=== PATIENT | female | born 1940 | race Caucasian/White ===

== ENCOUNTER → 2016-12-03 | Outpatient (CLI) | payer MEDICARE, OTHER ==
[~2016-12-03] MED LIST: ACET325T11 PO; ACET325T11 PR; BETH25TA3 PO; BISA10R; CEPH500 PO; CLON-352 PO; DILA2TAB4 PO; GABA100C4 PO; GLUC1KIT IM; GLUCTAB PO; LACTTAB7 PO; LISI-360 PO; MILKSUS5 PO; MIRA33502 PO; NADO20TA PO; NEXI40CA PO; NOVORP2; PERC5TAB12 PO; PRAV40TA2 PO; RANI150 PO; RIVA10 PO; ROBIDMS PO; SORB70SO36 PO; SYNT88TA PO; VYTO10TA32 PO; ZOLP10TA3 PO; [UNRECOGNIZED DRUG - CODE] PO
[2016-12-03 15:07] LABS: HEMATOCRIT 37.3 % (35.0-46.0); MEAN CELL VOLUME 78.3 FL (80.0-100.0); MEAN CORPUSCULAR HEMOGLOBIN 24.2 PG (27.0-34.0); PLATELET COUNT 218 TH/MM3 (150-450); RED BLOOD COUNT 4.76 MIL/MM3 (4.00-5.30); RED CELL DISTRIBUTION WIDTH 17.8 % (11.6-17.2); WHITE BLOOD COUNT 6.2 TH/MM3 (4.0-11.0)
[2016-12-03 15:08] LABS: REVIEW FLAG FINAL
[2016-12-03 15:13] LABS: ANION GAP 8 MEQ/L (5-15); AST (GOT) 30 U/L (15-37); BLOOD UREA NITROGEN 18 MG/DL (7-18); CHLORIDE 105 MEQ/L (98-107); GLOMERULAR FILTRATION RATE 60 ML/MIN (>89); GLUCOSE,FASTING 116 MG/DL (74-99); POTASSIUM 4.1 MEQ/L (3.5-5.1); SODIUM (NA) 139 MEQ/L (136-145)
[2016-12-03 15:25] LABS: ALKALINE PHOSPHATASE 79 U/L (45-117); ALT (GPT) 27 U/L (10-53); HDL CHOLESTEROL 37.4 MG/DL (40.0-60.0); LDL CHOLESTEROL 36 MG/DL (0-99); TOTAL BILIRUBIN ADULT 0.5 MG/DL (0.2-1.0)
[2016-12-03 22:15] LABS: HEMOGLOBIN A1a 1.4 %; HEMOGLOBIN A1b 2.3 %; HEMOGLOBIN Ao 82.9 %; HEMOGLOBIN LA1C 2.1 %; HEMOGLOBIN P3 4.2 %
== END ==
LOC: ELAB 12:21
PROVIDERS: ATTEND Family Medicine
DX: E78.4 Other hyperlipidemia (principal); E11.9 Type 2 diabetes mellitus without complications; K31.84 Gastroparesis; I10 Essential (primary) hypertension; E03.9 Hypothyroidism, unspecified
CPT/HCPCS: 36415; 80053; 80061; 83036; 84443; 85027

== ENCOUNTER 2017-02-17 12:37 | Inpatient (IN) | payer MEDICARE, OTHER ==
[2017-02-17] VITALS (7 sets, daily range): BP systolic 164–190; BP diastolic 74–84; PULSE 65–81; RESP 14–24; TEMP 97–98.3; O2SAT 94–99
[~2017-02-17] VITALS: Ht 170.2 cm; Wt 100.8 kg
[2017-02-17] MEDS ORDERED: SODIUM CHLORIDE 0.9% FLUSH 10 ML FLUSH IV FLUSH PRN (13:15)
[2017-02-17] MEDS ORDERED: SODIUM CHLORID 0.9% 500 ML INJ 500 ML IV ONE (13:15)
[2017-02-17] MEDS ORDERED: METOCLOPRAMIDE HCL 10 MG/2 ML VIAL IV PUSH ONE (13:15)
--- NOTE | 2017-02-17 13:20 | PD ---
HPI Chief Complaint: Abdominal Pain Time Seen by Provider: 13:14 Travel History International Travel<30 days: No Contact w/Intl Traveler<30days: No Traveled to known affect area: No History of Present Illness HPI 76-year-old female with history of hypertension, gastroparesis, presents to the ER today because of upper abdominal pains with nausea and vomiting, states she has had a few days history of diarrhea as well. She denies any fevers, sick contacts, denies any other symptoms. She currently rates her abdominal pain at a 7 out of 10. Modifying Factors: None Associated Signs & Symptoms: Nausea, vomiting, upper abdominal pains and diarrhea Risk Factors: History gastroparesis PFSH Past Medical History Arthritis: Yes Autoimmune Disease: No Blood Disorders: No Anxiety: No Depression: No Heart Rhythm Problems: No Cancer: No Cardiovascular Problems: No High Cholesterol: Yes Chest Pain: No Congestive Heart Failure: No Cerebrovascular Accident: No Diabetes: Yes (TYPE II) Diminished Hearing: No Endocrine: Yes Gastrointestinal Disorders: Yes (HX OF GERD) GERD: Yes Genitourinary: Yes (HX OF KIDNEY STONES, INCONTINENCE) Headaches: No Hepatitis: No Hiatal Hernia: No Hypertension: Yes Immune Disorder: No Implanted Vascular Access Dvce: Yes Kidney Stones: Yes (STENT PLACEMENT AUG 24 2011) Musculoskeletal: Yes (OSTEOARTHRITIS, NECK PROBLEMS) Neurologic: Yes (R HAND NUMBNESS AND TINGLING, NEUROPATHY IN FEET) Reproductive: No Respiratory: Yes (RIGHT UPPER LOBE REMOVED, BENIGN MASS) Immunizations Current: No Migraines: Yes Renal Failure: No Seizures: No Thyroid Disease: Yes (HYPO) Ulcer: No PNEUMOCCOCAL Vaccine (Year): 1 Menopausal: Yes : 2 Para: 0 : 2 Past Surgical History Abdominal Surgery: Yes (LAP CHOLECYSTECTOMY, APPENDECTION) AICD: No Appendectomy: Yes Arteriovenous Shunt: No Body Medical Devices: NECK AND LOWER BACK Cardiac Surgery: No Cholecystectomy: Yes Ear Surgery: No Endocrine Surgery: Yes (THYROIDECTOMY R SIDE) Eye Surgery: Yes Genitourinary Surgery: Yes (RIGHT CYSTO, URETERAL STENT, ABDOMINAL URETEROTOMY 1963) Gynecologic Surgery: Yes (HYSTERECTOMY, R OVARIAN SURGERY) Hysterectomy: Yes Insulin Pump: No Joint Replacement: Yes (R TOTAL KNEE, TOTAL R HIP) Neurologic Surgery: Yes (ANTERIOR CERVICAL FUSION ' AND 2007 LUMBAR FUSION, 2008 CERVICAL FUSION) Oral Surgery: No Pacemaker: No Thoracic Surgery: Yes (RIGHT UPPER LOBECTOMY-LUNG) Tonsillectomy: Yes Other Surgery: Yes (RIGHT UPPER LOBE LUNG SUREGRY) Social History Alcohol Use: No Tobacco Use: No Substance Use: No Allergies-Medications (Allergen,Severity, Reaction): Coded Allergies: Codeine (Verified Allergy, Severe, 02/17/17) NAUSEA Penicillin (Verified Allergy, Severe, Rash, 02/17/17) Sulfa (Verified Allergy, Severe, Hives, 02/17/17) Tetracycline (Verified Allergy, Severe, RASH, 02/17/17) Reported Meds & Prescriptions Reported Meds & Active Scripts Active Reported Tramadol Hydrochloride (Tramadol HCl) 50 Mg Tab 100 Mg PO Q6HR PRN Synthroid (Levothyroxine Sodium) 88 Mcg Tab 88 Mcg PO DAILY Miralax (Polyethylene Glycol 3350) 17 Gm Powd.pack 17 Gm PO DAILY Percocet (Oxycodone-Acetaminophen) 5-325 mg Tab 1-2 Tab PO Q4H PRN Nadolol 20 Mg Tab 20 Mg PO BID Metformin ER (Metformin HCl) 500 Mg Naty 500 Mg PO BID With evening meal Lantus Inj (Insulin Glargine) 1,000 Unit/10 Ml Vial 25 Units SQ HS Lisinopril 10 Mg Tab 10 Mg PO BID Symax Duotab (Hyoscyamine Sulfate) 0.375 Mg Tab 0.375 Mg PO Q12HR PRN Gabapentin 300 Mg Cap 300 Mg PO TID Vytorin (Ezetimibe-Simvastatin) 10-20 Mg Tab 1 Tab PO HS Omeprazole 20 Mg Tab 20 Mg PO DAILY Clonidine (Clonidine HCl) 0.1 Mg Tab 0.1 Mg PO BID Bethanechol 25 Mg Tab 25 Mg PO QID Review of Systems Except as stated in HPI: all other systems reviewed are Neg Physical Exam Narrative GENERAL: Well-developed elderly white female patient currently in moderate distress. Holding a bag of greenish vomitus with her. Awake and oriented 3. SKIN: Focused skin assessment warm/dry. HEAD: Atraumatic. Normocephalic. EYES: Pupils equal and round. No scleral icterus. No injection or drainage. ENT: No nasal bleeding or discharge. Mucous membranes pink and moist. NECK: Trachea midline. No JVD. CARDIOVASCULAR: Regular rate and rhythm. No murmur appreciated. RESPIRATORY: No accessory muscle use. Clear to auscultation. Breath sounds equal bilaterally. GASTROINTESTINAL: Abdomen soft, mild epigastric tenderness without guarding or rebound, nondistended. Hepatic and splenic margins not palpable. MUSCULOSKELETAL: No obvious deformities. No clubbing. No cyanosis. No edema. NEUROLOGICAL: Awake and alert. No obvious cranial nerve deficits. Motor grossly within normal limits. Normal speech. PSYCHIATRIC: Appropriate mood and affect; insight and judgment normal. Data Data Last Documented VS Vital Signs Date Time Temp Pulse Resp B/P Pulse Ox O2 Delivery O2 Flow Rate FiO2 02/17/17 15:00 74 14 183/79 94 Room Air 02/17/17 13:34 98.3 Orders Complete Blood Count With Diff (02/17/17 13:14) Comprehensive Metabolic Panel (02/17/17 13:14) Lipase (02/17/17 13:14) Urinalysis - C+S If Indicated (02/17/17 13:14) Abdomen, Flat & Upright (02/17/17 ) Iv Access Insert/Monitor (02/17/17 13:14) Ecg Monitoring (02/17/17 13:14) Oximetry (02/17/17 13:14) Sodium Chloride 0.9% Flush (Ns Flush) (02/17/17 13:15) Electrocardiogram (02/17/17 13:14) Metoclopramide Inj (Reglan Inj) (02/17/17 13:15) Sodium Chlorid 0.9% 500 Ml Inj (Ns 500 M (02/17/17 13:15) Urine Culture (02/17/17 13:40) Cefepime Inj (Maxipime Inj) (02/17/17 15:56) Blood Culture (02/17/17 15:56) Lactic Acid Sepsis Protocol (02/17/17 15:56) Labs Laboratory Tests Test 02/17/17 02/17/17 13:30 13:40 White Blood Count 13.0 TH/MM3 Red Blood Count 5.32 MIL/MM3 Hemoglobin 13.2 GM/DL Hematocrit 42.0 % Mean Corpuscular Volume 79.1 FL Mean Corpuscular Hemoglobin 24.8 PG Mean Corpuscular Hemoglobin 31.4 % Concent Red Cell Distribution Width 16.0 % Platelet Count 277 TH/MM3 Mean Platelet Volume 10.7 FL Neutrophils (%) (Auto) 83.6 % Lymphocytes (%) (Auto) 10.0 % Monocytes (%) (Auto) 4.8 % Eosinophils (%) (Auto) 0.9 % Basophils (%) (Auto) 0.7 % Neutrophils # (Auto) 10.9 TH/MM3 Lymphocytes # (Auto) 1.3 TH/MM3 Monocytes # (Auto) 0.6 TH/MM3 Eosinophils # (Auto) 0.1 TH/MM3 Basophils # (Auto) 0.1 TH/MM3 CBC Comment DIFF FINAL Differential Comment Sodium Level 138 MEQ/L Potassium Level 4.1 MEQ/L Chloride Level 103 MEQ/L Carbon Dioxide Level 24.0 MEQ/L Anion Gap 11 MEQ/L Blood Urea Nitrogen 17 MG/DL Creatinine 0.81 MG/DL Estimat Glomerular Filtration 69 ML/MIN Rate Random Glucose 138 MG/DL Calcium Level 8.9 MG/DL Total Bilirubin 0.4 MG/DL Aspartate Amino Transf 31 U/L (AST/SGOT) Alanine Aminotransferase 23 U/L (ALT/SGPT) Alkaline Phosphatase 80 U/L Total Protein 8.1 GM/DL Albumin 3.7 GM/DL Lipase 144 U/L Urine Color YELLOW Urine Turbidity HAZY Urine pH 5.5 Urine Specific [place] 1.023 Urine Protein 30 mg/dL Urine Glucose (UA) NEG mg/dL Urine Ketones TRACE mg/dL Urine Occult Blood SMALL Urine Nitrite POS Urine Bilirubin NEG Urine Urobilinogen LESS THAN 2.0 MG/DL Urine Leukocyte Esterase MOD Urine RBC 5 /hpf Urine WBC 11 /hpf Urine Squamous Epithelial 1 /hpf Cells Urine Bacteria MANY /hpf Urine Hyaline Casts 5 /lpf Urine Mucus FEW /lpf Microscopic Urinalysis Comment CULTURE INDICATED MDM Medical Decision Making Medical Screen Exam Complete: Yes Emergency Medical Condition: Yes Medical Record Reviewed: Yes Interpretation(s) Laboratory Tests Test 02/17/17 02/17/17 13:30 13:40 White Blood Count 13.0 TH/MM3 (4.0-11.0) Red Blood Count 5.32 MIL/MM3 (4.00-5.30) Mean Corpuscular Volume 79.1 FL (80.0-100.0) Mean Corpuscular Hemoglobin 24.8 PG (27.0-34.0) Mean Corpuscular Hemoglobin 31.4 % Concent (32.0-36.0) Neutrophils (%) (Auto) 83.6 % (16.0-70.0) Neutrophils # (Auto) 10.9 TH/MM3 (1.8-7.7) Estimat Glomerular Filtration 69 ML/MIN (>89) Rate Random Glucose 138 MG/DL (74-106) Urine Turbidity HAZY (CLEAR) Urine Protein 30 mg/dL (NEG-TRACE) Urine Ketones TRACE mg/dL (NEG) Urine Occult Blood SMALL (NEG) Urine Nitrite POS (NEG) Urine Leukocyte Esterase MOD (NEG) Urine RBC 5 /hpf (0-3) Urine WBC 11 /hpf (0-5) Urine Bacteria MANY /hpf (NONE) Urine Mucus FEW /lpf (OCC) Differential Diagnosis Nausea, vomiting, diarrheagastroenteritis versus gastroparesis versus obstruction versus dehydration versus metabolic issues Narrative Course Lab work significant for leukocytosis and UTI. IV antibiotics started after cultures are done. Patient's x-ray did not show obvious signs of acute obstruction. Her abdomen is fairly benign. She had improvement in nausea and vomiting after given IV fluids and nausea medication. At this point, patient states that she had tried to take her own antinausea medication from the last time she had this episode and it did not improve her symptoms: Body. My plan would be to admit her as an observation for further treatment. Case was discussed with Dr. Cox for admission. Diagnosis Primary Impression: Gastroparesis Additional Impression: UTI (urinary tract infection) Admitting Information Admitting Physician Requests: Admit Gene Weaver MD Feb 17, 2017 13:20
[2017-02-17 13:59] LABS: AUTOMATED NEUTROPHIL # 10.9 TH/MM3 (1.8-7.7); BASOPHIL # 0.1 TH/MM3 (0-0.2); BASOPHIL % 0.7 % (0.0-2.0); EOSINOPHIL # 0.1 TH/MM3 (0-0.4); EOSINOPHIL % 0.9 % (0.0-4.0); HEMO FLAGS DIFF FINAL; LYMPHOCYTE # 1.3 TH/MM3 (1.0-4.8); MEAN CELL VOLUME 79.1 FL (80.0-100.0); MEAN CORPUSCULAR HEMOGLOBIN 24.8 PG (27.0-34.0); MEAN CORPUSCULAR HGB CONC 31.4 % (32.0-36.0); MONO % 4.8 % (0.0-8.0); NEUT % 83.6 % (16.0-70.0); PLATELET COUNT 277 TH/MM3 (150-450); RED BLOOD COUNT 5.32 MIL/MM3 (4.00-5.30)
[2017-02-17 14:06] LABS: BACTERIA, URINE MANY /hpf; BLOOD, URINE SMALL (NEG); COMMENT (UR) CULTURE INDICATED; CULTURE IF INDICATED CULTURE INDICATED; GLUCOSE,URINE NEG (NEG); HYALINE CAST, URINE 5 /lpf (RARE); KETONE, URINE TRACE mg/dL (NEG); MUCUS URINE FEW /lpf (OCC); PH, URINE 5.5 (5.0-8.5); SQUAMOUS EPITHELIAL CELL URINE 1 /hpf (0-5); URINE COLOR YELLOW (YELLW/STRAW)
[2017-02-17 14:07] LABS: NITRITE,URINE POS (NEG)
[2017-02-17 14:21] LABS: ALT (GPT) 23 U/L (10-53)
[2017-02-17 14:22] LABS: ANION GAP 11 MEQ/L (5-15); AST (GOT) 31 U/L (15-37); BLOOD UREA NITROGEN 17 MG/DL (7-18); CHLORIDE 103 MEQ/L (98-107); GLOMERULAR FILTRATION RATE 69 ML/MIN (>89); POTASSIUM 4.1 MEQ/L (3.5-5.1); SODIUM (NA) 138 MEQ/L (136-145)
[2017-02-17 14:24] LABS: ALKALINE PHOSPHATASE 80 U/L (45-117); TOTAL BILIRUBIN ADULT 0.4 MG/DL (0.2-1.0)
[2017-02-17] MEDS ORDERED: SYMATAB PO (14:36)
[2017-02-17] MEDS ORDERED: CLON0.1T PO (14:36)
[2017-02-17] MEDS ORDERED: VYTO10TA8 PO (14:36)
[2017-02-17] MEDS ORDERED: OMEP20TA PO (14:36)
[2017-02-17] MEDS ORDERED: GABA300C5 PO (14:36)
[2017-02-17] MEDS ORDERED: BETH25TA2 PO (14:36)
[2017-02-17] MEDS ORDERED: LISI10TA3 PO (14:36)
[2017-02-17] MEDS ORDERED: METF500T4 PO (14:55)
[2017-02-17] MEDS ORDERED: LANTUS2P SQ (14:55)
[2017-02-17] MEDS ORDERED: TRAM-492 PO (14:55)
[2017-02-17] MEDS ORDERED: POLY17PO3 PO (14:55)
[2017-02-17] MEDS ORDERED: SYNT88TA PO (14:55)
[2017-02-17] MEDS ORDERED: PERC5TAB12 PO (14:55)
[2017-02-17] MEDS ORDERED: NADO20TA PO (14:55)
[2017-02-17] MEDS ORDERED: CEFEPIME INJ 2,000 MG in SODIUM CHLORIDE 0.9% INJ 100 ML IV STA (15:56)
--- NOTE | 2017-02-17 16:26 | HHI.HP ---
HPI Service [facility] Primary Care Physician Non-Staff Admission Diagnosis UTI/sepsis/gastroparesis Diagnoses: Travel History International Travel<30 Days: No Contact w/Intl Traveler <30 Da: No Traveled to Known Affected Are: No Sepsis Criteria SIRS Criteria (2 or more): Heart rate over 90, WBC > 12853, < 4000 or > 10% bands Sepsis Criteria (SIRS+source): Infect source susp/known Criteria Outcome: Meets sepsis criteria History of Present Illness 76-year-old female with a history of diabetes type 2 hypertension, presented to the ED for evaluation of 1 day history of nausea along with 2 episode of emesis prior to arrival in the ED. Patient reports 4 day history of diarrhea which resolved before the onset of nausea yesterday. This follows was follow by epigastric abdominal pain then nausea all night long not relief initially with Percocet however relief with tramadol as well as anti-emetic. Patient also reported abdominal pain rated 7/10 in intensity described as sharp and mostly located to the mid epigastric region. She denies any sick contact. Abnormal labs include WBC 13 and UA positive for nitrate. Although patient has a history of incontinence, she denies any dysuria all urinary frequency. She is also afebrile Patient denies any GI bleed and reports a known history of gastroparesis Review of Systems Except as stated in HPI: all other systems reviewed are Neg Past Family Social History Past Medical History Arthritis: Yes High Cholesterol: Yes Diabetes: Yes (TYPE II) Gastrointestinal Disorders: Yes (HX OF GERD) GERD: Yes Genitourinary: Yes (HX OF KIDNEY STONES, INCONTINENCE) Hypertension: Yes Implanted Vascular Access Dvce: Yes Kidney Stones: Yes (STENT PLACEMENT AUG 24 2011) Musculoskeletal: Yes (OSTEOARTHRITIS, NECK PROBLEMS) Neurologic: Yes (R HAND NUMBNESS AND TINGLING, NEUROPATHY IN FEET) Respiratory: Yes (RIGHT UPPER LOBE REMOVED, BENIGN MASS) Thyroid Disease: Yes (HYPO) Past Surgical History Abdominal Surgery: Yes (LAP CHOLECYSTECTOMY, APPENDECTION) Appendectomy: Yes Body Medical Devices: NECK AND LOWER BACK Cholecystectomy: Yes Endocrine Surgery: Yes (THYROIDECTOMY R SIDE) Eye Surgery: Yes Genitourinary Surgery: Yes (RIGHT CYSTO, URETERAL STENT, ABDOMINAL URETEROTOMY 1963) Gynecologic Surgery: Yes (HYSTERECTOMY, R OVARIAN SURGERY) Hysterectomy: Yes Joint Replacement: Yes (R TOTAL KNEE, TOTAL R HIP) Neurologic Surgery: Yes (ANTERIOR CERVICAL FUSION 96' AND 2007 LUMBAR FUSION, 2008 CERVICAL FUSION) Thoracic Surgery: Yes (RIGHT UPPER LOBECTOMY-LUNG) Tonsillectomy: Yes Other Surgery: Yes (RIGHT UPPER LOBE LUNG SUREGRY) Reported Medications Tramadol Hydrochloride (Tramadol HCl) 50 Mg Tab 100 Mg PO Q6HR PRN Synthroid (Levothyroxine Sodium) 88 Mcg Tab 88 Mcg PO DAILY Miralax (Polyethylene Glycol 3350) 17 Gm Powd.pack 17 Gm PO DAILY Percocet (Oxycodone-Acetaminophen) 5-325 mg Tab 1-2 Tab PO Q4H PRN Nadolol 20 Mg Tab 20 Mg PO BID Metformin ER (Metformin HCl) 500 Mg Naty 500 Mg PO BID With evening meal Lantus Inj (Insulin Glargine) 1,000 Unit/10 Ml Vial 25 Units SQ HS Lisinopril 10 Mg Tab 10 Mg PO BID Symax Duotab (Hyoscyamine Sulfate) 0.375 Mg Tab 0.375 Mg PO Q12HR PRN Gabapentin 300 Mg Cap 300 Mg PO TID Vytorin (Ezetimibe-Simvastatin) 10-20 Mg Tab 1 Tab PO HS Omeprazole 20 Mg Tab 20 Mg PO DAILY Clonidine (Clonidine HCl) 0.1 Mg Tab 0.1 Mg PO BID Bethanechol 25 Mg Tab 25 Mg PO QID Allergies: Coded Allergies: Codeine (Verified Allergy, Severe, 02/17/17) NAUSEA Penicillin (Verified Allergy, Severe, Rash, 02/17/17) Sulfa (Verified Allergy, Severe, Hives, 02/17/17) Tetracycline (Verified Allergy, Severe, RASH, 02/17/17) Family History Family history positive for hypertension and congestive heart failure. Social History Alcohol Use: No Tobacco Use: No Substance Use: No Physical Exam Vital Signs Vital Signs Date Time Temp Pulse Resp B/P Pulse Ox O2 Delivery O2 Flow Rate FiO2 02/17/17 15:00 74 14 183/79 94 Room Air 02/17/17 14:30 72 14 164/76 94 Room Air 02/17/17 14:00 70 14 172/74 94 Room Air 02/17/17 13:34 98.3 96 Room Air 02/17/17 13:22 65 24 190/82 98 Room Air Physical Exam GENERAL: This is a well-nourished, well-developed patient, in no apparent distress. SKIN: No rashes, ecchymoses or lesions. Cool and dry. HEAD: Atraumatic. Normocephalic. No temporal or scalp tenderness. EYES: Pupils equal round and reactive. Extraocular motions intact. No scleral icterus. No injection or drainage. ENT: Nose without bleeding, purulent drainage or septal hematoma. Throat without erythema, tonsillar hypertrophy or exudate. Uvula midline. Airway patent. NECK: Trachea midline. No JVD or lymphadenopathy. Supple, nontender, no meningeal signs. CARDIOVASCULAR: Regular rate and rhythm without murmurs, gallops, or rubs. RESPIRATORY: Clear to auscultation. Breath sounds equal bilaterally. No wheezes , rales, or rhonchi. GASTROINTESTINAL: Abdomen soft, non-tender, nondistended. No hepato-splenomegaly , or palpable masses. No guarding. MUSCULOSKELETAL: Extremities without clubbing, cyanosis, or edema. No joint tenderness, effusion, or edema noted. No calf tenderness. Negative Homans sign bilaterally. NEUROLOGICAL: Awake and alert. Cranial nerves II through XII intact. Motor and sensory grossly within normal limits. Five out of 5 muscle strength in all muscle groups. Normal speech. Laboratory Laboratory Tests Test 02/17/17 02/17/17 13:30 13:40 White Blood Count 13.0 Red Blood Count 5.32 Hemoglobin 13.2 Hematocrit 42.0 Mean Corpuscular Volume 79.1 Mean Corpuscular Hemoglobin 24.8 Mean Corpuscular Hemoglobin 31.4 Concent Red Cell Distribution Width 16.0 Platelet Count 277 Mean Platelet Volume 10.7 Neutrophils (%) (Auto) 83.6 Lymphocytes (%) (Auto) 10.0 Monocytes (%) (Auto) 4.8 Eosinophils (%) (Auto) 0.9 Basophils (%) (Auto) 0.7 Neutrophils # (Auto) 10.9 Lymphocytes # (Auto) 1.3 Monocytes # (Auto) 0.6 Eosinophils # (Auto) 0.1 Basophils # (Auto) 0.1 CBC Comment DIFF FINAL Differential Comment Sodium Level 138 Potassium Level 4.1 Chloride Level 103 Carbon Dioxide Level 24.0 Anion Gap 11 Blood Urea Nitrogen 17 Creatinine 0.81 Estimat Glomerular Filtration 69 Rate Random Glucose 138 Calcium Level 8.9 Total Bilirubin 0.4 Aspartate Amino Transf 31 (AST/SGOT) Alanine Aminotransferase 23 (ALT/SGPT) Alkaline Phosphatase 80 Total Protein 8.1 Albumin 3.7 Lipase 144 Urine Color YELLOW Urine Turbidity HAZY Urine pH 5.5 Urine Specific [place] 1.023 Urine Protein 30 Urine Glucose (UA) NEG Urine Ketones TRACE Urine Occult Blood SMALL Urine Nitrite POS Urine Bilirubin NEG Urine Urobilinogen LESS THAN 2.0 Urine Leukocyte Esterase MOD Urine RBC 5 Urine WBC 11 Urine Squamous Epithelial 1 Cells Urine Bacteria MANY Urine Hyaline Casts 5 Urine Mucus FEW Microscopic Urinalysis Comment CULTURE INDICATED Date/Time Procedure Status Source Growth 02/17/17 13:40 Urine Culture Received Urine Random Urine Pending Result Diagram: 02/17/17 1330 02/17/170 Assessment and Plan Problem List: (1) Gastroparesis ICD Code: K31.84 Status: Acute (2) UTI (urinary tract infection) ICD Code: N39.0 Status: Acute (3) Sepsis ICD Code: A41.9 Status: Acute Assessment and Plan 76-year-old female with Sepsis:Heart rate over 90, WBC > 41904, < 4000 or > 10% bands; Infect source susp/known(UTI) Status post cefepime IV 1, start Cipro 400 mg IV every 12 hours and check lactic acid Intractable nausea and vomiting Gastroparesis Lipase 144 Antiemetic, Reglan, IV fluid hydration Urinary tract infection Status post cefepime IV 1 in ED Start Cipro 400 mg IV every 12 hour pending urine culture Leukocytosis Likely secondary to above infectious process, monitor CBC Benign labile hypertension Resume outpatient medications Vasotec when necessary Diabetes type 2 Hold all oral hypoglycemic as well as basilar insulins Start medium sliding scale with fingerstick blood glucose Hyperlipidemia Resume statin Hypothyroidism Resume Synthroid DVT prophylaxis Bilateral SCDs Code Status Full code Discussed Condition With Patient, ED physician Physician Certification 2 Midnight Certification Type: Admission for Inpatient Services Order for Inpatient Services The services are ordered in accordance with Medicare regulations or non- Medicare payer requirements, as applicable. In the case of services not specified as inpatient-only, they are appropriately provided as inpatient services in accordance with the 2-midnight benchmark. Estimated LOS (days): 2 days is the estimated time the patient will need to remain in the hospital, assuming treatment plan goals are met and no additional complications. Post-Hospital Plan: Not yet determined Darron Singer MD Feb 17, 2017 16:26
[2017-02-17] MEDS ORDERED: ACETAMINOPHEN 325 MG TAB PO PRN (16:30)
[2017-02-17] MEDS ORDERED: NALOXONE HCL 0.4 MG/ML AMP IV PRN (16:30)
[2017-02-17] MEDS ORDERED: GLUCAGON 1 MG/ML VIAL OTHER PRN (16:30)
[2017-02-17] MEDS ORDERED: DEXTROSE 50% IN WATER 50 ML VIAL(D50) IV PRN (16:30)
--- NOTE | 2017-02-17 17:05 | RADRPT ---
EXAM DATE/TIME: 02/17/2017 14:38 [facility] COMPARISON: No previous studies available for comparison. INDICATIONS : Vomiting, diarrhea. MEDICAL HISTORY : gastroparesis x 6 years. SURGICAL HISTORY : None. ENCOUNTER: Initial ACUITY: 1 day PAIN SCORE: 6/10 LOCATION: Bilateral abdomen FINDINGS: There are prominent loops of small bowel in the midportion of the abdomen slightly organized with max imum diameter of 3.6 cm. There is evidence for prior cholecystectomy. mixed interstitial and alveolar process CONCLUSION: Possible ileus, however early partial obstruction is not excluded and follow up is suggested. Herbert Ireland MD on February 17, 2017 at 16:59 Board Certified Radiologist. This report was verified electronically.
[2017-02-17] MEDS: SODIUM CHLOR 0.9% 1000 ML INJ 1,000 ML IV SCH (17:56)
[2017-02-17] MEDS: BETHANECHOL CHL 25 MG TAB PO SCH ×2 (18:00→20:00)
[2017-02-17] MEDS: GABAPENTIN 300 MG CAP PO SCH (18:00)
[2017-02-17] MEDS: ONDANSETRON HCL 4 MG/2 ML VIAL IVP PRN (18:01)
[2017-02-17] MEDS: PRAVASTATIN SOD 40 MG TAB PO SCH (20:00)
[2017-02-17] MEDS: LACTOBACILLUS ACIDOPHILUS TAB PO SCH (20:00)
[2017-02-17] MEDS: LISINOPRIL 10 MG TAB PO SCH (20:00)
[2017-02-17] MEDS: METOCLOPRAMIDE HCL 10 MG TAB PO SCH (20:00)
[2017-02-17] MEDS: EZETIMIBE 10 MG TAB PO SCH (20:00)
[2017-02-17] MEDS: cloNIDine HCL 0.1 MG TAB PO SCH (20:01)
[2017-02-17] MEDS: SODIUM CHLORIDE 0.9% FLUSH 10 ML FLUSH IV FLUSH SCH (20:01)
[2017-02-17] MEDS: CIPROFLOXACIN 400 MG PREMIX 200 ML IV SCH (20:02)
[2017-02-17] MEDS: INSULIN ASPART SUPPLEMENTAL SCALE SQ SCH (20:25)
[2017-02-17] MEDS: NADOLOL 20 MG TAB PO SCH (22:42)
[2017-02-17] MEDS ORDERED: traMADol HCL 50 MG TAB PO ONE (23:00)
[2017-02-18] VITALS (12 sets, daily range): BP systolic 105–193; BP diastolic 55–122; PULSE 67–88; RESP 14–22; TEMP 96–99.8; O2SAT 93–98
[2017-02-18] MEDS: ONDANSETRON HCL 4 MG/2 ML VIAL IVP PRN ×4 (00:36→18:47)
[2017-02-18] MEDS: ENALAPRILAT 2.5 MG/2 ML VIAL IV PUSH PRN ×2 (00:44→06:43)
[2017-02-18] MEDS: METOCLOPRAMIDE HCL 10 MG TAB PO SCH ×4 (05:52→19:53)
[2017-02-18] MEDS: LEVOTHYROXINE SODIUM 88 MCG TAB PO SCH (05:52)
[2017-02-18] MEDS: SODIUM CHLOR 0.9% 1000 ML INJ 1,000 ML IV SCH (05:58)
[2017-02-18] MEDS: INSULIN ASPART SUPPLEMENTAL SCALE SQ SCH ×4 (06:13→20:01)
[2017-02-18] MEDS: CIPROFLOXACIN 400 MG PREMIX 200 ML IV SCH ×2 (09:05→19:53)
[2017-02-18] MEDS: PANTOPRAZOLE SOD 20 MG DELAYED RELEASE TAB PO SCH (09:07)
[2017-02-18] MEDS: LACTOBACILLUS ACIDOPHILUS TAB PO SCH ×2 (09:07→19:53)
[2017-02-18] MEDS: cloNIDine HCL 0.1 MG TAB PO SCH ×2 (09:08→19:54)
[2017-02-18] MEDS: LISINOPRIL 10 MG TAB PO SCH ×2 (09:08→19:54)
[2017-02-18] MEDS: GABAPENTIN 300 MG CAP PO SCH ×3 (09:08→18:00)
[2017-02-18] MEDS: NADOLOL 20 MG TAB PO SCH ×2 (09:08→19:54)
[2017-02-18] MEDS: BETHANECHOL CHL 25 MG TAB PO SCH ×4 (09:08→19:54)
[2017-02-18] MEDS: SODIUM CHLORIDE 0.9% FLUSH 10 ML FLUSH IV FLUSH SCH ×2 (09:12→19:54)
--- NOTE | 2017-02-18 09:49 | HHI.PR ---
Subjective Remarks Follow-up sepsis/UTI/gastroparesis 02/18/17-patient seen and examined, although she reported improvement of nausea and vomiting this a.m. however states she had symptoms until 3 AM. He also complained of back pain. BP slightly up. Patient would like to be placed on a clear liquid diet Objective Vitals Vital Signs Date Time Temp Pulse Resp B/P Pulse Ox O2 Delivery O2 Flow Rate FiO2 02/18/17 09:20 78 02/18/17 08:00 98.3 88 22 168/92 95 02/18/17 06:38 193/86 02/18/17 04:00 99.1 82 18 191/91 94 02/18/17 01:15 99.3 80 16 143/76 94 02/18/17 00:46 99.2 77 18 192/122 94 02/18/17 00:00 98.2 81 16 170/75 93 02/17/17 20:00 98.2 79 16 178/78 98 02/17/17 18:56 97.0 81 20 176/84 99 02/17/17 15:00 74 14 183/79 94 Room Air 02/17/17 14:30 72 14 164/76 94 Room Air 02/17/17 14:00 70 14 172/74 94 Room Air 02/17/17 13:34 98.3 96 Room Air 02/17/17 13:22 65 24 190/82 98 Room Air I/O 02/17/17 02/17/17 02/17/17 02/18/17 02/18/17 02/18/17 07:00 15:00 23:00 07:00 15:00 23:00 Intake Total 500 ml 710 ml 560 ml Output Total 200 ml Balance 300 ml 710 ml 560 ml Intake Oral 150 ml 0 ml IV Total 500 ml 560 ml 560 ml Output Emesis 200 ml # Voids 1 0 2 # Bowel Movements 0 0 Result Diagram: 02/17/17 1330 02/17/17 1330 Imaging Last Impressions Abdomen X-Ray 02/17/17 0000 Signed Impressions: Service Date/Time: Friday, February 17, 2017 14:38 - CONCLUSION: Possible ileus , however early partial obstruction is not excluded and follow up is suggested. Herbert Ireladn MD Objective Remarks GENERAL: NAD SKIN: Warm and dry. HEAD: Normocephalic. EYES: No scleral icterus. No injection or drainage. NECK: Supple, trachea midline. No JVD or lymphadenopathy. CARDIOVASCULAR: Regular rate and rhythm without murmurs, gallops, or rubs. RESPIRATORY: Breath sounds equal bilaterally. No accessory muscle use. GASTROINTESTINAL: Abdomen soft, mildly tender, nondistended. MUSCULOSKELETAL: No cyanosis, or edema. BACK: Nontender without obvious deformity. No CVA tenderness. A/P Problem List: (1) Gastroparesis ICD Code: K31.84 Status: Acute (2) UTI (urinary tract infection) ICD Code: N39.0 Status: Acute (3) Sepsis ICD Code: A41.9 Status: Acute Assessment and Plan 76-year-old female with Sepsis:Heart rate over 90, WBC > 25606, < 4000 or > 10% bands; Infect source susp/known(UTI) Status post cefepime IV 1, continue Cipro 400 mg IV every 12 hours and check lactic acid Intractable nausea and vomiting-improving Gastroparesis Lipase 144 Continue Antiemetic, Reglan, IV fluid hydration Questionable Ileus Check flat and upright this a.m. Consider NG tube if emesis Urinary tract infection Status post cefepime IV 1 in ED Continue Cipro 400 mg IV every 12 hour pending urine culture Leukocytosis Likely secondary to above infectious process, monitor CBC Benign labile hypertension Continue outpatient medications Vasotec when necessary Diabetes type 2 Hold all oral hypoglycemic as well as basal insulins medium sliding scale with fingerstick blood glucose Hyperlipidemia statin Hypothyroidism Continue Synthroid DVT prophylaxis Bilateral SCDs Darron Singer MD Feb 18, 2017 09:49
--- NOTE | 2017-02-18 11:26 | RADRPT ---
EXAM DATE/TIME: 02/18/2017 10:32 [facility] COMPARISON: ABDOMEN FLAT & UPRIGHT, February 17, 2017, 14:38. INDICATIONS : Ileus. MEDICAL HISTORY : gastroparesis x 6 years. SURGICAL HISTORY : ENCOUNTER: Subsequent ACUITY: 2 days PAIN SCORE: 3/10 LOCATION: Bilateral Abdomen. FINDINGS: There is persistent distended loops of small bowel in the midportion of the abdomen which are now org anized with maximum diameter of 3.5 cm. Gas and stool is present throughout the colon. There is evide nce for prior cholecystectomy. No definite free air is identified for technique. CONCLUSION: The size of the dilated small bowel has not changed, however they are more organized and partial smal l bowel obstruction may be present. Herbert Ireland MD on February 18, 2017 at 11:24 Board Certified Radiologist. This report was verified electronically.
[2017-02-18] MEDS: oxyCODONE/ACETAMINOPHEN 5 MG/325 MG TAB PO PRN ×2 (12:25→18:46)
--- NOTE | 2017-02-18 17:01 | EKG ---
Date Performed: 02/17/2017 Time Performed: 13:35:54 PTAGE: 76 years EKG: Sinus rhythm MARKED LEFT AXIS DEVIATION MODERATE VOLTAGE CRITERIA FOR LVH, CONSIDER NORMAL VARIANT ABNORMAL ECG PREVIOUS TRACING : 12/02/2012 02.49 Compared to prior tracing no significant change DOCTOR: Fantasma Quinteros Interpretating Date/Time 02/18/2017 17:00:40
[2017-02-18 17:10] LABS: AUTOMATED NEUTROPHIL # 8.5 TH/MM3 (1.8-7.7); BASOPHIL # 0.1 TH/MM3 (0-0.2); BASOPHIL % 0.7 % (0.0-2.0); EOSINOPHIL # 0.1 TH/MM3 (0-0.4); EOSINOPHIL % 0.6 % (0.0-4.0); HEMATOCRIT 38.4 % (35.0-46.0); HEMO FLAGS DIFF FINAL; LYMPH % 16.4 % (9.0-44.0); LYMPHOCYTE # 1.9 TH/MM3 (1.0-4.8); MEAN CELL VOLUME 77.7 FL (80.0-100.0); MEAN CORPUSCULAR HEMOGLOBIN 24.8 PG (27.0-34.0); MEAN CORPUSCULAR HGB CONC 31.9 % (32.0-36.0); MONO % 9.6 % (0.0-8.0); NEUT % 72.7 % (16.0-70.0); PLATELET COUNT 267 TH/MM3 (150-450); RED BLOOD COUNT 4.94 MIL/MM3 (4.00-5.30); RED CELL DISTRIBUTION WIDTH 15.8 % (11.6-17.2); WHITE BLOOD COUNT 11.7 TH/MM3 (4.0-11.0)
[2017-02-18 17:54] LABS: ALKALINE PHOSPHATASE 73 U/L (45-117); ALT (GPT) 22 U/L (10-53); ANION GAP 11 MEQ/L (5-15); AST (GOT) 27 U/L (15-37); BICARBONATE 27.1 MEQ/L (21.0-32.0); BLOOD UREA NITROGEN 11 MG/DL (7-18); CHLORIDE 100 MEQ/L (98-107); GLOMERULAR FILTRATION RATE 63 ML/MIN (>89); POTASSIUM 3.2 MEQ/L (3.5-5.1); SODIUM (NA) 138 MEQ/L (136-145); TOTAL BILIRUBIN ADULT 0.4 MG/DL (0.2-1.0)
[2017-02-18] MEDS: EZETIMIBE 10 MG TAB PO SCH (19:53)
[2017-02-18] MEDS: PRAVASTATIN SOD 40 MG TAB PO SCH (19:53)
[2017-02-19] VITALS (9 sets, daily range): BP systolic 110–165; BP diastolic 51–71; PULSE 60–88; RESP 16–18; TEMP 96.8–98.6; O2SAT 93–98
[2017-02-19] MEDS: ONDANSETRON HCL 4 MG/2 ML VIAL IVP PRN ×4 (02:27→22:11)
[2017-02-19] MEDS: oxyCODONE/ACETAMINOPHEN 5 MG/325 MG TAB PO PRN ×4 (02:28→22:12)
[2017-02-19] MEDS: METOCLOPRAMIDE HCL 10 MG TAB PO SCH ×4 (05:38→20:29)
[2017-02-19] MEDS: LEVOTHYROXINE SODIUM 88 MCG TAB PO SCH (05:38)
[2017-02-19] MEDS: SODIUM CHLOR 0.9% 1000 ML INJ 1,000 ML IV SCH ×2 (05:38→16:09)
[2017-02-19] MEDS: INSULIN ASPART SUPPLEMENTAL SCALE SQ SCH ×4 (05:46→20:40)
[2017-02-19] MEDS: cloNIDine HCL 0.1 MG TAB PO SCH ×2 (08:59→20:28)
[2017-02-19] MEDS: GABAPENTIN 300 MG CAP PO SCH ×3 (08:59→18:00)
[2017-02-19] MEDS: LISINOPRIL 10 MG TAB PO SCH ×2 (08:59→20:28)
[2017-02-19] MEDS: LACTOBACILLUS ACIDOPHILUS TAB PO SCH ×2 (08:59→20:27)
[2017-02-19] MEDS: BETHANECHOL CHL 25 MG TAB PO SCH ×4 (08:59→20:26)
[2017-02-19] MEDS: PANTOPRAZOLE SOD 20 MG DELAYED RELEASE TAB PO SCH (08:59)
[2017-02-19] MEDS: NADOLOL 20 MG TAB PO SCH ×2 (08:59→20:27)
[2017-02-19] MEDS: CIPROFLOXACIN 400 MG PREMIX 200 ML IV SCH (09:04)
[2017-02-19] MEDS: SODIUM CHLORIDE 0.9% FLUSH 10 ML FLUSH IV FLUSH SCH ×2 (09:04→20:30)
[2017-02-19] MEDS ORDERED: POTASSIUM CHLORIDE 25 MEQ EFFERVESCENT TAB PO ONE (12:15)
[2017-02-19] MEDS ORDERED: BISACODYL 10 MG SUPP RECTAL PRN (12:15)
--- NOTE | 2017-02-19 12:23 | HHI.PR ---
Subjective Remarks Follow-up sepsis/UTI/gastroparesis/partial small bowel obstruction 02/18/17-patient seen and examined, although she reported improvement of nausea and vomiting this a.m. however states she had symptoms until 3 AM. He also complained of back pain. BP slightly up. Patient would like to be placed on a clear liquid diet 02/19/17-patient seen and examined, reports improvement of nausea without any emesis. Passing Flatus but no BM yet and denies any abdominal pain. Tolerating clears Objective Vitals Vital Signs Date Time Temp Pulse Resp B/P Pulse Ox O2 Delivery O2 Flow Rate FiO2 02/19/17 12:00 97.0 88 18 110/51 95 02/19/17 08:54 96.8 69 16 165/70 97 02/19/17 08:00 97.3 66 18 120/57 94 02/19/17 04:00 98.5 87 16 126/63 94 02/19/17 04:00 60 02/19/17 00:00 98.6 72 16 110/55 93 02/19/17 00:00 66 02/18/17 20:00 99.8 73 16 132/68 94 02/18/17 20:00 69 02/18/17 16:22 67 02/18/17 16:00 98.5 68 18 148/63 96 02/18/17 13:48 16 02/18/17 13:23 67 I/O 02/18/17 02/18/17 02/18/17 02/19/17 02/19/17 02/19/17 07:00 15:00 23:00 07:00 15:00 23:00 Intake Total 560 ml 240 ml 1986 ml 520 ml 240 ml Balance 560 ml 240 ml 1986 ml 520 ml 240 ml Intake Oral 0 ml 240 ml 100 ml 200 ml 240 ml IV Total 560 ml 1886 ml 320 ml # Voids 2 4 1 2 2 # Bowel Movements 0 0 0 0 2 Result Diagram: 02/18/17 1630 02/18/17 1630 Imaging Last Impressions Abdomen X-Ray 02/18/17 0000 Signed Impressions: Service Date/Time: Saturday, February 18, 2017 10:32 - CONCLUSION: The size of the dilated small bowel has not changed, however they are more organized and partial small bowel obstruction may be present. Herbert Ireland MD Objective Remarks GENERAL: NAD SKIN: Warm and dry. HEAD: Normocephalic. EYES: No scleral icterus. No injection or drainage. NECK: Supple, trachea midline. No JVD or lymphadenopathy. CARDIOVASCULAR: Regular rate and rhythm without murmurs, gallops, or rubs. RESPIRATORY: Breath sounds equal bilaterally. No accessory muscle use. GASTROINTESTINAL: Abdomen soft, non tender, nondistended. MUSCULOSKELETAL: No cyanosis, or edema. BACK: Nontender without obvious deformity. No CVA tenderness. A/P Problem List: (1) Sepsis ICD Code: A41.9 Status: Resolved (2) Gastroparesis ICD Code: K31.84 Status: Acute (3) UTI (urinary tract infection) ICD Code: N39.0 Status: Acute (4) Small bowel obstruction, partial ICD Code: K56.69 Status: Acute (5) Hypokalemia ICD Code: E87.6 Status: Acute Assessment and Plan 76-year-old female with Sepsis: Resolved Intractable nausea and vomiting-improving Gastroparesis Lipase 144 Continue Antiemetic, Reglan, IV fluid hydration Partial small bowel obstruction Continue current conservative management, clear liquid . If no improvement consider NG tube placement and consultation to general surgery Repeat flat and upright today 02/19/17 Urinary tract infection-Escherichia coli Status post cefepime IV 1 in ED Switch Cipro from IV to by mouth 500 mg every 12 hours Leukocytosis Likely secondary to above infectious process, monitor CBC Benign hypertension Continue outpatient medications Vasotec when necessary Diabetes type 2 Continue to Hold all oral hypoglycemic as well as basal insulins medium sliding scale with fingerstick blood glucose Hyperlipidemia On statin Hypokalemia Give potassium 75 mEq 1 now and recheck BMP in a.m. Hypothyroidism Continue Synthroid DVT prophylaxis Bilateral SCDs Discharge Planning Discharge home when medically clear as patient with partial small bowel obstruction requiring current management Darron Singer MD Feb 19, 2017 12:23
--- NOTE | 2017-02-19 14:23 | RADRPT ---
EXAM DATE/TIME: 02/19/2017 13:58 [facility] COMPARISON: ABDOMEN FLAT & UPRIGHT, February 18, 2017, 10:32. INDICATIONS : Abdominal distention, gastric paresis, evaluate bowel obstruction MEDICAL HISTORY : gastric paresis x 6 years, UTI SURGICAL HISTORY : Hysterectomy. Appendectomy. right kidney and ureter surgical repair , hip replaced, lumbar fusion ENCOUNTER: Subsequent ACUITY: 3 days PAIN SCORE: 5/10 LOCATION: Bilateral abdomen FINDINGS: There no significant change in distended loops of small bowel in the midportion of the abdomen with m aximum diameter of 3.5 cm. No definite free air is identified for technique. CONCLUSION: Stable distended loops of small bowel organized in midportion of the abdomen not monk ged since one day ago. Herbert Ireland MD on February 19, 2017 at 14:18 Board Certified Radiologist. This report was verified electronically.
[2017-02-19] MEDS: CIPROFLOXACIN 500 MG TAB PO SCH (20:26)
[2017-02-19] MEDS: PRAVASTATIN SOD 40 MG TAB PO SCH (20:27)
[2017-02-19] MEDS: EZETIMIBE 10 MG TAB PO SCH (20:27)
[2017-02-20] VITALS: BP 126/61; PULSE 67; RESP 16; TEMP 98.1; O2SAT 96
[2017-02-20 04:00] VITALS: BP 149/67; PULSE 66; RESP 16; TEMP 97.5; O2SAT 94
[2017-02-20] MEDS: ONDANSETRON HCL 4 MG/2 ML VIAL IVP PRN ×3 (04:23→18:04)
[2017-02-20] MEDS: oxyCODONE/ACETAMINOPHEN 5 MG/325 MG TAB PO PRN ×3 (04:29→18:05)
[2017-02-20] MEDS: METOCLOPRAMIDE HCL 10 MG TAB PO SCH ×4 (06:07→20:26)
[2017-02-20] MEDS: LEVOTHYROXINE SODIUM 88 MCG TAB PO SCH (06:08)
[2017-02-20] MEDS: INSULIN ASPART SUPPLEMENTAL SCALE SQ SCH ×4 (06:15→20:35)
[2017-02-20 08:55] VITALS: BP 167/81; PULSE 71; RESP 20; TEMP 96.4; O2SAT 95
[2017-02-20] MEDS: SODIUM CHLORIDE 0.9% FLUSH 10 ML FLUSH IV FLUSH SCH ×2 (09:00→20:31)
[2017-02-20] MEDS: PANTOPRAZOLE SOD 20 MG DELAYED RELEASE TAB PO SCH (09:21)
[2017-02-20] MEDS: BETHANECHOL CHL 25 MG TAB PO SCH ×4 (09:21→20:26)
[2017-02-20] MEDS: LACTOBACILLUS ACIDOPHILUS TAB PO SCH ×2 (09:21→20:24)
[2017-02-20] MEDS: NADOLOL 20 MG TAB PO SCH ×2 (09:21→20:26)
[2017-02-20] MEDS: LISINOPRIL 10 MG TAB PO SCH ×2 (09:21→20:26)
[2017-02-20] MEDS: CIPROFLOXACIN 500 MG TAB PO SCH (09:21)
[2017-02-20] MEDS: cloNIDine HCL 0.1 MG TAB PO SCH ×2 (09:21→20:26)
[2017-02-20] MEDS: GABAPENTIN 300 MG CAP PO SCH ×3 (09:21→18:04)
--- NOTE | 2017-02-20 09:40 | HHI.PR ---
Subjective Remarks Follow-up sepsis/UTI/gastroparesis/partial small bowel obstruction. Patient still with slight nausea and abdominal pain though better than yesterday. Had bowel movement today. Discussed with RN Objective Vitals Vital Signs Date Time Temp Pulse Resp B/P Pulse Ox O2 Delivery O2 Flow Rate FiO2 02/20/17 08:55 96.4 71 20 167/81 95 02/20/17 05:35 20 02/20/17 04:00 97.5 66 16 149/67 94 02/20/17 00:00 98.1 67 16 126/61 96 02/19/17 20:00 98.3 69 16 140/71 94 02/19/17 16:46 97.2 63 18 143/67 98 02/19/17 12:04 66 02/19/17 12:00 97.0 88 18 110/51 95 I/O 02/19/17 02/19/17 02/19/17 02/20/17 02/20/17 02/20/17 07:00 15:00 23:00 07:00 15:00 23:00 Intake Total 520 ml 240 ml 1080 ml 606 ml Balance 520 ml 240 ml 1080 ml 606 ml Intake Oral 200 ml 240 ml 250 ml 360 ml IV Total 320 ml 830 ml 246 ml # Voids 2 2 1 2 # Bowel Movements 0 2 0 0 Result Diagram: 02/18/17 1630 02/18/17 1630 Imaging Last Impressions Abdomen X-Ray 02/19/17 0000 Signed Impressions: Service Date/Time: February 13:58 - CONCLUSION: Stable distended loops of small bowel organized in midportion of the abdomen not changed since one day ago. Herbert Ireland MD Objective Remarks GENERAL: NAD SKIN: Warm and dry. HEAD: Normocephalic. EYES: No scleral icterus. No injection or drainage. NECK: Supple, trachea midline. No JVD or lymphadenopathy. CARDIOVASCULAR: Regular rate and rhythm without murmurs, gallops, or rubs. RESPIRATORY: Breath sounds equal bilaterally. No accessory muscle use. GASTROINTESTINAL: Abdomen soft, non tender, nondistended. MUSCULOSKELETAL: No cyanosis, or edema. BACK: Nontender without obvious deformity. No CVA tenderness. Procedures none A/P Problem List: (1) Sepsis ICD Code: A41.9 Status: Resolved (2) Gastroparesis ICD Code: K31.84 Status: Acute (3) UTI (urinary tract infection) ICD Code: N39.0 Status: Acute (4) Small bowel obstruction, partial ICD Code: K56.69 Status: Acute (5) Hypokalemia ICD Code: E87.6 Status: Acute Assessment and Plan 76-year-old female with Sepsis: Resolved Intractable nausea and vomiting-improving Gastroparesis Lipase 144 Continue Antiemetic, Reglan, IV fluid hydration Partial small bowel obstruction vs Ileus Improving. Continue current conservative management, clear liquid . If no improvement consider NG tube placement and consultation to general surgery Repeat flat and upright today 02/20/17 Urinary tract infection-Escherichia coli Status post cefepime IV 1 in ED Switch Cipro from IV to by mouth 500 mg every 12 hours Leukocytosis. Improving Likely secondary to above infectious process, monitor CBC Benign hypertension Continue outpatient medications Vasotec when necessary Diabetes type 2 Continue to Hold all oral hypoglycemic as well as basal insulins medium sliding scale with fingerstick blood glucose Hyperlipidemia On statin Hypokalemia Give potassium 60 mEq 1 now and recheck BMP in a.m. Hypothyroidism Continue Synthroid DVT prophylaxis Bilateral SCDs Discharge Planning Possible discharge in 1-2 days Vimal Mondragon MD Feb 20, 2017 09:40
[2017-02-20 09:58] LABS: AUTOMATED NEUTROPHIL # 4.6 TH/MM3 (1.8-7.7); BASOPHIL # 0.1 TH/MM3 (0-0.2); BASOPHIL % 1.7 % (0.0-2.0); EOSINOPHIL # 0.2 TH/MM3 (0-0.4); EOSINOPHIL % 3.2 % (0.0-4.0); HEMATOCRIT 36.8 % (35.0-46.0); HEMO FLAGS DIFF FINAL; LYMPHOCYTE # 1.8 TH/MM3 (1.0-4.8); MEAN CELL VOLUME 78.4 FL (80.0-100.0); MEAN CORPUSCULAR HGB CONC 31.9 % (32.0-36.0); MONO % 12.1 % (0.0-8.0); PLATELET COUNT 226 TH/MM3 (150-450); RED BLOOD COUNT 4.69 MIL/MM3 (4.00-5.30); RED CELL DISTRIBUTION WIDTH 15.7 % (11.6-17.2); WHITE BLOOD COUNT 7.6 TH/MM3 (4.0-11.0)
[2017-02-20 11:04] LABS: POTASSIUM 2.8 MEQ/L (3.5-5.1)
[2017-02-20 12:00] VITALS: BP 132/60; PULSE 65; RESP 20; TEMP 97.8; O2SAT 94
[2017-02-20] MEDS ORDERED: NS + KCL 20 MEQ INJ 1,000 ML IV SCH (12:00)
[2017-02-20] MEDS ORDERED: POTASSIUM CHLORIDE 10 MEQ CONTROLLED RELEASE TAB PO ONE (12:00)
--- NOTE | 2017-02-20 12:00 | RADRPT ---
EXAM DATE/TIME: 02/20/2017 10:39 [facility] COMPARISON: ABDOMEN FLAT & UPRIGHT, February 19, 2017, 13:58. INDICATIONS : Obstruction, nausea. MEDICAL HISTORY : gastroparesis x 6 years SURGICAL HISTORY : Hysterectomy. Appendectomy. right kidney and ureter surgical repair , hip replaced, lumbar fusion. ENCOUNTER: Subsequent ACUITY: 4 - 6 days PAIN SCORE: 6/10 LOCATION: Bilateral Abdomen. FINDINGS: The distended loops of small bowel possibly slightly improved maximum diameter 3.3 cm on the right si de. No definite free air is identified for technique. CONCLUSION: There is slightly less distention of loops of small bowel since the prior exam from one day ago. Herbert Ireland MD on February 20, 2017 at 11:57 Board Certified Radiologist. This report was verified electronically.
--- NOTE | 2017-02-20 15:25 | HHI.DCPOC ---
Discharge Care Plan Diagnosis: (1) Small bowel obstruction, partial Your Health Problems Are: Difficulty with ADL Exercise Tolerance Goals to Promote Your Health * To prevent worsening of your condition and complications * To maintain your health at the optimal level Directions to Meet Your Goals Take your medications as prescribed Follow your dietary instruction Follow activity as directed Keep your appointments as scheduled Take your immunizations and boosters as scheduled If your symptoms worsen call your PCP, if no PCP go to Urgent Care Center or Emergency Room Smoking is Dangerous to Your Health. Avoid second hand smoke Call the 24-hour hour crisis hotline for domestic abuse at Vimal Mondragon MD Feb 20, 2017 15:25
[2017-02-20 16:00] VITALS: BP 157/72; PULSE 64; RESP 20; TEMP 97.4; O2SAT 94
[2017-02-20 20:00] VITALS: BP 177/82; PULSE 73; RESP 18; TEMP 98.4; O2SAT 94
[2017-02-20] MEDS: PRAVASTATIN SOD 40 MG TAB PO SCH (20:24)
[2017-02-20] MEDS: EZETIMIBE 10 MG TAB PO SCH (20:24)
[2017-02-20] MEDS: MAGNESIUM OXIDE 400 MG TAB PO SCH (20:25)
[2017-02-21] VITALS (8 sets, daily range): BP systolic 133–213; BP diastolic 63–92; PULSE 64–74; RESP 18; TEMP 97.5–98.1; O2SAT 95–97
[2017-02-21] MEDS: oxyCODONE/ACETAMINOPHEN 5 MG/325 MG TAB PO PRN ×4 (00:10→18:47)
[2017-02-21] MEDS: ONDANSETRON HCL 4 MG/2 ML VIAL IVP PRN ×4 (00:10→18:47)
[2017-02-21] MEDS: ZOLPIDEM TARTRATE 5 MG TAB PO PRN (00:25)
[2017-02-21] MEDS: LEVOTHYROXINE SODIUM 88 MCG TAB PO SCH (06:17)
[2017-02-21] MEDS: METOCLOPRAMIDE HCL 10 MG TAB PO SCH ×4 (06:17→20:24)
[2017-02-21] MEDS: INSULIN ASPART SUPPLEMENTAL SCALE SQ SCH ×4 (06:20→20:34)
[2017-02-21] MEDS: ENALAPRILAT 2.5 MG/2 ML VIAL IV PUSH PRN ×3 (06:34→22:56)
[2017-02-21 07:59] LABS: BICARBONATE 26.1 MEQ/L (21.0-32.0); MAGNESIUM 1.3 MG/DL (1.5-2.5); POTASSIUM 3.4 MEQ/L (3.5-5.1)
--- NOTE | 2017-02-21 08:37 | HHI.PR ---
Subjective Remarks Follow-up abdominal pain. Complaining of upper epigastric discomfort and nausea today. Also no BM and flatus today. Discussed with RN Objective Vitals Vital Signs Date Time Temp Pulse Resp B/P Pulse Ox O2 Delivery O2 Flow Rate FiO2 02/21/17 07:30 20 02/21/17 06:26 177/81 02/21/17 04:00 98.0 64 18 181/82 97 02/21/17 00:00 97.6 65 18 133/63 95 02/20/17 20:00 98.4 73 18 177/82 94 02/20/17 16:00 97.4 64 20 157/72 94 02/20/17 12:00 97.8 65 20 132/60 94 02/20/17 08:55 96.4 71 20 167/81 95 I/O 02/20/17 02/20/17 02/20/17 02/21/17 02/21/17 02/21/17 07:00 15:00 23:00 07:00 15:00 23:00 Intake Total 606 ml 180 ml 831 ml 469 ml Balance 606 ml 180 ml 831 ml 469 ml Intake Oral 360 ml 480 ml 240 ml IV Total 246 ml 180 ml 351 ml 229 ml # Voids 2 2 3 # Bowel Movements 0 Result Diagram: 02/20/17 0730 02/21/17 0620 Imaging Last Impressions Abdomen X-Ray 02/20/17 0000 Signed Impressions: Service Date/Time: Monday, February 20, 2017 10:39 - CONCLUSION: There is slightly less distention of loops of small bowel since the prior exam from one day ago. Herbert Ireland MD Objective Remarks GENERAL: NAD SKIN: Warm and dry. HEAD: Normocephalic. EYES: No scleral icterus. No injection or drainage. NECK: Supple, trachea midline. No JVD or lymphadenopathy. CARDIOVASCULAR: Regular rate and rhythm without murmurs, gallops, or rubs. RESPIRATORY: Breath sounds equal bilaterally. No accessory muscle use. GASTROINTESTINAL: Abdomen soft, slightly tender upper abdominal, nondistended. MUSCULOSKELETAL: No cyanosis, or edema. BACK: Nontender without obvious deformity. No CVA tenderness. Procedures none A/P Problem List: (1) Sepsis ICD Code: A41.9 Status: Resolved (2) Gastroparesis ICD Code: K31.84 Status: Acute (3) UTI (urinary tract infection) ICD Code: N39.0 Status: Acute (4) Small bowel obstruction, partial ICD Code: K56.69 Status: Acute (5) Hypokalemia ICD Code: E87.6 Status: Acute Assessment and Plan 76-year-old female with Sepsis: Resolved Intractable nausea and vomiting Gastroparesis Lipase 144 Complaining of nausea and upper abdominal pain and tenderness could be another exacerbation of gastroparesis. Continue Antiemetic, Reglan, IV fluid hydration. We will monitor Partial small bowel obstruction vs Ileus This is resolving I believe. Continue current conservative management and advance diet as tolerated. If no improvement consider NG tube placement and consultation to general surgery Repeat flat and upright shows less distention. Patient had a bowel movement yesterday Urinary tract infection-Escherichia coli Status post cefepime IV 1 in ED and Cipro Leukocytosis. Improving Likely secondary to above infectious process, monitor CBC Benign hypertension Uncontrolled increase lisinopril. Continue outpatient medications Vasotec when necessary Diabetes type 2 Continue to Hold all oral hypoglycemic as well as basal insulins medium sliding scale with fingerstick blood glucose Hyperlipidemia On statin Hypokalemia. Improving Give potassium 40 mEq 1 now and follow-up BMP Hypomagnesemia. 2 g IV magnesium sulfate and continue magnesium oxide Hypothyroidism Continue Synthroid DVT prophylaxis Bilateral SCDs Discharge Planning Possible discharge in 1-2 days Vimal Mondragon MD Feb 21, 2017 08:36
[2017-02-21] MEDS ORDERED: LISI-515 PO (08:38)
[2017-02-21] MEDS ORDERED: MAGN400T3 PO (08:38)
[2017-02-21] MEDS ORDERED: POTASSIUM CHLORIDE 20 MEQ CONTROLLED RELEASE TAB PO ONE (08:45)
[2017-02-21] MEDS: MAGNESIUM OXIDE 400 MG TAB PO SCH ×2 (09:33→20:24)
[2017-02-21] MEDS: GABAPENTIN 300 MG CAP PO SCH ×3 (09:34→18:47)
[2017-02-21] MEDS: PANTOPRAZOLE SOD 20 MG DELAYED RELEASE TAB PO SCH (09:34)
[2017-02-21] MEDS: cloNIDine HCL 0.1 MG TAB PO SCH ×2 (09:34→20:24)
[2017-02-21] MEDS: LISINOPRIL 20 MG TAB PO SCH ×2 (09:34→20:23)
[2017-02-21] MEDS: BETHANECHOL CHL 25 MG TAB PO SCH ×4 (09:34→20:24)
[2017-02-21] MEDS: LACTOBACILLUS ACIDOPHILUS TAB PO SCH ×2 (09:35→20:23)
[2017-02-21] MEDS: SODIUM CHLORIDE 0.9% FLUSH 10 ML FLUSH IV FLUSH SCH ×2 (09:35→20:35)
[2017-02-21] MEDS: NADOLOL 20 MG TAB PO SCH ×2 (09:35→20:24)
[2017-02-21] MEDS: POLYETHYLENE GLYCOL 17 GM PKG PO SCH (09:39)
[2017-02-21] MEDS ORDERED: METO10TA PO (09:49)
[2017-02-21] MEDS ORDERED: POTASSIUM CHLORIDE 10 MEQ CONTROLLED RELEASE TAB PO ONE (10:00)
[2017-02-21] MEDS: MAGNESIUM SULFATE 1 GM PREMIX 100 ML IV SCH ×2 (10:51→12:41)
[2017-02-21] MEDS: DOCUSATE SODIUM 50 MG/SENNA 8.6 MG TAB PO SCH ×2 (10:56→20:23)
[2017-02-21] MEDS: PRAVASTATIN SOD 40 MG TAB PO SCH (20:23)
[2017-02-21] MEDS: EZETIMIBE 10 MG TAB PO SCH (20:23)
[2017-02-22] VITALS: BP 136/63; PULSE 75; RESP 19; TEMP 97.7; O2SAT 96
[2017-02-22] MEDS: oxyCODONE/ACETAMINOPHEN 5 MG/325 MG TAB PO PRN ×4 (01:02→20:05)
[2017-02-22] MEDS: ONDANSETRON HCL 4 MG/2 ML VIAL IVP PRN ×4 (01:05→20:06)
[2017-02-22 04:00] VITALS: BP 163/73; PULSE 69; RESP 18; TEMP 98.7; O2SAT 97
[2017-02-22] MEDS: METOCLOPRAMIDE HCL 10 MG TAB PO SCH ×4 (05:53→20:06)
[2017-02-22] MEDS: LEVOTHYROXINE SODIUM 88 MCG TAB PO SCH (05:53)
[2017-02-22] MEDS: INSULIN ASPART SUPPLEMENTAL SCALE SQ SCH ×4 (06:09→20:07)
[2017-02-22 08:00] VITALS: BP 172/78; PULSE 76; RESP 18; TEMP 98.7; O2SAT 96
[2017-02-22 08:41] LABS: BICARBONATE 27.4 MEQ/L (21.0-32.0); MAGNESIUM 1.6 MG/DL (1.5-2.5); POTASSIUM 3.4 MEQ/L (3.5-5.1)
[2017-02-22] MEDS: POLYETHYLENE GLYCOL 17 GM PKG PO SCH (09:00)
--- NOTE | 2017-02-22 09:18 | HHI.PR ---
Subjective Remarks Follow-up SBO and gastroparesis. Patient reports while she was trying to have a bowel movement developed increasing lower abdominal pain and vomited 1. Finally she had a large bowel movement. Today she feels better still with slight nausea and mild right upper and hypogastric pain. She has been ambulating. She has been advised to discontinue MiraLAX which is her home medications since she'll be on Kamini-Colace. She does not want to leave today states she'll be more comfortable going home tomorrow. Objective Vitals Vital Signs Date Time Temp Pulse Resp B/P Pulse Ox O2 Delivery O2 Flow Rate FiO2 02/22/17 04:00 98.7 69 18 163/73 97 02/22/17 00:00 97.7 75 19 136/63 96 02/21/17 23:00 213/92 203/92 02/21/17 20:00 98.0 70 18 188/83 97 02/21/17 16:00 97.5 65 18 156/70 96 02/21/17 12:23 98.1 74 18 173/79 97 I/O 02/21/17 02/21/17 02/21/17 02/22/17 02/22/17 02/22/17 06:59 14:59 22:59 06:59 14:59 22:59 Intake Total 469 ml 1316 ml 480 ml 240 ml Balance 469 ml 1316 ml 480 ml 240 ml Intake Oral 240 ml 960 ml 480 ml 240 ml IV Total 229 ml 356 ml # Voids 3 2 3 4 # Bowel Movements 1 Result Diagram: 02/20/17 0730 02/22/17 0652 Objective Remarks Well-developed, well-nourished in no distress Regular rate and rhythm no murmur Lungs are clear no wheezes Abdomen soft normal active bowel sounds with slight epigastric tenderness Procedures none A/P Problem List: (1) Sepsis ICD Code: A41.9 Status: Resolved (2) Gastroparesis ICD Code: K31.84 Status: Acute (3) UTI (urinary tract infection) ICD Code: N39.0 Status: Acute (4) Small bowel obstruction, partial ICD Code: K56.69 Status: Acute (5) Hypokalemia ICD Code: E87.6 Status: Acute Assessment and Plan 76-year-old female with Sepsis: Resolved Intractable nausea and vomiting Gastroparesis Lipase 144 Complaining of nausea and upper abdominal pain and tenderness could be another exacerbation of gastroparesis. Continue Antiemetic, Reglan, IV fluid hydration. We will monitor 02/22. She is feeling better complaining of slight nausea and right upper quadrant pain. Tolerating diet. Continue current management Partial small bowel obstruction vs Ileus This is resolving I believe. Continue current conservative management and advance diet as tolerated. If no improvement consider NG tube placement and consultation to general surgery Repeat flat and upright shows less distention. Patient had a bowel movement yesterday 02/22 patient had a large bowel movement yesterday. Complains of slight hypogastric discomfort but no tenderness Urinary tract infection-Escherichia coli Status post cefepime IV 1 in ED and Cipro Leukocytosis. Improving Likely secondary to above infectious process, monitor CBC Benign hypertension Uncontrolled increase lisinopril. Continue outpatient medications Vasotec when necessary 02/22 improving but still uncontrolled with lisinopril dose increased to 20 mg twice a day. We'll continue to monitor. Consider adding hydralazine unable to increase clonidine and Corgard secondary to bradycardia Diabetes type 2 Continue to Hold all oral hypoglycemic as well as basal insulins medium sliding scale with fingerstick blood glucose 02/22 stable fingersticks Hyperlipidemia On statin Hypokalemia. Improving Give potassium 40 mEq 1 now and follow-up [facility] 02/22 K 3.4 we'll give another 40 mg potassium by mouth 1 Hypomagnesemia. Status post 2 g IV magnesium sulfate and continue magnesium oxide Hypothyroidism Continue Synthroid DVT prophylaxis Bilateral SCDs Discharge Planning Possible discharge later today or in the morning and patient prefers to be discharged in the morning Vimal Mondragon MD Feb 22, 2017 09:18
[2017-02-22] MEDS ORDERED: POTASSIUM CHLORIDE 20 MEQ CONTROLLED RELEASE TAB PO ONE (09:30)
[2017-02-22] MEDS: LISINOPRIL 20 MG TAB PO SCH ×2 (10:11→20:06)
[2017-02-22] MEDS: GABAPENTIN 300 MG CAP PO SCH ×3 (10:11→18:28)
[2017-02-22] MEDS: cloNIDine HCL 0.1 MG TAB PO SCH ×2 (10:11→20:06)
[2017-02-22] MEDS: NADOLOL 20 MG TAB PO SCH ×2 (10:11→20:06)
[2017-02-22] MEDS: LACTOBACILLUS ACIDOPHILUS TAB PO SCH ×2 (10:11→20:06)
[2017-02-22] MEDS: BETHANECHOL CHL 25 MG TAB PO SCH ×4 (10:11→20:06)
[2017-02-22] MEDS: MAGNESIUM OXIDE 400 MG TAB PO SCH ×2 (10:12→20:06)
[2017-02-22] MEDS: DOCUSATE SODIUM 50 MG/SENNA 8.6 MG TAB PO SCH ×2 (10:12→20:06)
[2017-02-22] MEDS: PANTOPRAZOLE SOD 20 MG DELAYED RELEASE TAB PO SCH (10:17)
[2017-02-22] MEDS: SODIUM CHLORIDE 0.9% FLUSH 10 ML FLUSH IV FLUSH SCH ×2 (10:19→20:07)
[2017-02-22 12:23] VITALS: BP 157/78; PULSE 73; RESP 18; TEMP 98.9; O2SAT 95
[2017-02-22] MEDS ORDERED: POTASSIUM CHLORIDE 10 MEQ CONTROLLED RELEASE TAB PO ONE (15:15)
[2017-02-22 18:00] VITALS: BP 184/93; PULSE 68; RESP 18; TEMP 98.8; O2SAT 95
[2017-02-22 20:00] VITALS: BP 178/79; PULSE 80; RESP 18; TEMP 98.1; O2SAT 95
[2017-02-22] MEDS: EZETIMIBE 10 MG TAB PO SCH (20:06)
[2017-02-22] MEDS: PRAVASTATIN SOD 40 MG TAB PO SCH (20:06)
[2017-02-23] VITALS (8 sets, daily range): BP systolic 120–193; BP diastolic 60–90; PULSE 62–82; RESP 16–18; TEMP 97.6–102.5; O2SAT 93–97
[2017-02-23] MEDS: ENALAPRILAT 2.5 MG/2 ML VIAL IV PUSH PRN (00:21)
[2017-02-23] MEDS: ONDANSETRON HCL 4 MG/2 ML VIAL IVP PRN ×4 (01:56→21:13)
[2017-02-23] MEDS: oxyCODONE/ACETAMINOPHEN 5 MG/325 MG TAB PO PRN ×2 (01:56→07:28)
[2017-02-23] MEDS ORDERED: cloNIDine HCL 0.1 MG TAB PO ONE (02:30)
[2017-02-23] MEDS: METOCLOPRAMIDE HCL 10 MG TAB PO SCH ×4 (05:29→21:01)
[2017-02-23] MEDS: LEVOTHYROXINE SODIUM 88 MCG TAB PO SCH (05:29)
[2017-02-23] MEDS: INSULIN ASPART SUPPLEMENTAL SCALE SQ SCH ×4 (06:04→21:00)
[2017-02-23] MEDS: POLYETHYLENE GLYCOL 17 GM PKG PO SCH (09:00)
[2017-02-23] MEDS: SODIUM CHLORIDE 0.9% FLUSH 10 ML FLUSH IV FLUSH SCH ×2 (09:00→21:03)
[2017-02-23] MEDS ORDERED: BISACODYL 10 MG SUPP RECTAL ONE (09:15)
[2017-02-23] MEDS ORDERED: LACTULOSE SYRUP 20 GM/30 ML CUP PO PRN (09:15)
[2017-02-23] MEDS ORDERED: SENNOSIDES 8.6 MG TAB PO PRN (09:15)
[2017-02-23] MEDS ORDERED: MAGNESIUM HYDROXIDE SUSP 30 ML CUP PO PRN (09:15)
--- NOTE | 2017-02-23 09:19 | HHI.PR ---
Subjective Remarks Follow-up gastroparesis, bowel obstruction and hypertension. Improving but still with nausea, right upper quadrant and hypogastric pain. Tolerating by mouth. No BM and flatus since Thursday. No increased abdominal distention. BP improved after clonidine 1. Objective Vitals Vital Signs Date Time Temp Pulse Resp B/P Pulse Ox O2 Delivery O2 Flow Rate FiO2 02/23/17 08:32 97.6 68 16 165/90 96 02/23/17 04:00 97.7 62 18 120/60 96 02/23/17 02:09 171/81 02/23/17 00:00 98.0 65 17 162/73 96 02/22/17 20:00 98.1 80 18 178/79 95 02/22/17 18:00 98.8 68 18 184/93 95 02/22/17 12:23 98.9 73 18 157/78 95 I/O 02/22/17 02/22/17 02/22/17 02/23/17 02/23/17 02/23/17 07:00 15:00 23:00 07:00 15:00 23:00 Intake Total 240 ml 1560 ml 240 ml Balance 240 ml 1560 ml 240 ml Intake Oral 240 ml 1560 ml 240 ml # Voids 4 3 2 Result Diagram: 02/20/17 0730 02/22/17 0652 Imaging Last Impressions Abdomen X-Ray 02/20/17 0000 Signed Impressions: Service Date/Time: Monday, February 20, 2017 10:39 - CONCLUSION: There is slightly less distention of loops of small bowel since the prior exam from one day ago. Herbert Ireland MD Objective Remarks Well-developed, well-nourished in no distress Regular rate and rhythm no murmur Lungs are clear no wheezes Abdomen soft normal active bowel sounds with slight epigastric tenderness Alert and oriented and nonfocal No change in PE from previous Procedures none A/P Problem List: (1) Sepsis ICD Code: A41.9 Status: Resolved (2) Gastroparesis ICD Code: K31.84 Status: Acute (3) UTI (urinary tract infection) ICD Code: N39.0 Status: Resolved (4) Small bowel obstruction, partial ICD Code: K56.69 Status: Acute (5) Hypokalemia ICD Code: E87.6 Status: Acute Assessment and Plan 76-year-old female with Sepsis: Resolved Intractable nausea and vomiting Gastroparesis Lipase 144. Liver function tests within normal limits status post cholecystectomy Improving but still complaining of nausea and upper abdominal pain and tenderness could be another exacerbation of gastroparesis. Tolerating meals. Continue Antiemetic, Reglan, prn IV fluid hydration. Add EES. We will monitor. Consider CT Partial small bowel obstruction vs Ileus This is resolving I believe but no BM and flatus for over a day. Repeat KUB today. Continue current conservative management and advance diet as tolerated. If no improvement consider NG tube placement and consultation to general surgery Dulcolax suppository 1. Continue Kamini-Colace, MiraLAX and as needed medications Urinary tract infection-Escherichia coli Status post cefepime IV 1 in ED and Cipro Leukocytosis. Improving Likely secondary to above infectious process, monitor CBC Benign hypertension Improving on increased lisinopril dose to 20 mg twice a day. Increase clonidine to 0.2 mg twice a day. Vasotec when necessary Diabetes type 2. Stable Continue to Hold all oral hypoglycemic as well as basal insulins medium sliding scale with fingerstick blood glucose Hyperlipidemia On statin Hypokalemia. Improving status post replacement Hypomagnesemia. Status post 2 g IV magnesium sulfate and continue magnesium oxide Hypothyroidism Continue Synthroid DVT prophylaxis Bilateral SCDs Discharge Planning Possible discharge later today or in the morning pending repeat KUB Vimal Mondragon MD Feb 23, 2017 09:19
[2017-02-23] MEDS ORDERED: CLON.1 PO (09:21)
[2017-02-23] MEDS ORDERED: PERI8.6T PO (09:21)
--- NOTE | 2017-02-23 09:40 | RADRPT ---
EXAM DATE/TIME: 02/23/2017 09:08 [facility] COMPARISON: ABDOMEN KUB ONLY, February 20, 2017, 10:39. INDICATIONS : Distention. MEDICAL HISTORY : gastroparesis x 6 years SURGICAL HISTORY : Hysterectomy. Appendectomy. right kidney and ureter surgical repair , hip ENCOUNTER: Subsequent ACUITY: 1 week PAIN SCORE: 6/10 LOCATION: Bilateral abdomen. FINDINGS: Two portable and single right decubitus view of the abdomen demonstrate slight interval progression o f diffuse mild gaseous distention of small bowel without significant pneumatosis or free air. Air is seen in the colon and rectum. Remainder of the exam is unchanged. CONCLUSION: 1. Slight interval progression of diffuse mild small bowel distention without evidence for significan t perforation at this time. Findings are compatible with adynamic ileus versus partial small bowel ob struction. Jorge Flores MD on February 23, 2017 at 9:35 Board Certified Radiologist. This report was verified electronically.
[2017-02-23] MEDS: PANTOPRAZOLE SOD 20 MG DELAYED RELEASE TAB PO SCH (09:44)
[2017-02-23] MEDS: LACTOBACILLUS ACIDOPHILUS TAB PO SCH ×2 (09:44→21:01)
[2017-02-23] MEDS: NADOLOL 20 MG TAB PO SCH ×2 (09:44→21:01)
[2017-02-23] MEDS: GABAPENTIN 300 MG CAP PO SCH ×3 (09:44→18:24)
[2017-02-23] MEDS: BETHANECHOL CHL 25 MG TAB PO SCH ×4 (09:44→21:02)
[2017-02-23] MEDS: LISINOPRIL 20 MG TAB PO SCH ×2 (09:44→21:01)
[2017-02-23] MEDS: DOCUSATE SODIUM 50 MG/SENNA 8.6 MG TAB PO SCH ×2 (09:44→21:02)
[2017-02-23] MEDS: MAGNESIUM OXIDE 400 MG TAB PO SCH ×2 (09:44→21:01)
[2017-02-23] MEDS ORDERED: ERYTHROMYCIN ETHYLSUCCINATE 400 MG TAB PO SCH (09:45)
[2017-02-23] MEDS: ERYTHROMYCIN EC 250 MG TABEC PO SCH ×3 (11:18→21:02)
[2017-02-23] MEDS ORDERED: ERYT250 PO (11:31)
[2017-02-23] MEDS ORDERED: KETOROLAC TROMETHAMINE 30 MG/ML (IVP) VIAL IV PUSH PRN (11:45)
[2017-02-23] MEDS: SODIUM CHLORIDE 0.9% FLUSH 10 ML FLUSH IV FLUSH PRN (14:01)
[2017-02-23] MEDS: KETOROLAC TROMETHAMINE 30 MG/ML (IVP) VIAL IV PUSH PRN ×2 (14:18→21:13)
[2017-02-23] MEDS ORDERED: DIATRIZOATE MEGLUM/DIATRIZOATE SOD 9 ML CUP PO ONE (16:00)
[2017-02-23] MEDS: EZETIMIBE 10 MG TAB PO SCH (21:01)
[2017-02-23] MEDS: cloNIDine HCL 0.2 MG TAB PO SCH (21:01)
[2017-02-23] MEDS: PRAVASTATIN SOD 40 MG TAB PO SCH (21:02)
[2017-02-24] VITALS (8 sets, daily range): BP systolic 130–191; BP diastolic 61–91; PULSE 58–68; RESP 16–20; TEMP 96.7–98.4; O2SAT 93–96
--- NOTE | 2017-02-24 00:15 | RADRPT ---
EXAM DATE/TIME: 02/23/2017 23:49 [facility] COMPARISON: CT ABDOMEN & PELVIS W/O CONTRAST, September 04, 2011, 14:58. INDICATIONS : Possible obstruction. ORAL CONTRAST: Prescribed oral contrast ingested. RADIATION DOSE: 17.2 CTDIvol (mGy) MEDICAL HISTORY : Gastroesophageal reflux disease. Renal calculi. Diabetes mellitus type 2.Hypertension. SURGICAL HISTORY : Lobectomy. Appendectomy.Hysterectomy.Cholecystectomy. Cervical fusion. ENCOUNTER: Initial ACUITY: 1 day PAIN SCALE: 3/10 LOCATION: Bilateral abdomen TECHNIQUE: Volumetric scanning of the abdomen and pelvis was performed. Using automated exposure control and ad justment of the mA and/or kV according to patient size, radiation dose was kept as low as reasonably achievable to obtain optimal diagnostic quality images. DICOM format image data is available electro nically for review and comparison. The lack of IV contrast limits the diagnosis for certain organ pa thology. FINDINGS: LOWER LUNGS: The visualized lower lungs are clear. LIVER: Homogeneous density without lesion. There is no dilation of the biliary tree. No gallbladder, surgi elizabeth removed. SPLEEN: Normal size without lesion. PANCREAS: Within normal limits. KIDNEYS: Normal in size and shape. There is no mass, stone, or hydronephrosis. ADRENAL GLANDS: Within normal limits. VASCULAR: There is no aortic aneurysm. Atherosclerotic changes BOWEL/MESENTERY: There are mildly to moderately dilated loops of small bowel throughout the abdomen. There appears to be a transition zone in the distal small bowel at the level of the terminal ileum. The distal termina l ileum is normal in diameter. There is contrast seen in the small bowel as well as the colon. There is stool in the colon. No inflammatory changes are seen. No free air or free fluid is demonstrated. ABDOMINAL WALL: Within normal limits. RETROPERITONEUM: There is no lymphadenopathy. BLADDER: No wall thickening or mass. REPRODUCTIVE: Within normal limits. INGUINAL: There is no lymphadenopathy or hernia. MUSCULOSKELETAL: Within normal limits for patient age. Evidence of previous lumbar spinal surgery. Bony degenerative c hanges. Right hip prosthesis. CONCLUSION: 1. There are mildly to moderately dilated loops of small bowel with a transition zone in the distal s mall bowel. There is contrast in the small bowel and colon. These findings would suggest a partial sm all bowel obstruction. 2. No evidence of calcified renal stones or hydronephrosis.. 3. The rest of exam is unremarkable compared to the prior study. Wilmar Castellano MD on February 24, 2017 at 0:08 Board Certified Radiologist. This report was verified electronically.
[2017-02-24] MEDS ORDERED: ONDANSETRON ODT 4 MG TAB PO ONE (02:45)
[2017-02-24] MEDS ORDERED: KETOROLAC TROMETHAMINE 10 MG TAB PO ONE (02:45)
[2017-02-24] MEDS: LEVOTHYROXINE SODIUM 88 MCG TAB PO SCH (06:12)
[2017-02-24] MEDS: METOCLOPRAMIDE HCL 10 MG TAB PO SCH ×4 (06:12→20:06)
[2017-02-24] MEDS: ERYTHROMYCIN EC 250 MG TABEC PO SCH ×3 (06:12→20:19)
[2017-02-24] MEDS: INSULIN ASPART SUPPLEMENTAL SCALE SQ SCH ×4 (06:24→20:05)
[2017-02-24 06:31] LABS: AUTOMATED NEUTROPHIL # 5.2 TH/MM3 (1.8-7.7); BASOPHIL # 0.1 TH/MM3 (0-0.2); BASOPHIL % 1.2 % (0.0-2.0); EOSINOPHIL # 0.2 TH/MM3 (0-0.4); EOSINOPHIL % 2.5 % (0.0-4.0); HEMO FLAGS DIFF FINAL; LYMPH % 23.2 % (9.0-44.0); LYMPHOCYTE # 1.9 TH/MM3 (1.0-4.8); MEAN CELL VOLUME 79.7 FL (80.0-100.0); MEAN CORPUSCULAR HEMOGLOBIN 25.3 PG (27.0-34.0); MEAN CORPUSCULAR HGB CONC 31.8 % (32.0-36.0); MONO % 11.2 % (0.0-8.0); NEUT % 61.9 % (16.0-70.0); PLATELET COUNT 238 TH/MM3 (150-450); RED BLOOD COUNT 4.64 MIL/MM3 (4.00-5.30); RED CELL DISTRIBUTION WIDTH 15.8 % (11.6-17.2); WHITE BLOOD COUNT 8.4 TH/MM3 (4.0-11.0)
[2017-02-24 07:01] LABS: MAGNESIUM 1.6 MG/DL (1.5-2.5); POTASSIUM 3.4 MEQ/L (3.5-5.1)
[2017-02-24] MEDS: PANTOPRAZOLE SOD 20 MG DELAYED RELEASE TAB PO SCH (08:16)
[2017-02-24] MEDS: LACTOBACILLUS ACIDOPHILUS TAB PO SCH ×2 (08:16→20:07)
[2017-02-24] MEDS: NADOLOL 20 MG TAB PO SCH ×2 (08:16→20:09)
[2017-02-24] MEDS: BETHANECHOL CHL 25 MG TAB PO SCH ×4 (08:16→20:07)
[2017-02-24] MEDS: MAGNESIUM OXIDE 400 MG TAB PO SCH ×2 (08:17→20:08)
[2017-02-24] MEDS: GABAPENTIN 300 MG CAP PO SCH ×3 (08:17→18:07)
[2017-02-24] MEDS: cloNIDine HCL 0.2 MG TAB PO SCH ×2 (08:17→20:07)
[2017-02-24] MEDS: LISINOPRIL 20 MG TAB PO SCH ×2 (08:17→20:08)
[2017-02-24] MEDS: DOCUSATE SODIUM 50 MG/SENNA 8.6 MG TAB PO SCH ×2 (08:17→20:08)
[2017-02-24] MEDS: SODIUM CHLORIDE 0.9% FLUSH 10 ML FLUSH IV FLUSH SCH ×2 (08:25→20:10)
[2017-02-24] MEDS ORDERED: BISACODYL 10 MG SUPP RECTAL PRN (09:00)
[2017-02-24] MEDS: POLYETHYLENE GLYCOL 17 GM PKG PO SCH (09:00)
--- NOTE | 2017-02-24 09:36 | RADRPT ---
EXAM DATE/TIME: 02/24/2017 09:19 [facility] COMPARISON: CT ABDOMEN & PELVIS W/O CONTRAST, February 23, 2017, 23:49. INDICATIONS : Abdominal pain and distension. MEDICAL HISTORY : Gastroparesis SURGICAL HISTORY : Hysterectomy. Appendectomy. Ureterectomy ENCOUNTER: Subsequent ACUITY: 1 week PAIN SCORE: 8/10 LOCATION: Abdomen FINDINGS: Supine and upright views of the abdomen were performed. There are some distended loops of small bowel throughout the mid abdomen. There is contrast throughout the colon. Small bowel distention similar t o 02/19/17 No air fluid levels are seen. No abnormal masses, calcifications, or organomegaly is seen. The visualized lower lungs are clear. No evidence of free intraperitoneal gas. The osseous struct ures are unremarkable. Cholecystectomy clips. Previous lumbar spine fixation CONCLUSION: Stable bowel gas pattern with some distended loops of small bowel. Contrast within the colon. Mynor Johnson MD on February 24, 2017 at 9:33 Board Certified Radiologist. This report was verified electronically.
[2017-02-24] MEDS: KETOROLAC TROMETHAMINE 30 MG/ML (IVP) VIAL IV PUSH PRN ×3 (10:39→21:30)
[2017-02-24] MEDS: SODIUM CHLORIDE 0.9% FLUSH 10 ML FLUSH IV FLUSH PRN (10:39)
--- NOTE | 2017-02-24 11:27 | HHI.PR ---
Subjective Remarks Follow-up partial small bowel obstruction 02/24/17-patient seen and examined, continue to complaint of abdominal pain, nausea without any emesis. Reported a small BM over 12 hours ago however no flatus or BM since then . BP up Objective Vitals Vital Signs Date Time Temp Pulse Resp B/P Pulse Ox O2 Delivery O2 Flow Rate FiO2 02/24/17 08:52 98.0 68 20 189/88 94 02/24/17 08:45 178/83 02/24/17 05:31 98.4 58 20 191/86 96 02/24/17 00:31 98.2 68 20 130/61 94 02/23/17 22:13 16 02/23/17 21:02 98.3 71 18 193/84 94 02/23/17 16:45 98.5 66 16 122/68 97 02/23/17 12:50 97.9 68 16 147/77 96 I/O 02/23/17 02/23/17 02/23/17 02/24/17 02/24/17 02/24/17 06:59 14:59 22:59 06:59 14:59 22:59 Intake Total 240 ml 720 ml Balance 240 ml 720 ml Intake Oral 240 ml 720 ml # Voids 2 2 Result Diagram: 02/24/17 0620 02/24/17 0620 Imaging Last Impressions Abdomen X-Ray 02/24/17 0000 Signed Impressions: Service Date/Time: Friday, February 24, 2017 09:19 - CONCLUSION: Stable bowel gas pattern with some distended loops of small bowel. Contrast within the colon. Mynor Johnson MD Abdomen/Pelvis CT 02/23/17 0000 Signed Impressions: Service Date/Time: Thursday, February 23, 2017 23:49 - CONCLUSION: 1. There are mildly to moderately dilated loops of small bowel with a transition zone in the distal small bowel. There is contrast in the small bowel and colon. These findings would suggest a partial small bowel obstruction. 2. No evidence of calcified renal stones or hydronephrosis.. 3. The rest of exam is unremarkable compared to the prior study. Wilmar Castellano MD Objective Remarks GENERAL: NAD SKIN: Warm and dry. HEAD: Normocephalic. EYES: No scleral icterus. No injection or drainage. NECK: Supple, trachea midline. No JVD or lymphadenopathy. CARDIOVASCULAR: Regular rate and rhythm without murmurs, gallops, or rubs. RESPIRATORY: Breath sounds equal bilaterally. No accessory muscle use. GASTROINTESTINAL: Abdomen soft, non tender, nondistended. MUSCULOSKELETAL: No cyanosis, or edema. BACK: Nontender without obvious deformity. No CVA tenderness. Procedures none A/P Problem List: (1) Sepsis ICD Code: A41.9 Status: Resolved (2) Gastroparesis ICD Code: K31.84 Status: Acute (3) UTI (urinary tract infection) ICD Code: N39.0 Status: Resolved (4) Small bowel obstruction, partial ICD Code: K56.69 Status: Acute (5) Hypokalemia ICD Code: E87.6 Status: Acute Assessment and Plan 76-year-old female with Partial small bowel obstruction Despite medical management patient with evidence of obstruction, for which I will consult general surgery. Keep nothing by mouth start IV fluid hydration Currently on Erythromycin every 8 hours Repeat flat and upright today 02/24/17 Gastroparesis Lipase 144 Continue Antiemetic, Reglan Sepsis: Resolved Urinary tract infection-Escherichia coli Completed treatment with by mouth antibiotics Benign hypertension Continue Prinivil 20 mg twice a day, nadolol 20 mg twice a day, Catapres 0.2 mg twice a day Vasotec when necessary Diabetes type 2 Continue to Hold all oral hypoglycemic as well as basal insulins medium sliding scale with fingerstick blood glucose Hyperlipidemia On statin Hypothyroidism Continue Synthroid DVT prophylaxis Bilateral SCDs Discharge Planning Discharge home when medically clear as patient with partial small bowel obstruction requiring current management Darron Singer MD Feb 24, 2017 11:27
[2017-02-24] MEDS ORDERED: SODIUM CHLOR 0.9% 1000 ML INJ 1,000 ML IV SCH (11:30)
--- NOTE | 2017-02-24 13:37 | PD.CONS ---
cc: Marbin Cullen MD HPI Service General Surgery Consult Requested By Dr. Garcia Reason for Consult Gastroparesis; evaluate SBO Primary Care Physician Non-Staff History of Present Illness This is a 76-year-old female with a past medical history gastroparesis, hypertension, diabetes mellitus type 2. She presented to the emergency department approximately 7 days with abdominal pain with nausea and vomiting. She reports no diarrhea. A series of abdominal x-rays have been obtained which shows a dilated small bowel but no definitive obstruction seen. A CT abdomen and pelvis was also obtained which showed again mildly dilated loops of small bowel with a transition zone in the distal small bowel. There is contrast visualized in the small bowel colon on the scan. The patient was managed medically but has not yet improved. A General Surgery consultation requested for evaluation of a partial small bowel obstruction. Review of Systems Constitutional: COMPLAINS OF: Fatigue, Change in appetite, DENIES: Chills Endocrine: DENIES: Polydipsia, Polyuria, Polyphagia Eyes: DENIES: Eye inflammation Ears, nose, mouth, throat: DENIES: Hearing loss Respiratory: DENIES: Cough, Snoring Cardiovascular: DENIES: Chest pain, Palpitations Gastrointestinal: COMPLAINS OF: Abdominal pain, Nausea, Vomiting, DENIES: Diarrhea Genitourinary: DENIES: Urinary frequency Musculoskeletal: DENIES: Muscle aches Integumentary: DENIES: Abnormal pigmentation Hematologic/lymphatic: DENIES: Bruising Immunologic/allergic: DENIES: Eczema Neurologic: DENIES: Abnormal gait, Headache Psychiatric: DENIES: Confusion, Mood changes, Depression Past Family Social History Past Medical History Gastroparesis Hypertension Diabetes mellitus type 2 Past Surgical History Appendectomy Cholecystectomy Thyroidectomy Abdominal ureterectomy Total abdominal hysterectomy Right ovarian surgery Right knee replacement ACDF Reported Medications Lisinopril Gabapentin Symax Diotab Nadolol Metformin MiraLAX Clonidine Vytorin Lantus Percocet Tramadol Bethanechol Omeprazole Levothyroxine Allergies: Coded Allergies: Codeine (Verified Allergy, Severe, 02/17/17) NAUSEA Penicillin (Verified Allergy, Severe, Rash, 02/17/17) Sulfa (Verified Allergy, Severe, Hives, 02/17/17) Tetracycline (Verified Allergy, Severe, RASH, 02/17/17) Active Ordered Medications Current Medications Medications (Trade) Dose Ordered Sig/Cristine Route Start Time Stop Time Status Last Admin (NS Flush) 2 ml UNSCH PRN IV FLUSH 02/17/17 16:30 02/24/17 10:39 (NS Flush) 2 ml BID IV FLUSH 02/17/17 21:00 02/23/17 21:03 (Tylenol) 650 mg Q4H PRN PO 02/17/17 16:30 (Zofran Inj) 4 mg Q6H PRN IVP 02/17/17 16:30 02/23/17 21:13 (Tylenol) 650 mg Q6H PRN PO 02/17/17 16:30 (Narcan Inj) 0.4 mg UNSCH PRN IV 02/17/17 16:30 (Lactinex) 1 tab Q12HR PO 02/17/17 21:00 02/24/17 08:16 (D50w (Vial) Inj) 50 ml UNSCH PRN IV 02/17/17 16:30 (Glucagon Inj) 1 mg UNSCH PRN OTHER 02/17/17 16:30 (Vasotec Inj) 2.5 mg Q6H PRN IV PUSH 02/17/17 16:30 02/23/17 00:21 (Urecholine) 25 mg QID PO 02/17/17 18:00 02/24/17 08:16 (Neurontin) 300 mg TID PO 02/17/17 18:00 02/24/17 08:17 (Synthroid) 88 mcg DAILY@0600 PO 02/18/17 06:00 02/24/17 06:12 (Corgard) 20 mg BID PO 02/17/17 21:00 02/24/17 08:16 (Pravachol) 40 mg HS PO 02/17/17 21:00 02/23/17 21:02 (Protonix) 20 mg DAILY PO 02/18/17 09:00 02/24/17 08:16 (Reglan) 10 mg ACHS PO 02/17/17 21:00 02/24/17 10:38 (Zetia) 10 mg HS PO 02/17/17 21:00 02/23/17 21:01 (Miralax) 17 gm DAILY PO 02/21/17 09:00 02/21/17 09:39 (Ambien) 5 mg HS PRN PO 02/20/17 11:30 02/21/17 00:25 (Mag-Ox) 400 mg Q12HR PO 02/20/17 21:00 02/24/17 08:17 (Prinivil) 20 mg BID PO 02/21/17 09:00 02/24/17 08:17 (Kamini-Colace) 2 tab BID PO 02/21/17 10:00 02/24/17 08:17 (Catapres) 0.2 mg BID PO 02/23/17 21:00 02/24/17 08:17 (Milk Of Magnesia Liq) 30 ml Q12H PRN PO 02/23/17 09:15 (Senokot) 17.2 mg Q12H PRN PO 02/23/17 09:15 (Dulcolax Supp) 10 mg DAILY PRN RECTAL 02/24/17 09:00 (Lactulose Liq) 30 ml DAILY PRN PO 02/23/17 09:15 (Erythromycin Ec) 250 mg Q8HR PO 02/23/17 09:45 02/24/17 06:12 Ketorolac Tromethamine 15 mg 15 mg Q6H PRN IV PUSH 02/23/17 12:30 02/28/17 12:29 02/24/17 10:39 (NS 1000 ml Inj) 1,000 ml @ 42 mls/hr [id number] IV 02/24/17 11:30 02/24/17 12:50 Family History Denies any family known history of esophageal, stomach were rectal cancer. Social History Denies tobacco use Denies EtOH use Denies substance abuse Physical Exam Vital Signs Vital Signs Date Time Temp Pulse Resp B/P Pulse Ox O2 Delivery O2 Flow Rate FiO2 02/24/17 11:30 97.3 61 20 133/63 93 02/24/17 08:52 98.0 68 20 189/88 94 02/24/17 08:45 178/83 02/24/17 05:31 98.4 58 20 191/86 96 02/24/17 00:31 98.2 68 20 130/61 94 02/23/17 22:13 16 02/23/17 21:02 98.3 71 18 193/84 94 02/23/17 16:45 98.5 66 16 122/68 97 Physical Exam GENERAL: 76 year old female resting in bed in no acute distress. SKIN: Warm and dry. HEAD: Atraumatic. Normocephalic. EYES: Pupils equal and round. No scleral icterus. No injection or drainage. ENT: No nasal bleeding or discharge. Mucous membranes pink and moist. NECK: Trachea midline. CARDIOVASCULAR: Regular rate and rhythm. RESPIRATORY: No accessory muscle use. Clear to auscultation. Breath sounds equal bilaterally. GASTROINTESTINAL: Abdomen obese, soft, non-tender, nondistended. Faint RLQ healed scar. MUSCULOSKELETAL: Extremities without clubbing, cyanosis, or edema. No obvious deformities. NEUROLOGICAL: Awake and alert. No obvious cranial nerve deficits. Motor grossly within normal limits. Five out of 5 muscle strength in the arms and legs. Normal speech. PSYCHIATRIC: Appropriate mood and affect; insight and judgment normal. Laboratory Laboratory Tests Test 02/24/17 06:20 White Blood Count 8.4 Red Blood Count 4.64 Hemoglobin 11.7 Hematocrit 37.0 Mean Corpuscular Volume 79.7 Mean Corpuscular Hemoglobin 25.3 Mean Corpuscular Hemoglobin 31.8 Concent Red Cell Distribution Width 15.8 Platelet Count 238 Mean Platelet Volume 9.6 Neutrophils (%) (Auto) 61.9 Lymphocytes (%) (Auto) 23.2 Monocytes (%) (Auto) 11.2 Eosinophils (%) (Auto) 2.5 Basophils (%) (Auto) 1.2 Neutrophils # (Auto) 5.2 Lymphocytes # (Auto) 1.9 Monocytes # (Auto) 0.9 Eosinophils # (Auto) 0.2 Basophils # (Auto) 0.1 CBC Comment DIFF FINAL Differential Comment Sodium Level 139 Potassium Level 3.4 Chloride Level 101 Carbon Dioxide Level 29.0 Anion Gap 9 Blood Urea Nitrogen 11 Creatinine 0.83 Estimat Glomerular Filtration 67 Rate Random Glucose 132 Calcium Level 8.5 Magnesium Level 1.6 Result Diagram: 02/24/1761902/24/17619 Imaging Last 48 hours Impressions Abdomen X-Ray 02/24/17 0000 Signed Impressions: Service Date/Time: Friday, February 24, 2017 09:19 - CONCLUSION: Stable bowel gas pattern with some distended loops of small bowel. Contrast within the colon. Mynor Johnson MD Abdomen/Pelvis CT 02/23/17 0000 Signed Impressions: Service Date/Time: Thursday, February 23, 2017 23:49 - CONCLUSION: 1. There are mildly to moderately dilated loops of small bowel with a transition zone in the distal small bowel. There is contrast in the small bowel and colon. These findings would suggest a partial small bowel obstruction. 2. No evidence of calcified renal stones or hydronephrosis.. 3. The rest of exam is unremarkable compared to the prior study. Wilmar Castellano MD Abdomen X-Ray 02/23/17 0000 Signed Impressions: Service Date/Time: Thursday, February 23, 2017 09:08 - CONCLUSION: 1. Slight interval progression of diffuse mild small bowel distention without evidence for significant perforation at this time. Findings are compatible with adynamic ileus versus partial small bowel obstruction. Jorge Flores MD Assessment and Plan Assessment and Plan 76 year old female with gastroparesis; small bowel obstruction versus ileus -Plain for Gastrografin enema this afternoon -GI consult -KUB in the morning -Nothing by mouth -PT eval and treat; patient needs to be out of bed and mobilizing -Avoid narcotic pain medication; patient is currently only on tramadol which is appropriate -Continue IVF -Will continue to follow abdominal exams -Currently no operative plans at this time -Thank you for this consult; We will continue to follow Attending Note - Dr. Cullen Pt. seen and evaluated/examined Abdomen soft, minimally tender Pfannenstiel incision, well-healed No hernias The exam, history, and the medical decision-making described in the above note were completed with the assistance of the mid-level provider. I reviewed and agree with the findings presented. I attest that I had a [id number] encounter with the patient on the same day, and personally performed and documented my assessment and findings in the medical record. Discussed Condition With Abida Martinez Ms. Feb 24, 2017 13:37 Marbin Cullen MD Feb 24, 2017 19:45
[2017-02-24] MEDS: ONDANSETRON HCL 4 MG/2 ML VIAL IVP PRN ×2 (14:36→21:29)
[2017-02-24] MEDS: ACETAMINOPHEN 325 MG TAB PO PRN (20:06)
[2017-02-24] MEDS: EZETIMIBE 10 MG TAB PO SCH (20:08)
[2017-02-24] MEDS: PRAVASTATIN SOD 40 MG TAB PO SCH (20:09)
[2017-02-24] MEDS: POTASSIUM CHLOR 20 MEQ PREMIX 100 ML IV SCH ×2 (20:19→22:56)
--- NOTE | 2017-02-24 20:53 | MB ---
cc: RAMIRO GOLDSMITH,REYNALDO HERNANDEZ,ALEXANDR GRAY DATE OF CONSULTATION 02/24/17 [address] Alexandr Hernandez HISTORY OF PRESENT ILLNESS The patient is a 76-year-old female I was asked to see for further evaluation and management of gastroparesis, nausea, vomiting and abdominal pain. She has a history of gastroparesis documented by gastric emptying study in 2009. This has been under decent control over the years. She has type 2 diabetes and hypertension. She came into the hospital about week ago today, two days after eating a meal and developing severe central abdominal pain with nausea and vomiting that lasted two days. Studies suggested a partial small bowel obstruction. She was originally on a liquid diet which was advanced to full liquid and finally to a heart healthy diet, but with the latter diet she started having more pain, nausea and vomiting. She is back on a clear liquid diet. PAST SURGICAL HISTORY 1. Appendectomy, 2. Cholecystectomy, 3. Thyroidectomy 4. Abdominal ureterectomy 5. Total abdominal hysterectomy, 6. Right ovarian surgery 7. Right knee replacement 8. ACDF MEDICATIONS On admission, 1. Lisinopril 2. Gabapentin 3. Symax 4. Nadolol 5. Metformin. 6. MiraLax. 7. Clonidine. 8. Vytorin 9. Lantus 10. Percocet. 11. Tramadol. 12. Bethanechol. 13. Omeprazole. 14. Levofloxacin for hypothyroidism. ALLERGIES CODEINE PENICILLIN SULFA TETRACYCLINE SOCIAL HISTORY Tobacco use none, alcohol use none. FAMILY HISTORY Unremarkable for gastrointestinal disorders. REVIEW OF SYSTEMS No recent headaches. She has been fatigued. She has had no chills. No history of seizures or strokes. No vision difficulties. No polydipsia. No history of pancreatic or liver disease. No respiratory symptoms. No chest pains or palpitations. No urinary symptomatology. No skeletal problems or rashes. No easy bruising. No gait difficulties and no history of depression or anxiety. PHYSICAL EXAMINATION VITAL SIGNS: Weight is 104 kg, temperature 96.7, pulse 64, blood pressure 170/78. Oxygen saturation 94% on room air. GENERAL: She is alert. She is overweight. HEENT: She is anicteric. Extraocular motions are intact. I appreciated no submandibular, cervical, supraclavicular, axillary or epitrochlear adenopathy. LUNGS: Clear to auscultation. CARDIAC: Regular rate and rhythm with a 1/6 systolic murmur. ABDOMEN: Good bowel sounds. They are slightly high pitched and tinkling, no audible bruit. Abdomen is minimally distended, soft and mildly tender diffusely with no focal findings. No hepatosplenomegaly are appreciated. EXTREMITIES: No pedal edema, Dupuytren's contractures or palmar erythema. LABORATORY FINDINGS On February 17 white count 13.0, hemoglobin 13.2, platelets 277. Today white count is 8.4, hemoglobin 11.7, platelets 238. Today sodium is 139, potassium 3.4, BUN 11, creatinine 0.83, magnesium 1.6. IMAGING STUDIES CT scan of the abdomen and pelvis was performed yesterday. I reviewed this with the radiologist. There is evidence of small bowel dilation with a transition zone in the mid ileal region with decompressed small intestine and decompressed colon. Today's x-ray of the abdomen (plain x-ray) reveals again some dilated small bowel loops. IMPRESSION Partial small bowel obstruction in this patient with a history of gastroparesis. Her current symptoms are likely related to the obstruction and not the gastroparesis. She has been tolerating clear liquids for the past day or so. Full liquids have been ordered. I suggested drinking full liquids slowly and not too much at any one time. If she can tolerate full liquids without nausea, vomiting or pain, possibly discharge her home. If not, laparoscopy with exploration and probable lysis of adhesions will be recommended. We will follow closely. MD MAO Rader/ /8:36 PM /8:44 PM
[2017-02-25] VITALS: BP 141/66; PULSE 64; RESP 16; TEMP 96; O2SAT 97
[2017-02-25 04:00] VITALS: BP 172/79; PULSE 63; RESP 16; TEMP 97.5; O2SAT 96
[2017-02-25] MEDS: KETOROLAC TROMETHAMINE 30 MG/ML (IVP) VIAL IV PUSH PRN ×4 (04:16→23:48)
[2017-02-25] MEDS: ONDANSETRON HCL 4 MG/2 ML VIAL IVP PRN ×4 (04:16→23:47)
[2017-02-25] MEDS: ERYTHROMYCIN EC 250 MG TABEC PO SCH ×3 (06:27→22:08)
[2017-02-25] MEDS: INSULIN ASPART SUPPLEMENTAL SCALE SQ SCH ×4 (06:27→19:58)
[2017-02-25] MEDS: METOCLOPRAMIDE HCL 10 MG TAB PO SCH ×4 (06:27→19:46)
[2017-02-25] MEDS: LEVOTHYROXINE SODIUM 88 MCG TAB PO SCH (06:27)
--- NOTE | 2017-02-25 07:02 | RADRPT ---
EXAM DATE/TIME: 02/25/2017 06:16 [facility] COMPARISON: ABDOMEN KUB ONLY, February 23, 2017, 9:08. INDICATIONS : Possible small bowel obstruction. Right upper quadrant and suprapubic abdominal pain. MEDICAL HISTORY : Gastroparesis. SURGICAL HISTORY : Hysterectomy. Appendectomy. Ureterctomy. ENCOUNTER: Subsequent ACUITY: 1 week PAIN SCORE: 8/10 LOCATION: abdomen FINDINGS: Supine view of the abdomen was performed. The abdominal bowel gas pattern is nonspecific with some m ildly dilated air-filled loops of small bowel in the midabdomen. The colon is nondilated and there is stool in the colon. The overall pattern appears to be mildly improved compared to the prior examinat ion. No definite free air. The bony structures are stable.. CONCLUSION: Mild improvement of the bowel gas pattern compared to the prior exam. Wilmar Castellano MD on February 25, 2017 at 6:59 Board Certified Radiologist. This report was verified electronically.
[2017-02-25 07:50] VITALS: BP 202/89; PULSE 64; RESP 20; TEMP 97.4; O2SAT 98
[2017-02-25 08:03] LABS: BICARBONATE 28.4 MEQ/L (21.0-32.0); POTASSIUM 3.5 MEQ/L (3.5-5.1)
[2017-02-25] MEDS: DOCUSATE SODIUM 50 MG/SENNA 8.6 MG TAB PO SCH ×2 (08:15→19:47)
[2017-02-25] MEDS: LACTOBACILLUS ACIDOPHILUS TAB PO SCH ×2 (08:15→19:44)
[2017-02-25] MEDS: cloNIDine HCL 0.2 MG TAB PO SCH ×2 (08:15→19:44)
[2017-02-25] MEDS: GABAPENTIN 300 MG CAP PO SCH ×3 (08:15→16:45)
[2017-02-25] MEDS: BETHANECHOL CHL 25 MG TAB PO SCH ×4 (08:15→19:46)
[2017-02-25] MEDS: MAGNESIUM OXIDE 400 MG TAB PO SCH ×2 (08:15→19:46)
[2017-02-25] MEDS: NADOLOL 20 MG TAB PO SCH ×2 (08:15→19:45)
[2017-02-25] MEDS: PANTOPRAZOLE SOD 20 MG DELAYED RELEASE TAB PO SCH (08:15)
[2017-02-25] MEDS: SODIUM CHLORIDE 0.9% FLUSH 10 ML FLUSH IV FLUSH SCH ×2 (08:16→19:50)
[2017-02-25] MEDS: POLYETHYLENE GLYCOL 17 GM PKG PO SCH (08:19)
[2017-02-25] MEDS: LISINOPRIL 20 MG TAB PO SCH ×2 (08:20→19:44)
--- NOTE | 2017-02-25 09:50 | HHI.GIFU ---
GI Follow-up Note Consult Follow-up Subjective: Patient states after she took her meds and liquids she had recurrent N/V and abd pain. no bleeding. Objective: PHYSICAL EXAMINATION: Vitals signs stable No fever CHEST: Chest is clear to auscultation and percussion. CARDIAC: Regular rate and rhythm with no murmur gallop or rubs. ABDOMEN: minimally distended, nontender; no hepatosplenomegaly; bowel sounds are present in all four quadrants. EXTREMITIES: No edema. SKIN: no jaundice. 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 Available Data (labs, X- Rays, Procedures) : ASSESSMENT/PLAN: 1. PSBO-pt continues with symptoms 2. gastroparesis PLAN: 1. I believe the N/V is due to the PSBO rather than gastroparesis. Pt understands she will prob need surgery It was a pleasure seeing Natacha Herzog. Thank you for this consult. Entered by: Tate Fisher MD Feb 25, 2017 09:50
[2017-02-25] MEDS: SODIUM CHLORIDE 0.9% FLUSH 10 ML FLUSH IV FLUSH PRN (11:14)
[2017-02-25 11:36] VITALS: BP 138/73; PULSE 56; RESP 20; TEMP 97; O2SAT 96
[2017-02-25] MEDS: ACETAMINOPHEN 325 MG TAB PO PRN (14:17)
[2017-02-25 15:30] VITALS: BP 162/72; PULSE 59; RESP 20; TEMP 97.6; O2SAT 98
--- NOTE | 2017-02-25 16:40 | HHI.PR ---
Subjective Subjective Notes Patient resting in bed Was evaluated by GI Had one BM last night Objective Vitals/I&O Vital Signs Date Time Temp Pulse Resp B/P Pulse Ox O2 Delivery O2 Flow Rate FiO2 02/25/17 11:36 97.0 56 20 138/73 96 Labs Laboratory Tests Test 02/25/17 06:27 Sodium Level 139 Potassium Level 3.5 Chloride Level 103 Carbon Dioxide Level 28.4 Anion Gap 8 Blood Urea Nitrogen 11 Creatinine 0.77 Estimat Glomerular Filtration 73 Rate Random Glucose 123 Calcium Level 8.5 Radiology Last 48 hours Impressions Abdomen X-Ray 02/24/17 0000 Signed Impressions: Service Date/Time: Friday, February 24, 2017 09:19 - CONCLUSION: Stable bowel gas pattern with some distended loops of small bowel. Contrast within the colon. Mynor Johnson MD Abdomen/Pelvis CT 02/23/17 0000 Signed Impressions: Service Date/Time: Thursday, February 23, 2017 23:49 - CONCLUSION: 1. There are mildly to moderately dilated loops of small bowel with a transition zone in the distal small bowel. There is contrast in the small bowel and colon. These findings would suggest a partial small bowel obstruction. 2. No evidence of calcified renal stones or hydronephrosis.. 3. The rest of exam is unremarkable compared to the prior study. Wilmar Castellano MD Abdomen X-Ray 02/23/17 0000 Signed Impressions: Service Date/Time: Thursday, February 23, 2017 09:08 - CONCLUSION: 1. Slight interval progression of diffuse mild small bowel distention without evidence for significant perforation at this time. Findings are compatible with adynamic ileus versus partial small bowel obstruction. Jorge Flores MD Cardiovascular: Regular Lungs: Clear Abdomen: Non-distended, Other (minimally tender to palpation ) Extremities: No edema A/P Assessment and Plan 76 year old female with gastroparesis; question of small bowel obstruction vs ileus -SBFT -Clear liquids as tolerated -OOB and mobilize -No surgical plans at this time Abida Biswas Feb 25, 2017 16:40
--- NOTE | 2017-02-25 18:28 | HHI.PR ---
Subjective Remarks BP very elevated earlier today denies cp/sob still feels nauseous had a BM yesterday statea is passing a little gas Objective Vitals Vital Signs Date Time Temp Pulse Resp B/P Pulse Ox O2 Delivery O2 Flow Rate FiO2 02/25/17 11:36 97.0 56 20 138/73 96 02/25/17 07:50 97.4 64 20 202/89 98 02/25/17 04:00 97.5 63 16 172/79 96 02/25/17 00:00 96.0 64 16 141/66 97 02/24/17 20:00 97.2 68 16 186/91 96 I/O 02/24/17 02/24/17 02/24/17 02/25/17 02/25/17 02/25/17 06:59 14:59 22:59 06:59 14:59 22:59 Intake Total 0 ml 260 ml 300 ml Balance 0 ml 260 ml 300 ml Intake Oral 0 ml 260 ml 300 ml # Voids 2 3 4 # Bowel Movements 0 0 0 Result Diagram: 02/24/17 0620 02/25/17 0627 Imaging Last Impressions Abdomen X-Ray 02/25/17 0600 Signed Impressions: Service Date/Time: Saturday, February 25, 2017 06:16 - CONCLUSION: Mild improvement of the bowel gas pattern compared to the prior exam. Wilmar Castellano MD Abdomen/Pelvis CT 02/23/17 0000 Signed Impressions: Service Date/Time: Thursday, February 23, 2017 23:49 - CONCLUSION: 1. There are mildly to moderately dilated loops of small bowel with a transition zone in the distal small bowel. There is contrast in the small bowel and colon. These findings would suggest a partial small bowel obstruction. 2. No evidence of calcified renal stones or hydronephrosis.. 3. The rest of exam is unremarkable compared to the prior study. Wilmar Castellano MD Objective Remarks AAOx3, nad moist mucus membranes abdomen is mildly tender to palpation diffusely, sluggish bowel sounds in all 4 quadrants no edema in lower extremities Procedures none Medications and IVs Current Medications Medications (Trade) Dose Ordered Sig/Cristine Route Start Time Stop Time Status Last Admin (NS Flush) 2 ml UNSCH PRN IV FLUSH 02/17/17 16:30 02/25/17 11:14 (NS Flush) 2 ml BID IV FLUSH 02/17/17 21:00 02/25/17 08:16 (Tylenol) 650 mg Q4H PRN PO 02/17/17 16:30 (Zofran Inj) 4 mg Q6H PRN IVP 02/17/17 16:30 02/25/17 17:19 (Tylenol) 650 mg Q6H PRN PO 02/17/17 16:30 02/25/17 14:17 (Narcan Inj) 0.4 mg UNSCH PRN IV 02/17/17 16:30 (Lactinex) 1 tab Q12HR PO 02/17/17 21:00 02/25/17 08:15 (D50w (Vial) Inj) 50 ml UNSCH PRN IV 02/17/17 16:30 (Glucagon Inj) 1 mg UNSCH PRN OTHER 02/17/17 16:30 (Vasotec Inj) 2.5 mg Q6H PRN IV PUSH 02/17/17 16:30 02/23/17 00:21 (Urecholine) 25 mg QID PO 02/17/17 18:00 02/25/17 16:45 (Neurontin) 300 mg TID PO 02/17/17 18:00 02/25/17 16:45 (Synthroid) 88 mcg DAILY@0600 PO 02/18/17 06:00 02/25/17 06:27 (Corgard) 20 mg BID PO 02/17/17 21:00 02/25/17 08:15 (Pravachol) 40 mg HS PO 02/17/17 21:00 02/24/17 20:09 (Protonix) 20 mg DAILY PO 02/18/17 09:00 02/25/17 08:15 (Reglan) 10 mg ACHS PO 02/17/17 21:00 02/25/17 16:45 (Zetia) 10 mg HS PO 02/17/17 21:00 02/24/17 20:08 (Miralax) 17 gm DAILY PO 02/21/17 09:00 02/21/17 09:39 (Ambien) 5 mg HS PRN PO 02/20/17 11:30 02/21/17 00:25 (Mag-Ox) 400 mg Q12HR PO 02/20/17 21:00 02/25/17 08:15 (Prinivil) 20 mg BID PO 02/21/17 09:00 02/25/17 08:20 (Kamini-Colace) 2 tab BID PO 02/21/17 10:00 02/25/17 08:15 (Catapres) 0.2 mg BID PO 02/23/17 21:00 02/25/17 08:15 (Milk Of Magnesia Liq) 30 ml Q12H PRN PO 02/23/17 09:15 (Senokot) 17.2 mg Q12H PRN PO 02/23/17 09:15 (Dulcolax Supp) 10 mg DAILY PRN RECTAL 02/24/17 09:00 (Lactulose Liq) 30 ml DAILY PRN PO 02/23/17 09:15 (Erythromycin Ec) 250 mg Q8HR PO 02/23/17 09:45 02/25/17 14:17 (Toradol Inj) 15 mg Q6H PRN IV PUSH 02/23/17 12:30 02/28/17 12:29 02/25/17 17:19 Urinary Catheter: No Vascular Central Line Catheter: No A/P Problem List: (1) Sepsis ICD Code: A41.9 Status: Resolved (2) Gastroparesis ICD Code: K31.84 Status: Acute (3) UTI (urinary tract infection) ICD Code: N39.0 Status: Resolved (4) Small bowel obstruction, partial ICD Code: K56.69 Status: Acute (5) Hypokalemia ICD Code: E87.6 Status: Acute Assessment and Plan 76-year-old female with Partial small bowel obstruction Patient was treated initially conservatively. However after medical management there was no resolution. General surgery and GI consulted and following the patient. Continue supportive therapy with IV fluids and continue to keep nothing by mouth. Currently on Erythromycin every 8 hours Repeat KUB shows mild improvement on gas pattern. Gastrografin enema order for today, however as per RN will be done tomorrow morning. Continue pain control with IV Toradol for now. Gastroparesis Lipase 144 Continue erythromycin, DC Reglan. I will place on IV Zofran for nausea. Sepsis: Resolved Urinary tract infection-Escherichia coli Completed treatment with by mouth antibiotics Benign hypertension Continue Prinivil 20 mg twice a day, nadolol 20 mg twice a day, Catapres 0.2 mg twice a day Vasotec when necessary BP very elevated earlier today on 02/25, however better now. Likely elevated secondary to pain. Diabetes type 2 Continue to Hold all oral hypoglycemic as well as basal insulins medium sliding scale with fingerstick blood glucose Hyperlipidemia On statin Hypothyroidism Continue Synthroid DVT prophylaxis Bilateral SCDs Discharge Planning Continue to monitor in the medical floor. The patient to get a Gastrografin enema in a.m. Discharge pending GI and general surgery clearance. Han Hernandez MD Feb 25, 2017 18:28
[2017-02-25] MEDS ORDERED: MORPHINE SULFATE 4 MG/ML INJ IV PUSH ONE (18:30)
[2017-02-25] MEDS ORDERED: LORazepam 2 MG/ML VIAL IV PUSH ONE (18:30)
[2017-02-25] MEDS: EZETIMIBE 10 MG TAB PO SCH (19:45)
[2017-02-25] MEDS: PRAVASTATIN SOD 40 MG TAB PO SCH (19:49)
[2017-02-25 20:00] VITALS: BP 190/90; PULSE 67; RESP 18; TEMP 96.9; O2SAT 96
[2017-02-26] VITALS: BP 138/80; PULSE 55; RESP 18; TEMP 96.3; O2SAT 98
[2017-02-26 04:00] VITALS: BP 195/95; PULSE 61; RESP 18; TEMP 96.9; O2SAT 96
[2017-02-26] MEDS: ONDANSETRON HCL 4 MG/2 ML VIAL IVP PRN ×2 (05:58→21:32)
[2017-02-26] MEDS: ERYTHROMYCIN EC 250 MG TABEC PO SCH ×3 (05:58→21:32)
[2017-02-26] MEDS: KETOROLAC TROMETHAMINE 30 MG/ML (IVP) VIAL IV PUSH PRN ×3 (05:58→21:32)
[2017-02-26] MEDS: LEVOTHYROXINE SODIUM 88 MCG TAB PO SCH (05:58)
[2017-02-26] MEDS: METOCLOPRAMIDE HCL 10 MG TAB PO SCH ×4 (05:59→21:34)
[2017-02-26] MEDS: INSULIN ASPART SUPPLEMENTAL SCALE SQ SCH ×4 (06:03→21:00)
[2017-02-26] MEDS: ENALAPRILAT 2.5 MG/2 ML VIAL IV PUSH PRN (06:11)
[2017-02-26 07:50] VITALS: BP 184/86; PULSE 57; RESP 20; TEMP 97.3; O2SAT 97
[2017-02-26] MEDS: LACTOBACILLUS ACIDOPHILUS TAB PO SCH ×2 (08:59→21:34)
[2017-02-26] MEDS: MAGNESIUM OXIDE 400 MG TAB PO SCH ×2 (08:59→21:34)
[2017-02-26] MEDS: PANTOPRAZOLE SOD 20 MG DELAYED RELEASE TAB PO SCH (09:00)
[2017-02-26] MEDS: BETHANECHOL CHL 25 MG TAB PO SCH ×4 (09:00→21:34)
[2017-02-26] MEDS: GABAPENTIN 300 MG CAP PO SCH ×3 (09:00→17:49)
[2017-02-26] MEDS: DOCUSATE SODIUM 50 MG/SENNA 8.6 MG TAB PO SCH ×2 (09:00→21:00)
[2017-02-26] MEDS: SODIUM CHLORIDE 0.9% FLUSH 10 ML FLUSH IV FLUSH SCH ×2 (09:00→21:50)
[2017-02-26] MEDS: POLYETHYLENE GLYCOL 17 GM PKG PO SCH (09:00)
[2017-02-26] MEDS: NADOLOL 20 MG TAB PO SCH ×2 (09:00→21:34)
[2017-02-26] MEDS: LISINOPRIL 20 MG TAB PO SCH ×2 (09:00→21:34)
[2017-02-26] MEDS: cloNIDine HCL 0.2 MG TAB PO SCH ×3 (09:00→21:32)
--- NOTE | 2017-02-26 09:05 | HHI.GIFU ---
GI Follow-up Note Consult Follow-up Subjective: Patient laying in bed--had a "bad night". Pt c/o abd pain, N/V with liquids and pills. small BM noted. Pt did not do SBFT Objective: PHYSICAL EXAMINATION: Vitals signs stable No fever CHEST: Chest is clear to auscultation and percussion. CARDIAC: Regular rate and rhythm with no murmur gallop or rubs. ABDOMEN: Soft, nondistended, minimal tender; no hepatosplenomegaly; bowel sounds are present in all four quadrants. EXTREMITIES: No clubbing, cyanosis, or edema. SKIN: no jaundice. FINAL INSPECTOR BALANCE WHEEL: alert and oriented times three. Available Data (labs, X- Rays, Procedues) : AXR reviewed-better ASSESSMENT/PLAN: 1. PSBO-pt continues with symptoms 2. gastroparesis PLAN: 1. Encouraged pt to do SBFT It was a pleasure seeing Natacha Herzog. Thank you for this consult. Entered by: Tate Fisher MD Feb 26, 2017 09:05
[2017-02-26 11:30] VITALS: BP 140/62; PULSE 57; RESP 20; TEMP 97.7; O2SAT 95
--- NOTE | 2017-02-26 12:21 | HHI.PR ---
Subjective Remarks Patient states that up at night with a sudden onset abdominal pain, nausea and vomiting States has had diarrhea Complains of intermittent epigastric, right lower quadrant abdominal pain Denies fevers or chills Blood pressure elevated Objective Vitals Vital Signs Date Time Temp Pulse Resp B/P Pulse Ox O2 Delivery O2 Flow Rate FiO2 02/26/17 07:50 97.3 57 20 184/86 97 02/26/17 04:00 96.9 61 18 195/95 96 02/26/17 00:00 96.3 55 18 138/80 98 02/25/17 20:00 96.9 67 18 190/90 96 02/25/17 15:30 97.6 59 20 162/72 98 I/O 02/25/17 02/25/17 02/25/17 02/26/17 02/26/17 02/26/17 07:00 15:00 23:00 07:00 15:00 23:00 Intake Total 300 ml 660 ml Balance 300 ml 660 ml Intake Oral 300 ml 660 ml # Voids 4 5 1 2 # Bowel Movements 0 0 1 1 Result Diagram: 02/24/17 0620 02/25/17 0627 Imaging Last Impressions Abdomen X-Ray 02/25/17 0600 Signed Impressions: Service Date/Time: Saturday, February 25, 2017 06:16 - CONCLUSION: Mild improvement of the bowel gas pattern compared to the prior exam. Wilmar Castellano MD Abdomen/Pelvis CT 02/23/17 0000 Signed Impressions: Service Date/Time: Thursday, February 23, 2017 23:49 - CONCLUSION: 1. There are mildly to moderately dilated loops of small bowel with a transition zone in the distal small bowel. There is contrast in the small bowel and colon. These findings would suggest a partial small bowel obstruction. 2. No evidence of calcified renal stones or hydronephrosis.. 3. The rest of exam is unremarkable compared to the prior study. Wilmar Castellano MD Objective Remarks AAOx3, nad moist mucus membranes Abdomen is soft, there is mild tenderness to palpation of right upper quadrant and mesogastric region. There is no rebound tenderness. Bowel sounds are present. no edema in lower extremities Procedures none Medications and IVs Current Medications Medications (Trade) Dose Ordered Sig/Cristine Route Start Time Stop Time Status Last Admin (NS Flush) 2 ml UNSCH PRN IV FLUSH 02/17/17 16:30 02/25/17 11:14 (NS Flush) 2 ml BID IV FLUSH 02/17/17 21:00 02/26/17 09:00 (Tylenol) 650 mg Q4H PRN PO 02/17/17 16:30 (Zofran Inj) 4 mg Q6H PRN IVP 02/17/17 16:30 02/26/17 05:58 (Tylenol) 650 mg Q6H PRN PO 02/17/17 16:30 02/25/17 14:17 (Narcan Inj) 0.4 mg UNSCH PRN IV 02/17/17 16:30 (Lactinex) 1 tab Q12HR PO 02/17/17 21:00 02/26/17 08:59 (D50w (Vial) Inj) 50 ml UNSCH PRN IV 02/17/17 16:30 (Glucagon Inj) 1 mg UNSCH PRN OTHER 02/17/17 16:30 (Vasotec Inj) 2.5 mg Q6H PRN IV PUSH 02/17/17 16:30 02/26/17 06:11 (Urecholine) 25 mg QID PO 02/17/17 18:00 02/26/17 11:48 (Neurontin) 300 mg TID PO 02/17/17 18:00 02/26/17 11:48 (Synthroid) 88 mcg DAILY@0600 PO 02/18/17 06:00 02/26/17 05:58 (Corgard) 20 mg BID PO 02/17/17 21:00 02/26/17 09:00 (Pravachol) 40 mg HS PO 02/17/17 21:00 02/25/17 19:49 (Protonix) 20 mg DAILY PO 02/18/17 09:00 02/26/17 09:00 (Reglan) 10 mg ACHS PO 02/17/17 21:00 02/26/17 11:48 (Zetia) 10 mg HS PO 02/17/17 21:00 02/25/17 19:45 (Miralax) 17 gm DAILY PO 02/21/17 09:00 02/21/17 09:39 (Ambien) 5 mg HS PRN PO 02/20/17 11:30 02/21/17 00:25 (Mag-Ox) 400 mg Q12HR PO 02/20/17 21:00 02/26/17 08:59 (Prinivil) 20 mg BID PO 02/21/17 09:00 02/26/17 09:00 (Kamini-Colace) 2 tab BID PO 02/21/17 10:00 02/25/17 08:15 (Milk Of Magnesia Liq) 30 ml Q12H PRN PO 02/23/17 09:15 (Senokot) 17.2 mg Q12H PRN PO 02/23/17 09:15 (Dulcolax Supp) 10 mg DAILY PRN RECTAL 02/24/17 09:00 (Lactulose Liq) 30 ml DAILY PRN PO 02/23/17 09:15 (Erythromycin Ec) 250 mg Q8HR PO 02/23/17 09:45 02/26/17 05:58 (Toradol Inj) 15 mg Q6H PRN IV PUSH 02/23/17 12:30 02/28/17 12:29 02/26/17 11:49 (Catapres) 0.2 mg Q8HR PO 02/26/17 14:00 Urinary Catheter: No Vascular Central Line Catheter: No A/P Problem List: (1) Sepsis ICD Code: A41.9 Status: Resolved (2) Gastroparesis ICD Code: K31.84 Status: Acute (3) UTI (urinary tract infection) ICD Code: N39.0 Status: Resolved (4) Small bowel obstruction, partial ICD Code: K56.69 Status: Acute (5) Hypokalemia ICD Code: E87.6 Status: Acute Assessment and Plan 76-year-old female with Partial small bowel obstruction Patient was treated initially conservatively. However after medical management there was no resolution. General surgery and GI consulted and following the patient. Continue supportive therapy with IV fluids and continue to keep nothing by mouth. Currently on Erythromycin every 8 hours Repeat KUB shows mild improvement on gas pattern. Continue pain control with IV Toradol for now. 02/26 Small Bowell series ordered. Gastroparesis Lipase 144 Continue erythromycin, DC Reglan. I will place on IV Zofran for nausea. Sepsis: Resolved Urinary tract infection-Escherichia coli Completed treatment with by mouth antibiotics Benign hypertension Continue Prinivil 20 mg twice a day, nadolol 20 mg twice a day, Catapres 0.2 mg twice a day Vasotec when necessary 02/26 Blood pressure is severely elevated - will increase Clonidine dose to 0.2 mg three times a day and continue to monitor vital signs. Diabetes type 2 Continue to Hold all oral hypoglycemic as well as basal insulins. Continue SSI with insulin NovoLog and continue to monitor Accu-Cheks Hyperlipidemia On statin Hypothyroidism Continue Synthroid DVT prophylaxis Bilateral SCDs Discharge Planning Discharge pending clinical improvement. Discharge pending solution of ileus, small bowel series, GI and general surgery clearance. Also stabilization of blood pressure. Han Hernandez MD Feb 26, 2017 12:21
[2017-02-26] MEDS ORDERED: MORPHINE SULFATE 8 MG/ML INJ ONE (13:13)
[2017-02-26] MEDS ORDERED: LORazepam 2 MG/ML VIAL ONE (13:13)
[2017-02-26] MEDS: SODIUM CHLORIDE 0.9% FLUSH 10 ML FLUSH IV FLUSH PRN (13:20)
[2017-02-26 13:34] LABS: AUTOMATED NEUTROPHIL # 3.6 TH/MM3 (1.8-7.7); BASOPHIL # 0.1 TH/MM3 (0-0.2); BASOPHIL % 1.3 % (0.0-2.0); EOSINOPHIL # 0.2 TH/MM3 (0-0.4); HEMATOCRIT 35.2 % (35.0-46.0); HEMO FLAGS DIFF FINAL; LYMPH % 26.2 % (9.0-44.0); LYMPHOCYTE # 1.6 TH/MM3 (1.0-4.8); MEAN CELL VOLUME 80.3 FL (80.0-100.0); MEAN CORPUSCULAR HEMOGLOBIN 25.1 PG (27.0-34.0); MEAN CORPUSCULAR HGB CONC 31.3 % (32.0-36.0); MONO % 10.3 % (0.0-8.0); NEUT % 58.2 % (16.0-70.0); PLATELET COUNT 234 TH/MM3 (150-450); RED BLOOD COUNT 4.38 MIL/MM3 (4.00-5.30); RED CELL DISTRIBUTION WIDTH 16.2 % (11.6-17.2); WHITE BLOOD COUNT 6.3 TH/MM3 (4.0-11.0)
[2017-02-26 14:02] LABS: ANION GAP 9 MEQ/L (5-15); AST (GOT) 32 U/L (15-37); BLOOD UREA NITROGEN 12 MG/DL (7-18); CHLORIDE 101 MEQ/L (98-107); GLOMERULAR FILTRATION RATE 63 ML/MIN (>89); POTASSIUM 3.3 MEQ/L (3.5-5.1); SODIUM (NA) 139 MEQ/L (136-145)
[2017-02-26 14:03] LABS: ALT (GPT) 25 U/L (10-53)
[2017-02-26 14:05] LABS: ALKALINE PHOSPHATASE 81 U/L (45-117); TOTAL BILIRUBIN ADULT 0.4 MG/DL (0.2-1.0)
[2017-02-26] MEDS ORDERED: DIATRIZOATE MEGLUM/DIATRIZOATE SOD 120 ML BTL (for RAD DIAG) PO ONE (14:21)
[2017-02-26 15:50] VITALS: BP 145/71; PULSE 54; RESP 20; TEMP 96; O2SAT 98
--- NOTE | 2017-02-26 17:31 | HHI.PR ---
Subjective Subjective Notes Resting in bed Explained the reason why we ordered SBFT Objective Vitals/I&O Vital Signs Date Time Temp Pulse Resp B/P Pulse Ox O2 Delivery O2 Flow Rate FiO2 02/26/17 15:50 96.0 54 20 145/71 98 Labs Laboratory Tests Test 02/26/17 02/26/17 13:03 13:04 Sodium Level 139 Potassium Level 3.3 Chloride Level 101 Carbon Dioxide Level 29.0 Anion Gap 9 Blood Urea Nitrogen 12 Creatinine 0.87 Estimat Glomerular Filtration 63 Rate Random Glucose 133 Calcium Level 8.8 Phosphorus Level 3.5 Magnesium Level 2.0 Total Bilirubin 0.4 Aspartate Amino Transf 32 (AST/SGOT) Alanine Aminotransferase 25 (ALT/SGPT) Alkaline Phosphatase 81 Total Protein 7.1 Albumin 3.4 White Blood Count 6.3 Red Blood Count 4.38 Hemoglobin 11.0 Hematocrit 35.2 Mean Corpuscular Volume 80.3 Mean Corpuscular Hemoglobin 25.1 Mean Corpuscular Hemoglobin 31.3 Concent Red Cell Distribution Width 16.2 Platelet Count 234 Mean Platelet Volume 10.2 Neutrophils (%) (Auto) 58.2 Lymphocytes (%) (Auto) 26.2 Monocytes (%) (Auto) 10.3 Eosinophils (%) (Auto) 4.0 Basophils (%) (Auto) 1.3 Neutrophils # (Auto) 3.6 Lymphocytes # (Auto) 1.6 Monocytes # (Auto) 0.6 Eosinophils # (Auto) 0.2 Basophils # (Auto) 0.1 CBC Comment DIFF FINAL Differential Comment Radiology Last 48 hours Impressions Abdomen X-Ray 02/24/17 0000 Signed Impressions: Service Date/Time: Friday, February 24, 2017 09:19 - CONCLUSION: Stable bowel gas pattern with some distended loops of small bowel. Contrast within the colon. Mynor Johnson MD Abdomen/Pelvis CT 02/23/17 0000 Signed Impressions: Service Date/Time: Thursday, February 23, 2017 23:49 - CONCLUSION: 1. There are mildly to moderately dilated loops of small bowel with a transition zone in the distal small bowel. There is contrast in the small bowel and colon. These findings would suggest a partial small bowel obstruction. 2. No evidence of calcified renal stones or hydronephrosis.. 3. The rest of exam is unremarkable compared to the prior study. Wilmar Castellano MD Abdomen X-Ray 02/23/17 0000 Signed Impressions: Service Date/Time: Thursday, February 23, 2017 09:08 - CONCLUSION: 1. Slight interval progression of diffuse mild small bowel distention without evidence for significant perforation at this time. Findings are compatible with adynamic ileus versus partial small bowel obstruction. Jorge Flores MD Cardiovascular: Regular Lungs: Clear Abdomen: Non-distended, Other (minimally tender) Extremities: No edema A/P Assessment and Plan 76 year old female with gastroparesis; question of small bowel obstruction vs ileus -SBFT -Clear liquids as tolerated -OOB and mobilize -Avoid narcotic pain medications Abida Biswas [facility] Feb 26, 2017 17:31
--- NOTE | 2017-02-26 18:24 | RADRPT ---
EXAM DATE/TIME: 02/26/2017 13:40 [place] COMPARISON: CT ABDOMEN & PELVIS W/O CONTRAST, February 23, 2017, 23:49. INDICATIONS : Abdominal pain and vomiting; Possible small bowel obstruction. Right upper quadrant and suprapubic ab dominal pain. FLUORO TIME: 0 minutes IMAGE COUNT: 16 CONTRAST: MD Bang IMAGING TIME(S): 15 min, 30 min, 45 min, 1 hr, 1.5 hrs2HR, 4HR. MEDICAL HISTORY : Hypertension. Gastroesophageal reflux disease. Gastroparesis. SURGICAL HISTORY : Appendectomy. Cholecystectomy. Hysterectomy. ENCOUNTER: Subsequent ACUITY: 1 week PAIN SCORE: 8/10 LOCATION: Abdomen. FINDINGS: Preliminary film is unremarkable. Posterior david and transpedicular screw fixation of the lower lumbar spine with intervertebral fusion hardware placement noted. Right hip arthroplasty. The stomach is grossly unremarkable. Examination of the small bowel demonstrates normal mucosal pattern involving the jejunum and ileum. There is no evidence of mass. No intraluminal filling defects are identified. There is contrast in t he colon on the four-hour image but not definitively present at 2 hours. Contrast is present in the l arge bowel to the rectum at the 4 hour image. There are no transition points. Mildly distended small bowel loops are noted.. CONCLUSION: Mildly distended small bowel without evidence for transition point. Contrast is noted at the rectosig moid at the four-hour valeria with no discrete transition point identified. Clarence Flor MD on February 26, 2017 at 18:20 Board Certified Radiologist. This report was verified electronically.
[2017-02-26 20:00] VITALS: BP 129/58; PULSE 64; RESP 16; TEMP 97.6; O2SAT 98
[2017-02-26] MEDS: EZETIMIBE 10 MG TAB PO SCH (21:34)
[2017-02-26] MEDS: PRAVASTATIN SOD 40 MG TAB PO SCH (21:34)
[2017-02-27] VITALS (7 sets, daily range): BP systolic 119–158; BP diastolic 59–78; PULSE 52–59; RESP 12–17; TEMP 96.2–97; O2SAT 93–98
[2017-02-27] MEDS: ONDANSETRON HCL 4 MG/2 ML VIAL IVP PRN ×2 (03:33→09:29)
[2017-02-27] MEDS: KETOROLAC TROMETHAMINE 30 MG/ML (IVP) VIAL IV PUSH PRN ×2 (03:33→09:30)
[2017-02-27] MEDS: cloNIDine HCL 0.2 MG TAB PO SCH ×3 (06:40→22:29)
[2017-02-27] MEDS: METOCLOPRAMIDE HCL 10 MG TAB PO SCH ×4 (06:40→22:30)
[2017-02-27] MEDS: LEVOTHYROXINE SODIUM 88 MCG TAB PO SCH (06:40)
[2017-02-27] MEDS: ERYTHROMYCIN EC 250 MG TABEC PO SCH (06:41)
[2017-02-27] MEDS: INSULIN ASPART SUPPLEMENTAL SCALE SQ SCH ×4 (06:45→21:00)
[2017-02-27] MEDS: PANTOPRAZOLE SOD 20 MG DELAYED RELEASE TAB PO SCH (09:22)
[2017-02-27] MEDS: MAGNESIUM OXIDE 400 MG TAB PO SCH ×2 (09:23→22:29)
[2017-02-27] MEDS: DOCUSATE SODIUM 50 MG/SENNA 8.6 MG TAB PO SCH ×2 (09:23→21:00)
[2017-02-27] MEDS: POLYETHYLENE GLYCOL 17 GM PKG PO SCH (09:23)
[2017-02-27] MEDS: GABAPENTIN 300 MG CAP PO SCH ×3 (09:23→16:29)
[2017-02-27] MEDS: NADOLOL 20 MG TAB PO SCH ×2 (09:23→22:31)
[2017-02-27] MEDS: LACTOBACILLUS ACIDOPHILUS TAB PO SCH ×2 (09:23→22:30)
[2017-02-27] MEDS: SODIUM CHLORIDE 0.9% FLUSH 10 ML FLUSH IV FLUSH SCH ×2 (09:23→23:07)
[2017-02-27] MEDS: LISINOPRIL 20 MG TAB PO SCH ×2 (09:23→22:30)
[2017-02-27] MEDS: BETHANECHOL CHL 25 MG TAB PO SCH ×4 (09:23→22:30)
--- NOTE | 2017-02-27 11:29 | HHI.PR ---
Subjective Remarks Patient states that she had no pain after she ate this morning Complains of nausea and abdominal pain however has not vomited Objective Vitals Vital Signs Date Time Temp Pulse Resp B/P Pulse Ox O2 Delivery O2 Flow Rate FiO2 02/27/17 08:00 96.8 55 12 135/61 96 02/27/17 04:00 96.8 54 16 158/71 98 02/27/17 01:56 18 02/27/17 00:00 96.2 52 16 137/60 93 02/26/17 20:00 97.6 64 16 129/58 98 02/26/17 15:50 96.0 54 20 145/71 98 02/26/17 11:30 97.7 57 20 140/62 95 I/O 02/26/17 02/26/17 02/26/17 02/27/17 02/27/17 02/27/17 06:59 14:59 22:59 06:59 14:59 22:59 Intake Total 240 ml 350 ml 360 ml Balance 240 ml 350 ml 360 ml Intake Oral 240 ml 350 ml 360 ml # Voids 2 5 2 1 # Bowel Movements 1 0 0 0 Result Diagram: 02/26/17 1304 02/26/17 1303 Imaging Last Impressions Small Bowel X-Ray 02/26/17 0000 Signed Impressions: Service Date/Time: February 13:40 - CONCLUSION: Mildly distended small bowel without evidence for transition point. Contrast is noted at the rectosigmoid at the four-hour valeria with no discrete transition point identified. Clarence Flor MD Abdomen X-Ray 02/25/17 0600 Signed Impressions: Service Date/Time: Saturday, February 25, 2017 06:16 - CONCLUSION: Mild improvement of the bowel gas pattern compared to the prior exam. Wilmar Castellano MD Abdomen/Pelvis CT 02/23/17 0000 Signed Impressions: Service Date/Time: Thursday, February 23, 2017 23:49 - CONCLUSION: 1. There are mildly to moderately dilated loops of small bowel with a transition zone in the distal small bowel. There is contrast in the small bowel and colon. These findings would suggest a partial small bowel obstruction. 2. No evidence of calcified renal stones or hydronephrosis.. 3. The rest of exam is unremarkable compared to the prior study. Wilmar Castellano MD Objective Remarks AAOx3, nad moist mucus membranes Abdomen is soft, there is mild tenderness to palpation of right upper quadrant and mesogastric region. There is no rebound tenderness. Bowel sounds are present. no edema in lower extremities Procedures none Medications and IVs Current Medications Medications (Trade) Dose Ordered Sig/Cristine Route Start Time Stop Time Status Last Admin (NS Flush) 2 ml UNSCH PRN IV FLUSH 02/17/17 16:30 02/26/17 13:20 (NS Flush) 2 ml BID IV FLUSH 02/17/17 21:00 02/27/17 09:23 (Tylenol) 650 mg Q4H PRN PO 02/17/17 16:30 (Zofran Inj) 4 mg Q6H PRN IVP 02/17/17 16:30 02/27/17 09:29 (Tylenol) 650 mg Q6H PRN PO 02/17/17 16:30 02/25/17 14:17 (Narcan Inj) 0.4 mg UNSCH PRN IV 02/17/17 16:30 (Lactinex) 1 tab Q12HR PO 02/17/17 21:00 02/27/17 09:23 (D50w (Vial) Inj) 50 ml UNSCH PRN IV 02/17/17 16:30 (Glucagon Inj) 1 mg UNSCH PRN OTHER 02/17/17 16:30 (Vasotec Inj) 2.5 mg Q6H PRN IV PUSH 02/17/17 16:30 02/26/17 06:11 (Urecholine) 25 mg QID PO 02/17/17 18:00 02/27/17 09:23 (Neurontin) 300 mg TID PO 02/17/17 18:00 02/27/17 09:23 (Synthroid) 88 mcg DAILY@0600 PO 02/18/17 06:00 02/27/17 06:40 (Corgard) 20 mg BID PO 02/17/17 21:00 02/27/17 09:23 (Pravachol) 40 mg HS PO 02/17/17 21:00 02/26/17 21:34 (Protonix) 20 mg DAILY PO 02/18/17 09:00 02/27/17 09:22 (Reglan) 10 mg ACHS PO 02/17/17 21:00 02/27/17 06:40 (Zetia) 10 mg HS PO 02/17/17 21:00 02/26/17 21:34 (Miralax) 17 gm DAILY PO 02/21/17 09:00 02/27/17 09:23 (Ambien) 5 mg HS PRN PO 02/20/17 11:30 02/21/17 00:25 (Mag-Ox) 400 mg Q12HR PO 02/20/17 21:00 02/27/17 09:23 (Prinivil) 20 mg BID PO 02/21/17 09:00 02/27/17 09:23 (Kamini-Colace) 2 tab BID PO 02/21/17 10:00 02/27/17 09:23 (Milk Of Magnesia Liq) 30 ml Q12H PRN PO 02/23/17 09:15 (Senokot) 17.2 mg Q12H PRN PO 02/23/17 09:15 (Dulcolax Supp) 10 mg DAILY PRN RECTAL 02/24/17 09:00 (Lactulose Liq) 30 ml DAILY PRN PO 02/23/17 09:15 (Catapres) 0.2 mg Q8HR PO 02/26/17 14:00 02/27/17 06:40 (Erythromycin Ec) 250 mg Q8HR PO 02/27/17 14:00 (Toradol) 10 mg Q6H PRN PO 02/27/17 11:30 Urinary Catheter: No Vascular Central Line Catheter: No A/P Problem List: (1) Sepsis ICD Code: A41.9 Status: Resolved (2) Gastroparesis ICD Code: K31.84 Status: Acute (3) UTI (urinary tract infection) ICD Code: N39.0 Status: Resolved (4) Small bowel obstruction, partial ICD Code: K56.69 Status: Acute (5) Hypokalemia ICD Code: E87.6 Status: Acute Assessment and Plan 76-year-old female with Partial small bowel obstruction/ Abdominal pain Patient was treated initially conservatively. However after medical management there was no resolution. General surgery and GI consulted and following the patient. Continue supportive therapy with IV fluids and continue to keep nothing by mouth. Currently on Erythromycin every 8 hours Repeat KUB shows mild improvement on gas pattern. Continue pain control with IV Toradol for now. 02/27 Small Bowell series shows mildly distended small bowel with evidence for a transition point. I will switch IV to by mouth Toradol. Continue erythromycin, Reglan, conical, continue to follow-up with general surgery recommendations. Avoid narcotic medications. Will increase Protonix to 40 mg po daily and will start on Carafate. Gastroparesis Lipase 144 I will DC Erythromycin, Continue Reglan and Bethanecol. Sepsis: Resolved Urinary tract infection-Escherichia coli Completed treatment with by mouth antibiotics Benign hypertension Continue Prinivil 20 mg twice a day, nadolol 20 mg twice a day, Catapres 0.2 mg twice a day Vasotec when necessary 02/26 Blood pressure is severely elevated - will increase Clonidine dose to 0.2 mg three times a day and continue to monitor vital signs. 02/27 BP much improved. Continue Privinil, nodule, Catapres. Diabetes type 2 Continue to Hold all oral hypoglycemic as well as basal insulins. Continue SSI with insulin NovoLog and continue to monitor Accu-Cheks Hyperlipidemia On statin Hypothyroidism Continue Synthroid 02/27 check TSH, free T3 and T4 DVT prophylaxis Bilateral SCDs Discharge Planning Discharge pending clinical improvement. Dc pending clinical improvement. Han Hernandez MD Feb 27, 2017 11:29
[2017-02-27] MEDS: PANTOPRAZOLE SOD 40 MG DELAYED RELEASE TAB PO SCH (13:07)
[2017-02-27] MEDS ORDERED: ERYTHROMYCIN EC 250 MG TABEC PO SCH (14:00)
[2017-02-27 14:23] LABS: BICARBONATE 27.9 MEQ/L (21.0-32.0); POTASSIUM 3.8 MEQ/L (3.5-5.1)
--- NOTE | 2017-02-27 14:39 | HHI.PR ---
Subjective Subjective Notes Resting in bed Tolerating full liquids Objective Vitals/I&O Vital Signs Date Time Temp Pulse Resp B/P Pulse Ox O2 Delivery O2 Flow Rate FiO2 02/27/17 12:55 57 138/65 02/27/17 12:00 96.7 16 96 Labs Laboratory Tests Test 02/27/17 11:37 Sodium Level 140 Potassium Level 3.8 Chloride Level 103 Carbon Dioxide Level 27.9 Anion Gap 9 Blood Urea Nitrogen 17 Creatinine 1.04 Estimat Glomerular Filtration 52 Rate Random Glucose 130 Calcium Level 8.2 Radiology Last 48 hours Impressions Abdomen X-Ray 02/24/17 0000 Signed Impressions: Service Date/Time: Friday, February 24, 2017 09:19 - CONCLUSION: Stable bowel gas pattern with some distended loops of small bowel. Contrast within the colon. Mynor Johnson MD Abdomen/Pelvis CT 02/23/17 0000 Signed Impressions: Service Date/Time: Thursday, February 23, 2017 23:49 - CONCLUSION: 1. There are mildly to moderately dilated loops of small bowel with a transition zone in the distal small bowel. There is contrast in the small bowel and colon. These findings would suggest a partial small bowel obstruction. 2. No evidence of calcified renal stones or hydronephrosis.. 3. The rest of exam is unremarkable compared to the prior study. Wilmar Castellano MD Abdomen X-Ray 02/23/17 0000 Signed Impressions: Service Date/Time: Thursday, February 23, 2017 09:08 - CONCLUSION: 1. Slight interval progression of diffuse mild small bowel distention without evidence for significant perforation at this time. Findings are compatible with adynamic ileus versus partial small bowel obstruction. Jorge Flores MD Cardiovascular: Regular Lungs: Clear Abdomen: Non-distended, Other (mildly tender to palpation ) Extremities: Other (generalized edema ) A/P Assessment and Plan 76 year old female with gastroparesis; question of small bowel obstruction vs ileus -SBFT---contrast through to rectosigmoid -Full liquids; advance diet as tolerated -PT eval and treat---OOB and mobilize -Avoid narcotic pain medications -GS will sign off; please call with questions Abida Biswas Feb 27, 2017 14:39
--- NOTE | 2017-02-27 15:09 | HHI.GIFU ---
GI Follow-up Note Consult Follow-up Subjective: Patient laying in bed. She is aware there was no obstruction on her SBFT-the small bowel is mild dilated. No vomiting. some nausea and abd pain- better. Objective: PHYSICAL EXAMINATION: Vitals signs stable No fever . CHEST: Chest is clear to auscultation and percussion. CARDIAC: Regular rate and rhythm with no murmur gallop or rubs. ABDOMEN: Soft, nondistended, nontender; no hepatosplenomegaly; bowel sounds are present in all four quadrants. EXTREMITIES: No edema. SKIN: no jaundice. CONSTRUCTION SAFETY CONSULTANT: alert and oriented times three. Available Data (labs, X- Rays, Procedures) : see above ASSESSMENT/PLAN: 1. PSBO-reolved on SBFT. there is only a mildly dilated SB w/o transition point 2. gastroparesis PLAN: 1. Advance diet as tolerated It was a pleasure seeing Natacha Herzog. Thank you for this consult. Entered by: Tate Fisher MD Feb 27, 2017 15:09
[2017-02-27] MEDS ORDERED: METOCLOPRAMIDE HCL 10 MG TAB PO SCH (16:00)
[2017-02-27 16:06] LABS: FREE T4 1.68 NG/DL (0.76-1.46)
[2017-02-27 16:07] LABS: FREE T3 1.98 PG/ML (2.18-3.98)
[2017-02-27] MEDS: SUCRALFATE 1 GM TAB PO SCH (16:27)
[2017-02-27] MEDS: KETOROLAC TROMETHAMINE 10 MG TAB PO PRN ×2 (16:28→22:57)
[2017-02-27] MEDS: ZOLPIDEM TARTRATE 5 MG TAB PO PRN (22:29)
[2017-02-27] MEDS: PRAVASTATIN SOD 40 MG TAB PO SCH (22:30)
[2017-02-27] MEDS: EZETIMIBE 10 MG TAB PO SCH (22:30)
[2017-02-28] VITALS: BP 169/79; PULSE 57; RESP 18; TEMP 97.6; O2SAT 96
[2017-02-28] MEDS ORDERED: CYCLOBENZAPRINE HCL 10 MG TAB PO ONE (01:45)
[2017-02-28] MEDS ORDERED: MORPHINE SULFATE 4 MG/ML INJ IV PUSH ONE (03:00)
[2017-02-28 04:00] VITALS: BP 151/67; PULSE 57; RESP 18; TEMP 96.8; O2SAT 95
[2017-02-28] MEDS: LEVOTHYROXINE SODIUM 88 MCG TAB PO SCH (06:34)
[2017-02-28] MEDS: SUCRALFATE 1 GM TAB PO SCH ×2 (06:34→17:27)
[2017-02-28] MEDS: METOCLOPRAMIDE HCL 10 MG TAB PO SCH ×2 (06:34→10:36)
[2017-02-28] MEDS: cloNIDine HCL 0.2 MG TAB PO SCH ×2 (06:34→12:47)
[2017-02-28] MEDS: INSULIN ASPART SUPPLEMENTAL SCALE SQ SCH ×3 (06:37→16:00)
[2017-02-28 08:00] VITALS: BP 126/74; PULSE 54; RESP 16; TEMP 97.3; O2SAT 96
--- NOTE | 2017-02-28 08:34 | HHI.GIFU ---
GI Follow-up Note Consult Follow-up Subjective: Patient laying in bed comfortably. Tolerating full liquids. wants to try a more advanced diet. Objective: PHYSICAL EXAMINATION: Vitals signs stable No fever CHEST: Chest is clear to auscultation and percussion. CARDIAC: Regular rate and rhythm with no murmur gallop or rubs. ABDOMEN: Soft, nondistended, nontender; no hepatosplenomegaly; bowel sounds are present in all four quadrants. EXTREMITIES: No clubbing, cyanosis, or edema. SKIN: no jaundice. Available Data (labs, X- Rays, Procedues) : ASSESSMENT/PLAN: 1. PSBO-reolved on SBFT. there is only a mildly dilated SB w/o transition point. Tolerating liquids 2. gastroparesis PLAN: 1. Advance diet It was a pleasure seeing Natacha Herzog. Thank you for this consult. Entered by: Tate Fisher MD Feb 28, 2017 08:34
[2017-02-28] MEDS: POLYETHYLENE GLYCOL 17 GM PKG PO SCH (09:00)
[2017-02-28] MEDS: BETHANECHOL CHL 25 MG TAB PO SCH ×3 (10:35→17:27)
[2017-02-28] MEDS: LISINOPRIL 20 MG TAB PO SCH (10:35)
[2017-02-28] MEDS: DOCUSATE SODIUM 50 MG/SENNA 8.6 MG TAB PO SCH (10:36)
[2017-02-28] MEDS: NADOLOL 20 MG TAB PO SCH (10:36)
[2017-02-28] MEDS: GABAPENTIN 300 MG CAP PO SCH ×3 (10:36→17:27)
[2017-02-28] MEDS: PANTOPRAZOLE SOD 40 MG DELAYED RELEASE TAB PO SCH (10:36)
[2017-02-28] MEDS: MAGNESIUM OXIDE 400 MG TAB PO SCH (10:36)
[2017-02-28] MEDS: LACTOBACILLUS ACIDOPHILUS TAB PO SCH (10:36)
[2017-02-28] MEDS: SODIUM CHLORIDE 0.9% FLUSH 10 ML FLUSH IV FLUSH SCH (10:37)
[2017-02-28 12:00] VITALS: BP 125/58; PULSE 70; RESP 20; TEMP 96.3; O2SAT 94
--- NOTE | 2017-02-28 12:43 | HHI.PR ---
Subjective Remarks tolerating regular diet denies abdominal pain had some back pain last night which required morphine use by night team has had a bowel movement - states clear liquid Objective Vitals Vital Signs Date Time Temp Pulse Resp B/P Pulse Ox O2 Delivery O2 Flow Rate FiO2 02/28/17 08:00 97.3 54 16 126/74 96 02/28/17 04:00 96.8 57 18 151/67 95 02/28/17 00:20 20 02/28/17 00:00 97.6 57 18 169/79 96 02/27/17 20:00 96.8 57 17 158/78 97 02/27/17 16:00 97.0 59 16 119/60 96 02/27/17 12:55 57 138/65 I/O 02/27/17 02/27/17 02/27/17 02/28/17 02/28/17 02/28/17 07:00 15:00 23:00 07:00 15:00 23:00 Intake Total 360 ml 480 ml 480 ml 240 ml Output Total 200 ml Balance 360 ml 480 ml 480 ml 40 ml Intake Oral 360 ml 480 ml 480 ml 240 ml Output Urine Total 200 ml # Voids 1 2 # Bowel Movements 0 1 Result Diagram: 02/26/17 1304 02/27/17 1137 Imaging Last Impressions Small Bowel X-Ray 02/26/17 0000 Signed Impressions: Service Date/Time: February 13:40 - CONCLUSION: Mildly distended small bowel without evidence for transition point. Contrast is noted at the rectosigmoid at the four-hour valeria with no discrete transition point identified. Clarence Flor MD Abdomen X-Ray 02/25/17 0600 Signed Impressions: Service Date/Time: Saturday, February 25, 2017 06:16 - CONCLUSION: Mild improvement of the bowel gas pattern compared to the prior exam. Wilmar Castellano MD Abdomen/Pelvis CT 02/23/17 0000 Signed Impressions: Service Date/Time: Thursday, February 23, 2017 23:49 - CONCLUSION: 1. There are mildly to moderately dilated loops of small bowel with a transition zone in the distal small bowel. There is contrast in the small bowel and colon. These findings would suggest a partial small bowel obstruction. 2. No evidence of calcified renal stones or hydronephrosis.. 3. The rest of exam is unremarkable compared to the prior study. Wilmar Castellano MD Objective Remarks AAOx3, nad moist mucus membranes Abdomen is soft, there is mild tenderness to palpation of right upper quadrant and mesogastric region. There is no rebound tenderness. Bowel sounds are present. no edema in lower extremities Procedures none Medications and IVs Current Medications Medications (Trade) Dose Ordered Sig/Cristine Route Start Time Stop Time Status Last Admin (NS Flush) 2 ml UNSCH PRN IV FLUSH 02/17/17 16:30 02/26/17 13:20 (NS Flush) 2 ml BID IV FLUSH 02/17/17 21:00 02/28/17 10:37 (Tylenol) 650 mg Q4H PRN PO 02/17/17 16:30 (Zofran Inj) 4 mg Q6H PRN IVP 02/17/17 16:30 02/27/17 09:29 (Tylenol) 650 mg Q6H PRN PO 02/17/17 16:30 02/25/17 14:17 (Narcan Inj) 0.4 mg UNSCH PRN IV 02/17/17 16:30 (Lactinex) 1 tab Q12HR PO 02/17/17 21:00 02/28/17 10:36 (D50w (Vial) Inj) 50 ml UNSCH PRN IV 02/17/17 16:30 (Glucagon Inj) 1 mg UNSCH PRN OTHER 02/17/17 16:30 (Vasotec Inj) 2.5 mg Q6H PRN IV PUSH 02/17/17 16:30 02/26/17 06:11 (Urecholine) 25 mg QID PO 02/17/17 18:00 02/28/17 10:35 (Neurontin) 300 mg TID PO 02/17/17 18:00 02/28/17 10:36 (Synthroid) 88 mcg DAILY@0600 PO 02/18/17 06:00 02/28/17 06:34 (Corgard) 20 mg BID PO 02/17/17 21:00 02/28/17 10:36 (Pravachol) 40 mg HS PO 02/17/17 21:00 02/27/17 22:30 (Reglan) 10 mg ACHS PO 02/17/17 21:00 02/28/17 10:36 (Zetia) 10 mg HS PO 02/17/17 21:00 02/27/17 22:30 (Miralax) 17 gm DAILY PO 02/21/17 09:00 02/27/17 09:23 (Ambien) 5 mg HS PRN PO 02/20/17 11:30 02/27/17 22:29 (Mag-Ox) 400 mg Q12HR PO 02/20/17 21:00 02/28/17 10:36 (Prinivil) 20 mg BID PO 02/21/17 09:00 02/28/17 10:35 (Kamini-Colace) 2 tab BID PO 02/21/17 10:00 02/28/17 10:36 (Milk Of Magnesia Liq) 30 ml Q12H PRN PO 02/23/17 09:15 (Senokot) 17.2 mg Q12H PRN PO 02/23/17 09:15 (Dulcolax Supp) 10 mg DAILY PRN RECTAL 02/24/17 09:00 (Lactulose Liq) 30 ml DAILY PRN PO 02/23/17 09:15 (Catapres) 0.2 mg Q8HR PO 02/26/17 14:00 02/28/17 06:34 (Toradol) 10 mg Q6H PRN PO 02/27/17 11:30 02/27/17 22:57 (Protonix) 40 mg DAILY PO 02/27/17 13:00 02/28/17 10:36 (Carafate) 1 gm BIDAC PO 02/27/17 16:00 02/28/17 06:34 Urinary Catheter: No Vascular Central Line Catheter: No A/P Problem List: (1) Sepsis ICD Code: A41.9 Status: Resolved (2) Gastroparesis ICD Code: K31.84 Status: Acute (3) UTI (urinary tract infection) ICD Code: N39.0 Status: Resolved (4) Small bowel obstruction, partial ICD Code: K56.69 Status: Acute (5) Hypokalemia ICD Code: E87.6 Status: Acute Assessment and Plan 76-year-old female with Partial small bowel obstruction/ Abdominal pain Patient was treated initially conservatively. However after medical management there was no resolution. General surgery and GI consulted and following the patient. Continue supportive therapy with IV fluids and continue to keep nothing by mouth. Currently on Erythromycin every 8 hours Repeat KUB shows mild improvement on gas pattern. Continue pain control with IV Toradol for now. 02/27 Small Bowell series shows mildly distended small bowel with evidence for a transition point. I will switch IV to by mouth Toradol. Continue erythromycin, Reglan, conical, continue to follow-up with general surgery recommendations. Avoid narcotic medications. Will increase Protonix to 40 mg po daily and will start on Carafate. 02/28 partial small bowel obstruction resolved. Patient tolerating regular diet at breakfast. will DC home if patient tolerates lunch. Gastroparesis Lipase 144 Treated with erythromycin, Reglan and Bethanecol. Will DC home on Bethanecol. E Coli UTI Sp treatment with Ciprofloxacin IV and PO. Benign hypertension Continue Prinivil 20 mg twice a day, nadolol 20 mg twice a day, Catapres 0.2 mg twice a day Vasotec when necessary 02/26 Blood pressure is severely elevated - will increase Clonidine dose to 0.2 mg three times a day and continue to monitor vital signs. 02/27 BP much improved. Continue Privinil, nadolol, Catapres. Diabetes type 2 Continue to Hold all oral hypoglycemic as well as basal insulins. Continue SSI with insulin NovoLog and continue to monitor Accu-Cheks Hyperlipidemia On statin Hypothyroidism Continue Synthroid TSH normal. DVT prophylaxis Bilateral SCDs Discharge Planning DC later today if tolerates diet. Han Hernandez MD Feb 28, 2017 12:43
[2017-02-28] MEDS: ONDANSETRON HCL 4 MG/2 ML VIAL IVP PRN ×2 (12:46→18:38)
[2017-02-28] MEDS ORDERED: Lactulose Liq PO (12:48)
[2017-02-28] MEDS ORDERED: KETO10 PO (12:48)
[2017-02-28] MEDS ORDERED: SENN1TAB PO (12:48)
[2017-02-28] MEDS ORDERED: CLON.2 PO (12:48)
[2017-02-28] MEDS: KETOROLAC TROMETHAMINE 10 MG TAB PO PRN (12:50)
--- NOTE | 2017-02-28 12:50 | HHI.FF ---
Face to Face Verification Diagnosis: (1) Unsteady gait (2) Back pain (3) Gastroparesis Physical Therapy Order: Improve ambulation, Strength and gait training I have seen patient Natacha Herzog on 02/28/17. My clinical findings support the need for the requested home health care services because: Need for psychosocial assistance High risk of falls I certify that my clinical findings support that this patient is homebound because: Unsteady gait/balance Unsafe to leave home unassisted Unable to use public transportation Han Hernandez MD Feb 28, 2017 12:50
--- NOTE | 2017-02-28 12:54 | HHI.DS ---
cc: Felicia Craig Jr., MD Discharge Summary Admission Date Feb 17, 2017 at 16:23 Discharge Date: Feb 28, 2017 Admitting Diagnosis UTI/sepsis/gastroparesis (1) Sepsis ICD Code: A41.9 Diagnosis: Principal (2) Gastroparesis ICD Code: K31.84 Diagnosis: Principal (3) UTI (urinary tract infection) ICD Code: N39.0 Diagnosis: Principal (4) Small bowel obstruction, partial ICD Code: K56.69 Diagnosis: Principal (5) Hypokalemia ICD Code: E87.6 Diagnosis: Principal (6) Back pain ICD Code: M54.9 Diagnosis: Principal (7) Unsteady gait ICD Code: R26.81 Diagnosis: Principal (8) Abdominal pain ICD Code: R10.9 Diagnosis: Principal Procedures none Brief History - From Admission 76-year-old female with a history of diabetes type 2 hypertension, presented to the ED for evaluation of 1 day history of nausea along with 2 episode of emesis prior to arrival in the ED. Patient reports 4 day history of diarrhea which resolved before the onset of nausea yesterday. This follows was follow by epigastric abdominal pain then nausea all night long not relief initially with Percocet however relief with tramadol as well as anti-emetic. Patient also reported abdominal pain rated 7/10 in intensity described as sharp and mostly located to the mid epigastric region. She denies any sick contact. Abnormal labs include WBC 13 and UA positive for nitrate. Although patient has a history of incontinence, she denies any dysuria all urinary frequency. She is also afebrile Patient denies any GI bleed and reports a known history of gastroparesis CBC/BMP: 02/26/17 1304 02/27/17 1137 Significant Findings Laboratory Tests Test 02/26/17 02/26/17 02/27/17 13:03 13:04 11:37 Potassium Level 3.3 MEQ/L (3.5-5.1) Estimat Glomerular Filtration 63 ML/MIN (>89) 52 ML/MIN (>89) Rate Random Glucose 133 MG/DL 130 MG/DL (74-106) (74-106) Hemoglobin 11.0 GM/DL (11.6-15.3) Mean Corpuscular Hemoglobin 25.1 PG (27.0-34.0) Mean Corpuscular Hemoglobin 31.3 % Concent (32.0-36.0) Monocytes (%) (Auto) 10.3 % (0.0-8.0) Creatinine 1.04 MG/DL (0.50-1.00) Calcium Level 8.2 MG/DL (8.5-10.1) Free Thyroxine 1.68 NG/DL (0.76-1.46) Free Triiodothyronine (T3) 1.98 PG/ML pg/dL (2.18-3.98) Imaging Last Impressions Small Bowel X-Ray 02/26/17 0000 Signed Impressions: Service Date/Time: February 13:40 - CONCLUSION: Mildly distended small bowel without evidence for transition point. Contrast is noted at the rectosigmoid at the four-hour valeria with no discrete transition point identified. Clarence Flor MD Abdomen X-Ray 02/25/17 0600 Signed Impressions: Service Date/Time: Saturday, February 25, 2017 06:16 - CONCLUSION: Mild improvement of the bowel gas pattern compared to the prior exam. Wilmar Castellano MD Abdomen/Pelvis CT 02/23/17 0000 Signed Impressions: Service Date/Time: Thursday, February 23, 2017 23:49 - CONCLUSION: 1. There are mildly to moderately dilated loops of small bowel with a transition zone in the distal small bowel. There is contrast in the small bowel and colon. These findings would suggest a partial small bowel obstruction. 2. No evidence of calcified renal stones or hydronephrosis.. 3. The rest of exam is unremarkable compared to the prior study. Wilmar Castellano MD PE at Discharge AAOx3, nad moist mucus membranes Abdomen is soft, non tender, nondistended. There is no rebound tenderness. Bowel sounds are present. no edema in lower extremities Pt update on day of discharge Denies abdominal pain, nausea or vomiting. Pt Condition on Discharge: Stable Discharge Disposition: Discharge Home Discharge Time: > 30 minutes Discharge Instructions DIET: Follow Instructions for: Heart Healthy Diet, Diabetic Diet Activities you can perform: See Additionl Instruction Activities to Avoid: Driving Other Activity Instructions: out of bed with assistance as per PT intructions Follow up Referrals: Gastroenterology - 1 Week PCP Follow-up - 1 Week New Medications: Sennosides-Docusate Sodium (Kamini-Colace) 8.6-50 Mg Tab 2 TAB PO DAILY Constipation #60 Ref 0 TAB Clonidine (Catapres) 0.1 Mg Tab 0.2 MG PO BID Blood Pressure Management #60 TAB Clonidine (Catapres) 0.2 Mg Tab 0.2 MG PO Q8HR Blood Pressure Management #[address] (Landon-Tab DR) 250 Mg Tabdr 250 MG PO Q8HR gastroparesis #90 TAB Ketorolac (Ketorolac) 10 Mg Tab 10 MG PO Q6H PRN PAIN SCALE 3 TO 10 #30 TAB Lisinopril (Lisinopril) 20 Mg Tab 20 MG PO BID Blood Pressure Management #60 TAB Magnesium Oxide (Magnesium Oxide) 241.3 Mg Tab 400 MG PO Q12HR Electrolyte Replacement #6 TAB Metoclopramide (Metoclopramide) 10 Mg Tab 10 MG PO ACHS nausea #120 TAB Sennosides-Docusate Sodium (Senna Plus 8.6-50 mg) 1 Tab Tab 2 TAB PO BID Constipation #62 TAB ([Lactulose Liq]) 30 ML SYRP 30 ML PO DAILY PRN SEVERE CONSITIPATION #1 BOTTLE Continued Medications: Bethanechol (Bethanechol) 25 Mg Tab 25 MG PO QID Urinary Symptom Managemen Ref 0 TAB Ezetimibe-Simvastatin (Vytorin) 10-20 Mg Tab 1 TAB PO HS #30 Ref 0 TAB Gabapentin (Gabapentin) 300 Mg Cap 300 MG PO TID #90 Ref 0 CAP Insulin Glargine Inj (Lantus Inj) 1,000 Unit/10 Ml Vial 25 UNITS SQ HS Blood Sugar Management Ref 0 VIAL Levothyroxine (Synthroid) 88 Mcg Tab 88 MCG PO DAILY Thyroid #30 Ref 0 TAB Metformin ER (Metformin ER) 500 Mg Naty 500 MG PO BID With evening meal Blood Sugar Management Ref 0 TAB Nadolol (Nadolol) 20 Mg Tab 20 MG PO BID #30 Ref 0 TAB Omeprazole (Omeprazole) 20 Mg Tab 20 MG PO DAILY #30 Ref 0 TAB Tramadol HCl (Tramadol Hydrochloride) 50 Mg Tab 100 MG PO Q6HR PRN PAIN Discontinued Medications: Clonidine (Clonidine) 0.1 Mg Tab 0.1 MG PO BID Blood Pressure Management #60 Ref 0 TAB Hyoscyamine Biphase (Symax Duotab) 0.375 Mg Tab 0.375 MG PO Q12HR PRN SPASM Lisinopril (Lisinopril) 10 Mg Tab 10 MG PO BID #30 Ref 0 TAB Oxycodone-Acetaminophen (Percocet) 5-325 mg Tab 1-2 TAB PO Q4H PRN PAIN Ref 0 TAB Polyethylene Glycol 3350 (Miralax) 17 Gm Powd.pack 17 GM PO DAILY Constipation Han Hernandez MD Feb 28, 2017 12:53
[2017-02-28 16:00] VITALS: BP 156/72; PULSE 59; RESP 16; TEMP 97.6; O2SAT 95
[2017-02-28] MEDS ORDERED: ZOFR4TAB PO (18:04)
== END 2017-02-28 18:47 | disposition home or self-care (01) | DRG 872 ==
LOC: NEPC 12:37 → NEDA 16:12 → OBSVTOIN 16:23 → HOCA 18:35
PROVIDERS: ADMIT Hospitalist; ATTEND Hospitalist
DX: A41.51 Sepsis due to Escherichia coli [E. coli] (principal); K56.60 Unspecified intestinal obstruction; K31.84 Gastroparesis; N39.0 Urinary tract infection, site not specified; E11.40 Type 2 diabetes mellitus with diabetic neuropathy, unspecified; E83.42 Hypomagnesemia; E11.43 Type 2 diabetes mellitus with diabetic autonomic (poly)neuropathy; I10 Essential (primary) hypertension; E78.5 Hyperlipidemia, unspecified; E87.6 Hypokalemia; K21.9 Gastro-esophageal reflux disease without esophagitis; E89.0 Postprocedural hypothyroidism; R26.81 Unsteadiness on feet; R32 Unspecified urinary incontinence; M19.90 Unspecified osteoarthritis, unspecified site; Z79.84 Long term (current) use of oral hypoglycemic drugs; Z88.0 Allergy status to penicillin; Z88.2 Allergy status to sulfonamides; Z88.5 Allergy status to narcotic agent; Z96.641 Presence of right artificial hip joint; Z96.651 Presence of right artificial knee joint; Z98.1 Arthrodesis status
CPT/HCPCS: 74000; 74020; 74176; 74250; 76937; 80048; 80053; 81001; 82948; 83605; 83690; 83735; 84100; 84439; 84443; 84481; 85025; 87040; 87077; 87086; 87186; 93005; 96361; 96374; J0692; J0744; J1815; J1885; J2060; J2270; J2405; J2765; J3475; J3480; J7030; J7040; Q9963

== ENCOUNTER 2017-05-05 21:32 | Inpatient (IN) | payer MEDICARE, OTHER ==
[~2017-05-05] VITALS: Ht 167.6 cm; Wt 101.5 kg
[~2017-05-05 21:32] MED LIST changes: -ACET325T11 PO; -ACET325T11 PR; +BETH25TA2 PO; -BETH25TA3 PO; -BISA10R; -CEPH500 PO; -CLON-352 PO; +CLON.1 PO; +CLON.2 PO; -DILA2TAB4 PO; +ERYT250 PO; -GABA100C4 PO; +GABA300C5 PO; -GLUC1KIT IM; -GLUCTAB PO; +KETO10 PO; -LACTTAB7 PO; +LANTUS2P SQ; -LISI-360 PO; +LISI-515 PO; +Lactulose Liq PO; +MAGN400T3 PO; +METF500T4 PO; +METO10TA PO; -MILKSUS5 PO; -MIRA33502 PO; -NEXI40CA PO; -NOVORP2; +OMEP20TA PO; -PERC5TAB12 PO; +PERI8.6T PO; -PRAV40TA2 PO; -RANI150 PO; -RIVA10 PO; -ROBIDMS PO; +SENN1TAB PO; -SORB70SO36 PO; +TRAM-492 PO; -VYTO10TA32 PO; +VYTO10TA8 PO; +ZOFR4TAB PO; -ZOLP10TA3 PO; -[UNRECOGNIZED DRUG - CODE] PO
--- NOTE | 2017-05-05 21:58 | PD ---
HPI Chief Complaint: PALPITATIONS Time Seen by Provider: 21:40 Travel History International Travel<30 days: No Contact w/Intl Traveler<30days: No Traveled to known affect area: No History of Present Illness HPI C/O PALPITATIONS, WHILE AT [facility] WITH CHEST PRESSURE (SUBSTERNAL, NONRAD, 5 /10), [facility]AC ARRRIVED FOUND PATIENT IN AFIB WITH RVR WHICH PER PATIENT SHE DOES NOT HAVE A DIAGNOSIS OF, GIVEN CARDIZEM AND PATIENT CHEST PRESSURE RESOLVED, PT NO LONGER FEELS IRREGULAR BEATS. PCP: PMHX: GASTROPARESIS, HTN, DM, SBO, PSHX: GB, APPENDIX PFSH Past Medical History Arthritis: Yes Asthma: No Autoimmune Disease: No Blood Disorders: No Anxiety: No Depression: No Heart Rhythm Problems: No Cancer: No Cardiovascular Problems: No High Cholesterol: Yes Chemotherapy: No Chest Pain: No Congestive Heart Failure: No COPD: No Cerebrovascular Accident: No Diabetes: Yes (TYPE II) Diminished Hearing: No Endocrine: Yes Gastrointestinal Disorders: Yes (HX OF GERD) GERD: Yes Genitourinary: Yes (HX OF KIDNEY STONES, INCONTINENCE) Headaches: No Hepatitis: No Hiatal Hernia: No Hypertension: Yes Immune Disorder: No Implanted Vascular Access Dvce: Yes Kidney Stones: Yes (STENT PLACEMENT AUG 24 2011) Musculoskeletal: Yes (OSTEOARTHRITIS, NECK PROBLEMS) Neurologic: Yes (R HAND NUMBNESS AND TINGLING, NEUROPATHY IN FEET) Psychiatric: No Reproductive: No Respiratory: Yes (RIGHT UPPER LOBE REMOVED, BENIGN MASS) Immunizations Current: No Migraines: Yes Radiation Therapy: No Renal Failure: No Seizures: No Sickle Cell Disease: No Sleep Apnea: No Thyroid Disease: Yes (HYPO) Ulcer: No PNEUMOCCOCAL Vaccine (Year): 1 Menopausal: Yes : 2 Para: 0 : 2 Past Surgical History Abdominal Surgery: Yes (LAP CHOLECYSTECTOMY, APPENDECTION) AICD: No Appendectomy: Yes Arteriovenous Shunt: No Body Medical Devices: NECK AND LOWER BACK Cardiac Surgery: No Cholecystectomy: Yes Ear Surgery: No Endocrine Surgery: Yes (THYROIDECTOMY R SIDE) Eye Surgery: Yes Genitourinary Surgery: Yes (RIGHT CYSTO, URETERAL STENT, ABDOMINAL URETEROTOMY 1963) Gynecologic Surgery: Yes (HYSTERECTOMY, R OVARIAN SURGERY) Hysterectomy: Yes Insulin Pump: No Joint Replacement: Yes (R TOTAL KNEE, TOTAL R HIP) Neurologic Surgery: Yes (ANTERIOR CERVICAL FUSION AND 2007 LUMBAR FUSION, 2008 CERVICAL FUSION) Oral Surgery: No Pacemaker: No Thoracic Surgery: Yes (RIGHT UPPER LOBECTOMY-LUNG) Tonsillectomy: Yes Other Surgery: Yes (RIGHT UPPER LOBE LUNG SUREGRY) Social History Alcohol Use: No Tobacco Use: No Substance Use: No Allergies-Medications (Allergen,Severity, Reaction): Coded Allergies: Sulfa (Sulfonamide Antibiotics) (Unverified Allergy, Severe, Hives, ) doxycycline (Unverified Allergy, Severe, RASH, 03/24/17) minocycline (Unverified Allergy, Severe, RASH, 03/24/17) penicillin G (Unverified Allergy, Severe, Rash, 03/24/17) tigecycline (Unverified Allergy, Severe, RASH, 03/24/17) codeine (Unverified Adverse Reaction, Severe, NAUSEA, 05/06/17) NAUSEA Reported Meds & Prescriptions Reported Meds & Active Scripts Active Catapres (Clonidine) 0.2 Mg Tab 0.2 Mg PO Q8HR Kamini-Colace (Sennosides-Docusate Sodium) 8.6-50 Mg Tab 2 Tab PO DAILY Metoclopramide (Metoclopramide HCl) 10 Mg Tab 10 Mg PO ACHS Lisinopril 20 Mg Tab 20 Mg PO BID Reported Tramadol (Tramadol HCl) 50 Mg Tab 100 Mg PO Q12HR PRN Synthroid (Levothyroxine Sodium) 88 Mcg Tab 88 Mcg PO DAILY Nadolol 20 Mg Tab 20 Mg PO BID Metformin ER (Metformin HCl) 500 Mg Naty 500 Mg PO BID With evening meal Lantus Inj (Insulin Glargine) 1,000 Unit/10 Ml Vial 25 Units SQ HS Gabapentin 300 Mg Cap 300 Mg PO TID Vytorin (Ezetimibe-Simvastatin) 10-20 Mg Tab 1 Tab PO HS Omeprazole 20 Mg Tab 20 Mg PO DAILY Bethanechol 25 Mg Tab 25 Mg PO QID Review of Systems Except as stated in HPI: all other systems reviewed are Neg Cardiovascular: Positive: Chest Pain or Discomfort, Palpitations Physical Exam Narrative GENERAL: SKIN: Warm and dry. HEAD: Atraumatic. Normocephalic. EYES: Pupils equal and round. No scleral icterus. No injection or drainage. ENT: No nasal bleeding or discharge. Mucous membranes pink and moist. NECK: Trachea midline. No JVD. CARDIOVASCULAR: IRRegular rhythm BUT CONTROLLED RATE. RESPIRATORY: No accessory muscle use. Clear to auscultation. Breath sounds equal bilaterally. GASTROINTESTINAL: Abdomen soft, non-tender, nondistended. Hepatic and splenic margins not palpable. MUSCULOSKELETAL: Extremities without clubbing, cyanosis, or edema. No obvious deformities. NEUROLOGICAL: Awake and alert. No obvious cranial nerve deficits. Motor grossly within normal limits. Five out of 5 muscle strength in the arms and legs. Normal speech. PSYCHIATRIC: Appropriate mood and affect; insight and judgment normal. Data Data Last Documented VS Vital Signs Date Time Temp Pulse Resp B/P (MAP) Pulse Ox O2 Delivery O2 Flow Rate FiO2 05/05/17 22:49 92 20 149/82 (104) 97 Nasal Cannula 2.00 Orders Orders Electrocardiogram (05/05/17 21:42) Complete Blood Count With Diff (05/05/17 21:42) Comprehensive Metabolic Panel (05/05/17 21:42) Ckmb (Isoenzyme) Profile (05/05/17 21:42) Troponin I (05/05/17 21:42) B-Type Natriuretic Peptide (05/05/17 21:42) Prothrombin Time / Inr (Pt) (05/05/17 21:42) Act Partial Throm Time (Ptt) (05/05/17 21:42) Lipase (05/05/17 21:42) Thyroid Stimulating Hormone (05/05/17 21:42) Chest, Single Ap (05/05/17 21:42) Iv Access Insert/Monitor (05/05/17 21:42) Ecg Monitoring (05/05/17 21:42) Oximetry (05/05/17 21:42) Enoxaparin Inj (Lovenox Inj) (05/05/17 23:00) Vital Signs (Adult) Q4H (05/05/17 23:15) Activity Oob With Assistance (05/05/17 23:15) Fence Rider / Telemetry .CONTINUOUS (05/05/17 23:15) Diet Heart Healthy (05/06/17 Breakfast) Sodium Chloride 0.9% Flush (Ns Flush) (05/05/17 23:15) Sodium Chloride 0.9% Flush (Ns Flush) (05/06/17 09:00) Complete Blood Count With Diff (05/06/17 06:00) Creatine Kinase (Cpk) (05/06/17 04:00) Creatine Kinase (Cpk) (05/06/17 10:00) Troponin I (05/06/17 04:00) Troponin I (05/06/17 10:00) Electrocardiogram (05/06/17 04:00) Electrocardiogram (05/06/17 10:00) Pt Request For Service (05/05/17 23:15) Case Management Consult (05/05/17 23:15) Naloxone Inj (Narcan Inj) (05/05/17 23:15) Admit Order (Ed Use Only) (05/05/17 23:19) Basic Metabolic Panel (Bmp) (05/06/17 04:00) Labs Laboratory Tests Test 05/05/17 21:45 White Blood Count 8.7 TH/MM3 Red Blood Count 4.83 MIL/MM3 Hemoglobin 12.3 GM/DL Hematocrit 38.8 % Mean Corpuscular Volume 80.3 FL Mean Corpuscular Hemoglobin 25.5 PG Mean Corpuscular Hemoglobin Concent 31.7 % Red Cell Distribution Width 16.5 % Platelet Count 232 TH/MM3 Mean Platelet Volume 10.2 FL Neutrophils (%) (Auto) 72.1 % Lymphocytes (%) (Auto) 16.2 % Monocytes (%) (Auto) 7.4 % Eosinophils (%) (Auto) 2.3 % Basophils (%) (Auto) 2.0 % Neutrophils # (Auto) 6.2 TH/MM3 Lymphocytes # (Auto) 1.4 TH/MM3 Monocytes # (Auto) 0.6 TH/MM3 Eosinophils # (Auto) 0.2 TH/MM3 Basophils # (Auto) 0.2 TH/MM3 CBC Comment DIFF FINAL Differential Comment Prothrombin Time 10.4 SEC Prothromb Time International Ratio 0.9 RATIO Activated Partial Thromboplast Time 23.9 SEC Blood Urea Nitrogen 16 MG/DL Creatinine 0.91 MG/DL Random Glucose 189 MG/DL Total Protein 7.3 GM/DL Albumin 3.3 GM/DL Calcium Level 8.0 MG/DL Alkaline Phosphatase 104 U/L Aspartate Amino Transf (AST/SGOT) 38 U/L Alanine Aminotransferase (ALT/SGPT) 30 U/L Total Bilirubin 0.3 MG/DL Sodium Level 138 MEQ/L Potassium Level 4.1 MEQ/L Chloride Level 102 MEQ/L Carbon Dioxide Level 25.8 MEQ/L Anion Gap 10 MEQ/L Estimat Glomerular Filtration Rate 60 ML/MIN Total Creatine Kinase 93 U/L Troponin I 0.09 NG/ML B-Type Natriuretic Peptide 121 PG/ML Lipase 154 U/L Thyroid Stimulating Hormone 3rd Gen 0.787 uIU/ML MDM Medical Decision Making Medical Screen Exam Complete: Yes Emergency Medical Condition: Yes Medical Record Reviewed: Yes Interpretation(s) AFIB WITH CVR, NO STEMI PATTERN Differential Diagnosis NEW ONSET AFIB V STEMI V NONSTEMI V CHF/PULM EDEMA Narrative Course UPON EVALUATION, PATIENT CONTINUED WITH AFIB THOUGH RATE WAS CONTROLLED. CXR DID NOT SHOW ANY PULM EDEMA/PTX/PNA, HOWEVER DESPITE THE FACT THAT KIDNEY FUNCTION NORMAL, TROPONIN WAS ELEVATED, PATIENT GIVEN ASA, LOVENOX HUMPHREY. PT HAS NO ACTIVE CHEST DISCOMFORT Diagnosis Primary Impression: New onset a-fib Additional Impression: Non-STEMI (non-ST elevated myocardial infarction) Admitting Information Admitting Physician Requests: Admit Mayco Cárdenas MD May 05, 2017 21:58
[2017-05-05 22:13] LABS: AUTOMATED NEUTROPHIL # 6.2 TH/MM3 (1.8-7.7); BASOPHIL # 0.2 TH/MM3 (0-0.2); EOSINOPHIL # 0.2 TH/MM3 (0-0.4); EOSINOPHIL % 2.3 % (0.0-4.0); HEMATOCRIT 38.8 % (35.0-46.0); HEMO FLAGS DIFF FINAL; LYMPH % 16.2 % (9.0-44.0); LYMPHOCYTE # 1.4 TH/MM3 (1.0-4.8); MEAN CELL VOLUME 80.3 FL (80.0-100.0); MEAN CORPUSCULAR HEMOGLOBIN 25.5 PG (27.0-34.0); MEAN CORPUSCULAR HGB CONC 31.7 % (32.0-36.0); MONO % 7.4 % (0.0-8.0); NEUT % 72.1 % (16.0-70.0); PLATELET COUNT 232 TH/MM3 (150-450); RED BLOOD COUNT 4.83 MIL/MM3 (4.00-5.30); RED CELL DISTRIBUTION WIDTH 16.5 % (11.6-17.2); WHITE BLOOD COUNT 8.7 TH/MM3 (4.0-11.0)
--- NOTE | 2017-05-05 22:14 | RADRPT ---
EXAM DATE/TIME: 05/05/2017 21:51 [facility] COMPARISON: No previous studies available for comparison. INDICATIONS : Chest pain, palpitations. MEDICAL HISTORY : Hypertension. SURGICAL HISTORY : Lobectomy. ENCOUNTER: Initial ACUITY: 1 day PAIN SCORE: 0/10 LOCATION: Bilateral chest FINDINGS: A single view of the chest demonstrates the lungs to be symmetrically aerated without evidence of mas s, infiltrate or effusion. The cardiomediastinal contours are unremarkable. Osseous structures are intact. CONCLUSION: No evidence of acute cardiopulmonary disease. Preston Gtz MD on May 05, 2017 at 22:12 Board Certified Radiologist. This report was verified electronically.
[2017-05-05 22:22] LABS: APTT (PATIENT) 23.9 SEC (24.3-30.1); INTERNATIONAL NORMALIZED RATIO 0.9 RATIO; PROTHROMBIN TIME - PATIENT 10.4 SEC (9.8-11.6)
[2017-05-05 22:28] LABS: ALT (GPT) 30 U/L (10-53)
[2017-05-05 22:35] VITALS: O2SAT 95
[2017-05-05 22:37] VITALS: BP 160/90; PULSE 90; RESP 24; O2SAT 97
[2017-05-05 22:39] LABS: ALKALINE PHOSPHATASE 104 U/L (45-117); ANION GAP 10 MEQ/L (5-15); AST (GOT) 38 U/L (15-37); BICARBONATE 25.8 MEQ/L (21.0-32.0); BLOOD UREA NITROGEN 16 MG/DL (7-18); CHLORIDE 102 MEQ/L (98-107); CREATINE KINASE 93 U/L (26-192); GLOMERULAR FILTRATION RATE 60 ML/MIN (>89); POTASSIUM 4.1 MEQ/L (3.5-5.1); SODIUM (NA) 138 MEQ/L (136-145); TOTAL BILIRUBIN ADULT 0.3 MG/DL (0.2-1.0)
[2017-05-05 22:49] VITALS: BP 149/82; PULSE 92; RESP 20; O2SAT 97
[2017-05-05] MEDS ORDERED: ENOXAPARIN SODIUM 80 MG/0.8 ML SYRINGE SQ ONE (23:00)
[2017-05-05] MEDS ORDERED: NALOXONE HCL 0.4 MG/ML AMP IV PUSH PRN (23:15)
[2017-05-05] MEDS ORDERED: SODIUM CHLORIDE 0.9% FLUSH 10 ML FLUSH IV FLUSH PRN (23:15)
[2017-05-05] MEDS ORDERED: TRAM50TA PO (23:45)
[2017-05-06] VITALS (31 sets, daily range): BP systolic 96–198; BP diastolic 60–99; PULSE 59–138; RESP 14–20; TEMP 97.4–98.6; O2SAT 93–100
--- NOTE | 2017-05-06 00:02 | HHI.HP ---
[facility] Service [facility] Primary Care Physician Felicia Craig MD Admission Diagnosis NONSTEMI, NEW ONSET AFIB Diagnoses: Travel History International Travel<30 Days: No Contact w/Intl Traveler <30 Da: No Traveled to Known Affected Are: No History of Present Illness History from patient, ER physician communication, and review of medical records. Patient reported that around 7 PM last night while she was sitting down and watching TV, she felt chest pressure. Pointed to midsternal area. She reported she measured her blood pressure at that time and she believes her diastolic was in the 200s. She reports that the pain was midsternal, dull achy, more like soreness, and she broke down into her IV sweats. She stated she then started feeling palpitations and checked her pulse and new that it was irregular. However she did not measure her pulse and does not know the exact number. She also did have some nausea but did not vomit. She reports just the nausea was going up to her neck. Later on, she started having the heaviness going down to her left arm which is one she told her to call 911. Patient stated that the EMS personnel gave her nitroglycerin spray. The first screen did not do any trick but by the second spray, she stated her symptoms were mostly resolved. Upon EMS arrival, patient was also found to be in atrial fibrillation. She was given Cardizem bolus IV. She stated that she also took a baby aspirin at home from her . She then get her second dose of aspirin by ambulance personnel. Apart from the above, patient denies any recent fevers/shortness of breath/ palpitations/syncopal episodes. Denies any hematemesis/hematochezia/melena/hematuria. Denies any urinary burning or pain on urination. She reports she does have chronic watery stools because she takes miralax every day for her gastroparesis. Per our EMR, patient did have patient reports of history of atrial fibrillation once in 2012 when she had a knee surgery. This was also noted in our EMR. However at that time, there was miscommunication with her rehabilitation facility and her antihypertensive medications were not given to her during her hospitalization for a few days. She believes that this was the reason why her heart rate was high postop. She was never placed on any blood thinners. 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 ; had nephrostomy tubes by 1964 Arthritis Gastroparesis Past Surgical History ureteral stents nephrostomy tubes right knee replacement right hip replacement total hysterectomy at 32yo D+C before that x 2 for miscarriage thyroid nodules removed right upper lobectomy- for pneumonia cholecystectomy Allergies: Coded Allergies: Sulfa (Sulfonamide Antibiotics) (Unverified Allergy, Severe, Hives, ) doxycycline (Unverified Allergy, Severe, RASH, 03/24/17) minocycline (Unverified Allergy, Severe, RASH, 03/24/17) penicillin G (Unverified Allergy, Severe, Rash, 03/24/17) tigecycline (Unverified Allergy, Severe, RASH, 03/24/17) codeine (Unverified Adverse Reaction, Severe, NAUSEA, 05/06/17) NAUSEA Family History mother, - chf, htn 2 brothers - youngest at age 19 from testicular cancer, oldest brother lung cancer - was a smoker father- cancer in his back Social History used to smoke, quit 1990 no drinking etoh no drugs Physical Exam Vital Signs Vital Signs Date Time Temp Pulse Resp B/P (MAP) Pulse Ox O2 Delivery O2 Flow Rate FiO2 05/05/17 22:49 92 20 149/82 (104) 97 Nasal Cannula 2.00 05/05/17 22:37 90 24 160/90 (113) 97 05/05/17 22:35 95 Nasal Cannula 2.00 Physical Exam GENERAL: This is a well-nourished, well-developed patient, in no apparent distress. Obese lady SKIN: No rashes, ecchymoses or lesions. Cool and dry. HEAD: Atraumatic. Normocephalic. No temporal or scalp tenderness. EYES: No scleral icterus. No injection or drainage. ENT: Nose without bleeding, purulent drainage or septal hematoma. Airway patent. NECK: Trachea midline. No JVD or lymphadenopathy. Supple, nontender, no meningeal signs. CARDIOVASCULAR: Irregularly irregular, tachycardic around 120, no murmur appreciated. RESPIRATORY: Clear to auscultation. Breath sounds equal bilaterally. No wheezes , rales, or rhonchi. GASTROINTESTINAL: Abdomen soft, non-tender, nondistended. No guarding. MUSCULOSKELETAL: Extremities without clubbing, cyanosis, or edema.No calf tenderness. NEUROLOGICAL: Awake and alert Motor and sensory grossly within normal limits. Normal speech. Laboratory Laboratory Tests Test 05/05/17 21:45 White Blood Count 8.7 Red Blood Count 4.83 Hemoglobin 12.3 Hematocrit 38.8 Mean Corpuscular Volume 80.3 Mean Corpuscular Hemoglobin 25.5 Mean Corpuscular Hemoglobin Concent 31.7 Red Cell Distribution Width 16.5 Platelet Count 232 Mean Platelet Volume 10.2 Neutrophils (%) (Auto) 72.1 Lymphocytes (%) (Auto) 16.2 Monocytes (%) (Auto) 7.4 Eosinophils (%) (Auto) 2.3 Basophils (%) (Auto) 2.0 Neutrophils # (Auto) 6.2 Lymphocytes # (Auto) 1.4 Monocytes # (Auto) 0.6 Eosinophils # (Auto) 0.2 Basophils # (Auto) 0.2 CBC Comment DIFF FINAL Differential Comment Prothrombin Time 10.4 Prothromb Time International Ratio 0.9 Activated Partial Thromboplast Time 23.9 Blood Urea Nitrogen 16 Creatinine 0.91 Random Glucose 189 Total Protein 7.3 Albumin 3.3 Calcium Level 8.0 Alkaline Phosphatase 104 Aspartate Amino Transf (AST/SGOT) 38 Alanine Aminotransferase (ALT/SGPT) 30 Total Bilirubin 0.3 Sodium Level 138 Potassium Level 4.1 Chloride Level 102 Carbon Dioxide Level 25.8 Anion Gap 10 Estimat Glomerular Filtration Rate 60 Total Creatine Kinase 93 Troponin I 0.09 B-Type Natriuretic Peptide 121 Lipase 154 Thyroid Stimulating Hormone 3rd Gen 0.787 Result Diagram: 05/05/17214405/05/172144 Imaging Last 48 hours Impressions Chest X-Ray 05/05/172141 Signed Impressions: Service Date/Time: Friday, May 05, 2017 21:51 - CONCLUSION: No evidence of acute cardiopulmonary disease. MD Bo Duarte VTE Risk Assessment Caprini VTE Risk Assessment: Mod/High Risk (score >= 2) Caprini Risk Assessment Model Point Value = 1 Point Value = 2 Point Value = 3 Point Value = 5 Age 41-60 Minor surgery BMI > 25 kg/m2 Swollen legs Varicose veins or History of unexplained or recurrent spontaneous Oral contraceptives or hormone replacement Sepsis (< 1 month) Serious lung disease, including pneumonia (< 1 month) Abnormal pulmonary function Acute myocardial infarction Congestive heart failure (< 1 month) History of inflammatory bowel disease Medical patient at bed rest Age 61-74 Arthroscopic surgery Major open surgery (> 45 min) Laparoscopic surgery (> 45 min) Malignancy Confined to bed (> 72 hours) Immobilizing plaster cast Central venous access Age >= 75 History of VTE Family history of VTE Factor V Leiden Prothrombin [id number] Lupus anticoagulant Anticardiolipin antibodies Elevated serum homocysteine Heparin-induced thrombocytopenia Other congenital or acquired thrombophilia Stroke (< 1 month) Elective arthroplasty Hip, pelvis, or leg fracture Acute spinal cord injury (< 1 month) Prophylaxis Regimen Total Risk Factor Score Risk Level Prophylaxis Regimen 0-1 Low Early ambulation 2 Moderate Order ONE of the following: *Sequential Compression Device (SCD) *Heparin 5000 units SQ BID 3-4 Higher Order ONE of the following medications: *Heparin 5000 units SQ TID *Enoxaparin/Lovenox 40 mg SQ daily (WT < 150 kg, CrCl > 30 mL/min) *Enoxaparin/Lovenox 30 mg SQ daily (WT < 150 kg, CrCl > 10-29 mL/min) *Enoxaparin/Lovenox 30 mg SQ BID (WT < 150 kg, CrCl > 30 mL/min) AND/OR *Sequential Compression Device (SCD) 5 or more Highest Order ONE of the following medications: *Heparin 5000 units SQ TID (Preferred with Epidurals) *Enoxaparin/Lovenox 40 mg SQ daily (WT < 150 kg, CrCl > 30 mL/min) *Enoxaparin/Lovenox 30 mg SQ daily (WT < 150 kg, CrCl > 10-29 mL/min) *Enoxaparin/Lovenox 30 mg SQ BID (WT < 150 kg, CrCl > 30 mL/min) AND *Sequential Compression Device (SCD) Assessment and Plan Assessment and Plan Impression: Chest pain- rule out ACS. Atrial fibrillation- with ventricular rate around 110-140. Initially broke with just a 1 times dose of Cardizem IV by ER. That now currently back to 110 to 140s heart rate. Elevated troponin- possibly rate related. However her history is quite classical though diabetic. 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 Monitor her blood pressure while on Cardizem drip. If needed, would add IV antihypertensives. However suspects that patient's high blood pressure is also related to her chest pains. It was also noted that the blood pressure is fluctuating during my conversation with her on repeated measures. It fluctuates from 180s/100s to 153/88 without intervention. Lovenox 1 mg/kg subcutaneous every 12 hours for anticoagulation for now. Consult cardiology for further ischemic workup and anticoagulation for A. fib. Hold metformin. hold long-acting insulin. We'll monitor fingersticks and cover with sliding scale coverage. Resume rest of her home medication. DVT prophylaxis on Lovenox. Discussed Condition With patient, her at bedside, ER physician Physician Certification 2 Midnight Certification Type: Admission for Inpatient Services Order for Inpatient Services The services are ordered in accordance with Medicare regulations or non- Medicare payer requirements, as applicable. In the case of services not specified as inpatient-only, they are appropriately provided as inpatient services in accordance with the 2-midnight benchmark. Estimated LOS (days): 2 days is the estimated time the patient will need to remain in the hospital, assuming treatment plan goals are met and no additional complications. Post-Hospital Plan: Home Luc Savage MD May 06, 2017 00:02
[2017-05-06] MEDS ORDERED: traMADol HCL 50 MG TAB PO PRN (00:30)
[2017-05-06] MEDS ORDERED: DILTIAZEM INJ 125 MG in SODIUM CHLORIDE 0.9% INJ 100 ML IV PRN (01:00)
[2017-05-06] MEDS ORDERED: DILTIAZEM HCL 25 MG/5 ML VIAL IV PUSH ONE (01:00)
[2017-05-06] MEDS: traMADol HCL 50 MG TAB PO PRN (01:32)
[2017-05-06 04:45] LABS: MEAN CORPUSCULAR HEMOGLOBIN 24.8 PG (27.0-34.0); MEAN CORPUSCULAR HGB CONC 31.1 % (32.0-36.0); PLATELET COUNT 242 TH/MM3 (150-450); RED BLOOD COUNT 4.87 MIL/MM3 (4.00-5.30); RED CELL DISTRIBUTION WIDTH 16.4 % (11.6-17.2); WHITE BLOOD COUNT 9.5 TH/MM3 (4.0-11.0)
[2017-05-06] MEDS ORDERED: GLUCAGON 1 MG/ML VIAL OTHER PRN ×2 (04:45→07:15)
[2017-05-06] MEDS ORDERED: DEXTROSE 50% IN WATER 50 ML VIAL(D50) IV PUSH PRN ×2 (04:45→07:15)
[2017-05-06 04:54] LABS: HEMO FLAGS AUTO DIFF
[2017-05-06] MEDS: cloNIDine HCL 0.2 MG TAB PO SCH ×3 (05:03→22:00)
[2017-05-06] MEDS: LEVOTHYROXINE SODIUM 88 MCG TAB PO SCH (05:03)
[2017-05-06] MEDS: ONDANSETRON HCL 4 MG/2 ML VIAL IV PUSH PRN ×3 (05:03→18:30)
[2017-05-06 05:12] LABS: BICARBONATE 28.8 MEQ/L (21.0-32.0)
[2017-05-06 07:14] LABS: BANDS 1 % (0-6); BASOPHILS 1 % (0-2); EOSINOPHILS 2 % (0-4); METAMYELOCYTES 1 % (0-1); NEUTROPHIL # MANUAL DIFF 6.4 TH/MM3 (1.8-7.7); POLYS (SEG NEUTROPHILS) 65 % (16-70); WBC DIFF SAMPLE 100
[2017-05-06 07:15] LABS: PLATELET ESTIMATE SMEAR NORMAL (NORMAL); PLATELET MORPHOLOGY ENLARGED (NORMAL); SCAN/DIFF FINAL DIFF MANUAL
[2017-05-06] MEDS: METOCLOPRAMIDE HCL 10 MG TAB PO SCH ×4 (08:00→21:00)
[2017-05-06] MEDS ORDERED: HEPARIN SODIUM - IV 10,000 UNITS/10 ML VIAL IV PUSH ONE (08:30)
[2017-05-06] MEDS ORDERED: HEPARIN-D5W 25,000 U/250 ML 250 ML IV PRN ×2 (08:30→09:00)
--- NOTE | 2017-05-06 08:56 | PD.CONS ---
HPI Consult Requested By cardiology Reason for Consult afib Primary Care Physician Felicia Craig MD History of Present Illness This is a 77 yo WF with DM and HTN who presents with afib RVR. She was sitting on her couch last night watching tv when she developed sudden onset non- exertional substernal chest pain "8/10" with associated palpitations and elevated SBP (180). EMS was called and she was found to be in afib RVR. Cardizem gtt initiated. Patient reports a brief episode of afib back in 2012 after knee surgery. She is currently resting comfortably but continues to have intermittent chest discomfort "3/10" lasting a few minutes at a time. She denies SOB. Troponins elevated. (Francine Thibodeaux) Review of Systems Consitutional: DENIES: Fever, Chills, Weight gain Respiratory: DENIES: Cough, Snoring, Shortness of breath, Wheezing, Sputum production Cardiovascular: DENIES: Palpitations, Syncope, Tachycardia Gastrointestinal: DENIES: Nausea, Vomiting, Reflux, Bloody stools (Francine Thibodeaux) Past Family Social History Allergies: Coded Allergies: Sulfa (Sulfonamide Antibiotics) (Unverified Allergy, Severe, Hives, ) doxycycline (Unverified Allergy, Severe, RASH, 03/24/17) minocycline (Unverified Allergy, Severe, RASH, 03/24/17) penicillin G (Unverified Allergy, Severe, Rash, 03/24/17) tigecycline (Unverified Allergy, Severe, RASH, 03/24/17) codeine (Unverified Adverse Reaction, Severe, NAUSEA, 05/06/17) NAUSEA Past Medical History Hypertension DM AFib- paroxysmal 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 ; had nephrostomy tubes by 1964 Arthritis Past Surgical History ureteral stents nephrostomy tubes right knee replacement right hip replacement total hysterectomy at 32yo D+C before that x 2 for miscarriage thyroid nodules removed right upper lobectomy- for pneumonia cholecystectomy Reported Medications Reported Meds & Active Scripts Active Catapres (Clonidine) 0.2 Mg Tab 0.2 Mg PO Q8HR Kamini-Colace (Sennosides-Docusate Sodium) 8.6-50 Mg Tab 2 Tab PO DAILY Metoclopramide (Metoclopramide HCl) 10 Mg Tab 10 Mg PO ACHS Lisinopril 20 Mg Tab 20 Mg PO BID Reported Tramadol (Tramadol HCl) 50 Mg Tab 100 Mg PO Q12HR PRN Synthroid (Levothyroxine Sodium) 88 Mcg Tab 88 Mcg PO DAILY Nadolol 20 Mg Tab 20 Mg PO BID Metformin ER (Metformin HCl) 500 Mg Naty 500 Mg PO BID With evening meal Lantus Inj (Insulin Glargine) 1,000 Unit/10 Ml Vial 25 Units SQ HS Gabapentin 300 Mg Cap 300 Mg PO TID Vytorin (Ezetimibe-Simvastatin) 10-20 Mg Tab 1 Tab PO HS Omeprazole 20 Mg Tab 20 Mg PO DAILY Bethanechol 25 Mg Tab 25 Mg PO QID Active Ordered Medications Current Medications Medications (Trade) Dose Ordered Sig/Cristine Route Start Time Stop Time Status Last Admin (NS Flush) 2 ml UNSCH PRN IV FLUSH 05/05/17 23:15 (NS Flush) 2 ml BID IV FLUSH 05/06/17 09:00 (Narcan Inj) 0.4 mg UNSCH PRN IV PUSH 05/05/17 23:15 (Urecholine) 25 mg QID PO 05/06/17 09:00 (Catapres) 0.2 mg Q8HR PO 05/06/17 06:00 05/06/17 05:03 (Neurontin) 300 mg TID PO 05/06/17 09:00 (Synthroid) 88 mcg DAILY@0600 PO 05/06/17 06:00 05/06/17 05:03 (Prinivil) 20 mg BID PO 05/06/17 09:00 (Reglan) 10 mg ACHS PO 05/06/17 08:00 (Corgard) 20 mg BID PO 05/06/17 09:00 (Kamini-Colace) 2 tab DAILY PO 05/06/17 09:00 (Protonix) 20 mg DAILY PO 05/06/17 09:00 (Ultram) 100 mg Q12H PRN PO 05/06/17 00:45 05/06/17 01:32 (Lovenox Inj) 80 mg Q12HR SQ 05/06/17 09:00 Diltiazem HCl 125 mg/Sodium Chloride 125 ml @ 5 mls/hr TITRATE PRN IV 05/06/17 01:00 05/06/17 01:43 (Pneumovax-23 Inj) 25 mcg ONCE ONCE IM 05/07/17 10:00 05/07/17 10:01 (Flu (Quadrivalent) Vaccine Inj) 0.5 ml ONCE ONCE IM 05/07/17 10:00 05/07/17 10:01 (Zofran Inj) 4 mg Q6HR PRN IV PUSH 05/06/17 04:45 05/06/17 05:03 (D50w (Vial) Inj) 50 ml UNSCH PRN IV PUSH 05/06/17 07:15 (Glucagon Inj) 1 mg UNSCH PRN OTHER 05/06/17 07:15 (NovoLOG SUPPLEMENTAL SCALE) 1 ACHS SLIDING SCALE SQ 05/06/17 08:00 Family History mother, - chf, htn 2 brothers - youngest at age 19 from testicular cancer, oldest brother lung cancer - was a smoker father- cancer in his back Social History used to smoke, quit 1990 no drinking etoh no drugs (Francine Thibodeaux) Physical Exam Vital Signs Vital Signs Date Time Temp Pulse Resp B/P (MAP) Pulse Ox O2 Delivery O2 Flow Rate FiO2 05/06/17 08:00 98.3 71 16 115/77 (90) 99 05/06/17 06:00 81 05/06/17 05:19 85 05/06/17 04:49 85 05/06/17 03:00 97.4 75 17 156/86 (109) 100 05/06/17 03:00 76 05/06/17 02:00 112 05/06/17 01:45 98.0 76 18 136/69 (91) 100 05/06/17 01:43 120 171/93 05/06/17 01:30 05/06/17 01:30 98.0 119 17 153/77 (102) 100 05/06/17 01:15 97.6 138 18 137/99 (112) 100 05/06/17 01:00 97.4 135 19 158/99 (118) 98 05/06/17 01:00 135 05/05/17 22:49 92 20 149/82 (104) 97 Nasal Cannula 2.00 05/05/17 22:37 90 24 160/90 (113) 97 05/05/17 22:35 95 Nasal Cannula 2.00 Physical Exam SKIN: Warm and dry. HEAD: Atraumatic. Normocephalic. EYES: Pupils equal and round. . ENT: No nasal bleeding or discharge. Mucous membranes pink and moist. NECK: Trachea midline. No JVD. CARDIOVASCULAR: Normal rate, irregularly irregular rhythm RESPIRATORY: No accessory muscle use. Clear to auscultation. Breath sounds equal bilaterally. GASTROINTESTINAL: Abdomen soft, non-tender, nondistended. le. MUSCULOSKELETAL: Extremities without clubbing, cyanosis, or edema. No obvious deformities. NEUROLOGICAL: Awake and alert. No obvious cranial nerve deficits. Normal speech. PSYCHIATRIC: Appropriate mood and affect; insight and judgment normal. Laboratory Laboratory Tests Test 05/05/17 21:45 05/06/17 04:35 White Blood Count 8.7 9.5 Red Blood Count 4.83 4.87 Hemoglobin 12.3 12.1 Hematocrit 38.8 39.0 Mean Corpuscular Volume 80.3 80.0 Mean Corpuscular Hemoglobin 25.5 24.8 Mean Corpuscular Hemoglobin Concent 31.7 31.1 Red Cell Distribution Width 16.5 16.4 Platelet Count 232 242 Mean Platelet Volume 10.2 9.9 Neutrophils (%) (Auto) 72.1 Lymphocytes (%) (Auto) 16.2 Monocytes (%) (Auto) 7.4 Eosinophils (%) (Auto) 2.3 Basophils (%) (Auto) 2.0 Neutrophils # (Auto) 6.2 Lymphocytes # (Auto) 1.4 Monocytes # (Auto) 0.6 Eosinophils # (Auto) 0.2 Basophils # (Auto) 0.2 CBC Comment DIFF FINAL AUTO DIFF Differential Comment FINAL DIFF MANUAL Prothrombin Time 10.4 Prothromb Time International Ratio 0.9 Activated Partial Thromboplast Time 23.9 Blood Urea Nitrogen 16 18 Creatinine 0.91 0.83 Random Glucose 189 130 Total Protein 7.3 Albumin 3.3 Calcium Level 8.0 8.2 Alkaline Phosphatase 104 Aspartate Amino Transf (AST/SGOT) 38 Alanine Aminotransferase (ALT/SGPT) 30 Total Bilirubin 0.3 Sodium Level 138 140 Potassium Level 4.1 4.0 Chloride Level 102 105 Carbon Dioxide Level 25.8 28.8 Anion Gap 10 6 Estimat Glomerular Filtration Rate 60 67 Total Creatine Kinase 93 88 Troponin I 0.09 0.12 B-Type Natriuretic Peptide 121 Lipase 154 Thyroid Stimulating Hormone 3rd Gen 0.787 Differential Total Cells Counted 100 Neutrophils % (Manual) 65 Band Neutrophils % 1 Lymphocytes % 22 Monocytes % 8 Eosinophils % 2 Basophils % 1 Neutrophils # (Manual) 6.4 Metamyelocytes 1 Platelet Estimate NORMAL Platelet Morphology Comment ENLARGED (Francine Thibodeaux) Result Diagram: 05/06/1743405/06/17434 Imaging Last 24 hours Impressions Chest X-Ray 05/05/172141 Signed Impressions: Service Date/Time: Friday, May 05, 2017 21:51 - CONCLUSION: No evidence of acute cardiopulmonary disease. Preston Gtz MD (Francine Thibodeaux) Assessment and Plan Problem List: (1) Non-STEMI (non-ST elevated myocardial infarction) ICD Codes: I21.4 - Non-ST elevation (NSTEMI) myocardial infarction Status: Acute (2) New onset a-fib ICD Codes: I48.91 - Unspecified atrial fibrillation Status: Acute Assessment and Plan 77 yo WF with DM, HTN and history of paroxysmal afib who presents with sudden onset non-exertional chest pain and afib. afib- rate controlled. change cardizem gtt to po. Will hold lisinopril and monitor SBP. echo ordered angina- will plan for cardiac catheterization tomorrow am. start heparin gtt. (Francine Thibodeaux) Assessment and Plan new onset afib rate controlled now. convert Cardizem gtt to PO cardizem 2d echo TSH normal + unstable anginal symptoms with elevated troponins consistent with NSTEMI heparin gtt plan for cardiac cath tomorrow. (Mynor Christy MD) Francine Thibodeaux May 06, 2017 08:56 Mynor Christy MD May 06, 2017 09:52
[2017-05-06] MEDS ORDERED: NADOLOL 20 MG TAB PO SCH (09:00)
[2017-05-06] MEDS: DOCUSATE SODIUM 50 MG/SENNA 8.6 MG TAB PO SCH ×2 (09:00→09:59)
[2017-05-06] MEDS ORDERED: ENOXAPARIN SODIUM 80 MG/0.8 ML SYRINGE SQ SCH (09:00)
[2017-05-06] MEDS ORDERED: GABAPENTIN 300 MG CAP PO SCH (09:00)
[2017-05-06] MEDS ORDERED: LISINOPRIL 20 MG TAB PO SCH (09:00)
[2017-05-06] MEDS: PANTOPRAZOLE SOD 20 MG DELAYED RELEASE TAB PO SCH (09:59)
[2017-05-06] MEDS: INSULIN ASPART SUPPLEMENTAL SCALE SQ SCH ×4 (10:00→21:00)
[2017-05-06] MEDS: BETHANECHOL CHL 25 MG TAB PO SCH ×4 (10:01→21:00)
[2017-05-06] MEDS: SODIUM CHLORIDE 0.9% FLUSH 10 ML FLUSH IV FLUSH SCH ×2 (10:02→21:00)
[2017-05-06 10:14] LABS: HEMATOCRIT 37.3 % (35.0-46.0); MEAN CELL VOLUME 80.9 FL (80.0-100.0); MEAN CORPUSCULAR HEMOGLOBIN 25.2 PG (27.0-34.0); MEAN CORPUSCULAR HGB CONC 31.2 % (32.0-36.0); PLATELET COUNT 227 TH/MM3 (150-450); RED BLOOD COUNT 4.61 MIL/MM3 (4.00-5.30); RED CELL DISTRIBUTION WIDTH 16.9 % (11.6-17.2); REVIEW FLAG FINAL; WHITE BLOOD COUNT 8.3 TH/MM3 (4.0-11.0)
[2017-05-06 10:23] LABS: APTT (PATIENT) 26.5 SEC (24.3-30.1); PROTHROMBIN TIME - PATIENT 10.9 SEC (9.8-11.6)
[2017-05-06] MEDS ORDERED: DILTIAZEM HCL 30 MG TAB PO SCH (12:00)
--- NOTE | 2017-05-06 12:26 | ECHRPT ---
Indication: Chest pain CONCLUSIONS The left ventricular systolic function is normal with an estimated ejection fraction in the range of 55-60%. Normal left ventricular size. Moderate concentric left ventricular hypertrophy. No regional wall motion abnormalities are present. Trace mitral valve regurgitation. There is trace tricuspid valve regurgitation. The estimated pulmonary arterial pressure is 27.5 mmHg. BP: 115 / 77 HR: 71 Rhythm: Other MEASUREMENTS (Male / Female) Normal Values Technical Quality:Fair 2D ECHO LV Diastolic Diameter PLAX 3.3 cm 4.2 - 5.9 / 3.9 - 5.3 cm LV Systolic Diameter PLAX 2.7 cm IVS Diastolic Thickness 1.4 cm 0.6 - 1.0 / 0.6 - 0.9 cm LVPW Diastolic Thickness 1.4 cm 0.6 - 1.0 / 0.6 - 0.9 cm LV Relative Wall Thickness 0.9 RV Internal Dim ED PLAX 2.1 cm LVOT Diameter 1.7 cm LA Systolic Diameter LX 3.4 cm 3.0 - 4.0 / 2.7 - 3.8 cm LV Ejection Fraction MOD 4C 57.8 % LV Cardiac Index MOD 4C 840.2 cm/minm LV Ejection Fraction 4C AL 58.9 % LV Cardiac Index 4C AL 877.7 cm/minm M-MODE Aortic Root Diameter MM 2.7 cm AV Cusp Separation MM 1.8 cm DOPPLER AV Peak Velocity 191.0 cm/s AV Peak Gradient 14.6 mmHg LVOT Peak Velocity 108.0 cm/s LVOT Peak Gradient 4.7 mmHg AV Area Cont Eq pk 1.3 cm MV Area PHT 2.9 cm Mitral E Point Velocity 138.0 cm/s Mitral A Point Velocity 36.0 cm/s Mitral E to A Ratio 3.8 LV E' Lateral Velocity 7.4 cm/s Mitral E to LV E' Lateral Ratio 18.6 LV E' Septal Velocity 6.5 cm/s Mitral E to LV E' Septal Ratio 21.1 TR Peak Velocity 209.0 cm/s TR Peak Gradient 17.5 mmHg Right Atrial Pressure 10.0 mmHg Pulmonary Artery Systolic Pressu 27.5 mmHg Right Ventricular Systolic Press 27.5 mmHg PV Peak Velocity 92.3 cm/s PV Peak Gradient 3.4 mmHg FINDINGS LEFT VENTRICLE The left ventricular systolic function is normal with an estimated ejection fraction in the range of 55-60%. Normal left ventricular size. Moderate concentric left ventricular hypertrophy. No regional wall motion abnormalities are present. RIGHT VENTRICLE Normal right ventricular size and systolic function. LEFT ATRIUM The left atrial size is normal. RIGHT ATRIUM The right atrial size is normal. ATRIAL SEPTUM Normal atrial septal thickness without atrial level shunting by limited color doppler interrogation. AORTA The aortic root and proximal ascending aorta are normal in size on limited imaging. MITRAL VALVE Trace mitral valve regurgitation. AORTIC VALVE Trileaflet aortic valve. No aortic valve stenosis or regurgitation. TRICUSPID VALVE There is trace tricuspid valve regurgitation. The estimated pulmonary arterial pressure is 27.5 mmHg. PULMONARY VALVE No pulmonary valve regurgitation or stenosis. VESSELS The inferior vena cava is normal in size. PERICARDIUM No pericardial effusion. Mynor Christy MD, FACC (Electronically Signed) Final Date:06 May 2017 12:25
[2017-05-06] MEDS ORDERED: NITROGLYCERIN INJ 5 ML ONE ×3 (14:19→16:42)
[2017-05-06] MEDS ORDERED: HEPARIN-NS/PF INJ 1,000 ML ONE (14:19)
[2017-05-06] MEDS ORDERED: MIDAZOLAM HCL 2 MG/2 ML VIAL ONE ×2 (14:19→16:41)
[2017-05-06] MEDS ORDERED: HEPARIN SODIUM - IV 10,000 UNITS/10 ML VIAL ONE ×2 (14:19→16:42)
[2017-05-06] MEDS ORDERED: HEPARIN SODIUM - IV 10,000 UNITS/10 ML VIAL IV PUSH PRN (14:30)
--- NOTE | 2017-05-06 14:45 | EKG ---
Date Performed: 05/06/2017 Time Performed: 04:39:08 PTAGE: 77 years EKG: Atrial fibrillation Possible left anterior fascicular block Lateral T wave changes are nons pecific Abnormal ECG PREVIOUS TRACING : 02/17/2017 13.35 Compared to prior tracing no significant change DOCTOR: Fantasma Quinteros Interpretating Date/Time 05/06/2017 14:44:56
--- NOTE | 2017-05-06 14:59 | EKG ---
Date Performed: 05/05/2017 Time Performed: 21:53:46 PTAGE: 77 years EKG: ATRIAL FIBRILLATION MARKED LEFT AXIS DEVIATION ABNORMAL ECG Compared to the PREVIOUS TRACING SR no longer present DOCTOR: Fantasma Quinteros Interpretating Date/Time 05/06/2017 14:58:17
[2017-05-06] MEDS ORDERED: BIVALIRUDIN 250 MG VIAL ONE (15:06)
[2017-05-06] MEDS ORDERED: hydrALAZINE HCL 20 MG/ML VIAL ONE (15:07)
[2017-05-06] MEDS ORDERED: TICAGRELOR 90 MG TAB PO ONE (15:26)
[2017-05-06] MEDS ORDERED: IOHEXOL 350 MG/ML 100 ML BTL (for Cath Lab) OTHER ONE ×2 (15:29)
[2017-05-06] MEDS ORDERED: BIVALIRUDIN INJ 250 MG in SODIUM CHLORIDE 0.9% INJ 50 ML IV SCH (15:30)
[2017-05-06] MEDS ORDERED: MORPHINE SULFATE 4 MG/ML INJ IV PUSH PRN (15:30)
[2017-05-06] MEDS ORDERED: MISC INFORMATION XX ONE (15:30)
[2017-05-06] MEDS ORDERED: LIDOCAINE 2% JELLY 30 ML TUBE TOP PRN (15:30)
[2017-05-06] MEDS ORDERED: BACITRACIN OINT 0.9 GM PKT TOP ONE (15:30)
--- NOTE | 2017-05-06 15:43 | CATHPROC ---
[facility] HIS Report Study Information Study Number Admission Scheduled Start Study Start [id number] May 05 2017 11:20PM 05/06/2017 May 06 2017 2:06PM [place] [facility] Cardiac Catheterization Admit Source Facility Department Other [facility] - [facility] Physician and Clinical Staff Initial Mynor Boo Circuit Board Assembler Angélica Haskins,RN Recorder Sadia Loya,NIR Scrub Hosterman, Trevor,RT(R) Procedures Performed Procedure Location (Site) Vessel Name Coronary Angiograms LCA Left Coronary Coronary Angiograms RCA Right Coronary Drug Eluting Inflatio LAD Mid Left Coronary L Heart Cath PTCA LAD Mid Left Coronary Wire insertion Radial (right) Radial Art. Equipment Time Farm Implement Engine Mechanic Description Size Mfg Part Number Used/Scraped COPILOT VALVE, BLEEDBACK [id number] 15:03 [employer] Used CONTROL *[id number] TRANSDUCER, TRUWAVE [id number] 14:25 Gamerizon Studio * Used W/STOCKCOCK *[id number] *[id number] *[id number] 534-623T *[id number] 14:25 Tixers PACK, CCL CUSTOM * Used *[id number] 14:25 Tixers SUPPORT, ARTERIAL ADULT 33269 *[id number] Used [id number] 14:25 StereoVision Imaging PACER PEN, SKIN DUAL W/ RULER * Used *[id number] BALLOON, 3.0 X 8MM NC [id number] 15:10 MEDTRONIC 8MM Used EUPHORA *[id number] 15:16 MEDTRONIC STENT, 3.0 18MM DIONTE 3.0 18MM Used *[id number] 15:14 [employer] Sense Shoes 30 CARLA INDEFLATOR Used *[id number] BAND, RADIAL COMPRESSION TR [id number] 15:29 RHM Technology MEDICAL 24CM Used SHORT 24 *[id number] SHEATH, FR6 RADIAL PRELUDE 14:25 [employer] Sense Shoes FR 6 [id number] Used EASE 11CM [id number] 14:25 [employer] Sense Shoes WIRE, EXCHANGE 260CM 3MMJ 260CM Used *[id number] 14:25 NYCOMED OMNIPAQUE, 350 MG, 150ML 150ML [id number] Used [id number] 14:25 GOMEZ MEDICAL BLANKET,WARM AIR CCL * Used *[id number] WIRE, RUNTHROUGH NS FLOPPY [id number] 15:03 TERUMO MEDICAL 180CM Used .014 180CM *[id number] Equipment Model, Serial, Lot Number and Expiration Data Description Model Number Serial Number Lot Number Expiration Date STENT, 3.0 18MM DIONTE [id number] 01-14-2019 History: Current Medications Medication Dosage/Unit Route Frequency Last Date/Time Taken LISINOPRIL History: Allergies Allergy Reaction Sulfa Drugs Penicillin Codeine History: Risk Factors Family History of Hypertension Dyslipidemia Previous [place] Previous Heart Failure Premature CAD Yes Yes Yes No No Prior Valve Prior PCI Prior CABG Surgery No No No Cerebrovascular Peripheral Artery Chronic Lung On Dialysis Diabetes Diabetes Therapy Disease Disease Disease No No No No Yes Oral History: Symptoms/Diagnosis Selection Items Angina-unstable History: Stress Tests Stress or Imaging Studies Performed No History: Other Current Smoker Method Quit Packs a Day Years Used Pack Years No Cigarettes 26 Years Ago 1 15 15 Labs Hgb (g/dl) Hct (%) RBC (MIL/MM3) WBC (l/cumm) Platelets (thousands) 11.60-17.00 35.00-51.00 4.00-5.90 4.00-11.00 150.00-450.00 11.6 37.3 4.6 8.3 227 Glucose (mg/dl) BUN (mg/dl) Creatinine (mg/dl) BUN:Creatinine (1:x) 74.00-106.00 7.00-18.00 0.50-1.30 10.00-20.00 130 18 0.8 22.5 Na (meq/l) K (meq/l) Cl (meq/l) CO2 (mmol/L) Ca (mg/dl) 136.00-145.00 3.50-5.10 98.00-107.00 21.00-32.00 8.50-10.10 140 4 105 28.8 8.2 PT (sec) PTT (sec) INR (PTT:PT) 9.80-11.60 24.30-30.10 0.90-1.10 10.9 26.5 1 Troponin I (ng/ml) Troponin T (ng/ml) CPK (u/l) CPK-MB (ng/ML) 0.02-0.05 0.40-2.10 26.00-308.00 0.50-3.60 0.11 0.12 88 Not Drawn Medication Medication Total Dose (Bolus/Oral) Medication Total Dosage/Unit 1% XYLOCAINE 20 mL ANGIOMAX BOLUS 15 mL BRILINTA 180 mg FENTANYL 75 mcg HEPARIN 3000 units HYDRALAZINE 10 mg NTG (IC) 1400 mcg VERSED 2 mg Medications (Bolus/Oral) Medication Time Given Dosage/Unit Administered By Reason VERSED 05/06/2017 2:43:56 PM 1 mg Sadia Loya 1 mg VERSED given in lab by Sadia Loya RN in Right Antecubital via Peripheral IV. FENTANYL 05/06/2017 2:44:34 PM 25 mcg Sadia Loya 25 mcg FENTANYL given in lab by Sadia Loya RN in Right Antecubital via Peripheral IV. 1% XYLOCAINE 05/06/2017 2:51:06 PM 20 mL Mynor Christy 20 mL 1% XYLOCAINE given in lab by Mynor Christy in Right Radial via Subcutaneous. HEPARIN 05/06/2017 2:52:05 PM 3000 units Sadia Loya 3000 units HEPARIN given in lab by Sadia Loya RN in Left Antecubital via Peripheral IV. NTG (IC) 05/06/2017 2:52:06 PM 200 mcg Mynor Christy 200 mcg NTG (IC) given in lab by Mynor Christy in Right Radial via Intra-arterial. VERSED 05/06/2017 3:04:26 PM 1 mg Sadia Loya 1 mg VERSED given in lab by Sadia Loya RN in Left Antecubital via Peripheral IV. FENTANYL 05/06/2017 3:04:38 PM 50 mcg Sadia Loya 50 mcg FENTANYL given in lab by Sadia Loya RN in Left Antecubital via Peripheral IV. ANGIOMAX BOLUS 05/06/2017 3:10:00 PM 15 mL Sadia Loya 15 mL ANGIOMAX BOLUS given in lab by Sadia Loya RN in Right Antecubital via Peripheral IV. HYDRALAZINE 05/06/2017 3:13:53 PM 10 mg Sadia Loya 10 mg HYDRALAZINE given in lab by Sadia Loya RN in Right Antecubital via Peripheral IV. NTG (IC) 05/06/2017 3:15:50 PM 400 mcg Mynor Christy 400 mcg NTG (IC) given in lab by Mynor Christy via Intra-coronary. NTG (IC) 05/06/2017 3:18:29 PM 400 mcg Mynor Christy 400 mcg NTG (IC) given in lab by Mynor Christy via Intra-coronary. NTG (IC) 05/06/2017 3:23:26 PM 400 mcg Mynor Christy 400 mcg NTG (IC) given in lab by Mynor Christy via Intra-coronary. BRILINTA 05/06/2017 3:30:56 PM 180 mg Mynor Christy 180 mg BRILINTA given in lab by Mynor Christy via Oral. Medication (Drip) Medication Time Given Dosage/Unit Concentration/Unit Diluent (ml) Solution ANGIOMAX DRIP 05/06/2017 3:12:58 PM 1.75 mg/kg/hr 250 mg 50 NaCl .9 1.75 mg/kg/hr ANGIOMAX DRIP given in lab by Sadia Loya, NIR in Right Antecubital via Peripheral I V. Pump/Drip Flow = 35 ml/hr using NaCl .9 with a concentration of 250 mg in 50 ml. Initial Case Assessment Cardiovascular HR Rhythm NIBP Chest Pain 69 sr 181/94 0 Edema Present Skin color Skin None Normal Warm Dry Circulatory - Right Pulses Dorsalis Pedis Femoral 2 2 Scale (0,1,2,3,4,d) Circulatory - Left Pulses Dorsalis Pedis Femoral 2 2 Scale (0,1,2,3,4,d) Neurological State Oriented to time-place- Alert Moves all extremities person Respiration - General Respiration Rate SpO2 (%) O2 (lpm) (B/min) 15 95 0 Final Case Assessment Cardiovascular HR Rhythm NIBP Chest Pain 69 Sinus 155/80 0 Edema Present Skin color Skin None Normal Warm Dry Circulatory - Right Pulses Dorsalis Pedis Femoral 2 2 Scale (0,1,2,3,4,d) Circulatory - Left Pulses Dorsalis Pedis Femoral 2 2 Scale (0,1,2,3,4,d) Neurological State Oriented to time-place- Alert Moves all extremities person Respiration - General Respiration Rate SpO2 (%) O2 (lpm) (B/min) 17 93 0 Chronological Log Time Study Chronological Log 14:07:49 Patient arrived via Bed. 14:07:50 Patient Name, D.O.B, / Armband Verified By R.N. 14:07:52 Consent signed by the physician and the patient and verified by the [employer] staff. Verbal Stimulation=~VERBAL~ Physical Stimulation=~PHYSICAL~ Airway=~AIRWAY~ Respiration=~RESPIR ATION~ 14:07:53 TOTAL=~TOTAL~. (0=absent, 1=limited, 2=present) Vitals capture started with the following parameters, Patient=Adult, Interval=5 min, Initial Pr ehwhst=368 mmHg, 14:17:00 Deflation Rate=5 mmHg 14:18:32 HR=69 bpm, WLQJ=311/99 mmhg, SpO2=98.0 %, Resp=11 B/min, Pain=0, Ayon=2 14:22:50 HR=67 bpm, RJEP=800/96 mmhg, SpO2=95.0 %, Resp=28 B/min, Pain=0, Ayon=2 14:27:51 HR=68 bpm, VPNY=436/94 mmhg, SpO2=93.0 %, Resp=17 B/min, Pain=0, Ayon=2 14:28:28 Allens test performed on the right radial and ulnar artery. Positive 14:28:36 Immediate Presedation assesment performed by physician. 14:28:38 Patient has been NPO for More than 6Hrs. 14:28:39 Skin Breakdown- none 14:28:49 A # 20 IV was noted in the Antecubital (right). Grade = 0 14:29:17 History and physical on the chart or being dictated. Assessment: Initial Case, HR=69 BPM, Rhythm=sr, QVKK=036/94 mmhg, Chest Pain=0, Edema=None, Col or=Normal, Skin = Warm, Dry Right Pulses: Tommy Ped=2, Femoral=2 14:29:19 Left Pulses: Tommy Ped=2, Femoral=2 Neurological: State=Alert, Ox3, MEZA Respiration: Resp=15 B/min, SpO2=95 %, O2=0 lpm 14:29:57 Right Radial and groin(s) prepped with 2% chlorhexidine, and with a 3 min. waiting time. 14:32:50 HR=68 bpm, KEPN=010/98 mmhg, SpO2=89.0 %, Resp=16 B/min, Pain=0, Ayon=2 14:32:50 Reference ECG taken 14:32:59 NIBP STAT measurement started. 14:33:46 HR=69 bpm, KWGY=832/103 mmhg, SpO2=90.0 %, Resp=17 B/min, Pain=0, Ayon=2 14:37:53 HR=68 bpm, FONO=975/102 mmhg, SpO2=98.0 %, Resp=17 B/min, Pain=0, Ayon=2 14:39:08 Pressure channel 1 zeroed. 14:42:57 HR=66 bpm, FVFW=955/95 mmhg, SpO2=99.0 %, Resp=14 B/min, Pain=0, Ayon=2 14:43:56 1 mg VERSED given in lab by Sadia Loya, NIR in Right Antecubital via Peripheral IV. 14:44:34 25 mcg FENTANYL given in lab by Sadia Loya, NIR in Right Antecubital via Peripheral IV. 14:47:54 HR=62 bpm, HNYN=469/82 mmhg, SpO2=98.0 %, Resp=17 B/min, Pain=0, Ayon=2 Time Out. Correct patient, correct procedure,correct physician, ,power injector loaded or not l oaded with contrast with 14:50:31 surgical team present. Time Out Concurred by MD, individual staff and STATE INSPECTOR in procedure 14:50:36 Case Start 14:51:06 20 mL 1% XYLOCAINE given in lab by Mynor Christy in Right Radial via Subcutaneous. 14:52:05 3000 units HEPARIN given in lab by Sadia Loya, NIR in Left Antecubital via Peripheral I V. 14:52:06 200 mcg NTG (IC) given in lab by Mynor Christy in Right Radial via Intra-arterial. 14:52:51 HR=65 bpm, ZIBK=010/89 mmhg, SpO2=98.0 %, Resp=13 B/min A JR 5.0 INFINITI CATHETER FR 6 was advanced over a wire. OMNIPAQUE, 350 MG, 150ML 150ML was us ed for 14:52:51 injections. Recorded Pressure: LV, HR=65, Condition=Condition 1 14:53:29 (Left Ventricle) LV 166/2/13 Recorded Pressure: LV, Ao, HR=64, Condition=Condition 1 14:53:34 (Left Ventricle) LV 166/0/9, (Aorta) Ao 170/74/113 Recorded Pressure: Ao, HR=65, Condition=Condition 1 14:54:28 (Aorta) Ao 167/75/113 14:56:47 The RCA was injected and visualized at various angles. OMNIPAQUE, 350 MG, 150ML 150ML used . After removing the current catheter a JL 3.5 INFINITI CATHETER FR 6 was advanced over a WIRE, E XCHANGE 260CM 14:57:41 3MMJ 260CM. 14:58:41 HR=67 bpm, SRYZ=659/85 mmhg, SpO2=96.0 %, Resp=14 B/min, Pain=0, Ender=10, Ayon=2 14:58:53 The LCA was injected and visualized at various angles. OMNIPAQUE, 350 MG, 150ML 150ML used . 15:03:46 HR=69 bpm, MGRQ=098/109 mmhg, SpO2=97.0 %, Resp=12 B/min, Pain=0, Ender=10, Ayon=2 15:04:26 1 mg VERSED given in lab by Sadia Loya, NIR in Left Antecubital via Peripheral IV. 15:04:38 50 mcg FENTANYL given in lab by Sadia Loya, NIR in Left Antecubital via Peripheral IV. After removing the current catheter a AL 1 GUIDE CATHETER FR 6 was advanced over a WIRE, EXCHAN GE 260CM 15:05:07 3MMJ 260CM. 15:07:58 HR=66 bpm, MNMN=828/94 mmhg, SpO2=97.0 %, Resp=13 B/min, Pain=0, Ender=10, Ayon=2 15:10:00 15 mL ANGIOMAX BOLUS given in lab by Sadia Loya, RN in Right Antecubital via Periphera l IV. 15:10:21 A WIRE, RUNTHROUGH NS FLOPPY .014 180CM 180CM was inserted via Radial (right). 15:11:38 Interventional wire has crossed the lesion 15:12:53 HR=65 bpm, DIGM=785/85 mmhg, SpO2=85.0 %, Resp=19 B/min, Pain=0, Ender=10, Ayon=2 A BALLOON, 3.0 X 8MM NC EUPHORA 8MM was inserted over WIRE, RUNTHROUGH NS FLOPPY .014 180CM 180 CM via 15:12:56 the LAD Mid. 1.75 mg/kg/hr ANGIOMAX DRIP given in lab by Sadia Loya RN in Right Antecubital via [facility] eral IV. Pump/Drip 15:12:58 Flow = 35 ml/hr using NaCl .9 with a concentration of 250 mg in 50 ml. A BALLOON, 3.0 X 8MM NC EUPHORA 8MM over a WIRE, RUNTHROUGH NS FLOPPY .014 180CM 180CM in the L AD 15:13:48 Mid was inflated using a 30 CARLA INDEFLATOR at 8 carla for 10 sec. 15:13:53 10 mg HYDRALAZINE given in lab by Sadia Loya RN in Right Antecubital via Peripheral I V. A BALLOON, 3.0 X 8MM NC EUPHORA 8MM over a WIRE, RUNTHROUGH NS FLOPPY .014 180CM 180CM in the L AD 15:13:56 Mid was inflated using a 30 CARLA INDEFLATOR at 10 carla for 20 sec. 15:15:50 400 mcg NTG (IC) given in lab by Mynor Christy via Intra-coronary. 15:16:21 Balloon Removed. A STENT, 3.0 18MM DIONTE 3.0 18MM was advanced through a AL 1 GUIDE CATHETER FR 6 over a WIRE, NAVDEEP HERNANDEZ 15:16:43 NS FLOPPY .014 180CM 180CM. A STENT, 3.0 18MM DIONTE 3.0 18MM was deployed using a 30 CARLA INDEFLATOR at 16 atmospheres for 25 seconds in 15:17:22 the LAD Mid. 15:17:54 HR=68 bpm, JDUR=982/92 mmhg, SpO2=96.0 %, Resp=24 B/min, Pain=0, Ender=10, Ayon=2 15:17:54 Delivery device removed 15:18:29 400 mcg NTG (IC) given in lab by Mynor Christy via Intra-coronary. 15:22:51 HR=67 bpm, WDMW=516/83 mmhg, SpO2=95.0 %, Resp=13 B/min, Pain=0, Ender=10, Ayon=2 15:23:26 400 mcg NTG (IC) given in lab by Mynor Christy via Intra-coronary. 15:24:47 The LCA was injected and visualized at various angles. OMNIPAQUE, 350 MG, 150ML 150ML used . 15:25:16 Catheter was removed 15:25:54 Case End 15:27:54 HR=71 bpm, BSFD=474/80 mmhg, SpO2=94.0 %, Resp=22 B/min, Pain=0, Ender=10, Ayon=2 Radial Compression Device Used. 15 mLs of air placed in BAND, RADIAL COMPRESSION TR SHORT 24 24 CM. Affected 15:28:21 hand 96 % O2 saturation. 15:29:04 No case complications noted. 15:29:06 Cine recording checked. 15:30:23 A Left Heart Cath was performed. Assessment: Final Case, HR=69 BPM, Rhythm=Sinus, FZTP=487/80 mmhg, Chest Pain=0, Edema=None, Color=Normal, Skin = Warm, Dry Right Pulses: Tommy Ped=2, Femoral=2 15:30:43 Left Pulses: Tommy Ped=2, Femoral=2 Neurological: State=Alert, Ox3, MEZA Respiration: Resp=17 B/min, SpO2=93 %, O2=0 lpm 15:30:56 180 mg BRILINTA given in lab by Mynor Christy via Oral. 15:32:49 HR=69 bpm, HWUV=713/79 mmhg, SpO2=95.0 %, Resp=15 B/min, Pain=0, Ender=10, Ayon=2 15:34:30 Bedside Report will be given. 15:37:22 Vitals capture stopped. 15:37:29 Patient moved to [facility] End Study - Contrast Media Used In Study Contrast Total Opened (mL) Total Used (mL) Total Wasted (mL) Omnipaque 300 180 120 End Study - Maximum Contrast Load Max Contrast Load (mL) 625.0 End Study - Radiation Exposure Fluoro Time (minutes) 8.6 End Study - Patient Disposition Complications Transferred To Interventional Outcome No Telemetry Bed successful
[2017-05-06] MEDS ORDERED: ASPIRIN EC 325 MG TABEC PO SCH (16:15)
[2017-05-06] MEDS ORDERED: NITROGLYCERIN 0.4 MG SL 25 TABS/BTL SL ONE ×3 (16:26→16:34)
--- NOTE | 2017-05-06 16:26 | MA ---
cc: KELLEY ROBLEDO DATE: 05/06/2017 INDICATION Unstable angina/gja-EZ-hvikmsyvh TX. PROCEDURE PERFORMED 1. Fluoroscopy with interpretation. 2. Coronary angiography. 3. Left heart catheterization. 4. Percutaneous intervention with drug-eluting stent to mid left anterior descending coronary artery. METHOD Risks, benefits and alternatives were discussed with the patient. The patient understood and consented to the procedure. The patient was brought to the cardiac catheterization lab and placed on the cardiac catheterization table. Right wrist was prepped and draped in sterile fashion. Right wrist was anesthetized with 2% lidocaine. Right radial artery was cannulated and a 6-Venezuelan 7 cm sheath was placed without difficulty. LEFT HEART CATHETERIZATION A 6-Venezuelan JR-5 catheter was advanced across the aortic valve. Intraventricular hemodynamics measured at 180/20 mmHg. CORONARY ANGIOGRAPHY 1. Left main coronary is angiographically normal. 2. Left anterior descending coronary has minor luminal irregularities in the proximal segment, 95% stenosis in the mid segment just proximal to the bifurcation of a moderate-sized diagonal branch. The remainder of the left anterior descending coronary is tortuous, has minor luminal irregularities. 3. Left circumflex is a small caliber size, angiographically normal. 4. The right coronary is a large dominant vessel with minor luminal irregularities. PERCUTANEOUS INTERVENTION Left coronary circulation is selectively engaged with 6-Venezuelan AL-1 guide catheter. Angiomax was administered throughout the entire procedure to maintain appropriate anticoagulation. 0.014 inch 180 cm Terumo run-through wire was navigated down the distal left anterior descending coronary artery. A 3.0 x 12 mm NC Euphora balloon was deployed in the mid left anterior descending coronary to 10 atmospheres. Repeat angiography still showed severe residual stenosis. A 3.0 x 18 mm RX [place] Medtronic stent was deployed to the mid left anterior descending coronary artery. Repeat angiography showed no significant residual stenosis, KELLY III flow. Given the good result no further intervention was necessary. The wire was removed. The catheter was removed. Hemo band was applied. CONCLUSION 1. Severe mid left anterior descending coronary stenosis. 2. Successful percutaneous intervention with drug-eluting stent to mid left anterior descending coronary artery. PLAN The patient will be monitored closely for any post-procedural complications. Continue aspirin and statin, Brilinta, ELIAS inhibitor and beta danika. Anticipate possible discharge tomorrow. We will monitor heart rates closely. MD ISAEL Baez /3:59 PM /4:08 PM
[2017-05-06] MEDS ORDERED: NITROGLYCERIN-D5W 50 MG/250 ML 250 ML ONE (17:01)
[2017-05-06] MEDS ORDERED: ONDANSETRON HCL 4 MG/2 ML VIAL ONE (17:16)
--- NOTE | 2017-05-06 17:20 | CATHPROC ---
[employer] HIS Report Study Information Study Number Admission Scheduled Start Study Start [id number] May 05 2017 11:20PM 05/06/2017 May 06 2017 4:34PM [place] [facility] Cardiac Catheterization Admit Source Facility Department Other [facility] - Accounting Instructor Physician and Clinical Staff Initial Mynor Boo Survey Supervisor Sadia Loya,RN Recorder Ciara Ackerman,RT(R) Scrub Heladio Smalls RCIS(BS) Procedures Performed Procedure Location (Site) Vessel Name Angiogram LV AO Arch (A1) Aorta Coronary Angiograms LCA Left Coronary L Heart Cath Equipment Time Tape Stringer Description Size Mfg Part Number Used/Scraped MYNX CATTYMAN CLOSURE DEVICE [id number] 17:02 ACCESS CLOSURE INC. FR 5 Used TAVR *[id number] TAVR TRANSDUCER, TRUWAVE [id number] 16:45 CHAIREZ VIDES * Used W/STOCKCOCK *[id number] 534-520T *[id number] [id number] *[id number] 16:45 MEDLINE IND[employer] PACK, CCL CUSTOM * Used *[id number] 16:45 Anapsis PACER PEN, SKIN DUAL W/ RULER * Used *[id number] 16:45 [employer] WIRE, 3MMJ .035 180CM 180CM Used *[id number] 16:45 NAMIC MANIFOLD, 4 PORT * Used *[id number] 16:45 NYCOMED OMNIPAQUE, 350 MG, 150ML 150ML [id number] Used [id number] 16:45 GOMEZ MEDICAL BLANKET,WARM AIR CCL * Used *[id number] 16:45 TERUMO MEDICAL SHEATH, FR5 TERUMO (10CM) FR 5 Used *[id number] History: Current Medications Medication Dosage/Unit Route Frequency Last Date/Time Taken LISINOPRIL History: Allergies Allergy Reaction Sulfa Drugs Penicillin Codeine History: Risk Factors Family History of Hypertension Dyslipidemia Previous [place] Previous Heart Failure Premature CAD Yes Yes Yes No No Prior Valve Prior PCI Prior PCIDate Prior CABG Surgery No Yes 05/06/2017 No Cerebrovascular Peripheral Artery Chronic Lung On Dialysis Diabetes Diabetes Therapy Disease Disease Disease No No No No Yes Oral History: Symptoms/Diagnosis Selection Items Chest pain History: Stress Tests Stress or Imaging Studies Performed No History: Other Current Smoker Method Quit Packs a Day Years Used Pack Years No Cigarettes 26 Years Ago 1 15 15 Labs Hgb (g/dl) Hct (%) WBC (l/cumm) Platelets (thousands) 11.60-17.00 35.00-51.00 4.00-11.00 150.00-450.00 11.6 37.3 8.3 227 Glucose (mg/dl) BUN (mg/dl) Creatinine (mg/dl) BUN:Creatinine (1:x) 74.00-106.00 7.00-18.00 0.50-1.30 10.00-20.00 130 18 0.9 20 INR (PTT:PT) 0.90-1.10 1 Troponin I (ng/ml) CPK-MB (ng/ML) 0.02-0.05 0.50-3.60 0.11 Not Drawn Medication Medication Total Dose (Bolus/Oral) Medication Total Dosage/Unit 1% XYLOCAINE 20 mL FENTANYL 25 mcg VERSED 1 mg ZOFRAN 4 mg Medications (Bolus/Oral) Medication Time Given Dosage/Unit Administered By Reason VERSED 05/06/2017 2:48:00 PM 1 mg Sadia Loya 1 mg VERSED given in lab by Sadia Loya RN in Right Wrist via Peripheral IV. Ordered by Marcellus Christy. FENTANYL 05/06/2017 2:49:00 PM 25 mcg Sadia Loya 25 mcg FENTANYL given in lab by Sadia Loya RN in Right Wrist via Peripheral IV. Ordered by Mynor Dumont. 1% XYLOCAINE 05/06/2017 4:47:20 PM 20 mL Mynor Christy 20 mL 1% XYLOCAINE given in lab by Mynor Christy in Right Groin via Subcutaneous. Ordered by Mynor Christy. ZOFRAN 05/06/2017 5:16:00 PM 4 mg Carlyn Loyafer 4 mg ZOFRAN given in lab by Sadia Loya RN in Right Wrist via Central IV. Ordered by Milton Christy. Medication (Drip) Medication Time Given Dosage/Unit Concentration/Unit Diluent (ml) Solution NITROGLYCERIN DRIP 05/06/2017 5:05:00 PM 5 mcg/min 50 mcg 250 D5W 5 mcg/min NITROGLYCERIN DRIP given in lab by Sadia Loya RN in Right Wrist via Peripheral IV. Pu mp/Drip Flow = 1500 ml/hr using D5W with a concentration of 50 mcg in 250 ml. Ordered by Mynor Christy. Chronological Log Time Study Chronological Log 14:48:00 1 mg VERSED given in lab by Sadia Loya, NIR in Right Wrist via Peripheral IV. Ordered by Mynor Christy. 14:49:00 25 mcg FENTANYL given in lab by Sadia Loya, NIR in Right Wrist via Peripheral IV. Orde red by Mynor Christy. 16:33:00 Patient arrived via Bed. 16:34:29 Patient Name, D.O.B, / Armband Verified By R.N. 16:35:00 A # 20 IV was noted in the Wrist (right). Grade = 0 Vitals capture started with the following parameters, Patient=Adult, Interval=5 min, Initial P aeuddwb=952 mmHg, 16:37:56 Deflation Rate=5 mmHg, Cuff placed on Right Arm 16:39:18 HR=62 bpm, QJVD=555/90 mmhg, SpO2=97 %, Resp=12 B/min 16:40:00 Bilateral groins prepped with 2% chlorhexidine, and with a 3 min. waiting time. 16:42:00 MD arrived. 16:44:28 HR=62 bpm, PLBO=512/84 mmhg, Resp=20 B/min 16:45:00 Verbal Stimulation=2 Physical Stimulation=2 Airway=2 Respiration=2 TOTAL=8. (0=absent, 1=l imited, 2=present) 16:46:15 Reference ECG taken Time Out. Correct patient, correct procedure,correct physician, ,power injector loaded or not loaded with contrast with 16:46:55 surgical team present. Time Out Concurred by MD, individual staff and PLATFORM BEATER in procedure 16:47:00 Case Start 16:47:20 20 mL 1% XYLOCAINE given in lab by Mynor Christy in Right Groin via Subcutaneous. Ordered by Mynor Christy. 16:47:35 Vitals capture stopped. 16:48:00 Access site was Right Femoral Artery. 16:48:00 A SHEATH, FR5 TERUMO (10CM) FR 5 was advanced into the Fem Art (right) using the Percutane ous technique. A JL 4.0 INFINITI CATHETER FR 5 was advanced over a wire. OMNIPAQUE, 350 MG, 150ML 150ML was u sed for 16:50:00 injections. 16:50:30 The LCA was injected and visualized at various angles. OMNIPAQUE, 350 MG, 150ML 150ML use d. Vitals capture started with the following parameters, Patient=Adult, Interval=5 min, Initial P ahfxtzi=852 mmHg, 16:51:28 Deflation Rate=5 mmHg, Cuff placed on Right Arm 16:52:15 HR=65 bpm, ZKRF=099/76 mmhg, SpO2=98.0 %, Resp=14 B/min After removing the current catheter a PIGTAIL ANG. INFINITI CATHETER FR 5 was advanced over a WIRE, 3MMJ .035 16:55:10 180CM 180CM. 16:56:28 The AO Arch (A1) was injected at 20 cc/sec for a total of 40. OMNIPAQUE, 350 MG, 150ML 150 ML used. 16:57:14 HR=66 bpm, LTQF=164/81 mmhg, SpO2=98.0 %, Resp=13 B/min 16:57:44 Catheter was removed 17:01:18 MYNX CATTYMAN CLOSURE DEVICE TAVR FR 5 placement in the Fem Art (right) 17:02:00 Case End 17:02:13 HR=66 bpm, GSNF=581/78 mmhg, SpO2=99.0 %, Resp=16 B/min 17:03:03 Sterile dressing applied to site 17:03:04 No case complications noted. 17:03:22 Bedside Report will be given. 5 mcg/min NITROGLYCERIN DRIP given in lab by Sadia Loya, NIR in Right Wrist via Peripheral IV. Pump/Drip Flow 17:05:00 = 1500 ml/hr using D5W with a concentration of 50 mcg in 250 ml. Ordered by Mynor Christy. 17:07:16 HR=69 bpm, MLCI=297/85 mmhg, SpO2=98.0 %, Resp=15 B/min 17:11:31 A Left Heart Cath was performed. 17:14:00 Patient moved to stretcher 17:14:00 Vitals capture stopped. 17:16:00 4 mg ZOFRAN given in lab by Sadia Loya, RN in Right Wrist via Central IV. Ordered by Mynor Christy. End Study - Contrast Media Used In Study Contrast Total Opened (mL) Total Used (mL) Total Wasted (mL) Omnipaque 60 60 0 End Study - Maximum Contrast Load Max Contrast Load (mL) 555.6 End Study - Radiation Exposure Fluoro Time (minutes) 0.4 End Study - Patient Disposition Complications Transferred To Interventional Outcome No Telemetry Bed No attempt made
[2017-05-06] MEDS: ISOSORBIDE MONONITRATE 60 MG TAB PO SCH (18:00)
[2017-05-06] MEDS: ASPIRIN EC 81 MG TABEC PO SCH (18:15)
[2017-05-06] MEDS: LISINOPRIL 20 MG TAB PO SCH (18:15)
--- NOTE | 2017-05-06 18:38 | HHI.PR ---
Addendum to Inpatient Note Addendum Reason: Additional Documentation Additional Information patient underwent PCI LAD BEREKET developed CP post procedure after arrival in room, which she did not have at completion of procedure. EKG did not show ST elevation. Given ongoing symptoms, she was taken back for another cath. stent was patent. KELLY 3 flow. no other obstructive disease. Ascending aorta negative for dissection on aortogram. After arrival to the room, her CP resolved, but she developed nausea with emesis. After a prolonged episode, she became briefly bradycardiac with prolonged pause. When I arrived at the bedside she was NSR 60 bpm. No CP. lungs clear. Bedside echo performed. Normal LV regional wall motion. No pericardial effusion. Right groin intact. No peritoneal signs. states that she does have these episodes at home with similar LOC. She may have had a reaction to anesthesia. Will monitor closely. continue nitroglycerin gtt for SBP. Case reviewed in detail with SHERIN Ch. We reviewed telemetry together. he agreed no indication at this time for temp pacer or PPM. Likely vagal reaction. transcutaneous pads applied, but not currently activated, just precautionary. Mynor Christy MD May 06, 2017 18:38
[2017-05-06] MEDS: NITROGLYCERIN-D5W 50 MG/250 ML 250 ML IV PRN (19:00)
[2017-05-06] MEDS ORDERED: PROMETHAZINE INJ 25 MG/ML VIAL IM PRN (19:15)
[2017-05-06] MEDS ORDERED: PROMETHAZINE INJ 25 MG/ML VIAL IM ONE (19:15)
--- NOTE | 2017-05-06 19:46 | MA ---
cc: KELLEY ROBLEDO DATE 05/06/2017 Cardiac catheterization performed on 05/06/2017. INDICATION Recurrent chest pain following cardiac catheterization. HOSPITAL COURSE The patient had a percutaneous intervention. louis-procedurally seemed to do well. When she got back to her room, she developed some substernal chest pain associated with nausea. Her pain became worse and she described it as an 8/10. Electrocardiogram did not show any ST elevation but given her recurrent symptoms we wanted to make sure there was not an edge dissection or thrombotic event in the stent itself, so we brought her back to the cardiac catheterization lab for diagnostic angiography. PROCEDURE PERFORMED 1. Coronary angiography. 2. Ascending aortography. METHOD Risks, benefits and alternatives discussed with the patient. The patient understood and consented. PROCEDURE DETAILS Patient arrived in the catheterization lab and placed on catheterization table. Right groin was prepped and draped in usual sterile fashion. Right groin was anesthetized with 2% lidocaine. Right common femoral artery was cannulated and a 5-Croatian 11 cm sheath was placed out difficulty. CORONARY ANGIOGRAPHY 1. Left main coronary is angiographically normal. 2. The left anterior descending coronary artery has some mild luminal irregularities proximally. There is a widely patent stent to the mid segment. The diagonal branch has some mild stenosis proximally. Just distal to the stent there is also some mild stenosis which does not appear to be obstructive. There is KELLY III flow in the LAD. 3. The circumflex is widely patent. ASCENDING AORTOGRAPHY The ascending aortography was performed just to rule out the ascending dissection given her on acute onset of symptoms. Aortography performed in left anterior oblique view using a 40 mL contrast injection with 30 frames per second. Ascending aorta appeared to be normal. There was no obvious signs of a dissection. CONCLUSION 1. Widely patent mid left anterior descending coronary stent. 2. Normal ascending aorta. PLAN I suspect her symptoms were likely related to vasospasm as her blood pressure was severely elevated. Her symptoms were improving by the time she actually got back to the catheterization lab. The stent is widely patent. There is no obvious evidence for dissection. We will start a nitroglycerin drip to help control blood pressure and help dilate the coronaries. We will start her on long-acting nitrate. Hopefully she may still be able to be discharged tomorrow. MD SAMY Baez /5:04 PM /7:25 PM [id number]
[2017-05-06] MEDS ORDERED: ATORVASTATIN 40 MG TAB PO SCH (21:00)
[2017-05-06] MEDS ORDERED: NON-FORMULARY DRUG (Ezetimibe-Simvastatin (Vytorin) 1 TAB) PO SCH (21:00)
[2017-05-06] MEDS: GABAPENTIN 400 MG CAP PO SCH (21:00)
[2017-05-06] MEDS ORDERED: METOPROLOL TARTRATE 25 MG TAB PO SCH (21:00)
[2017-05-07] VITALS (14 sets, daily range): BP systolic 114–165; BP diastolic 55–78; PULSE 67–82; RESP 18–20; TEMP 98–98.8; O2SAT 96–98
[2017-05-07] MEDS: ONDANSETRON HCL 4 MG/2 ML VIAL IV PUSH PRN ×2 (02:00→09:05)
[2017-05-07] MEDS: traMADol HCL 50 MG TAB PO PRN (02:00)
[2017-05-07] MEDS: LEVOTHYROXINE SODIUM 88 MCG TAB PO SCH (05:19)
[2017-05-07] MEDS: cloNIDine HCL 0.2 MG TAB PO SCH (05:19)
[2017-05-07] MEDS: NITROGLYCERIN-D5W 50 MG/250 ML 250 ML IV PRN (05:22)
[2017-05-07 06:55] LABS: AUTOMATED NEUTROPHIL # 7.7 TH/MM3 (1.8-7.7); BASOPHIL # 0.1 TH/MM3 (0-0.2); BASOPHIL % 0.9 % (0.0-2.0); EOSINOPHIL # 0.1 TH/MM3 (0-0.4); EOSINOPHIL % 0.5 % (0.0-4.0); HEMATOCRIT 32.4 % (35.0-46.0); HEMO FLAGS DIFF FINAL; LYMPH % 14.5 % (9.0-44.0); LYMPHOCYTE # 1.5 TH/MM3 (1.0-4.8); MEAN CELL VOLUME 78.1 FL (80.0-100.0); MEAN CORPUSCULAR HEMOGLOBIN 25.4 PG (27.0-34.0); MEAN CORPUSCULAR HGB CONC 32.5 % (32.0-36.0); NEUT % 75.1 % (16.0-70.0); PLATELET COUNT 226 TH/MM3 (150-450); RED BLOOD COUNT 4.15 MIL/MM3 (4.00-5.30); RED CELL DISTRIBUTION WIDTH 16.7 % (11.6-17.2); WHITE BLOOD COUNT 10.2 TH/MM3 (4.0-11.0)
[2017-05-07 07:01] LABS: BICARBONATE 30.4 MEQ/L (21.0-32.0); POTASSIUM 3.3 MEQ/L (3.5-5.1)
[2017-05-07 07:05] LABS: HDL CHOLESTEROL 40.4 MG/DL (40.0-60.0)
--- NOTE | 2017-05-07 07:49 | EKG ---
Date Performed: 05/06/2017 Time Performed: 17:57:36 PTAGE: 77 years EKG: Sinus rhythm with borderline 1st degree A-V block. Consider left atrial abnormality Possible left anterior fascic ular block Lateral T wave changes are nonspecific Borderline ECG Since PREVIOUS TRACING , no significant change noted PREVIOUS TRACIN05/06/2017 16.28 DOCTOR: Pamela Mckay Interpretating Date/Time 05/07/2017 07:47:22
--- NOTE | 2017-05-07 07:54 | EKG ---
Date Performed: 05/06/2017 Time Performed: 16:28:14 PTAGE: 77 years EKG: Regular supraventricular rhythm Prolonged QT interval Left axis deviation Borderline ECG Si nce PREVIOUS TRACING , no longer in AF PREVIOUS TRACIN05/06/2017 04.39 DOCTOR: Pamela Mckay Interpretating Date/Time 05/07/2017 07:53:24
[2017-05-07] MEDS: METOCLOPRAMIDE HCL 10 MG TAB PO SCH ×2 (08:00→11:54)
[2017-05-07] MEDS: INSULIN ASPART SUPPLEMENTAL SCALE SQ SCH ×2 (08:00→11:54)
--- NOTE | 2017-05-07 08:08 | EKG ---
Date Performed: 05/07/2017 Time Performed: 04:32:48 PTAGE: 77 years EKG: Sinus rhythm Possible left anterior fascicular block Borderline ECG Since PREVIOUS TRACING , no significant change noted DOCTOR: Pamela Mckay Interpretating Date/Time 05/07/2017 08:08:18
--- NOTE | 2017-05-07 08:24 | PD.CARD.PN ---
Subjective Subjective Remarks doing well this am no complaints no CP no SOB no Nausea comfortable in bed Objective Medications Active Medications Aspirin (Ecotrin Ec) 81 mg DAILY PO; Start 05/06/17 at 16:15; Stop 05/06/17 at 16:15; Status DC Aspirin (Ecotrin Ec) 81 mg DAILY PO; Start 05/06/17 at 16:15 Atorvastatin Calcium (Lipitor) 40 mg HS PO; Start 05/06/17 at 21:00 Bacitracin (Bacitracin Oint Packet) 0.9 gm ONCE ONCE TOP Last administered on 15:30; Admin Dose 0.9 GM; Start 05/06/17 at 15:30; Stop 05/06/17 at 15: 38; Status DC Bethanechol Chloride (Urecholine) 25 mg QID PO Last administered on 05/06/17 10 :01; Admin Dose 25 MG; Start 05/06/17 at 09:00 Bivalirudin (Angiomax Inj) 250 mg STK-MED ONCE .ROUTE Last administered on 15:12; Admin Dose 250 MG; Start 05/06/17 at 15:06; Stop 05/06/17 at 15:07; Status DC Bivalirudin 250 mg/Sodium Chloride 50 ml @ 0 mls/hr Q0M IV; Start 05/06/17 at 15 :30; Stop 05/06/17 at 19:29; Status DC Diltiazem HCl (Cardizem) 30 mg Q6HR PO; Start 05/06/17 at 12:00; Stop 05/06/17 at 15:39; Status DC Enoxaparin Sodium (Lovenox Inj) 80 mg Q12HR SQ; Start 05/06/17 at 09:00; Stop at 09:02; Status DC Fentanyl Citrate (fentaNYL INJ) 100 mcg STK-MED ONCE .ROUTE Last administered on 05/06/17 14:45; Admin Dose 100 MCG; Start 05/06/17 at 14:19; Stop 05/06/17 at 14:20; Status DC Fentanyl Citrate (fentaNYL INJ) 100 mcg STK-MED ONCE .ROUTE Last administered on 05/06/17 14:49; Admin Dose 100 MCG; Start 05/06/17 at 16:41; Stop 05/06/17 at 16:42; Status DC Gabapentin (Neurontin) 300 mg TID PO Last administered on 05/06/17 09:59; Admin Dose 300 MG; Start 05/06/17 at 09:00; Stop 05/06/17 at 11:59; Status DC Gabapentin (Neurontin) 400 mg BID PO; Start 05/06/17 at 21:00 Heparin Sodium (Porcine) (Heparin Inj) 2,500 units UNSCH PRN IV PUSH; Start at 14:30; Status UNV Heparin Sodium (Porcine) (Heparin Inj) 4,000 units ONCE ONCE IV PUSH; Start at 08:30; Stop 05/06/17 at 08:31; Status UNV Heparin Sodium (Porcine) (Heparin Inj) 10,000 units STK-MED ONCE .ROUTE Last administered on 05/06/17 15:41; Admin Dose 10,000 UNITS; Start 05/06/17 at 14: 19; Stop 05/06/17 at 14:20; Status DC Heparin Sodium (Porcine) (Heparin Inj) 10,000 units STK-MED ONCE .ROUTE; Start 05/06/17 at 16:42; Stop 05/06/17 at 16:43; Status DC Heparin Sodium/ Dextrose 250 ml @ 12 mls/hr TITRATE PRN IV; Start 05/06/17 at 08:30; Status UNV Heparin Sodium/ Dextrose 250 ml @ 12 mls/hr TITRATE PRN IV; Start 05/06/17 at 09:00; Stop 05/06/17 at 15:36; Status DC Heparin Sodium/ Sodium Chloride 1,000 ml @ As Directed STK-MED ONCE .ROUTE Last administered on 05/06/17 14:19; Admin Dose 0 MLS/HR; Start 05/06/17 at 14: 19; Stop 05/06/17 at 14:20; Status DC Hydralazine HCl (Apresoline Inj) 20 mg STK-MED ONCE .ROUTE Last administered on 05/06/17 15:13; Admin Dose 20 MG; Start 05/06/17 at 15:07; Stop 05/06/17 at 15: 08; Status DC Influenza Virus Vaccine (Flu (Quadrivalent) Vaccine Inj) 0.5 ml ONCE ONCE IM; Start 05/07/17 at 10:00; Stop 05/07/17 at 10:01 Isosorbide Mononitrate (Imdur) 60 mg DAILY PO; Start 05/06/17 at 18:00 Lidocaine HCl (Xylocaine 2% Jelly) 1 applic UNSCH X1 PRN TOP; Start 05/06/17 at 15:30; Stop 05/07/17 at 15:29 Lisinopril (Prinivil) 20 mg BID PO; Start 05/06/17 at 09:00; Stop 05/06/17 at 09 :02; Status DC Lisinopril (Prinivil) 40 mg DAILY PO; Start 05/06/17 at 15:45 Metoprolol Tartrate (Lopressor) 25 mg Q12HR PO; Start 05/06/17 at 21:00 Midazolam HCl (Versed Inj) 2 mg STK-MED ONCE .ROUTE Last administered on 14:44; Admin Dose 2 MG; Start 05/06/17 at 14:19; Stop 05/06/17 at 14:20; Status DC Midazolam HCl (Versed Inj) 2 mg STK-MED ONCE .ROUTE Last administered on 14:48; Admin Dose 2 MG; Start 05/06/17 at 16:41; Stop 05/06/17 at 16:42; Status DC Miscellaneous Information 1 ONCE ONCE XX; Start 05/06/17 at 15:30; Stop at 15:36; Status DC Morphine Sulfate (Morphine Inj) 2 mg Q30M PRN IV PUSH; Start 05/06/17 at 15:30 Nadolol (Corgard) 20 mg BID PO Last administered on 05/06/17 10:01; Admin Dose 20 MG; Start 05/06/17 at 09:00; Stop 05/06/17 at 15:39; Status DC Nitroglycerin 5 ml @ As Directed STK-MED ONCE .ROUTE Last administered on 14:51; Admin Dose 0 MLS/HR; Start 05/06/17 at 14:19; Stop 05/06/17 at 14:20 ; Status DC Nitroglycerin 5 ml @ As Directed STK-MED ONCE .ROUTE Last administered on 15:23; Admin Dose 0 MLS/HR; Start 05/06/17 at 15:23; Stop 05/06/17 at 15:24 ; Status DC Nitroglycerin 5 ml @ As Directed STK-MED ONCE .ROUTE Last administered on 17:05; Admin Dose 1.5 MLS/HR; Start 05/06/17 at 16:42; Stop 05/06/17 at 16: 43; Status DC Nitroglycerin (Nitrostat Sl) 0.4 mg STK-MED ONCE SL; Start 05/06/17 at 16:26; Stop 05/06/17 at 16:27; Status DC Nitroglycerin (Nitrostat Sl) 0.4 mg STK-MED ONCE SL; Start 05/06/17 at 16:30; Stop 05/06/17 at 16:31; Status DC Nitroglycerin (Nitrostat Sl) 0.4 mg STK-MED ONCE SL; Start 05/06/17 at 16:34; Stop 05/06/17 at 16:35; Status DC Nitroglycerin/ Dextrose 250 ml @ 1.5 mls/hr TITRATE PRN IV Last administered on 05/07/17 05:22; Admin Dose 6 MLS/HR; Start 05/06/17 at 17:15 Nitroglycerin/ Dextrose 250 ml @ As Directed STK-MED ONCE .ROUTE; Start at 17:01; Stop 05/06/17 at 17:02; Status DC Non-Formulary Medication 1 tab HS PO; Start 05/06/17 at 21:00; Status UNV Ondansetron HCl (Zofran Inj) 4 mg STK-MED ONCE .ROUTE Last administered on 17:16; Admin Dose 4 MG; Start 05/06/17 at 17:16; Stop 05/06/17 at 17:17; Status DC Pantoprazole Sodium (Protonix) 20 mg DAILY PO Last administered on 05/06/17 09: 59; Admin Dose 20 MG; Start 05/06/17 at 09:00 Pneumococcal Polyvalent Vaccine (Pneumovax-23 Inj) 25 mcg ONCE ONCE IM; Start at 10:00; Stop 05/07/17 at 10:01 Promethazine HCl (Phenergan Inj) 25 mg NOW ONCE IM; Start 05/06/17 at 19:15; Stop 05/06/17 at 19:16; Status DC Promethazine HCl (Phenergan Inj) 25 mg UNSCH X1 PRN IM; Start 05/06/17 at 19:15 ; Stop 05/06/17 at 22:00; Status DC Senna/Docusate Sodium (Kamini-Colace) 2 tab DAILY PO; Start 05/06/17 at 09:00 Sodium Chloride (NS Flush) 2 ml BID IV FLUSH Last administered on 05/06/17 21: 00; Admin Dose 2 ML; Start 05/06/17 at 09:00 Ticagrelor (Brilinta) 90 mg BID PO; Start 05/07/17 at 09:00 Ticagrelor (Brilinta) 180 mg STK-MED ONCE PO Last administered on 05/06/17 15: 30; Admin Dose 180 MG; Start 05/06/17 at 15:26; Stop 05/06/17 at 15:27; Status DC Vital Signs / I&O Vital Signs Date Time Temp Pulse Resp B/P (MAP) Pulse Ox O2 Delivery O2 Flow Rate FiO2 05/07/17 07:00 67 05/07/17 07:00 98.0 73 20 114/55 (74) 96 05/07/17 05:22 74 146/68 05/07/17 05:00 74 05/07/17 04:00 82 05/07/17 03:00 73 05/07/17 03:00 98.6 73 18 142/68 (92) 98 05/07/17 03:00 18 05/07/17 02:00 75 05/07/17 02:00 74 108/76 05/07/17 01:00 78 05/07/17 00:00 72 05/06/17 23:00 71 05/06/17 23:00 71 05/06/17 23:00 98.5 71 18 161/73 (102) 97 05/06/17 22:00 67 05/06/17 21:49 70 176/84 05/06/17 21:33 75 187/93 05/06/17 21:00 70 05/06/17 20:55 73 190/92 05/06/17 20:24 71 188/98 05/06/17 19:30 98.6 70 20 198/97 (130) 100 05/06/17 19:00 60 05/06/17 19:00 67 179/95 05/06/17 18:00 59 05/06/17 17:30 59 14 173/82 (112) 93 05/06/17 17:30 59 05/06/17 16:00 60 05/06/17 15:45 60 16 164/70 (101) 95 05/06/17 14:00 62 05/06/17 13:00 61 05/06/17 12:10 65 05/06/17 12:00 98.1 68 16 109/68 (82) 99 05/06/17 11:19 98.6 66 18 96/60 (72) 98 05/06/17 11:06 62 05/06/17 10:18 63 05/06/17 09:21 87 05/06/17 09:15 87 I/O 05/06/17 05/06/17 05/06/17 05/07/17 05/07/17 05/07/17 07:00 15:00 23:00 07:00 15:00 23:00 Intake Total 27 ml 620 ml 240 ml Balance 27 ml 620 ml 240 ml Intake Oral 15 ml 100 ml 240 ml IV Total 12 ml 520 ml # Voids 1 2 3 # Bowel Movements 0 0 Physical Exam GENERAL: SKIN: Warm and dry. HEAD: Normocephalic. EYES: No scleral icterus. No injection or drainage. NECK: Supple, trachea midline. No JVD or lymphadenopathy. CARDIOVASCULAR: Regular rate and rhythm without murmurs, gallops, or rubs. RESPIRATORY: Breath sounds equal bilaterally. No accessory muscle use. GASTROINTESTINAL: Abdomen soft, non-tender, nondistended. MUSCULOSKELETAL: No cyanosis, or edema. BACK: Nontender without obvious deformity. No CVA tenderness. Laboratory Laboratory Tests Test 05/06/17 09:15 05/06/17 12:45 05/07/17 04:50 White Blood Count 8.3 TH/MM3 10.2 TH/MM3 Red Blood Count 4.61 MIL/MM3 4.15 MIL/MM3 Hemoglobin 11.6 GM/DL 10.5 GM/DL Hematocrit 37.3 % 32.4 % Mean Corpuscular Volume 80.9 FL 78.1 FL Mean Corpuscular Hemoglobin 25.2 PG 25.4 PG Mean Corpuscular Hemoglobin Concent 31.2 % 32.5 % Red Cell Distribution Width 16.9 % 16.7 % Platelet Count 227 TH/MM3 226 TH/MM3 Mean Platelet Volume 10.1 FL 10.1 FL Prothrombin Time 10.9 SEC Prothromb Time International Ratio 1.0 RATIO Activated Partial Thromboplast Time 26.5 SEC Total Creatine Kinase 74 U/L 76 U/L Troponin I 0.11 NG/ML Neutrophils (%) (Auto) 75.1 % Lymphocytes (%) (Auto) 14.5 % Monocytes (%) (Auto) 9.0 % Eosinophils (%) (Auto) 0.5 % Basophils (%) (Auto) 0.9 % Neutrophils # (Auto) 7.7 TH/MM3 Lymphocytes # (Auto) 1.5 TH/MM3 Monocytes # (Auto) 0.9 TH/MM3 Eosinophils # (Auto) 0.1 TH/MM3 Basophils # (Auto) 0.1 TH/MM3 CBC Comment DIFF FINAL Differential Comment Blood Urea Nitrogen 14 MG/DL Creatinine 0.79 MG/DL Random Glucose 141 MG/DL Calcium Level 7.7 MG/DL Sodium Level 138 MEQ/L Potassium Level 3.3 MEQ/L Chloride Level 101 MEQ/L Carbon Dioxide Level 30.4 MEQ/L Anion Gap 7 MEQ/L Estimat Glomerular Filtration Rate 71 ML/MIN Triglycerides Level 231 MG/DL Cholesterol Level 117 MG/DL LDL Cholesterol 30 MG/DL HDL Cholesterol 40.4 MG/DL Cholesterol/HDL Ratio 2.89 RATIO Imaging Last Impressions Chest X-Ray 05/05/172141 Signed Impressions: Service Date/Time: Friday, May 05, 2017 21:51 - CONCLUSION: No evidence of acute cardiopulmonary disease. Preston Gtz MD Assessment and Plan Problem List: (1) Non-STEMI (non-ST elevated myocardial infarction) ICD Codes: I21.4 - Non-ST elevation (NSTEMI) myocardial infarction Status: Acute (2) New onset a-fib ICD Codes: I48.91 - Unspecified atrial fibrillation Status: Acute Assessment and Plan afib - back in NSR. no anticoagulation since on asa and brillinta. monitor for recurrence NSTEMI - PCI mid LAD BEREKET. postoperative reaction to anesthesia. Now recovered. no further bradycardia. sinus pause due to increased vagal tone. no need for further evaluation. may consider outpatient holter for afib-john evaluation if symptoms. asa statin acei bb brillinta nitrate DC planning early afternoon if ambulates and does well this am Minor,Mynor Aguirre MD May 07, 2017 08:24
[2017-05-07] MEDS: LISINOPRIL 20 MG TAB PO SCH (08:56)
[2017-05-07] MEDS: ISOSORBIDE MONONITRATE 60 MG TAB PO SCH (08:56)
[2017-05-07] MEDS: PANTOPRAZOLE SOD 20 MG DELAYED RELEASE TAB PO SCH (08:58)
[2017-05-07] MEDS: GABAPENTIN 400 MG CAP PO SCH (08:58)
[2017-05-07] MEDS: DOCUSATE SODIUM 50 MG/SENNA 8.6 MG TAB PO SCH (08:58)
[2017-05-07] MEDS: BETHANECHOL CHL 25 MG TAB PO SCH ×2 (08:58→12:37)
[2017-05-07] MEDS: SODIUM CHLORIDE 0.9% FLUSH 10 ML FLUSH IV FLUSH SCH (08:59)
[2017-05-07] MEDS: ASPIRIN EC 81 MG TABEC PO SCH (08:59)
[2017-05-07] MEDS ORDERED: TICAGRELOR 90 MG TAB PO SCH (09:00)
[2017-05-07] MEDS ORDERED: METOPROLOL TARTRATE 25 MG TAB PO SCH (09:00)
[2017-05-07] MEDS ORDERED: INFLUENZA VIRUS VACCINE (QUADRIVALENT) 0.5 ML SYR IM ONE (10:00)
[2017-05-07] MEDS ORDERED: PNEUMOCOCCAL POLYVALENT INJ 25 MCG/0.5 ML SYR IM ONE (10:00)
[2017-05-07] MEDS ORDERED: BRIL90TA PO (14:50)
[2017-05-07] MEDS ORDERED: ATOR40TA16 PO (14:50)
[2017-05-07] MEDS ORDERED: ASPI-99 PO (14:50)
[2017-05-07] MEDS ORDERED: LISI-515 PO (14:50)
[2017-05-07] MEDS ORDERED: METO25TA3 PO (14:50)
--- NOTE | 2017-05-07 14:50 | HHI.DCPOC ---
Discharge Care Plan Diagnosis: (1) Non-STEMI (non-ST elevated myocardial infarction) (2) Gastroparesis (3) New onset a-fib Your Health Problems Are: Chest Pain Goals to Promote Your Health * To prevent worsening of your condition and complications * To maintain your health at the optimal level Directions to Meet Your Goals Take your medications as prescribed Follow your dietary instruction Follow activity as directed Keep your appointments as scheduled Take your immunizations and boosters as scheduled If your symptoms worsen call your PCP, if no PCP go to Urgent Care Center or Emergency Room Smoking is Dangerous to Your Health. Avoid second hand smoke Call the 24-hour hour crisis hotline for domestic abuse at Emaunel Tineo MD May 07, 2017 14:50
--- NOTE | 2017-05-07 14:52 | HHI.DS ---
Discharge Summary Admission Date May 05, 2017 at 23:20 Discharge Date: May 07, 2017 Admitting Diagnosis NONSTEMI, NEW ONSET AFIB (1) Non-STEMI (non-ST elevated myocardial infarction) ICD Code: I21.4 - Non-ST elevation (NSTEMI) myocardial infarction Status: Acute Procedures PCI to mid LAD w/ drug eluting stent Brief History - From Admission History from patient, ER physician communication, and review of medical records. Patient reported that around 7 PM last night while she was sitting down and watching TV, she felt chest pressure. Pointed to midsternal area. She reported she measured her blood pressure at that time and she believes her diastolic was in the 200s. She reports that the pain was midsternal, dull achy, more like soreness, and she broke down into her IV sweats. She stated she then started feeling palpitations and checked her pulse and new that it was irregular. However she did not measure her pulse and does not know the exact number. She also did have some nausea but did not vomit. She reports just the nausea was going up to her neck. Later on, she started having the heaviness going down to her left arm which is one she told her to call 911. Patient stated that the EMS personnel gave her nitroglycerin spray. The first screen did not do any trick but by the second spray, she stated her symptoms were mostly resolved. Upon EMS arrival, patient was also found to be in atrial fibrillation. She was given Cardizem bolus IV. She stated that she also took a baby aspirin at home from her . She then get her second dose of aspirin by ambulance personnel. Apart from the above, patient denies any recent fevers/shortness of breath/ palpitations/syncopal episodes. Denies any hematemesis/hematochezia/melena/hematuria. Denies any urinary burning or pain on urination. She reports she does have chronic watery stools because she takes miralax every day for her gastroparesis. Per our EMR, patient did have patient reports of history of atrial fibrillation once in 2012 when she had a knee surgery. This was also noted in our EMR. However at that time, there was miscommunication with her rehabilitation facility and her antihypertensive medications were not given to her during her hospitalization for a few days. She believes that this was the reason why her heart rate was high postop. She was never placed on any blood thinners. CBC/BMP: 05/07/17 0450 05/07/17 0450 Significant Findings Laboratory Tests Test 05/05/17 21:45 05/06/17 04:35 05/06/17 09:15 05/06/17 12:45 Mean Corpuscular Hemoglobin 25.5 PG (27.0-34.0) 24.8 PG (27.0-34.0) 25.2 PG (27.0-34.0) Mean Corpuscular Hemoglobin Concent 31.7 % (32.0-36.0) 31.1 % (32.0-36.0) 31.2 % (32.0-36.0) Neutrophils (%) (Auto) 72.1 % (16.0-70.0) Activated Partial Thromboplast Time 23.9 SEC (24.3-30.1) Random Glucose 189 MG/DL (74-106) 130 MG/DL (74-106) Albumin 3.3 GM/DL (3.4-5.0) Calcium Level 8.0 MG/DL (8.5-10.1) 8.2 MG/DL (8.5-10.1) Aspartate Amino Transf (AST/SGOT) 38 U/L (15-37) Estimat Glomerular Filtration Rate 60 ML/MIN (>89) 67 ML/MIN (>89) Troponin I 0.09 NG/ML (0.02-0.05) 0.12 NG/ML (0.02-0.05) 0.11 NG/ML (0.02-0.05) B-Type Natriuretic Peptide 121 PG/ML (0-100) Platelet Morphology Comment ENLARGED (NORMAL) Test 05/07/17 04:50 Hemoglobin 10.5 GM/DL (11.6-15.3) Hematocrit 32.4 % (35.0-46.0) Mean Corpuscular Volume 78.1 FL (80.0-100.0) Mean Corpuscular Hemoglobin 25.4 PG (27.0-34.0) Neutrophils (%) (Auto) 75.1 % (16.0-70.0) Monocytes (%) (Auto) 9.0 % (0.0-8.0) Random Glucose 141 MG/DL (74-106) Calcium Level 7.7 MG/DL (8.5-10.1) Potassium Level 3.3 MEQ/L (3.5-5.1) Estimat Glomerular Filtration Rate 71 ML/MIN (>89) Triglycerides Level 231 MG/DL (42-150) Cholesterol Level 117 MG/DL (120-200) Imaging Last Impressions Chest X-Ray 05/05/172141 Signed Impressions: Service Date/Time: Friday, May 05, 2017 21:51 - CONCLUSION: No evidence of acute cardiopulmonary disease. Preston Gtz MD PE at Discharge No acute distress Regular rate rhythm, no murmurs Hospital Course Patient was admitted, underwent left heart catheter with PCI stent placement to the mid LAD. Except for some transient bradycardia which was concluded to be a postoperative reaction to the anesthesia, the patient Did well post catheterization, was tolerating by mouth intake with no recurrence of chest pain or symptoms. Heart rate remained within normal limits on last day of hospital stay. Patient has met maximum benefit from hospitalization and is clinically stable for discharge. Pt Condition on Discharge: Stable Discharge Disposition: Discharge Home Discharge Time: > 30 minutes Discharge Instructions DIET: Follow Instructions for: Heart Healthy Diet Activities you can perform: Regular-No Restrictions Follow up Referrals: Cardiology - 2 Weeks with Minor,Mynor Aguirre MD PCP Follow-up - 10 Days New Medications: Aspirin DR (Adult Aspirin EC Low Strength) 81 Mg Tabec 81 MG PO DAILY for heart health, #30 TAB Atorvastatin (Atorvastatin) 40 Mg Tab 40 MG PO HS for heart health, #30 TAB Lisinopril (Lisinopril) 20 Mg Tab 40 MG PO DAILY for heart health, #30 TAB Metoprolol Tartrate (Metoprolol Tartrate) 25 Mg Tab 12.5 MG PO Q12HR for heart rate, #60 TAB Ticagrelor (Brilinta) 90 Mg Tab 90 MG PO BID for health health, #60 TAB Continued Medications: Bethanechol (Bethanechol) 25 Mg Tab 25 MG PO QID for Urinary Symptom Managemen, TAB 0 Refills Clonidine (Catapres) 0.2 Mg Tab 0.2 MG PO Q8HR for Blood Pressure Management, #93 TAB Ezetimibe-Simvastatin (Vytorin) 10-20 Mg Tab 1 TAB PO HS, #30 TAB 0 Refills Gabapentin (Gabapentin) 300 Mg Cap 300 MG PO TID, #90 CAP 0 Refills Insulin Glargine Inj (Lantus Inj) 1,000 Unit/10 Ml Vial 25 UNITS SQ HS for Blood Sugar Management, VIAL 0 Refills Levothyroxine (Synthroid) 88 Mcg Tab 88 MCG PO DAILY for Thyroid, #30 TAB 0 Refills Metformin ER (Metformin ER) 500 Mg Naty 500 MG PO BID for Blood Sugar Management, TAB 0 Refills With evening meal Metoclopramide (Metoclopramide) 10 Mg Tab 10 MG PO ACHS for nausea, #120 TAB Omeprazole (Omeprazole) 20 Mg Tab 20 MG PO DAILY, #30 TAB 0 Refills Sennosides-Docusate Sodium (Kamini-Colace) 8.6-50 Mg Tab 2 TAB PO DAILY for Constipation, #60 TAB 0 Refills Tramadol (Tramadol) 50 Mg Tab 100 MG PO Q12HR PRN for PAIN, TAB 0 Refills Discontinued Medications: Lisinopril (Lisinopril) 20 Mg Tab 20 MG PO BID for Blood Pressure Management, #60 TAB Nadolol (Nadolol) 20 Mg Tab 20 MG PO BID, #30 TAB 0 Refills Emanuel Tineo MD May 07, 2017 14:52
== END 2017-05-07 15:30 | disposition home or self-care (01) | DRG 247 ==
LOC: NEPC 21:32 → NEDA 23:20 → HCIS 05-06 01:06
PROVIDERS: ADMIT Hospitalist; ATTEND Hospitalist
PROC: 027034Z Dilation of Coronary Artery, One Artery with Drug-eluting Intraluminal Device, Percutaneous Approach (ICD-10-PCS; 2017-05-06)
PROC: B2111ZZ Fluoroscopy of Multiple Coronary Arteries using Low Osmolar Contrast (ICD-10-PCS; 2017-05-06)
PROC: B2151ZZ Fluoroscopy of Left Heart using Low Osmolar Contrast (ICD-10-PCS; 2017-05-06)
PROC: 4A023N7 Measurement of Cardiac Sampling and Pressure, Left Heart, Percutaneous Approach (ICD-10-PCS; 2017-05-06)
PROC: B2111ZZ Fluoroscopy of Multiple Coronary Arteries using Low Osmolar Contrast (ICD-10-PCS; 2017-05-06)
PROC: B3101ZZ Fluoroscopy of Thoracic Aorta using Low Osmolar Contrast (ICD-10-PCS; 2017-05-06)
PROC: 4A023N7 Measurement of Cardiac Sampling and Pressure, Left Heart, Percutaneous Approach (ICD-10-PCS; principal; 2017-05-06 17:30)
DX: I21.4 Non-ST elevation (NSTEMI) myocardial infarction (principal); K31.84 Gastroparesis; E11.43 Type 2 diabetes mellitus with diabetic autonomic (poly)neuropathy; I48.0 Paroxysmal atrial fibrillation; I16.1 Hypertensive emergency; I25.110 Atherosclerotic heart disease of native coronary artery with unstable angina pectoris; E78.00 Pure hypercholesterolemia, unspecified; I10 Essential (primary) hypertension; K21.9 Gastro-esophageal reflux disease without esophagitis; M19.90 Unspecified osteoarthritis, unspecified site; Z87.442 Personal history of urinary calculi; Z87.891 Personal history of nicotine dependence; Z96.641 Presence of right artificial hip joint; Z96.651 Presence of right artificial knee joint; R07.9 Chest pain, unspecified
CPT/HCPCS: 71010; 76937; 80048; 80053; 80061; 82550; 82948; 83690; 83880; 84443; 84484; 85007; 85025; 85027; 85610; 85730; 90732; 92928; 93005; 93306; 93454; 93458; 93567; 99285; C1725; C1760; C1769; C1874; C1887; C1893; G0269; J0360; J0583; J1644; J1650; J1815; J2250; J2405; J3010; Q9967

== ENCOUNTER 2017-06-03 20:45 | Inpatient (IN) | payer MEDICARE, OTHER ==
[~2017-06-03] VITALS: Ht 167.6 cm; Wt 97.8 kg
[~2017-06-03 20:45] MED LIST changes: +ASPI-99 PO; +ATOR40TA16 PO; +BRIL90TA PO; -CLON.1 PO; -ERYT250 PO; -KETO10 PO; -Lactulose Liq PO; -MAGN400T3 PO; +METO25TA3 PO; -NADO20TA PO; -SENN1TAB PO; -TRAM-492 PO; +TRAM50TA PO; -ZOFR4TAB PO
[2017-06-03 20:50] VITALS: BP 232/121; PULSE 116; RESP 18; O2SAT 97
[2017-06-03 20:54] VITALS: BP 218/101; PULSE 119; RESP 18; TEMP 98.9; O2SAT 99
[2017-06-03] MEDS ORDERED: ONDANSETRON HCL 4 MG/2 ML VIAL IV PUSH ONE (21:00)
[2017-06-03] MEDS ORDERED: ASPIRIN 81 MG CHEW TAB PO ONE (21:00)
[2017-06-03] MEDS ORDERED: SODIUM CHLORIDE 0.9% FLUSH 10 ML FLUSH IVF PRN (21:00)
--- NOTE | 2017-06-03 21:00 | PD ---
HPI Chief Complaint: Cardiac Complaint Time Seen by Provider: 20:57 Travel History International Travel<30 days: No Contact w/Intl Traveler<30days: No Traveled to known affect area: No History of Present Illness HPI 77-year-old female with history of hypertension, hyperlipidemia, CAD status post cardiac stent last month, here for evaluation of palpitations, tachycardia , and left arm discomfort. Patient reports that when she checks her blood glucose she also checks her vital signs. She noticed her blood pressure to be elevated at 160 systolic and noticed her heart rate was 107. She checked it again and her blood pressure was 190 systolic and her heart rate was in the 120s. At that time she began to notice some left arm discomfort which lasted for about 10 minutes and has since resolved. Upon arrival to the emergency department the patient is feeling generalized weakness and slightly dyspneic. She is denying any chest pain. No fevers or recent illness. No history of DVT or PE. She also feels slightly nauseous. She is on aspirin and Brilinta. She took 162 mg of aspirin today. Her lawyers is Dr. Christy. [facility] Past Medical History Arthritis: Yes (hands and feet, generalized) Asthma: No Autoimmune Disease: No Blood Disorders: No Anxiety: No Depression: No Heart Rhythm Problems: Yes Cancer: No Cardiovascular Problems: Yes High Cholesterol: Yes Chemotherapy: No Chest Pain: Yes Congestive Heart Failure: No COPD: No Cerebrovascular Accident: No Diabetes: Yes Patient Takes Glucophage: No Diminished Hearing: No Endocrine: Yes Gastrointestinal Disorders: Yes (HX OF GERD) GERD: Yes Genitourinary: Yes Headaches: No Hepatitis: No Hiatal Hernia: No Hypertension: Yes Immune Disorder: No Implanted Vascular Access Dvce: Yes Kidney Stones: Yes (2011) Medical other: Yes (HX OF MENINGITIS 1995, ENCEPHELITIS 1975) Musculoskeletal: Yes Neurologic: Yes Psychiatric: No Reproductive: Yes (2 miscarriges, right ovary surgery) Respiratory: Yes Immunizations Current: No Migraines: Yes Radiation Therapy: No Renal Failure: No Seizures: Yes Sickle Cell Disease: No Sleep Apnea: No Thyroid Disease: Yes (hypothyroid) Ulcer: No Tetanus Vaccination: > 5 Years Influenza Vaccination: Yes PNEUMOCCOCAL Vaccine (Year): 1 Menopausal: Yes : 2 Para: 0 : 2 Past Surgical History Abdominal Surgery: Yes (gallbladder) AICD: No Appendectomy: Yes Arteriovenous Shunt: No Body Medical Devices: NECK AND LOWER BACK Cardiac Surgery: Yes (X1 STENT 05/17/17) Cholecystectomy: Yes Ear Surgery: No Endocrine Surgery: No Eye Surgery: No Genitourinary Surgery: Yes (R ureter) Gynecologic Surgery: Yes (Hysterectomy) Hysterectomy: Yes Insulin Pump: No Joint Replacement: Yes (R hip, R knee) Neurologic Surgery: Yes (neck x2) Oral Surgery: Yes (wisdom teeth ) Pacemaker: No Thoracic Surgery: No Tonsillectomy: Yes Other Surgery: Yes (RIGHT UPPER LOBE LUNG SUREGRY) Social History Alcohol Use: No Tobacco Use: No Substance Use: No Allergies-Medications (Allergen,Severity, Reaction): Coded Allergies: Sulfa (Sulfonamide Antibiotics) (Verified Allergy, Severe, Hives, 06/03/17 ) doxycycline (Verified Allergy, Severe, RASH, 06/03/17) minocycline (Verified Allergy, Severe, RASH, 06/03/17) penicillin G (Verified Allergy, Severe, Rash, 06/03/17) tigecycline (Verified Allergy, Severe, RASH, 06/03/17) codeine (Verified Adverse Reaction, Severe, NAUSEA, 06/03/17) NAUSEA Reported Meds & Prescriptions Reported Meds & Active Scripts Active Adult Aspirin EC Low Strength (Aspirin) 81 Mg Tabec 81 Mg PO DAILY Lisinopril 20 Mg Tab 40 Mg PO DAILY Metoprolol Tartrate 25 Mg Tab 12.5 Mg PO Q12HR Brilinta (Ticagrelor) 90 Mg Tab 90 Mg PO BID Atorvastatin (Atorvastatin Calcium) 40 Mg Tab 40 Mg PO HS Catapres (Clonidine) 0.2 Mg Tab 0.2 Mg PO Q8HR Reported Vitamin C (Ascorbic Acid) 250 Mg Chew 500 Mg CHEW BID Trazodone (Trazodone HCl) 50 Mg Tab 50 Mg PO HS Nabumetone 500 Mg Tab 500 Mg PO TID Metformin (Metformin HCl) 1,000 Mg Tab 1,000 Mg PO BIDPC Tramadol (Tramadol HCl) 50 Mg Tab 100 Mg PO Q12HR PRN Synthroid (Levothyroxine Sodium) 88 Mcg Tab 88 Mcg PO DAILY Lantus Inj (Insulin Glargine) 1,000 Unit/10 Ml Vial 25 Units SQ HS Gabapentin 300 Mg Cap 300 Mg PO TID Vytorin (Ezetimibe-Simvastatin) 10-20 Mg Tab 1 Tab PO HS Omeprazole 20 Mg Tab 20 Mg PO DAILY Bethanechol 25 Mg Tab 25 Mg PO QID Review of Systems Except as stated in HPI: all other systems reviewed are Neg Physical Exam Narrative GENERAL: Well-developed, well-nourished, pleasant, comfortable, no apparent distress. SKIN: Focused skin assessment warm/dry. No rash. No pallor. HEAD: Atraumatic. Normocephalic. EYES: Pupils equal and round. No scleral icterus. No injection or drainage. ENT: Mucous membranes pink and moist. NECK: Trachea midline. No JVD. CARDIOVASCULAR: Tachycardic, regular, rate 120. Distal pulses brisk and equal bilaterally. RESPIRATORY: No accessory muscle use. Clear to auscultation. Breath sounds equal bilaterally. GASTROINTESTINAL: Abdomen soft, non-tender, nondistended. MUSCULOSKELETAL: No obvious deformities. No clubbing. No cyanosis. No edema. NEUROLOGICAL: Awake and alert. No obvious cranial nerve deficits. Motor grossly within normal limits. Normal speech. PSYCHIATRIC: Appropriate mood and affect; insight and judgment normal. Data Data Last Documented VS Vital Signs Date Time Temp Pulse Resp B/P (MAP) Pulse Ox O2 Delivery O2 Flow Rate FiO2 06/03/17 23:31 100 18 149/70 (96) 98 Room Air 06/03/17 20:54 98.9 Orders Orders Electrocardiogram (06/03/17 20:57) Ckmb (Isoenzyme) Profile (06/03/17 20:57) Complete Blood Count With Diff (06/03/17 20:57) Comprehensive Metabolic Panel (06/03/17 20:57) Magnesium (Mg) (06/03/17 20:57) Prothrombin Time / Inr (Pt) (06/03/17 20:57) Act Partial Throm Time (Ptt) (06/03/17 20:57) Troponin I (06/03/17 20:57) Chest, Single Ap (06/03/17 20:57) Ecg Monitoring (06/03/17 20:57) Bilateral Bp Monitoring (06/03/17 20:57) Iv Access Insert/Monitor (06/03/17 20:57) Oximetry (06/03/17 20:57) Aspirin Chew (Aspirin Chew) (06/03/17 21:00) Sodium Chloride 0.9% Flush (Ns Flush) (06/03/17 21:00) Blood Glucose (06/03/17 20:57) Ondansetron Inj (Zofran Inj) (06/03/17 21:00) Urinalysis - C+S If Indicated (06/03/17 21:02) Labetalol Inj (Trandate Inj) (06/03/17 21:45) Urine Culture (06/03/17 21:19) Ceftriaxone Inj (Rocephin Inj) (06/03/17 22:00) CKMB (06/03/17 21:09) CKMB% (06/03/17 21:09) Ct Pulmonary Angiogram (06/03/17 22:13) Iohexol 350 Inj (Omnipaque 350 Inj) (06/03/17 22:38) Labs Laboratory Tests Test 06/03/17 21:09 06/03/17 21:19 White Blood Count 9.1 TH/MM3 Red Blood Count 4.80 MIL/MM3 Hemoglobin 12.6 GM/DL Hematocrit 38.6 % Mean Corpuscular Volume 80.4 FL Mean Corpuscular Hemoglobin 26.3 PG Mean Corpuscular Hemoglobin Concent 32.7 % Red Cell Distribution Width 17.5 % Platelet Count 234 TH/MM3 Mean Platelet Volume 10.1 FL Neutrophils (%) (Auto) 68.9 % Lymphocytes (%) (Auto) 16.9 % Monocytes (%) (Auto) 9.0 % Eosinophils (%) (Auto) 3.8 % Basophils (%) (Auto) 1.4 % Neutrophils # (Auto) 6.2 TH/MM3 Lymphocytes # (Auto) 1.5 TH/MM3 Monocytes # (Auto) 0.8 TH/MM3 Eosinophils # (Auto) 0.3 TH/MM3 Basophils # (Auto) 0.1 TH/MM3 CBC Comment DIFF FINAL Differential Comment Prothrombin Time 11.0 SEC Prothromb Time International Ratio 1.0 RATIO Activated Partial Thromboplast Time 22.2 SEC Blood Urea Nitrogen 18 MG/DL Creatinine 0.89 MG/DL Random Glucose 165 MG/DL Total Protein 8.5 GM/DL Albumin 3.8 GM/DL Calcium Level 9.1 MG/DL Magnesium Level 1.5 MG/DL Alkaline Phosphatase 106 U/L Aspartate Amino Transf (AST/SGOT) 37 U/L Alanine Aminotransferase (ALT/SGPT) 32 U/L Total Bilirubin 0.4 MG/DL Sodium Level 133 MEQ/L Potassium Level 4.0 MEQ/L Chloride Level 102 MEQ/L Carbon Dioxide Level 22.6 MEQ/L Anion Gap 8 MEQ/L Estimat Glomerular Filtration Rate 62 ML/MIN Total Creatine Kinase 135 U/L Creatine Kinase MB 3.3 NG/ML Troponin I 0.10 NG/ML Urine Color LIGHT-YELLOW Urine Turbidity CLEAR Urine pH 5.0 Urine Specific [place] 1.014 Urine Protein NEG mg/dL Urine Glucose (UA) NEG mg/dL Urine Ketones NEG mg/dL Urine Occult Blood NEG Urine Nitrite POS Urine Bilirubin NEG Urine Urobilinogen LESS THAN 2.0 MG/DL Urine Leukocyte Esterase TRACE Urine RBC 1 /hpf Urine WBC 2 /hpf Urine Squamous Epithelial Cells 1 /hpf Urine Bacteria MANY /hpf Urine Hyaline Casts 1 /lpf Urine Mucus FEW /lpf Microscopic Urinalysis Comment CULTURE INDICATED MDM Medical Decision Making Medical Screen Exam Complete: Yes Emergency Medical Condition: Yes Medical Record Reviewed: Yes Interpretation(s) EKG: Sinus, rate 117, leftward axis, first-degree AV block, T-wave inversions in I and aVL, no ST segment abnormalities. Differential Diagnosis ACS, palpitations, sinus tachycardia, dehydration/metabolic abnormality, pneumothorax, PE, pneumonia, DKA Narrative Course Vital signs show heart rate 119, blood pressure 218/101, pulse ox 99% on room air, oral temp of 98.9F. CBC is unremarkable. CMP is remarkable for random glucose 165, otherwise unremarkable. Troponin is 0.10. UA: Positive nitrites, trace site esterase, many bacteria. The patient was given a dose of IV Rocephin. Chest x-ray shows no acute disease. Because of the patient's persistent tachycardia, CT pulmonary angiogram was ordered to rule out PE. CT pulmonary angiogram: No evidence of PE. The patient was given a dose of IV labetalol with improvement in blood pressure and heart rate. She was made aware of all findings and is resting comfortably. Given her slight elevation in troponin with recent cardiac catheterization requiring stenting, the patient be admitted for overnight observation for serial cardiac enzymes. Case discussed with hospitalist Dr. Limon who will admit the patient to her service. Diagnosis Primary Impression: Sinus tachycardia Additional Impression: Elevated troponin Admitting Information Admitting Physician Requests: Observation Alan Henry MD Jun 03, 2017 21:00
[2017-06-03] MEDS ORDERED: NABU1TAB37 PO (21:04)
[2017-06-03] MEDS ORDERED: TRAZ50TA12 PO (21:04)
[2017-06-03] MEDS ORDERED: METF1000 PO (21:04)
[2017-06-03] MEDS ORDERED: VITA250C3 CHEW (21:04)
[2017-06-03 21:05] VITALS: RESP 18; O2SAT 98
[2017-06-03 21:44] LABS: BACTERIA, URINE MANY /hpf; BLOOD, URINE NEG (NEG); COMMENT (UR) CULTURE INDICATED; CULTURE IF INDICATED CULTURE INDICATED; GLUCOSE,URINE NEG (NEG); HYALINE CAST, URINE 1 /lpf (RARE); KETONE, URINE NEG (NEG); MUCUS URINE FEW /lpf (OCC); NITRITE,URINE POS (NEG); SQUAMOUS EPITHELIAL CELL URINE 1 /hpf (0-5); URINE COLOR LIGHT-YELLOW (YELLW/STRAW)
[2017-06-03] MEDS ORDERED: LABETALOL HCL 100 MG/20 ML VIAL IV PUSH ONE (21:45)
[2017-06-03 21:46] LABS: AUTOMATED NEUTROPHIL # 6.2 TH/MM3 (1.8-7.7); BASOPHIL # 0.1 TH/MM3 (0-0.2); BASOPHIL % 1.4 % (0.0-2.0); EOSINOPHIL # 0.3 TH/MM3 (0-0.4); EOSINOPHIL % 3.8 % (0.0-4.0); HEMATOCRIT 38.6 % (35.0-46.0); HEMO FLAGS DIFF FINAL; LYMPH % 16.9 % (9.0-44.0); LYMPHOCYTE # 1.5 TH/MM3 (1.0-4.8); MEAN CELL VOLUME 80.4 FL (80.0-100.0); MEAN CORPUSCULAR HEMOGLOBIN 26.3 PG (27.0-34.0); MEAN CORPUSCULAR HGB CONC 32.7 % (32.0-36.0); NEUT % 68.9 % (16.0-70.0); PLATELET COUNT 234 TH/MM3 (150-450); RED CELL DISTRIBUTION WIDTH 17.5 % (11.6-17.2); WHITE BLOOD COUNT 9.1 TH/MM3 (4.0-11.0)
[2017-06-03 21:53] LABS: APTT (PATIENT) 22.2 SEC (24.3-30.1)
[2017-06-03] MEDS ORDERED: cefTRIAXone INJ 1,000 MG in SODIUM CHLORIDE 0.9% INJ 100 ML IV ONE (22:00)
[2017-06-03 22:05] LABS: ANION GAP 8 MEQ/L (5-15); AST (GOT) 37 U/L (15-37); BICARBONATE 22.6 MEQ/L (21.0-32.0); BLOOD UREA NITROGEN 18 MG/DL (7-18); CHLORIDE 102 MEQ/L (98-107); GLOMERULAR FILTRATION RATE 62 ML/MIN (>89); MAGNESIUM 1.5 MG/DL (1.5-2.5); SODIUM (NA) 133 MEQ/L (136-145)
[2017-06-03 22:06] LABS: ALT (GPT) 32 U/L (10-53)
--- NOTE | 2017-06-03 22:06 | RADRPT ---
EXAM DATE/TIME: 06/03/2017 21:15 [facility] COMPARISON: CHEST SINGLE AP, May 05, 2017, 21:51. INDICATIONS : Chest pain and short of breath. MEDICAL HISTORY : Hypertension. SURGICAL HISTORY : Lobectomy. ENCOUNTER: Initial ACUITY: 2 days PAIN SCORE: 3/10 LOCATION: Bilateral chest FINDINGS: A single view of the chest demonstrates the lungs to be symmetrically aerated without evidence of mas s, infiltrate or effusion. The cardiomediastinal contours are unremarkable. Osseous structures are intact. CONCLUSION: No acute disease. Preston Mahmood MD on June 03, 2017 at 22:03 Board Certified Radiologist. This report was verified electronically.
[2017-06-03 22:09] LABS: ALKALINE PHOSPHATASE 106 U/L (45-117); CREATINE KINASE 135 U/L (26-192); TOTAL BILIRUBIN ADULT 0.4 MG/DL (0.2-1.0)
[2017-06-03 22:22] LABS: CKMB 3.3 NG/ML (0.5-3.6)
[2017-06-03] MEDS ORDERED: IOHEXOL 350 MG/ML 10 ML VIAL (for RAD DIAG) IVCONTRAST ONE (22:38)
--- NOTE | 2017-06-03 22:59 | RADRPT ---
EXAM DATE/TIME: 06/03/2017 22:26 [facility] COMPARISON: No previous studies available for comparison. INDICATIONS : Chest pain with left arm discomfort. IV CONTRAST: 75 cc Omnipaque 350 (iohexol) IV RADIATION DOSE: 17.3 CTDIvol (mGy) MEDICAL HISTORY : Hypertension. SURGICAL HISTORY : Lobectomy. Coronary artery stent. ENCOUNTER: Initial ACUITY: 1 day PAIN SCALE: 5/10 LOCATION: chest TECHNIQUE: Volumetric scanning of the chest was performed using a pulmonary embolism protocol MIP images were re constructed. Using automated exposure control and adjustment of the mA and/or kV according to patien t size, radiation dose was kept as low as reasonably achievable to obtain optimal diagnostic quality images. DICOM format image data is available electronically for review and comparison. Follow-up recommendations for detected pulmonary nodules are based at a minimum on nodule size and pa tient risk factors according to Fleischner Society Guidelines. FINDINGS: PULMONARY ARTERIES: No filling defects are seen in the pulmonary arteries through the segmental level. LUNGS: Previous right upper lobectomy. No evidence of mass or infiltrate. Minimal right base scarring PLEURAE: There is no pleural thickening or pleural effusion. MEDIASTINUM: There is good visualization of the great vessels of the middle mediastinum. No evidence of mediastin al or hilar adenopathy/mass. MUSCULOSKELETAL: Within normal limits for patient age. MISCELLANEOUS: The visualized upper abdominal organs demonstrate no acute abnormality. CONCLUSION: No evidence of pulmonary embolism. Preston Mahmood MD on June 03, 2017 at 22:53 Board Certified Radiologist. This report was verified electronically.
[2017-06-03 23:31] VITALS: BP 149/70; PULSE 100; RESP 18; O2SAT 98
[2017-06-03] MEDS ORDERED: GLUCAGON 1 MG/ML VIAL OTHER PRN (23:45)
[2017-06-03] MEDS ORDERED: ACETAMINOPHEN 325 MG TAB PO PRN (23:45)
[2017-06-03] MEDS ORDERED: MAGNESIUM HYDROXIDE SUSP 30 ML CUP PO PRN (23:45)
[2017-06-03] MEDS ORDERED: LACTULOSE SYRUP 20 GM/30 ML CUP PO PRN (23:45)
[2017-06-03] MEDS ORDERED: ONDANSETRON HCL 4 MG/2 ML VIAL IVP PRN (23:45)
[2017-06-03] MEDS ORDERED: MORPHINE SULFATE 4 MG/ML INJ IV PUSH PRN (23:45)
[2017-06-03] MEDS ORDERED: BISACODYL 10 MG SUPP RECTAL PRN (23:45)
[2017-06-03] MEDS ORDERED: NITROGLYCERIN 2% OINT 1 GM PACKET TOPICAL PRN (23:45)
[2017-06-03] MEDS ORDERED: SENNOSIDES 8.6 MG TAB PO PRN (23:45)
[2017-06-03] MEDS ORDERED: DEXTROSE 50% IN WATER 50 ML VIAL(D50) IV PUSH PRN (23:45)
[2017-06-03] MEDS ORDERED: PILL SPLITTER OTHER PRN (23:45)
[2017-06-03] MEDS ORDERED: SODIUM CHLOR 0.9% 1000 ML INJ 1,000 ML IV ONE (23:45)
[2017-06-03] MEDS ORDERED: SODIUM CHLORIDE 0.9% FLUSH 10 ML FLUSH IV FLUSH PRN (23:45)
--- NOTE | 2017-06-03 23:48 | HHI.HP ---
HPI Service [facility] Primary Care Physician Felicia Craig MD Admission Diagnosis sinus tachycardia, elevated troponin Diagnoses: (1) Chest pain Diagnosis: Principal (2) Elevated troponin Diagnosis: Principal (3) HTN (hypertension) Diagnosis: Principal (4) UTI (urinary tract infection) Diagnosis: Principal (5) DM (diabetes mellitus) Diagnosis: Principal Travel History International Travel<30 Days: No Contact w/Intl Traveler <30 Da: No Traveled to Known Affected Are: No History of Present Illness This is a 77-year-old female with a PMH of HTN, Hyperlipidemia, CAD s/p PCI to LAD w/ BEREKET on 05/06/17 and DM who presented to the ER w/ complaints of chest pain and palpitations starting prior to arrival. States she checked her BP and was noted to be high w/ systolic 160's and HR 107. Denies fever, chills, cough or sick contacts. No h/o arrhythmia. On arrival, BP 232/121, HR 116, O2 sat 99 % on RA, Afebrile. S/p Labetalol 10mg IV in ER, repeat BP 140's systolic, HR 100. CBC unremarkable. Chemistry unremarkable except for GFR 62. Troponin 0.10, previously 0.11 on 05/06/17. CXR with no acute findings. CTA Pulm negative for PE. U/a positive for UTI. Review of Systems Except as stated in HPI: all other systems reviewed are Neg ROS: 14 point review of systems otherwise negative. Past Family Social History Past Medical History PMH: HTN, Hyperlipidemia, CAD s/p PCI to LAD w/ BEREKET on 05/06/17 and DM Past Surgical History PAST SURGICAL HISTORY: Appendectomy, Cholecystectomy, Neck and Back Surgery, Hysterectomy, Right Hip Replacement, Right Knee Replacement, Right Upper Lobe Lung Resection Allergies: Coded Allergies: Sulfa (Sulfonamide Antibiotics) (Verified Allergy, Severe, Hives, 06/03/17 ) doxycycline (Verified Allergy, Severe, RASH, 06/03/17) minocycline (Verified Allergy, Severe, RASH, 06/03/17) penicillin G (Verified Allergy, Severe, Rash, 06/03/17) tigecycline (Verified Allergy, Severe, RASH, 06/03/17) codeine (Verified Adverse Reaction, Severe, NAUSEA, 06/03/17) NAUSEA Family History PAST FAMILY HISTORY: Reviewed. No h/o DM or CAD Social History PAST SOCIAL HISTORY: Negative for alcohol, tobacco or drugs. Physical Exam Vital Signs Vital Signs Date Time Temp Pulse Resp B/P (MAP) Pulse Ox O2 Delivery O2 Flow Rate FiO2 06/03/17 23:31 100 18 149/70 (96) 98 Room Air 06/03/17 21:05 18 98 Room Air 06/03/17 20:54 98.9 119 18 218/101 (140) 99 Room Air 06/03/17 20:50 116 18 232/121 (158) 97 Physical Exam PE: GENERAL: Very pleasant elderly white female in no acute distress. HEENT: PERRLA, EOMI. No scleral icterus or conjunctival pallor. No lid lag or facial droop. CARDIOVASCULAR: Regular rate and rhythm. No obvious murmurs to auscultation. No chest tenderness to palpation. RESPIRATORY: No obvious rhonchi or wheezing. Clear to auscultation. Breath sounds equal bilaterally. GASTROINTESTINAL: Abdomen soft, non-tender, nondistended. BS normal. MUSCULOSKELETAL: Extremities without clubbing, cyanosis, or edema. No obvious deformities. NEUROLOGICAL: Awake, alert and oriented x4. No focal neurologic deficits. Moving both upper and lower extremities spontaneously. Laboratory Laboratory Tests Test 06/03/17 21:09 06/03/17 21:19 White Blood Count 9.1 Red Blood Count 4.80 Hemoglobin 12.6 Hematocrit 38.6 Mean Corpuscular Volume 80.4 Mean Corpuscular Hemoglobin 26.3 Mean Corpuscular Hemoglobin Concent 32.7 Red Cell Distribution Width 17.5 Platelet Count 234 Mean Platelet Volume 10.1 Neutrophils (%) (Auto) 68.9 Lymphocytes (%) (Auto) 16.9 Monocytes (%) (Auto) 9.0 Eosinophils (%) (Auto) 3.8 Basophils (%) (Auto) 1.4 Neutrophils # (Auto) 6.2 Lymphocytes # (Auto) 1.5 Monocytes # (Auto) 0.8 Eosinophils # (Auto) 0.3 Basophils # (Auto) 0.1 CBC Comment DIFF FINAL Differential Comment Prothrombin Time 11.0 Prothromb Time International Ratio 1.0 Activated Partial Thromboplast Time 22.2 Blood Urea Nitrogen 18 Creatinine 0.89 Random Glucose 165 Total Protein 8.5 Albumin 3.8 Calcium Level 9.1 Magnesium Level 1.5 Alkaline Phosphatase 106 Aspartate Amino Transf (AST/SGOT) 37 Alanine Aminotransferase (ALT/SGPT) 32 Total Bilirubin 0.4 Sodium Level 133 Potassium Level 4.0 Chloride Level 102 Carbon Dioxide Level 22.6 Anion Gap 8 Estimat Glomerular Filtration Rate 62 Total Creatine Kinase 135 Creatine Kinase MB 3.3 Troponin I 0.10 Urine Color LIGHT-YELLOW Urine Turbidity CLEAR Urine pH 5.0 Urine Specific [place] 1.014 Urine Protein NEG Urine Glucose (UA) NEG Urine Ketones NEG Urine Occult Blood NEG Urine Nitrite POS Urine Bilirubin NEG Urine Urobilinogen LESS THAN 2.0 Urine Leukocyte Esterase TRACE Urine RBC 1 Urine WBC 2 Urine Squamous Epithelial Cells 1 Urine Bacteria MANY Urine Hyaline Casts 1 Urine Mucus FEW Microscopic Urinalysis Comment CULTURE INDICATED Date/Time Source Procedure Growth Status 06/03/17 21:19 Urine Clean Catch Urine Culture Pending Received Result Diagram: 06/03/17210806/03/172108 Caprini VTE Risk Assessment Caprini VTE Risk Assessment: Mod/High Risk (score >= 2) Caprini Risk Assessment Model Point Value = 1 Point Value = 2 Point Value = 3 Point Value = 5 Age 41-60 Minor surgery BMI > 25 kg/m2 Swollen legs Varicose veins or History of unexplained or recurrent spontaneous Oral contraceptives or hormone replacement Sepsis (< 1 month) Serious lung disease, including pneumonia (< 1 month) Abnormal pulmonary function Acute myocardial infarction Congestive heart failure (< 1 month) History of inflammatory bowel disease Medical patient at bed rest Age 61-74 Arthroscopic surgery Major open surgery (> 45 min) Laparoscopic surgery (> 45 min) Malignancy Confined to bed (> 72 hours) Immobilizing plaster cast Central venous access Age >= 75 History of VTE Family history of VTE Factor V Leiden Prothrombin [id number] Lupus anticoagulant Anticardiolipin antibodies Elevated serum homocysteine Heparin-induced thrombocytopenia Other congenital or acquired thrombophilia Stroke (< 1 month) Elective arthroplasty Hip, pelvis, or leg fracture Acute spinal cord injury (< 1 month) Prophylaxis Regimen Total Risk Factor Score Risk Level Prophylaxis Regimen 0-1 Low Early ambulation 2 Moderate Order ONE of the following: *Sequential Compression Device (SCD) *Heparin 5000 units SQ BID 3-4 Higher Order ONE of the following medications: *Heparin 5000 units SQ TID *Enoxaparin/Lovenox 40 mg SQ daily (WT < 150 kg, CrCl > 30 mL/min) *Enoxaparin/Lovenox 30 mg SQ daily (WT < 150 kg, CrCl > 10-29 mL/min) *Enoxaparin/Lovenox 30 mg SQ BID (WT < 150 kg, CrCl > 30 mL/min) AND/OR *Sequential Compression Device (SCD) 5 or more Highest Order ONE of the following medications: *Heparin 5000 units SQ TID (Preferred with Epidurals) *Enoxaparin/Lovenox 40 mg SQ daily (WT < 150 kg, CrCl > 30 mL/min) *Enoxaparin/Lovenox 30 mg SQ daily (WT < 150 kg, CrCl > 10-29 mL/min) *Enoxaparin/Lovenox 30 mg SQ BID (WT < 150 kg, CrCl > 30 mL/min) AND *Sequential Compression Device (SCD) Assessment and Plan Problem List: (1) Chest pain ICD Code: R07.9 - Chest pain, unspecified (2) Elevated troponin ICD Code: R74.8 - Abnormal levels of other serum enzymes Status: Acute (3) HTN (hypertension) ICD Code: I10 - Essential (primary) hypertension (4) UTI (urinary tract infection) ICD Code: N39.0 - Urinary tract infection, site not specified (5) DM (diabetes mellitus) ICD Code: E11.9 - Type 2 diabetes mellitus without complications Assessment and Plan A/P: 1. Chest Pain: c/o acute onset of chest pain and palpitations prior to arrival , likely secondary to significant HTN. H/o CAD w/ recent PCI to LAD w/ BEREKET on by Dr. Christy, Trop 0.10, previously 0.11 on 05/06/17. Currently chest pain free. Will check serial cardiac enzymes, consult Cardiology for further eval. Resume home Brilinta/ASA, Statin, Metoprolol. 2. Elevated Trop: As above, Trop 0.10, previously 0.11 on 05/06/17, will trend. 3. HTN: Uncontrolled. BP 232/121, HR 116 on arrival, s/p Labetalol 10mg IV, BP currently 149/70, HR 100. Resume home medications, monitor BP. 4. DM: Sliding scale w/ Accu-Cheks. Hold Metformin for possible cardiac intervention. 5. UTI: U/a w/ UTI, s/p Rocephin IV, continue w/ IV abx. 6. DVT Prophylaxis: SCD/Teds. 7. Social work for d/c planning as needed 8. Case discussed w/ ER physician at length Claire Limon MD Jun 03, 2017 23:48
[2017-06-04] VITALS (18 sets, daily range): BP systolic 85–226; BP diastolic 47–86; PULSE 60–102; RESP 12–23; TEMP 97.9–98; O2SAT 94–98
[2017-06-04] MEDS: MORPHINE SULFATE 4 MG/ML INJ IV PUSH PRN ×2 (00:03→21:15)
[2017-06-04] MEDS: cloNIDine HCL 0.2 MG TAB PO SCH ×3 (06:25→21:57)
[2017-06-04] MEDS: LEVOTHYROXINE SODIUM 88 MCG TAB PO SCH (06:25)
[2017-06-04] MEDS: INSULIN ASPART SUPPLEMENTAL SCALE SQ SCH ×4 (08:00→21:18)
--- NOTE | 2017-06-04 08:49 | MB ---
cc: KELLEY ROBLEDO DATE OF CONSULTATION 06/04/2017 INDICATION [id number] LA. HISTORY OF PRESENT ILLNESS This is a 77-year-old female with a history of hypertension, hyperlipidemia, known coronary disease with recent percutaneous intervention of the left anterior descending coronary artery back on May 06. She had prior atrial fibrillation and does still have some paroxysmal episodes. She has developed several episodes of chest pain mostly after eating, but a couple episodes that occurred with activity. It is not necessarily reproducible with exertion. She came in last night. Blood pressure was mildly elevated, heart rate was slightly over 100. It looks like she was in sinus tachycardia. Due to some discomfort, she has associated dyspnea and diaphoresis. Troponin is mildly elevated. She has been compliant with the medications. We were consulted for further recommendations. PAST MEDICAL HISTORY 1. Coronary disease with percutaneous intervention with drug-eluting stent to the left anterior descending coronary Artery. 2. Hypertension 3. Hyperlipidemia 4. GERD 5. History of meningitis. SOCIAL HISTORY Denies alcohol, tobacco or drug use. ALLERGIES SULFA, DOXYCYCLINE, MINOCYCYLINE, PENICILLIN, TIGECYCLINE, CODEINE. MEDICATIONS 1. Aspirin 2. Lisinopril 3. Metoprolol 4. Brilinta 5. Atorvastatin 6. Catapres REVIEW OF SYSTEMS A 12-point review of systems was performed and is negative unless as otherwise noted in the history of present illness. PHYSICAL EXAMINATION Heart rate is 83 and sinus rhythm, blood pressure 162/75 mmHg. GENERAL: Alert and oriented x3 in no acute distress. HEENT: Exam shows pupils reactive to light and accommodation. Extraocular movements are intact. NECK: No elevation of jugular venous distension. No thyromegaly or lymphadenopathy. No carotid bruit. LUNGS: Clear to auscultation bilaterally. CARDIOVASCULAR: Regular rate and rhythm without murmurs, rubs or gallops. ABDOMEN: Exam is nontender and nondistended. Good bowel sounds. No hepatosplenomegaly. EXTREMITIES: No clubbing, cyanosis or edema. Good peripheral pulses. NEUROLOGIC: Cranial nerves intact. Electrocardiogram at presentation sinus tachycardia first degree block, some [address] depression in anterolateral leads. LABS WBC 9.1, hemoglobin 12.6, platelet count 234, INR is 1. Sodium 133, potassium 4.0, BUN is 18, creatinine 0.89, troponin 0.1 and 0.12. ASSESSMENT 1. [id number] LA 2. Coronary artery disease, prior percutaneous intervention With drug-eluting stent. 3. Hypertension 4. Hyperlipidemia 5. Diabetes PLAN The patient has had a couple episodes of substernal pain that was not necessarily exertional. Troponin is mildly elevated at 0.12. This is similar to her elevation at the time of her last hospitalization. When she did come in, she was in sinus rhythm and quite hypertensive which may have been due to discomfort and anxiety. Her troponin elevation could be demand mediated. Electrocardiogram shows some subtle changes. We discussed several options. Given her recent percutaneous intervention, I think it would be best to proceed with a diagnostic coronary angiogram. I reviewed her prior left heart catheterization films personally and the angiographic result looked good. She has been compliant with her meds. We will make her n.p.o. and plan for later this morning to do a diagnostic angiogram. If that is relatively unremarkable, then we can have a long-acting nitrate and treat her conservatively. MD LEIGHTON Baez/RADHA /8:18 AM /8:28 AM
[2017-06-04] MEDS: TICAGRELOR 90 MG TAB PO SCH ×3 (09:00→21:12)
[2017-06-04] MEDS: BETHANECHOL CHL 25 MG TAB PO SCH ×4 (09:00→21:11)
[2017-06-04] MEDS: ASPIRIN EC 81 MG TABEC PO SCH ×2 (09:00→10:53)
[2017-06-04] MEDS ORDERED: CIPROFLOXACIN 400 MG PREMIX 200 ML IV SCH (09:00)
[2017-06-04] MEDS: LISINOPRIL 20 MG TAB PO SCH (09:18)
[2017-06-04] MEDS: GABAPENTIN 300 MG CAP PO SCH ×3 (09:19→17:24)
[2017-06-04] MEDS: DILTIAZEM-CD 240 MG CAP ER PO SCH (09:19)
[2017-06-04] MEDS: METOPROLOL TARTRATE 25 MG TAB PO SCH ×2 (09:19→21:10)
[2017-06-04] MEDS: ASCORBIC ACID 500 MG TAB PO SCH ×2 (09:19→21:10)
[2017-06-04] MEDS: DOCUSATE SODIUM 50 MG/SENNA 8.6 MG TAB PO SCH ×2 (09:19→21:00)
[2017-06-04] MEDS: SODIUM CHLORIDE 0.9% FLUSH 10 ML FLUSH IV FLUSH SCH ×2 (09:20→21:56)
[2017-06-04] MEDS ORDERED: IOHEXOL 350 MG/ML 100 ML BTL (for Cath Lab) OTHER ONE (11:01)
[2017-06-04] MEDS ORDERED: IOHEXOL 350 MG/ML 50 ML BTL (for Cath Lab) OTHER ONE (11:01)
[2017-06-04] MEDS ORDERED: HEPARIN-NS/PF INJ 500 ML ONE (11:20)
[2017-06-04] MEDS ORDERED: NITROGLYCERIN INJ 5 ML ONE (11:21)
[2017-06-04] MEDS ORDERED: MIDAZOLAM HCL 2 MG/2 ML VIAL ONE ×3 (11:21→12:08)
[2017-06-04] MEDS ORDERED: HEPARIN SODIUM - IV 10,000 UNITS/10 ML VIAL ONE (11:21)
[2017-06-04] MEDS ORDERED: HEPARIN-NS/PF INJ 1,000 ML ONE (11:47)
[2017-06-04] MEDS ORDERED: SODIUM CHLOR 0.9% 1000 ML INJ 1,000 ML IV SCH (12:09)
[2017-06-04] MEDS ORDERED: MORPHINE SULFATE 4 MG/ML INJ IV PUSH PRN (12:15)
[2017-06-04] MEDS ORDERED: MISC INFORMATION XX ONE (12:15)
--- NOTE | 2017-06-04 12:26 | CATHPROC ---
[place] [facility] HIS Report Study Information Study Number Admission Scheduled Start Study Start [id number] Jun 03 2017 11:37PM 06/04/2017 Jun 04 2017 10:48AM [place] [facility] Cardiac Catheterization Admit Source Facility Department Other [facility] Operator Physician and Clinical Staff Initial Mynor Boo Laundry Worker Mera Foreman,NIR Laundry Worker Sadia Loya RN Other cathlab, cathlab Recorder Ciara Ackerman,(R) Scrub Heladio Smalls RCIS(BS) Procedures Performed Procedure Location (Site) Vessel Name Coronary Angiograms LCA Left Coronary Coronary Angiograms RCA Right Coronary Drug Eluting Inflatio RCA Dist Right Coronary L Heart Cath Wire insertion Radial (right) Radial Art. Equipment Time University Teacher Description Size Mfg Part Number Used/Scraped COPILOT VALVE, BLEEDBACK [id number] 11:49 [employer] Used CONTROL *[id number] 11:45 [employer] WIRE, ASAHI PROWATER 180CM 180CM Used *[id number] TRANSDUCER, TRUWAVE [id number] 10:49 CHAIREZ VIDES * Used W/STOCKCOCK *[id number] [phone] *[id number] [id number] *[id number] [id number] *[id number] 534-523T *[id number] *[id number] 10:49 [employer] PACK, CCL CUSTOM * Used *[id number] 10:49 [employer] SUPPORT, ARTERIAL ADULT 25828 *[id number] Used [id number] 10:49 [employer] PACER PEN, SKIN DUAL W/ RULER * Used *[id number] 11:59 MED[employer] STENT, 2.25 12MM DIONTE 2.25 12MM Used *[id number] 11:55 [employer] STENT, 2.5 12MM DIONTE 2.5 12MM Used *[id number] 11:55 [employer] 30 CARLA INDEFLATOR Used *[id number] BAND, RADIAL COMPRESSION TR [id number] 12:06 [employer] MEDICAL 24CM Used SHORT 24 *[id number] SHEATH, FR6 RADIAL PRELUDE 10:49 [employer] FR 6 [id number] Used EASE 11CM [id number] 10:49 [employer] WIRE, EXCHANGE 260CM 3MMJ 260CM Used *[id number] 10:49 [employer]COMED OMNIPAQUE, 350 MG, 150ML 150ML [id number] Used [id number] 10:49 [facility] BLANKET,WARM AIR CCL * Used *[id number] Equipment Model, Serial, Lot Number and Expiration Data Description Model Number Serial Number Lot Number Expiration Date STENT, 2.25 12MM DIONTE [id number] 02-03-2019 STENT, 2.5 12MM DIONTE [id number] 02-03-2019 History: Current Medications Medication Dosage/Unit Route Frequency Last Date/Time Taken LISINOPRIL LIPITOR Statins (any) Beta Yvonne ASA BRILINTA Glucophage History: Allergies Allergy Reaction Sulfa Drugs Penicillin Codeine History: Risk Factors Family History of Hypertension Dyslipidemia Previous [place] Previous Heart Failure Premature CAD Yes Yes Yes No No Prior Valve Prior PCI Prior PCIDate Prior CABG Surgery No Yes 05/06/2017 No Cerebrovascular Peripheral Artery Chronic Lung On Dialysis Diabetes Diabetes Therapy Disease Disease Disease No No No No Yes Insulin History: Symptoms/Diagnosis Selection Items Chest pain SOB History: Stress Tests Stress or Imaging Studies Performed No History: Other Current Smoker Method Quit Packs a Day Years Used Pack Years No Cigarettes 26 Years Ago 1 15 15 Labs Hgb (g/dl) Hct (%) WBC (l/cumm) Platelets (thousands) 11.60-17.00 35.00-51.00 4.00-11.00 150.00-450.00 12.6 38.6 9.1 234 Glucose (mg/dl) BUN (mg/dl) Creatinine (mg/dl) BUN:Creatinine (1:x) 74.00-106.00 7.00-18.00 0.50-1.30 10.00-20.00 165 18 0.8 22.5 Na (meq/l) K (meq/l) 136.00-145.00 3.50-5.10 133 4 INR (PTT:PT) 0.90-1.10 1 Troponin I (ng/ml) CPK (u/l) CPK-MB (ng/ML) 0.02-0.05 26.00-308.00 0.50-3.60 0.12 135 Not Drawn Medication Medication Total Dose (Bolus/Oral) Medication Total Dosage/Unit 1% XYLOCAINE 20 mL FENTANYL 125 mcg HEPARIN 3000 units NTG (IC) 200 mcg VERSED 5 mg Medications (Bolus/Oral) Medication Time Given Dosage/Unit Administered By Reason 06/04/2017 11:31:29 FENTANYL 50 mcg Mera Foreman AM 50 mcg FENTANYL given in lab by Mera Foreman RN in Right Antecubital via Peripheral IV. 06/04/2017 11:32:22 VERSED 2 mg Mera Foreman AM 2 mg VERSED given in lab by Mera Foreman RN in Right Antecubital via Peripheral IV. 06/04/2017 11:34:08 1% XYLOCAINE 20 mL Mera Foreman AM 20 mL 1% XYLOCAINE given in lab by Mera Foreman RN in Right Wrist via Subcutaneous. 06/04/2017 11:36:28 HEPARIN 3000 units Sadia Loya AM 3000 units HEPARIN given in lab by Sadia Loya RN via Peripheral IV. Ordered by Mynor Christy. 06/04/2017 11:37:54 NTG (IC) 200 mcg Mynor Christy AM 200 mcg NTG (IC) given by Mynor Christy via Intra-arterial. 06/04/2017 11:41:00 VERSED 2 mg Mera Foreman AM 2 mg VERSED given in lab by Mera Foreman RN in Right Antecubital via Peripheral IV. 06/04/2017 11:42:00 FENTANYL 50 mcg Mera Foreman AM 50 mcg FENTANYL given in lab by Mera Foreman RN in Right Antecubital via Peripheral IV. 06/04/2017 12:09:36 VERSED 1 mg Sadia Loya PM 1 mg VERSED given in lab by Sadia Loya RN in Right Antecubital via Peripheral IV. Ordered by Mynor Flores. 06/04/2017 12:10:05 FENTANYL 25 mcg Sadia Loya PM 25 mcg FENTANYL given in lab by Sadia Loya RN in Right Antecubital via Peripheral IV. Ordered b Mynor Izquierdo. Medication (Drip) Medication Time Given Dosage/Unit Concentration/Unit Diluent (ml) Solution 06/04/2017 11:03:57 IV Solutions 50 mL (IV) NaCl .9 AM IV Solutions given in lab by Mera Foreman RN in Right Antecubital via Peripheral IV. Pump/Drip Fl ow using NaCl .9. Initial Case Assessment Cardiovascular HR Rhythm Chest Pain 85 SR 0 Edema Present Skin color Skin None Normal Warm Dry Circulatory - Right Pulses Dorsalis Pedis Femoral 2 2 Scale (0,1,2,3,4,d) Circulatory - Left Pulses Dorsalis Pedis Femoral 2 2 Scale (0,1,2,3,4,d) Neurological State Oriented to time-place- Alert Moves all extremities person Respiration - General Respiration Rate SpO2 (%) (B/min) 15 99 Chronological Log Time Study Chronological Log 11:01:00 Patient arrived via Bed. 11:03:32 Patient Name, D.O.B, / Armband Verified By R.N. 11:03:34 Consent signed by the physician and the patient and verified by the [place] [facility] staff. 11:03:42 Pre-op and post- op instructions given; patient acknowledges understanding of instructions. 11:03:43 Verbal Stimulation=2 Physical Stimulation=2 Airway=2 Respiration=2 TOTAL=8. (0=absent, 1=li mited, 2=present) 11:03:47 Allens test performed on the right radial and ulnar artery. 11:03:50 Patient has been NPO for More than 6Hrs. 11:03:51 Skin Breakdown- none per pt 11:03:53 Patient Warmer Placed on the Table. 11:03:53 Maged Prominences Protected 11:03:56 A # 20 IV was noted in the Antecubital (right). Grade = 0 11:03:57 IV Solutions given in lab by Mera Foreman, RN in Right Antecubital via Peripheral IV. Pu mp/Drip Flow using NaCl .9. 11:03:59 History and physical on the chart or being dictated. Assessment: Initial Case, HR=85 BPM, Rhythm=SR, Chest Pain=0, Edema=None, Color=Normal, Skin = Warm, Dry Right Pulses: Tommy Ped=2, Femoral=2 11:04:01 Left Pulses: Tommy Ped=2, Femoral=2 Neurological: State=Alert, Ox3, MEZA Respiration: Resp=15 B/min, SpO2=99 % 11:18:41 Reference ECG taken Vitals capture started with the following parameters, Patient=Adult, Interval=5 min, Initial Pr xqfjzg=886 mmHg, 11:18:49 Deflation Rate=5 mmHg, Cuff placed on Right Arm 11:21:12 HR=85 bpm, LVFR=719/85 mmhg, SpO2=99.0 %, Resp=10 B/min 11:22:00 Right Radial and groin(s) prepped with 2% chlorhexidine, and draped after a 3 min. waiting time. 11:24:00 MD paged 11:24:50 HR=89 bpm, KYXP=667/83 mmhg, SpO2=98.0 %, Resp=17 B/min 11:28:44 Pressure channel 1 zeroed. 11:29:00 MD arrived. 11:30:25 HR=90 bpm, GMOS=443/80 mmhg, SpO2=97.0 %, Resp=15 B/min, Ender=10 11:31:29 50 mcg FENTANYL given in lab by Mera Foreman, NIR in Right Antecubital via Peripheral IV. Time Out. Correct patient, correct procedure, correct physician, power injector loaded, or not loaded with contrast with 11:31:42 surgical team present. Time Out Concurred by MD and individual staff in procedure. 11:32:22 2 mg VERSED given in lab by Mera Foreman, NIR in Right Antecubital via Peripheral IV. 11:34:03 Case Start 11:34:08 20 mL 1% XYLOCAINE given in lab by Mera Foreman RN in Right Wrist via Subcutaneous. 11:34:39 HR=84 bpm, DDRO=750/69 mmhg, SpO2=84.0 %, Resp=12 B/min, Ender=10 11:36:28 3000 units HEPARIN given in lab by Sadia Loya RN via Peripheral IV. Ordered by Mynor Christy. 11:36:46 Access site was right Radial Artery. A SHEATH, FR6 RADIAL PRELUDE EASE 11CM FR 6 was advanced into the Radial (right) using the Perc utaneous 11:37:03 technique. 11:37:54 200 mcg NTG (IC) given by Mynor Christy via Intra-arterial. A JL 3.5 INFINITI CATHETER FR 5 was advanced over a wire. OMNIPAQUE, 350 MG, 150ML 150ML was us ed for 11:38:18 injections. Recorded Pressure: Ao, HR=83, Condition=Condition 1 11:38:50 (Aorta) Ao 158/83/116 11:39:10 The LCA was injected and visualized at various angles. OMNIPAQUE, 350 MG, 150ML 150ML used . 11:39:36 HR=83 bpm, AYSH=356/82 mmhg, SpO2=92.0 %, Resp=14 B/min, Ayon=2 11:41:00 2 mg VERSED given in lab by Mera Foreman, NIR in Right Antecubital via Peripheral IV. After removing the current catheter a JR 5.0 INFINITI CATHETER FR 5 was advanced over a WIRE, E XCHANGE 260CM 11:41:44 3MMJ 260CM. 11:42:00 50 mcg FENTANYL given in lab by Mera Foreman, NIR in Right Antecubital via Peripheral IV. Recorded Pressure: LV, HR=81, Condition=Condition 1 11:43:05 (Left Ventricle) LV 141/10/28 Recorded Pressure: LV, Ao, HR=88, Condition=Condition 1 11:43:24 (Left Ventricle) LV 140/73/71, (Aorta) Ao 135/65/98 11:43:56 The RCA was injected and visualized at various angles. OMNIPAQUE, 350 MG, 150ML 150ML used . 11:44:35 AD=671 bpm, FTIT=668/58 mmhg, SpO2=88.0 %, Resp=10 B/min, Ayon=2 After removing the current catheter a AL 1 GUIDE CATHETER FR 6 was advanced over a WIRE, ASAHI PROWATER 11:47:23 180CM 180CM. After removing the current catheter a AL .75 GUIDE CATHETER FR 6 was advanced over a WIRE, EXCH ROHITH 260CM 11:48:42 3MMJ 260CM. 11:49:36 HR=74 bpm, AHVP=880/56 mmhg, SpO2=99.0 %, Resp=9 B/min, Ayon=2 11:51:10 A WIRE, ASAHI PROWATER 180CM 180CM was inserted via Radial (right). 11:52:34 Interventional wire has crossed the lesion A STENT, 2.5 12MM DIONTE 2.5 12MM was advanced through a AL .75 GUIDE CATHETER FR 6 over a WIRE, ASAHI 11:53:59 PROWATER 180CM 180CM. A STENT, 2.5 12MM DIONTE 2.5 12MM was deployed using a 30 CARLA INDEFLATOR at 18 atmospheres for 15 seconds in 11:54:38 the RCA Dist. 11:54:59 Re-inflated the stent balloon in the LAD Mid to 16 CARLA for 10 seconds. 11:55:18 HR=82 bpm, VGHR=068/74 mmhg, SpO2=98.0 %, Resp=14 B/min, Ayon=2 11:56:42 Delivery device removed After removing the current catheter a MPA-1 GUIDE CATHETER FR 6 was advanced over a WIRE, EXCHA NGE 260CM 11:56:59 3MMJ 260CM. 11:58:54 A WIRE, ASAHI PROWATER 180CM 180CM was inserted via Radial (right). 11:59:39 HR=84 bpm, JCCR=671/86 mmhg, SpO2=99.0 %, Resp=15 B/min, Ayon=2 12:00:05 Interventional wire has crossed the lesion A STENT, 2.25 12MM DIONTE 2.25 12MM was advanced through a MPA-1 GUIDE CATHETER FR 6 over a WIRE, ASAHI 12:01:09 PROWATER 180CM 180CM. A STENT, 2.25 12MM DIONTE 2.25 12MM was deployed using a 30 CARLA INDEFLATOR at 12 atmospheres for 10 seconds 12:02:31 in the RCA Dist. 12:03:02 Wire removed 12:03:46 Delivery device removed 12:03:53 Catheter was removed 12:03:56 Case End 12:04:17 Activated Clotting Time Drawn 12:04:44 HR=86 bpm, GNIO=417/82 mmhg, SpO2=99.0 %, Resp=14 B/min 12:09:25 ACT (Normal Range 90-180) = 239 12:09:36 1 mg VERSED given in lab by Sadia Loya RN in Right Antecubital via Peripheral IV. Ord ered by Mynor Christy. 12:09:39 HR=85 bpm, ESWG=128/82 mmhg, SpO2=97.0 %, Resp=13 B/min 25 mcg FENTANYL given in lab by Sadia Loya RN in Right Antecubital via Peripheral IV. Ord ered by Westley, 12:10:05 Mynor. Radial Compression Device Used. 15 mLs of air placed in BAND, RADIAL COMPRESSION TR SHORT 24 24 CM. Affected 12:10:38 hand 94 % O2 saturation. 12:16:10 Vitals capture stopped. 12:21:43 No case complications noted. 12:21:46 Cine recording checked. 12:21:50 Bedside Report will be given. 12:21:51 Implantable Device card placed in patient's chart. 12:21:54 Contrast Scanned 12:21:57 A Left Heart Cath was performed. 12:21:57 [facility] End Study - Contrast Media Used In Study Contrast Total Opened (mL) Total Used (mL) Total Wasted (mL) Omnipaque 135 135 0 End Study - Maximum Contrast Load Max Contrast Load (mL) 634.4 End Study - Radiation Exposure Fluoro Time (minutes) 9.4 End Study - Patient Disposition Complications Transferred To Interventional Outcome No Telemetry Bed successful
--- NOTE | 2017-06-04 12:47 | MA ---
cc: KELLEY ROBLEDO DATE 06/04/2017 INDICATION Unstable angina PROCEDURE PERFORMED 1. Fluoroscopy with interpretation 2. Coronary angiography 3. Left heart catheterization 4. Percutaneous intervention with drug-eluting stents to the mid left anterior descending coronary artery and mid posterolateral branch. METHOD The risks, benefits and alternatives discussed with the patient. The patient understood and consented to the procedure. PROCEDURE The patient brought into the catheterization lab, placed on the catheterization table. The right wrist was prepped and draped in a sterile fashion. The right wrist was anesthetized with 2% lidocaine. The right radial artery was cannulated and a 6-Peruvian 7 cm sheath was placed without difficulty. 200 mcg of intra-arterial nitroglycerin in addition to 3000 units of intravenous heparin was administered. LEFT HEART CATHETERIZATION Intraventricular hemodynamics measured at 140/10 mmHg. CORONARY ANGIOGRAPHY 1. Left main coronary IS angiographically normal. 2. The left anterior descending coronary artery has a stent present in the mid segment which is widely patent. The diagonal branch is patent. Just distal to the stent, there is a 75% tubular stenosis. The remainder of the left anterior descending coronary artery has minor luminal irregularities. 3. Left circumflex gives rise to an obtuse marginal branch which has minor luminal irregularities. 4. The right coronary has a slightly anterior takeoff. The posterolateral branch has an 80% tubular stenosis. The remainder of the vessels has only minor luminal irregularities. PERCUTANEOUS INTERVENTION Give the patient's ongoing intermittent symptoms, we elected to proceed with percutaneous intervention. The left coronary circulation was selectively engaged with a 6-Peruvian AL 0.75 guide catheter 0.014 inches 180 cm Prowater wire was navigated down the distal left anterior descending coronary artery. A 2.5 x 12 mm RX Resolute Brandon stent was then deployed in the mid left anterior descending coronary artery. Repeat angiography showed no residual stenosis. Attention was then directed towards the right coronary artery. The right coronary artery was selectively engaged with a 6-Peruvian multipurpose catheter. A 0.014 inch, 180 cm Prowater wire was then navigated down to the distal posterolateral branch. A 2.25 x 12 mm RX Resolute Dennison stent was then deployed in the posterolateral branch. Repeat angiography showed no residual stenosis, KELLY III flow. THe guide catheter was removed. Heparin was administered throughout its entire procedure to maintain appropriate anticoagulation. CONCLUSIONS Severe two-vessel coronary artery disease involving the mid left anterior descending coronary and posterolateral branch. PLAN Hopefully this will translate well with symptomatic improvement. We will continue to monitor the patient closely. Continue aspirin and Brilinta. We will add a long-acting nitrate. Hopefully she can be discharged tomorrow. MD LEIGHTON Baez/RADHA /12:12 PM /12:32 PM
[2017-06-04] MEDS: CIPROFLOXACIN 400 MG PREMIX 200 ML IV SCH (13:24)
[2017-06-04 13:45] LABS: AUTOMATED NEUTROPHIL # 4.7 TH/MM3 (1.8-7.7); BASOPHIL # 0.2 TH/MM3 (0-0.2); BASOPHIL % 3.6 % (0.0-2.0); EOSINOPHIL # 0.3 TH/MM3 (0-0.4); EOSINOPHIL % 3.9 % (0.0-4.0); HEMATOCRIT 37.9 % (35.0-46.0); HEMO FLAGS DIFF FINAL; LYMPHOCYTE # 1.2 TH/MM3 (1.0-4.8); MEAN CELL VOLUME 79.7 FL (80.0-100.0); MEAN CORPUSCULAR HEMOGLOBIN 25.6 PG (27.0-34.0); MEAN CORPUSCULAR HGB CONC 32.1 % (32.0-36.0); MONO % 7.9 % (0.0-8.0); NEUT % 67.6 % (16.0-70.0); PLATELET COUNT 225 TH/MM3 (150-450); RED BLOOD COUNT 4.76 MIL/MM3 (4.00-5.30); RED CELL DISTRIBUTION WIDTH 17.6 % (11.6-17.2); WHITE BLOOD COUNT 6.9 TH/MM3 (4.0-11.0)
[2017-06-04 13:56] LABS: ANION GAP 9 MEQ/L (5-15); AST (GOT) 38 U/L (15-37); BLOOD UREA NITROGEN 12 MG/DL (7-18); CHLORIDE 104 MEQ/L (98-107); GLOMERULAR FILTRATION RATE 76 ML/MIN (>89); SODIUM (NA) 138 MEQ/L (136-145)
[2017-06-04 14:00] LABS: ALKALINE PHOSPHATASE 93 U/L (45-117); ALT (GPT) 29 U/L (10-53); TOTAL BILIRUBIN ADULT 0.4 MG/DL (0.2-1.0)
[2017-06-04 14:01] LABS: POTASSIUM 4.2 MEQ/L (3.5-5.1)
--- NOTE | 2017-06-04 14:47 | EKG ---
Date Performed: 06/03/2017 Time Performed: 20:54:19 PTAGE: 77 years EKG: SINUS TACHYCARDIA WITH FIRST DEGREE AV BLOCK BORDERLINE LEFT AXIS DEVIATION MODERATE T-WAVE ABNORMALITY, CONSIDER LATERAL ISCHEMIA ABNORMAL ECG Compared to PREVIOUS TRACING the sinus tachycardia and the nonspecific ST-T wave changes are new. Cl inical correlation advised. PREVIOUS TRACIN05/07/2017 04.32 DOCTOR: Amanda Bullard Interpretating Date/Time 06/04/2017 14:44:44
--- NOTE | 2017-06-04 15:50 | HHI.PR ---
Subjective Remarks Follow-up chest pain, non-ST elevation NC. Status post cardiac catheterization with placement of 2 stents. Patient reports pain in her right arm. Denies chest pain or dyspnea. Objective Vitals Vital Signs Date Time Temp Pulse Resp B/P (MAP) Pulse Ox O2 Delivery O2 Flow Rate FiO2 06/04/17 14:09 98.0 60 12 91/47 (62) 94 06/04/17 14:00 60 06/04/17 13:09 98.0 76 16 139/62 (87) 95 06/04/17 12:45 98.0 75 23 163/76 (105) 96 06/04/17 12:45 98.0 76 23 163/76 (105) 98 06/04/17 12:00 76 06/04/17 10:00 85 06/04/17 09:00 81 06/04/17 09:00 97 Room Air 06/04/17 09:00 98.0 81 20 226/86 (132) 97 06/04/17 08:41 87 15 128/58 (81) 97 06/04/17 05:38 90 18 162/75 (104) 96 Room Air 06/04/17 04:00 90 18 128/58 (81) Room Air 96 06/04/17 01:00 102 16 135/56 (82) 96 Room Air 06/03/17 23:31 100 18 149/70 (96) 98 Room Air 06/03/17 21:05 18 98 Room Air 06/03/17 20:54 98.9 119 18 218/101 (140) 99 Room Air 06/03/17 20:50 116 18 232/121 (158) 97 I/O 06/03/17 06/03/17 06/03/17 06/04/17 06/04/17 06/04/17 06:59 14:59 22:59 06:59 14:59 22:59 Intake Total 100 ml Balance 100 ml Intake IV Total 100 ml Result Diagram: 06/04/17 1322 06/04/[address] Angiography 06/03/172212 Signed Impressions: Service Date/Time: Saturday, June 03, 2017 22:26 - CONCLUSION: No evidence of pulmonary embolism. Preston Mahmood MD Chest X-Ray 06/03/172056 Signed Impressions: Service Date/Time: Saturday, June 03, 2017 21:15 - CONCLUSION: No acute disease. Preston Mahmood MD Objective Remarks General: No acute distress. Heart: Regular rate and rhythm. No murmur. Lungs: Clear to auscultation bilaterally. No wheezes, rales, or rhonchi. Breathing is nonlabored. Abdomen: Soft, nontender, nondistended. Extremities: No lower extremity edema. Psych: Alert and oriented. Procedures 06/04/17 cardiac catheterization Urinary Catheter: No Vascular Central Line Catheter: No A/P Problem List: (1) Chest pain ICD Code: R07.9 - Chest pain, unspecified (2) Elevated troponin ICD Code: R74.8 - Abnormal levels of other serum enzymes Status: Acute (3) HTN (hypertension) ICD Code: I10 - Essential (primary) hypertension (4) UTI (urinary tract infection) ICD Code: N39.0 - Urinary tract infection, site not specified (5) DM (diabetes mellitus) ICD Code: E11.9 - Type 2 diabetes mellitus without complications Assessment and Plan 1. Chest pain, elevated troponin, non-ST elevation NC: Appreciate cardiology recommendations. Discussed with Dr. Christy. Status post cardiac catheterization with stent placement. Continue aspirin, Brilinta, statin, beta danika. 2. Hypertension: Poorly controlled. Blood pressure has been as high as 230/120. Currently following catheterization, blood pressure is low. Continue IV fluids. Monitor blood pressure closely. 3. Diabetes mellitus: Monitor Accu-Cheks and cover with sliding scale insulin. Metformin on hold for procedure. 4. UTI: Continue ciprofloxacin. Urine culture growing gram negative rods. 5. DVT prophylaxis: SCDs/TING chino. Discharge Planning Possible discharge tomorrow if cleared by cardiology. Eber Walker MD Jun 04, 2017 15:50
[2017-06-04] MEDS ORDERED: SODIUM CHLORID 0.9% 500 ML INJ 500 ML IV ONE (17:00)
[2017-06-04] MEDS ORDERED: EZETIMIBE 10 MG TAB PO SCH (21:00)
[2017-06-04] MEDS ORDERED: PRAVASTATIN SOD 40 MG TAB PO SCH (21:00)
[2017-06-04] MEDS ORDERED: NON-FORMULARY DRUG (Ezetimibe-Simvastatin (Vytorin) 1 TAB) PO SCH (21:00)
[2017-06-04] MEDS ORDERED: INSULIN DETEMIR 100 UNITS/ML VIAL SQ SCH (21:00)
[2017-06-04] MEDS ORDERED: ATORVASTATIN 40 MG TAB PO SCH (21:00)
[2017-06-04] MEDS ORDERED: traZODone HCL 50 MG TAB PO SCH (21:00)
--- NOTE | 2017-06-04 23:19 | EKG ---
Date Performed: 06/04/2017 Time Performed: 15:47:34 PTAGE: 77 years EKG: Sinus rhythm with 1st degree A-V block. Possible left anterior fascicular block Inferior T wave changes are nonsp ecific Abnormal ECG PREVIOUS TRACING : 06/03/2017 20.54 Compared to the previous tracing rate has decreased DOCTOR: Viral Manzo Interpretating Date/Time 06/04/2017 23:17:36
[2017-06-05] VITALS (9 sets, daily range): BP systolic 107–160; BP diastolic 50–91; PULSE 64–81; RESP 12–16; TEMP 97.6–98; O2SAT 96–100
[2017-06-05] MEDS: CIPROFLOXACIN 400 MG PREMIX 200 ML IV SCH (03:00)
[2017-06-05] MEDS: MORPHINE SULFATE 4 MG/ML INJ IV PUSH PRN (03:19)
[2017-06-05 06:11] LABS: BICARBONATE 25.2 MEQ/L (21.0-32.0); POTASSIUM 3.6 MEQ/L (3.5-5.1)
[2017-06-05 06:14] LABS: HDL CHOLESTEROL 37.2 MG/DL (40.0-60.0)
[2017-06-05] MEDS ORDERED: ISOSORBIDE MONONITRATE 30 MG TAB PO SCH (07:00)
[2017-06-05] MEDS: cloNIDine HCL 0.2 MG TAB PO SCH (07:56)
[2017-06-05] MEDS: LEVOTHYROXINE SODIUM 88 MCG TAB PO SCH (07:56)
[2017-06-05] MEDS: INSULIN ASPART SUPPLEMENTAL SCALE SQ SCH ×2 (08:00→12:00)
[2017-06-05] MEDS: SODIUM CHLORIDE 0.9% FLUSH 10 ML FLUSH IV FLUSH SCH (08:20)
[2017-06-05] MEDS: DILTIAZEM-CD 240 MG CAP ER PO SCH (08:22)
[2017-06-05] MEDS: ASPIRIN EC 81 MG TABEC PO SCH (08:23)
[2017-06-05] MEDS: BETHANECHOL CHL 25 MG TAB PO SCH (08:24)
[2017-06-05] MEDS: TICAGRELOR 90 MG TAB PO SCH (08:26)
[2017-06-05] MEDS: ASCORBIC ACID 500 MG TAB PO SCH (08:26)
[2017-06-05] MEDS: GABAPENTIN 300 MG CAP PO SCH (08:26)
[2017-06-05] MEDS: LISINOPRIL 20 MG TAB PO SCH (08:26)
[2017-06-05] MEDS: DOCUSATE SODIUM 50 MG/SENNA 8.6 MG TAB PO SCH ×2 (08:26→08:37)
[2017-06-05] MEDS: METOPROLOL TARTRATE 25 MG TAB PO SCH (08:27)
--- NOTE | 2017-06-05 09:56 | HHI.PR ---
Subjective Remarks Follow up chest pain. Patient still having pain in right arm, but better today. Denies chest pain. Does report mild intermittent dyspnea. Feels that she is ready to go home. Objective Vitals Vital Signs Date Time Temp Pulse Resp B/P (MAP) Pulse Ox O2 Delivery O2 Flow Rate FiO2 06/05/17 08:00 80 06/05/17 07:48 98.0 81 16 160/67 (98) 98 06/05/17 07:00 98 Room Air 06/05/17 06:00 66 06/05/17 04:00 64 06/05/17 03:48 98.0 69 12 133/91 (105) 100 06/05/17 02:00 67 06/05/17 00:00 70 06/05/17 00:00 98.0 70 14 107/50 (69) 96 06/04/17 22:00 74 06/04/17 21:54 15 06/04/17 20:00 74 06/04/17 20:00 98.0 74 14 107/50 (69) 97 06/04/17 19:00 96 Room Air 06/04/17 18:00 66 06/04/17 16:09 97.9 65 12 108/51 (70) 95 06/04/17 16:00 74 06/04/17 15:48 97.9 66 21 85/50 (62) 96 06/04/17 15:09 97.9 66 21 85/50 (62) 96 06/04/17 14:09 98.0 60 12 91/47 (62) 94 06/04/17 14:00 60 06/04/17 13:09 98.0 76 16 139/62 (87) 95 06/04/17 12:45 98.0 75 23 163/76 (105) 96 06/04/17 12:45 98.0 76 23 163/76 (105) 98 06/04/17 12:00 76 06/04/17 10:00 85 I/O 06/04/17 06/04/17 06/04/17 06/05/17 06/05/17 06/05/17 06:59 14:59 22:59 06:59 14:59 22:59 Intake Total 1802 ml 622 ml Output Total 3 ml 2 ml Balance 1799 ml 620 ml Intake Oral 600 ml 622 ml IV Total 1202 ml Output Urine Total 3 ml 2 ml # Bowel Movements 0 0 Result Diagram: 06/04/17 1322 06/05/[address] Angiography 06/03/172212 Signed Impressions: Service Date/Time: Saturday, June 03, 2017 22:26 - CONCLUSION: No evidence of pulmonary embolism. Presotn Mahmood MD Chest X-Ray 06/03/172056 Signed Impressions: Service Date/Time: Saturday, June 03, 2017 21:15 - CONCLUSION: No acute disease. Preston Mahmood MD Objective Remarks General: No acute distress. Heart: Regular rate and rhythm. No murmur. Lungs: Clear to auscultation bilaterally. No wheezes, rales, or rhonchi. Breathing is nonlabored. Abdomen: Soft, nontender, nondistended. Extremities: No lower extremity edema. Psych: Alert and oriented. Procedures 06/04/17 cardiac catheterization Urinary Catheter: No Vascular Central Line Catheter: No A/P Problem List: (1) Chest pain ICD Code: R07.9 - Chest pain, unspecified (2) Elevated troponin ICD Code: R74.8 - Abnormal levels of other serum enzymes Status: Acute (3) HTN (hypertension) ICD Code: I10 - Essential (primary) hypertension (4) UTI (urinary tract infection) ICD Code: N39.0 - Urinary tract infection, site not specified (5) DM (diabetes mellitus) ICD Code: E11.9 - Type 2 diabetes mellitus without complications Assessment and Plan 1. Chest pain, elevated troponin, non-ST elevation [place]: Appreciate cardiology recommendations. Discussed with Dr. Christy. Status post cardiac catheterization with stent placement. Continue aspirin, Brilinta, statin, beta danika, Imdur. 2. Hypertension: Blood pressure had been running low following catheterization procedure. Now improved. Continue beta danika, lisinopril, Imdur. 3. Diabetes mellitus: Monitor Accu-Cheks and cover with sliding scale insulin. Metformin on hold for procedure. 4. UTI: Continue ciprofloxacin. Urine culture growing gram negative rods. 5. DVT prophylaxis: SCDs/TING chino. Discharge Planning Plan for discharge home when cleared by cardiology. Eber Walker MD Jun 05, 2017 09:56
--- NOTE | 2017-06-05 10:17 | PD.CARD.PN ---
Subjective Subjective Remarks no events no complaints Objective Medications Current Medications Medications (Trade) Dose Ordered Sig/Cristine Route Start Time Stop Time Status Last Admin (D50w (Vial) Inj) 50 ml UNSCH PRN IV PUSH 06/03/17 23:45 (Glucagon Inj) 1 mg UNSCH PRN OTHER 06/03/17 23:45 (NovoLOG SUPPLEMENTAL SCALE) 1 ACHS SLIDING SCALE SQ 06/04/17 08:00 06/04/17 21:18 (NS Flush) 2 ml UNSCH PRN IV FLUSH 06/03/17 23:45 (NS Flush) 2 ml BID IV FLUSH 06/04/17 09:00 06/05/17 08:20 (Zofran Inj) 4 mg Q6H PRN IVP 06/03/17 23:45 (Tylenol) 650 mg Q6H PRN PO 06/03/17 23:45 (Morphine Inj) 1 mg Q3H PRN IV PUSH 06/03/17 23:45 (Morphine Inj) 2 mg Q3H PRN IV PUSH 06/03/17 23:45 06/05/17 03:19 (Kamini-Colace) 1 tab BID PO 06/04/17 09:00 06/04/17 09:19 (Milk Of Magnesia Liq) 30 ml Q12H PRN PO 06/03/17 23:45 (Senokot) 17.2 mg Q12H PRN PO 06/03/17 23:45 (Dulcolax Supp) 10 mg DAILY PRN RECTAL 06/03/17 23:45 (Lactulose Liq) 30 ml DAILY PRN PO 06/03/17 23:45 (Nitroglycerin 2% Oint) 0.5 inch Q6HR PRN TOPICAL 06/03/17 23:45 (Ecotrin Ec) 81 mg DAILY PO 06/04/17 09:00 06/05/17 08:23 (Lipitor) 40 mg HS PO 06/04/17 21:00 06/04/17 21:09 (Urecholine) 25 mg QID PO 06/04/17 09:00 06/05/17 08:24 (Catapres) 0.2 mg Q8HR PO 06/04/17 06:00 06/05/17 07:56 (Neurontin) 300 mg TID PO 06/04/17 09:00 06/05/17 08:26 (Levemir Inj) 25 units HS SQ 06/04/17 21:00 06/04/17 21:17 (Synthroid) 88 mcg DAILY@0600 PO 06/04/17 06:00 06/05/17 07:56 (Prinivil) 40 mg DAILY PO 06/04/17 09:00 06/05/17 08:26 (Lopressor) 12.5 mg Q12HR PO 06/04/17 09:00 06/05/17 08:27 (Brilinta) 90 mg BID PO 06/04/17 09:00 06/05/17 08:26 (Desyrel) 50 mg HS PO 06/04/17 21:00 06/04/17 21:08 (Vitamin C) 500 mg BID PO 06/04/17 09:00 06/05/17 08:26 (Cardizem Cd) 240 mg DAILY PO 06/04/17 09:00 06/05/17 08:22 (Pill Splitter) 1 ea UNSCH PRN OTHER 06/03/17 23:45 (Zetia) 10 mg HS PO 06/04/17 21:00 06/04/17 21:09 (Pravachol) 40 mg HS PO 06/04/17 21:00 06/04/17 21:11 (Morphine Inj) 2 mg Q30M PRN IV PUSH 06/04/17 12:15 (Imdur) 30 mg DAILY@07 PO 06/05/17 07:00 06/05/17 08:26 Ciprofloxacin/ Dextrose 200 ml @ 200 mls/hr Q12H IV 06/04/17 14:00 06/05/17 03:00 Vital Signs / I&O Vital Signs Date Time Temp Pulse Resp B/P (MAP) Pulse Ox O2 Delivery O2 Flow Rate FiO2 06/05/17 08:00 80 06/05/17 07:48 98.0 81 16 160/67 (98) 98 06/05/17 07:00 98 Room Air 06/05/17 06:00 66 06/05/17 04:00 64 06/05/17 03:48 98.0 69 12 133/91 (105) 100 06/05/17 02:00 67 06/05/17 00:00 70 06/05/17 00:00 98.0 70 14 107/50 (69) 96 06/04/17 22:00 74 06/04/17 21:54 15 06/04/17 20:00 74 06/04/17 20:00 98.0 74 14 107/50 (69) 97 06/04/17 19:00 96 Room Air 06/04/17 18:00 66 06/04/17 16:09 97.9 65 12 108/51 (70) 95 06/04/17 16:00 74 06/04/17 15:48 97.9 66 21 85/50 (62) 96 06/04/17 15:09 97.9 66 21 85/50 (62) 96 06/04/17 14:09 98.0 60 12 91/47 (62) 94 06/04/17 14:00 60 06/04/17 13:09 98.0 76 16 139/62 (87) 95 06/04/17 12:45 98.0 75 23 163/76 (105) 96 06/04/17 12:45 98.0 76 23 163/76 (105) 98 06/04/17 12:00 76 I/O 06/04/17 06/04/17 06/04/17 06/05/17 06/05/17 06/05/17 07:00 15:00 23:00 07:00 15:00 23:00 Intake Total 1802 ml 622 ml Output Total 3 ml 2 ml Balance 1799 ml 620 ml Intake Oral 600 ml 622 ml IV Total 1202 ml Output Urine Total 3 ml 2 ml # Bowel Movements 0 0 Physical Exam NECK: Supple, trachea midline. No JVD or lymphadenopathy. CARDIOVASCULAR: Regular rate and rhythm without murmurs, gallops, or rubs. RESPIRATORY: Breath sounds equal bilaterally. No accessory muscle use. GASTROINTESTINAL: Abdomen soft, non-tender, nondistended. Laboratory Laboratory Tests Test 06/04/17 13:22 06/05/17 05:40 White Blood Count 6.9 TH/MM3 Red Blood Count 4.76 MIL/MM3 Hemoglobin 12.2 GM/DL Hematocrit 37.9 % Mean Corpuscular Volume 79.7 FL Mean Corpuscular Hemoglobin 25.6 PG Mean Corpuscular Hemoglobin Concent 32.1 % Red Cell Distribution Width 17.6 % Platelet Count 225 TH/MM3 Mean Platelet Volume 9.7 FL Neutrophils (%) (Auto) 67.6 % Lymphocytes (%) (Auto) 17.0 % Monocytes (%) (Auto) 7.9 % Eosinophils (%) (Auto) 3.9 % Basophils (%) (Auto) 3.6 % Neutrophils # (Auto) 4.7 TH/MM3 Lymphocytes # (Auto) 1.2 TH/MM3 Monocytes # (Auto) 0.5 TH/MM3 Eosinophils # (Auto) 0.3 TH/MM3 Basophils # (Auto) 0.2 TH/MM3 CBC Comment DIFF FINAL Differential Comment Blood Urea Nitrogen 12 MG/DL 15 MG/DL Creatinine 0.74 MG/DL 0.91 MG/DL Random Glucose 141 MG/DL 123 MG/DL Total Protein 8.1 GM/DL Albumin 3.7 GM/DL Calcium Level 8.6 MG/DL 8.2 MG/DL Alkaline Phosphatase 93 U/L Aspartate Amino Transf (AST/SGOT) 38 U/L Alanine Aminotransferase (ALT/SGPT) 29 U/L Total Bilirubin 0.4 MG/DL Sodium Level 138 MEQ/L 141 MEQ/L Potassium Level 4.2 MEQ/L 3.6 MEQ/L Chloride Level 104 MEQ/L 106 MEQ/L Carbon Dioxide Level 25.0 MEQ/L 25.2 MEQ/L Anion Gap 9 MEQ/L 10 MEQ/L Estimat Glomerular Filtration Rate 76 ML/MIN 60 ML/MIN Troponin I 0.13 NG/ML Total Creatine Kinase 143 U/L Triglycerides Level 113 MG/DL Cholesterol Level 68 MG/DL LDL Cholesterol 8 MG/DL HDL Cholesterol 37.2 MG/DL Cholesterol/HDL Ratio 1.82 RATIO Imaging Last Impressions CT Angiography 06/03/[id number] Signed Impressions: Service Date/Time: Saturday, June 03, 2017 22:26 - CONCLUSION: No evidence of pulmonary embolism. Preston Mahmood MD Chest X-Ray 06/03/[id number] Signed Impressions: Service Date/Time: Saturday, June 03, 2017 21:15 - CONCLUSION: No acute disease. Preston Mahmood MD Assessment and Plan Assessment and Plan NSTEMI - PCI BEREKET mid LAD and PL coronary arteries asa statin (on both atorvastatin and pravastatin; will DC pravastatin) brillinta BB ACEi add isosorbide DC planning today Mynor Christy MD Jun 05, 2017 10:17
[2017-06-05] MEDS ORDERED: ISOS30TA3 PO (10:34)
[2017-06-05] MEDS ORDERED: CIPR250T2 PO (10:34)
--- NOTE | 2017-06-05 10:35 | HHI.DCPOC ---
Discharge Care Plan Diagnosis: (1) DM (diabetes mellitus) (2) HTN (hypertension) (3) Chest pain (4) Elevated troponin (5) UTI (urinary tract infection) Goals to Promote Your Health * To prevent worsening of your condition and complications * To maintain your health at the optimal level Directions to Meet Your Goals Take your medications as prescribed Follow your dietary instruction Follow activity as directed Keep your appointments as scheduled Take your immunizations and boosters as scheduled If your symptoms worsen call your PCP, if no PCP go to Urgent Care Center or Emergency Room Smoking is Dangerous to Your Health. Avoid second hand smoke Call the 24-hour hour crisis hotline for domestic abuse at Eber Walker MD Jun 05, 2017 10:35
== END 2017-06-05 13:12 | disposition home or self-care (01) | DRG 247 ==
LOC: NEPC 20:45 → NEDA 23:37 → NEDH 06-04 03:46 → N03A 06-04 09:05 → OBSVTOIN 06-04 17:02
PROVIDERS: ADMIT Family Medicine; ATTEND Family Medicine
PROC: 4A023N7 Measurement of Cardiac Sampling and Pressure, Left Heart, Percutaneous Approach (ICD-10-PCS; 2017-06-04)
PROC: B2111ZZ Fluoroscopy of Multiple Coronary Arteries using Low Osmolar Contrast (ICD-10-PCS; 2017-06-04)
PROC: 027135Z Dilation of Coronary Artery, Two Arteries with Two Drug-eluting Intraluminal Devices, Percutaneous Approach (ICD-10-PCS; principal; 2017-06-04 11:00)
DX: I21.4 Non-ST elevation (NSTEMI) myocardial infarction (principal); N39.0 Urinary tract infection, site not specified; E11.9 Type 2 diabetes mellitus without complications; I10 Essential (primary) hypertension; I25.10 Atherosclerotic heart disease of native coronary artery without angina pectoris; K21.9 Gastro-esophageal reflux disease without esophagitis; M19.90 Unspecified osteoarthritis, unspecified site; E78.5 Hyperlipidemia, unspecified; E03.9 Hypothyroidism, unspecified; Z95.5 Presence of coronary angioplasty implant and graft; Z79.4 Long term (current) use of insulin; Z79.82 Long term (current) use of aspirin; Z86.61 Personal history of infections of the central nervous system
CPT/HCPCS: 71010; 71275; 80048; 80053; 80061; 81001; 82550; 82552; 82948; 83735; 84484; 85002; 85025; 85610; 85730; 87077; 87086; 87186; 92928; 92929; 93005; 93458; 99152; 99153; C1769; C1874; C1887; C1893; J0696; J0744; J1644; J1815; J2250; J2270; J2405; J3010; J7030; J7040; Q9967

== ENCOUNTER → 2017-08-31 | Outpatient (CLI) | payer MEDICARE, OTHER ==
[2017-08-31 13:32] LABS: HEMATOCRIT 36.4 % (35.0-46.0); HEMOGLOBIN 11.5 GM/DL (11.6-15.3); MEAN CELL VOLUME 83.2 FL (80.0-100.0); MEAN CORPUSCULAR HEMOGLOBIN 26.3 PG (27.0-34.0); MEAN CORPUSCULAR HGB CONC 31.6 % (32.0-36.0); MEAN PLATELET VOLUME 10.1 FL (7.0-11.0); PLATELET COUNT 385 TH/MM3 (150-450); RED BLOOD COUNT 4.37 MIL/MM3 (4.00-5.30); RED CELL DISTRIBUTION WIDTH 17.5 % (11.6-17.2); REVIEW FLAG FINAL; WHITE BLOOD COUNT 8.4 TH/MM3 (4.0-11.0)
[2017-08-31 13:53] LABS: AMORPHOUS SEDIMENT, URINE RARE; BACTERIA, URINE MANY /hpf; BILIRUBIN, URINE NEG (NEG); BLOOD, URINE MOD (NEG); CALCIUM OXALATE CRYSTALS,URINE OCC /hpf; COMMENT (UR) CULTURE INDICATED; CULTURE IF INDICATED CULTURE INDICATED; GLUCOSE,URINE NEG (NEG); KETONE, URINE TRACE mg/dL (NEG); MUCUS URINE FEW /lpf (OCC); NITRITE,URINE NEG (NEG); URINE LEUKOCYTE ESTERASE LARGE (NEG)
[2017-08-31 13:56] LABS: URINE COLOR LIGHT-RED (YELLW/STRAW)
[2017-08-31 14:05] LABS: ALT (GPT) 244 U/L (10-53); ANION GAP 10 MEQ/L (5-15); AST (GOT) 313 U/L (15-37); BLOOD UREA NITROGEN 16 MG/DL (7-18); CALCIUM 8.5 MG/DL (8.5-10.1); CHLORIDE 102 MEQ/L (98-107); CHOLESTEROL 106 MG/DL (120-200); CREATININE 0.99 MG/DL (0.50-1.00); GLOMERULAR FILTRATION RATE 54 ML/MIN (>89); GLUCOSE,FASTING 119 MG/DL (74-99); POTASSIUM 3.3 MEQ/L (3.5-5.1); SODIUM (NA) 138 MEQ/L (136-145)
[2017-08-31 14:15] LABS: ALKALINE PHOSPHATASE 654 U/L (45-117); CHOLESTEROL/ HDL RATIO 1.98 RATIO; HDL CHOLESTEROL 53.5 MG/DL (40.0-60.0); LDL CHOLESTEROL 35 MG/DL (0-99); TOTAL BILIRUBIN ADULT 0.8 MG/DL (0.2-1.0); TOTAL PROTEIN 8.8 GM/DL (6.4-8.2); TRIGLYCERIDES 88 MG/DL (42-150)
[2017-08-31 18:01] LABS: HEMOGLOBIN A1C 6.8 % (4.3-6.0); HEMOGLOBIN A1a 1.3 %; HEMOGLOBIN A1b 2.5 %; HEMOGLOBIN LA1C 2.3 %; HEMOGLOBIN P3 4.5 %
== END ==
LOC: ELAB 10:50
DX: N39.0 Urinary tract infection, site not specified (principal); B96.1 Klebsiella pneumoniae [K. pneumoniae] as the cause of diseases classified elsewhere; E03.9 Hypothyroidism, unspecified; E11.9 Type 2 diabetes mellitus without complications; M54.5 Low back pain; E78.4 Other hyperlipidemia; K31.84 Gastroparesis; I10 Essential (primary) hypertension; G47.00 Insomnia, unspecified; Z95.5 Presence of coronary angioplasty implant and graft
CPT/HCPCS: 36415; 80053; 80061; 81001; 83036; 84443; 85027; 87077; 87086; 87186

== ENCOUNTER 2017-09-07 11:59 | Inpatient (IN) | payer MEDICARE, OTHER ==
[~2017-09-07] VITALS: Ht 170.2 cm; Wt 90.6 kg
[~2017-09-07 11:59] MED LIST changes: -ASPI-99 PO; +ASPI1TAB56 PO; +CIPR250T2 PO; +ISOS30TA3 PO; -METF500T4 PO; -METO10TA PO; -OMEP20TA PO; +OMEP20TA93 PO; -PERI8.6T PO; +TRAZ50TA12 PO; +VITA250C3 CHEW; -VYTO10TA8 PO
[2017-09-07 12:02] VITALS: BP 135/71; PULSE 90; RESP 20; TEMP 98.3; O2SAT 95
[2017-09-07 13:32] LABS: AUTOMATED NEUTROPHIL # 6.1 TH/MM3 (1.8-7.7); BASOPHIL # 0.2 TH/MM3 (0-0.2); BASOPHIL % 1.7 % (0.0-2.0); EOSINOPHIL # 0.3 TH/MM3 (0-0.4); EOSINOPHIL % 2.9 % (0.0-4.0); HEMATOCRIT 36.5 % (35.0-46.0); LYMPH % 13.5 % (9.0-44.0); LYMPHOCYTE # 1.2 TH/MM3 (1.0-4.8); MEAN CELL VOLUME 81.9 FL (80.0-100.0); MEAN CORPUSCULAR HEMOGLOBIN 26.8 PG (27.0-34.0); MEAN CORPUSCULAR HGB CONC 32.8 % (32.0-36.0); MEAN PLATELET VOLUME 9.8 FL (7.0-11.0); MONO % 12.2 % (0.0-8.0); MONOCYTE # 1.1 TH/MM3 (0-0.9); NEUT % 69.7 % (16.0-70.0); PLATELET COUNT 314 TH/MM3 (150-450); RED BLOOD COUNT 4.46 MIL/MM3 (4.00-5.30); WHITE BLOOD COUNT 8.7 TH/MM3 (4.0-11.0)
[2017-09-07 13:41] LABS: INTERNATIONAL NORMALIZED RATIO 1.1 RATIO; PROTHROMBIN TIME - PATIENT 10.8 SEC (9.8-11.6)
[2017-09-07 13:43] LABS: BACTERIA, URINE OCC /hpf; BILIRUBIN, URINE NEG (NEG); BLOOD, URINE LARGE (NEG); GLUCOSE,URINE TRACE mg/dL (NEG); KETONE, URINE TRACE mg/dL (NEG); MUCUS URINE FEW /lpf (OCC); NITRITE,URINE NEG (NEG); PH, URINE 5.5 (5.0-8.5); SQUAMOUS EPITHELIAL CELL URINE 3 /hpf (0-5); URINE LEUKOCYTE ESTERASE LARGE (NEG); WHITE BLOOD CELL CLUMPS OCC
[2017-09-07 13:44] LABS: URINE COLOR BROWN (YELLW/STRAW)
[2017-09-07 13:50] LABS: AST (GOT) 289 U/L (15-37); BICARBONATE 28.4 MEQ/L (21.0-32.0); BLOOD UREA NITROGEN 21 MG/DL (7-18); CALCIUM 9.2 MG/DL (8.5-10.1); CHLORIDE 103 MEQ/L (98-107); CREATININE 1.12 MG/DL (0.50-1.00); GLOMERULAR FILTRATION RATE 47 ML/MIN (>89); GLUCOSE,RANDOM 170 MG/DL (74-106); SODIUM (NA) 139 MEQ/L (136-145)
[2017-09-07 13:52] LABS: ALKALINE PHOSPHATASE 778 U/L (45-117); ALT (GPT) 224 U/L (10-53); TOTAL BILIRUBIN ADULT 0.7 MG/DL (0.2-1.0); TOTAL PROTEIN 9.3 GM/DL (6.4-8.2)
[2017-09-07] MEDS ORDERED: METF1000 PO (14:01)
[2017-09-07] MEDS ORDERED: SODIUM CHLOR 0.9% 1000 ML INJ 1,000 ML IV ONE (14:30)
[2017-09-07] MEDS ORDERED: ONDANSETRON HCL 4 MG/2 ML VIAL IV PUSH ONE (14:30)
[2017-09-07 14:41] VITALS: BP 126/66; PULSE 78; RESP 16; TEMP 98.3; O2SAT 99
--- NOTE | 2017-09-07 14:58 | PD ---
HPI Chief Complaint: Complaint Time Seen by Provider: 14:11 Travel History International Travel<30 days: No Contact w/Intl Traveler<30days: No Traveled to known affect area: No History of Present Illness HPI 77-year-old female with PMH of DM, gastroparesis presents to the ED for evaluation of approximate 2 week history of dysuria, hematuria, intermittent nausea, back pain. Back pain rated 5 out of 10, right-sided, intermittent. No alleviating or exacerbating factors reported. She denies fever, chills, vomiting. She finished a course of Cipro with no improvement of symptoms. She states that she took a few doses of trimethoprim that made her sick and was eventually prescribed Macrodantin. She is unsure how many doses of this that she took. She states that she spoke with Dr. Proctor's office and was told that her UTI was resistant to multiple medications, that she needed to come to the ED. PFSH Past Medical History Arthritis: Yes (hands and feet, generalized) Asthma: No Autoimmune Disease: No Blood Disorders: No Anxiety: No Depression: No Heart Rhythm Problems: Yes (newly in and out of afib) Cancer: No Cardiovascular Problems: Yes High Cholesterol: Yes Chemotherapy: No Chest Pain: Yes Congestive Heart Failure: No COPD: No Cerebrovascular Accident: No Diabetes: Yes Patient Takes Glucophage: Yes Diminished Hearing: No Endocrine: Yes Gastrointestinal Disorders: Yes (Gastroporesis) GERD: Yes Genitourinary: Yes (ureterotomy ) Headaches: No Hepatitis: No Hiatal Hernia: No Hypertension: Yes Immune Disorder: No Implanted Vascular Access Dvce: Yes Kidney Stones: Yes (2011) Medical other: Yes (HX OF MENINGITIS 1995, ENCEPHELITIS 1975) Musculoskeletal: No Neurologic: No Psychiatric: No Reproductive: No Respiratory: Yes Immunizations Current: No Migraines: Yes Radiation Therapy: No Renal Failure: No Seizures: Yes Sickle Cell Disease: No Sleep Apnea: No Thyroid Disease: Yes (hypothyroid) Ulcer: No Tetanus Vaccination: > 5 Years Influenza Vaccination: Yes PNEUMOCCOCAL Vaccine (Year): 1 ?: Not Menopausal: Yes : 2 Para: 0 : 2 Past Surgical History Abdominal Surgery: Yes (Gallbladder/appendix removed ) AICD: No Appendectomy: Yes Arteriovenous Shunt: No Body Medical Devices: NECK AND LOWER BACK Cardiac Surgery: Yes (stents 05/16/17) Cholecystectomy: Yes Ear Surgery: No Endocrine Surgery: No Eye Surgery: No Genitourinary Surgery: Yes (Right ureterotomy) Gynecologic Surgery: Yes (Total hysterectomy) Hysterectomy: Yes Insulin Pump: No Joint Replacement: Yes (R hip, R knee) Oral Surgery: Yes (wisdom teeth ) Pacemaker: No Thoracic Surgery: Yes (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) Tonsillectomy: Yes Other Surgery: Yes (RIGHT UPPER LOBE LUNG SUREGRY) Social History Alcohol Use: No Tobacco Use: No (QUIT 1990) Substance Use: No Allergies-Medications (Allergen,Severity, Reaction): Coded Allergies: Sulfa (Sulfonamide Antibiotics) (Verified Allergy, Severe, Hives, 06/03/17 ) doxycycline (Verified Allergy, Severe, RASH, 06/03/17) minocycline (Verified Allergy, Severe, RASH, 06/03/17) penicillin G (Verified Allergy, Severe, Rash, 06/03/17) tigecycline (Verified Allergy, Severe, RASH, 06/03/17) codeine (Verified Adverse Reaction, Severe, NAUSEA, 06/03/17) NAUSEA Reported Meds & Prescriptions Reported Meds & Active Scripts Active Isosorbide Mononitrate ER (Isosorbide Mononitrate) 30 Mg Naty 30 Mg PO DAILY@07 Adult Aspirin EC Low Strength (Aspirin) 81 Mg Tabec 81 Mg PO DAILY Lisinopril 20 Mg Tab 40 Mg PO DAILY Metoprolol Tartrate 25 Mg Tab 12.5 Mg PO Q12HR Brilinta (Ticagrelor) 90 Mg Tab 90 Mg PO BID Atorvastatin (Atorvastatin Calcium) 40 Mg Tab 40 Mg PO HS Catapres (Clonidine) 0.2 Mg Tab 0.2 Mg PO Q8HR Reported Metformin (Metformin HCl) 1,000 Mg Tab 1,000 Mg PO BIDPC Vitamin C (Ascorbic Acid) 250 Mg Chew 500 Mg CHEW BID Trazodone (Trazodone HCl) 50 Mg Tab 50 Mg PO HS Tramadol (Tramadol HCl) 50 Mg Tab 100 Mg PO Q12HR PRN Synthroid (Levothyroxine Sodium) 88 Mcg Tab 88 Mcg PO DAILY Lantus Inj (Insulin Glargine) 1,000 Unit/10 Ml Vial 25 Units SQ HS Gabapentin 300 Mg Cap 300 Mg PO TID Omeprazole 20 Mg Tab 20 Mg PO DAILY Bethanechol 25 Mg Tab 25 Mg PO QID Review of Systems Except as stated in HPI: all other systems reviewed are Neg Physical Exam Narrative GENERAL: Well-nourished, well-developed, nontoxic appearing white female in no acute distress. SKIN: Focused skin assessment warm/dry. HEAD: Normocephalic. EYES: No scleral icterus. No injection or drainage. NECK: Supple, trachea midline. No JVD or lymphadenopathy. CARDIOVASCULAR: Regular rate and rhythm without murmurs, gallops, or rubs. RESPIRATORY: Breath sounds clear and equal bilaterally. No accessory muscle use. GASTROINTESTINAL: Abdomen soft, nondistended. Mild suprapubic tenderness. MUSCULOSKELETAL: No cyanosis, or edema. BACK: Nontender without obvious deformity. Positive right-sided CVA tenderness. Data Data Last Documented VS Vital Signs Date Time Temp Pulse Resp B/P (MAP) Pulse Ox O2 Delivery O2 Flow Rate FiO2 09/07/17 14:41 98.3 78 16 126/66 (86) 99 Room Air Orders Orders Complete Blood Count With Diff (09/07/17 12:22) Comprehensive Metabolic Panel (09/07/17 12:22) Act Partial Throm Time (Ptt) (09/07/17 12:22) Prothrombin Time / Inr (Pt) (09/07/17 12:22) Urinalysis - C+S If Indicated (09/07/17 12:22) Urine Culture (09/07/17 12:57) Sodium Chlor 0.9% 1000 Ml Inj (Ns 1000 M (09/07/17 14:30) Ondansetron Inj (Zofran Inj) (09/07/17 14:30) Comprehensive Metabolic Panel (09/08/17 06:00) Free Thyroxine (T4) (09/08/17 06:00) Hemoglobin (Hgb) A1c (09/08/17 06:00) Magnesium (Mg) (09/08/17 06:00) Phosphorus (Po4) (09/08/17 06:00) Thyroid Stimulating Hormone (09/08/17 06:00) Complete Blood Count With Diff (09/08/17 06:00) Clonidine (Catapres) (09/07/17 16:30) Consult Infectious Disease (09/07/17 ) Diet Heart Healthy (09/07/17 Dinner) Admit Order (Ed Use Only) (09/07/17 16:17) Imipenem/Cilastatin Inj (Primaxin Inj) (09/07/17 16:30) Labs Laboratory Tests Test 09/07/17 12:42 09/07/17 12:57 White Blood Count 8.7 TH/MM3 Red Blood Count 4.46 MIL/MM3 Hemoglobin 12.0 GM/DL Hematocrit 36.5 % Mean Corpuscular Volume 81.9 FL Mean Corpuscular Hemoglobin 26.8 PG Mean Corpuscular Hemoglobin Concent 32.8 % Red Cell Distribution Width 17.0 % Platelet Count 314 TH/MM3 Mean Platelet Volume 9.8 FL Neutrophils (%) (Auto) 69.7 % Lymphocytes (%) (Auto) 13.5 % Monocytes (%) (Auto) 12.2 % Eosinophils (%) (Auto) 2.9 % Basophils (%) (Auto) 1.7 % Neutrophils # (Auto) 6.1 TH/MM3 Lymphocytes # (Auto) 1.2 TH/MM3 Monocytes # (Auto) 1.1 TH/MM3 Eosinophils # (Auto) 0.3 TH/MM3 Basophils # (Auto) 0.2 TH/MM3 CBC Comment DIFF FINAL Differential Comment Prothrombin Time 10.8 SEC Prothromb Time International Ratio 1.1 RATIO Activated Partial Thromboplast Time 27.7 SEC Blood Urea Nitrogen 21 MG/DL Creatinine 1.12 MG/DL Random Glucose 170 MG/DL Total Protein 9.3 GM/DL Albumin 3.0 GM/DL Calcium Level 9.2 MG/DL Alkaline Phosphatase 778 U/L Aspartate Amino Transf (AST/SGOT) 289 U/L Alanine Aminotransferase (ALT/SGPT) 224 U/L Total Bilirubin 0.7 MG/DL Sodium Level 139 MEQ/L Potassium Level 4.8 MEQ/L Chloride Level 103 MEQ/L Carbon Dioxide Level 28.4 MEQ/L Anion Gap 8 MEQ/L Estimat Glomerular Filtration Rate 47 ML/MIN Urine Color BROWN Urine Turbidity HAZY Urine pH 5.5 Urine Specific [place] 1.023 Urine Protein 100 mg/dL Urine Glucose (UA) TRACE mg/dL Urine Ketones TRACE mg/dL Urine Occult Blood LARGE Urine Nitrite NEG Urine Bilirubin NEG Urine Urobilinogen 8.0 MG/DL Urine Leukocyte Esterase LARGE Urine RBC /hpf Urine WBC 162 /hpf Urine WBC Clumps OCC Urine Squamous Epithelial Cells 3 /hpf Urine Bacteria OCC /hpf Urine Mucus FEW /lpf Microscopic Urinalysis Comment CULTURE INDICATED MDM Medical Decision Making Medical Screen Exam Complete: Yes Emergency Medical Condition: Yes Differential Diagnosis Pyelonephritis versus hemorrhagic cystitis versus MDRO versus sepsis versus other Narrative Course 77-year-old female with PMH of DM, gastroparesis presents to the ED for evaluation of approximate 2 week history of dysuria, hematuria, intermittent nausea, back pain. She finished a course of Cipro with no improvement of symptoms. She states that she took a few doses of trimethoprim that made her sick and was prescribed Macrodantin. She is unsure how many doses of this that she took. She states that she spoke with Dr. Proctor's office and was told that her UTI was resistant to multiple medications, that she needed to come to the ED. vitals reviewed. Physical exam reveals a nontoxic-appearing white female in no acute distress. She does have suprapubic tenderness to palpation as well as right-sided CVA tenderness. She was administered 1 L normal saline and 4 mg Zofran IV. Review of the patient's record reveals urine cultures drawn on 08/31 positive for multidrug resistant Klebsiella. CBC: WBC 8.7. Hemoglobin 12.0. INR: 1.1. CMP: BUN 21, creatinine 1.12. Glucose 170. AST 289, ALT 224. Alk phos 778. UA: Brown, hazy, trace ketones, large occult blood, 8.0 urobilinogen, large leukocyte esterase, innumerable RBCs, 162 WBCs, occasional WBC clumps, occasional bacteria. Culture pending. Patient was ministered IV imipenem. I discussed the results of the workup with the patient as well as the need for hospitalization. She is agreeable to this plan. I discussed the case with Dr. Sagastume who agrees to accept the patient to the medicine service. Please see medicine notes for disposition. Nirmala Anaya Sep 07, 2017 14:58
[2017-09-07] MEDS ORDERED: IMIPENEM/CILASTATIN INJ 250 MG VIAL IV ONE (16:00)
[2017-09-07 16:30] VITALS: BP 142/67; PULSE 82; RESP 16; TEMP 98; O2SAT 98
[2017-09-07] MEDS ORDERED: cloNIDine HCL 0.1 MG TAB PO PRN (16:30)
[2017-09-07] MEDS ORDERED: IMIPENEM/CILASTAT 500 MG in NS MINIBAG 100 ML IV ONE (16:30)
[2017-09-07] MEDS ORDERED: traMADol HCL 50 MG TAB PO ONE (17:45)
--- NOTE | 2017-09-07 19:24 | HHI.HP ---
HPI Service [facility] Primary Care Physician Felicia Craig MD Admission Diagnosis MDR pyelonephritis, elevated LFTs Diagnoses: Chief Complaint: Hematuria, dysuria, right flank pain. Travel History International Travel<30 Days: No Contact w/Intl Traveler <30 Da: No Traveled to Known Affected Are: No History of Present Illness This is a 77-year-old female with extensive past medical history including hypertension, hyperlipidemia, CAD status post stent placement, diabetes mellitus who presents to [facility] complaining of dysuria, hematuria and right flank tenderness. The patient states that he started experiencing 2 weeks ago dysuria, urinary urgency reasonable why he called her primary care physician, Dr. Grossman. The patient states that at the time she completed a full course of oral ciprofloxacin without symptom improvement. Afterwards the patient was prescribed Bactrim, however he started having a bad reaction after taking 1 dose of Bactrim. Finally this past Thursday the patient was prescribed Macrodantin which she took for 3 days however symptoms were still present. The patient completes of hematuria, dysuria, nausea but denies any vomiting. The patient has some lower abdominal pain and is complaining of constipation. The patient also elicit some right flank pain which is constant, nonradiating, 6/10 intensity, movement makes it worse and he medications improve the pain. The patient denies any fevers or chills. Review of Systems As per history of present illness, other systems reviewed by me and negative. Past Family Social History Past Medical History 1. History of meningitis in 1995. 2. History of encephalitis in 1975. 3. Hyperlipidemia. 4. CAD status post PCI to LAD with a drug-eluting stent on 06/05/17. 5. Hypertension. Past Surgical History Appendectomy, Cholecystectomy, Neck and Back Surgery, Hysterectomy, Right Hip Replacement, Right Knee Replacement, Right Upper Lobe Lung Resection, stent placement, right urethrotomy. Reported Medications Reported Meds & Active Scripts Active Isosorbide Mononitrate ER (Isosorbide Mononitrate) 30 Mg Naty 30 Mg PO DAILY@07 Adult Aspirin EC Low Strength (Aspirin) 81 Mg Tabec 81 Mg PO DAILY Lisinopril 20 Mg Tab 40 Mg PO DAILY Metoprolol Tartrate 25 Mg Tab 12.5 Mg PO Q12HR Brilinta (Ticagrelor) 90 Mg Tab 90 Mg PO BID Atorvastatin (Atorvastatin Calcium) 40 Mg Tab 40 Mg PO HS Catapres (Clonidine) 0.2 Mg Tab 0.2 Mg PO Q8HR Reported Metformin (Metformin HCl) 1,000 Mg Tab 1,000 Mg PO BIDPC Vitamin C (Ascorbic Acid) 250 Mg Chew 500 Mg CHEW BID Trazodone (Trazodone HCl) 50 Mg Tab 50 Mg PO HS Tramadol (Tramadol HCl) 50 Mg Tab 100 Mg PO Q12HR PRN Synthroid (Levothyroxine Sodium) 88 Mcg Tab 88 Mcg PO DAILY Lantus Inj (Insulin Glargine) 1,000 Unit/10 Ml Vial 25 Units SQ HS Gabapentin 300 Mg Cap 300 Mg PO TID Omeprazole 20 Mg Tab 20 Mg PO DAILY Bethanechol 25 Mg Tab 25 Mg PO QID Allergies: Coded Allergies: Sulfa (Sulfonamide Antibiotics) (Verified Allergy, Severe, Hives, 06/03/17 ) doxycycline (Verified Allergy, Severe, RASH, 06/03/17) minocycline (Verified Allergy, Severe, RASH, 06/03/17) penicillin G (Verified Allergy, Severe, Rash, 06/03/17) tigecycline (Verified Allergy, Severe, RASH, 06/03/17) codeine (Verified Adverse Reaction, Severe, NAUSEA, 06/03/17) NAUSEA Active Ordered Medications Current Medications Medications (Trade) Dose Ordered Sig/Cristine Route Start Time Stop Time Status Last Admin (Catapres) 0.1 mg Q4H PRN PO 09/07/17 16:30 Family History Patient's mother from complications due to his congestive heart failure and diabetes mellitus. Patient's grandmother also had diabetes mellitus and congestive heart failure. Social History Negative for alcohol, tobacco or drugs. Physical Exam Vital Signs Vital Signs Date Time Temp Pulse Resp B/P (MAP) Pulse Ox O2 Delivery O2 Flow Rate FiO2 09/07/17 18:48 16 09/07/17 16:30 98.0 82 16 142/67 (92) 98 Room Air 09/07/17 14:41 98.3 78 16 126/66 (86) 99 Room Air 09/07/17 13:53 86 16 09/07/17 12:02 98.3 90 20 135/71 (92) 95 Room Air Physical Exam GENERAL: This is a well-nourished, well-developed patient, in no apparent distress. SKIN: No rashes, ecchymoses or lesions. Cool and dry. HEAD: Atraumatic. Normocephalic. No temporal or scalp tenderness. EYES: Pupils equal round and reactive. Extraocular motions intact. No scleral icterus. No injection or drainage. ENT: Nose without bleeding, purulent drainage or septal hematoma. Throat without erythema, tonsillar hypertrophy or exudate. Uvula midline. Airway patent. NECK: Trachea midline. No JVD or lymphadenopathy. Supple, nontender, no meningeal signs. CARDIOVASCULAR: Regular rate and rhythm without murmurs, gallops, or rubs. RESPIRATORY: Clear to auscultation. Breath sounds equal bilaterally. No wheezes , rales, or rhonchi. GASTROINTESTINAL: Abdomen soft, nondistended. No hepato-splenomegaly, or palpable masses. No guarding. Right CVA tenderness and pain on palpation of suprapubic region. Obese abdomen. MUSCULOSKELETAL: Extremities without clubbing, cyanosis, or edema. No joint tenderness, effusion, or edema noted. No calf tenderness. Negative Homans sign bilaterally. NEUROLOGICAL: Awake and alert. Cranial nerves II through XII intact. Motor and sensory grossly within normal limits. Five out of 5 muscle strength in all muscle groups. Normal speech. Laboratory Laboratory Tests Test 09/07/17 12:42 09/07/17 12:57 White Blood Count 8.7 Red Blood Count 4.46 Hemoglobin 12.0 Hematocrit 36.5 Mean Corpuscular Volume 81.9 Mean Corpuscular Hemoglobin 26.8 Mean Corpuscular Hemoglobin Concent 32.8 Red Cell Distribution Width 17.0 Platelet Count 314 Mean Platelet Volume 9.8 Neutrophils (%) (Auto) 69.7 Lymphocytes (%) (Auto) 13.5 Monocytes (%) (Auto) 12.2 Eosinophils (%) (Auto) 2.9 Basophils (%) (Auto) 1.7 Neutrophils # (Auto) 6.1 Lymphocytes # (Auto) 1.2 Monocytes # (Auto) 1.1 Eosinophils # (Auto) 0.3 Basophils # (Auto) 0.2 CBC Comment DIFF FINAL Differential Comment Prothrombin Time 10.8 Prothromb Time International Ratio 1.1 Activated Partial Thromboplast Time 27.7 Blood Urea Nitrogen 21 Creatinine 1.12 Random Glucose 170 Total Protein 9.3 Albumin 3.0 Calcium Level 9.2 Alkaline Phosphatase 778 Aspartate Amino Transf (AST/SGOT) 289 Alanine Aminotransferase (ALT/SGPT) 224 Total Bilirubin 0.7 Sodium Level 139 Potassium Level 4.8 Chloride Level 103 Carbon Dioxide Level 28.4 Anion Gap 8 Estimat Glomerular Filtration Rate 47 Urine Color BROWN Urine Turbidity HAZY Urine pH 5.5 Urine Specific [place] 1.023 Urine Protein 100 Urine Glucose (UA) TRACE Urine Ketones TRACE Urine Occult Blood LARGE Urine Nitrite NEG Urine Bilirubin NEG Urine Urobilinogen 8.0 Urine Leukocyte Esterase LARGE Urine RBC Urine WBC 162 Urine WBC Clumps OCC Urine Squamous Epithelial Cells 3 Urine Bacteria OCC Urine Mucus FEW Microscopic Urinalysis Comment CULTURE INDICATED Date/Time Source Procedure Growth Status 09/07/17 12:57 Urine Clean Catch Urine Culture Pending Received Result Diagram: 09/07/17 1242 09/07/17 1242 Caprini VTE Risk Assessment Caprini VTE Risk Assessment: Mod/High Risk (score >= 2) Caprini Risk Assessment Model Point Value = 1 Point Value = 2 Point Value = 3 Point Value = 5 Age 41-60 Minor surgery BMI > 25 kg/m2 Swollen legs Varicose veins or History of unexplained or recurrent spontaneous Oral contraceptives or hormone replacement Sepsis (< 1 month) Serious lung disease, including pneumonia (< 1 month) Abnormal pulmonary function Acute myocardial infarction Congestive heart failure (< 1 month) History of inflammatory bowel disease Medical patient at bed rest Age 61-74 Arthroscopic surgery Major open surgery (> 45 min) Laparoscopic surgery (> 45 min) Malignancy Confined to bed (> 72 hours) Immobilizing plaster cast Central venous access Age >= 75 History of VTE Family history of VTE Factor V Leiden Prothrombin [id number] Lupus anticoagulant Anticardiolipin antibodies Elevated serum homocysteine Heparin-induced thrombocytopenia Other congenital or acquired thrombophilia Stroke (< 1 month) Elective arthroplasty Hip, pelvis, or leg fracture Acute spinal cord injury (< 1 month) Prophylaxis Regimen Total Risk Factor Score Risk Level Prophylaxis Regimen 0-1 Low Early ambulation 2 Moderate Order ONE of the following: *Sequential Compression Device (SCD) *Heparin 5000 units SQ BID 3-4 Higher Order ONE of the following medications: *Heparin 5000 units SQ TID *Enoxaparin/Lovenox 40 mg SQ daily (WT < 150 kg, CrCl > 30 mL/min) *Enoxaparin/Lovenox 30 mg SQ daily (WT < 150 kg, CrCl > 10-29 mL/min) *Enoxaparin/Lovenox 30 mg SQ BID (WT < 150 kg, CrCl > 30 mL/min) AND/OR *Sequential Compression Device (SCD) 5 or more Highest Order ONE of the following medications: *Heparin 5000 units SQ TID (Preferred with Epidurals) *Enoxaparin/Lovenox 40 mg SQ daily (WT < 150 kg, CrCl > 30 mL/min) *Enoxaparin/Lovenox 30 mg SQ daily (WT < 150 kg, CrCl > 10-29 mL/min) *Enoxaparin/Lovenox 30 mg SQ BID (WT < 150 kg, CrCl > 30 mL/min) AND *Sequential Compression Device (SCD) Assessment and Plan Problem List: (1) UTI (urinary tract infection) ICD Code: N39.0 - Urinary tract infection, site not specified Plan: Admit the patient to the medical floor. Patient status post IV imipenem administered in the ED. ID consulted. Check renal ultrasound given presence of right flank pain to rule out pyelonephritis. (2) HTN (hypertension) ICD Code: I10 - Essential (primary) hypertension Plan: Blood pressure seems to be stable, continue home antihypertensive medications (3) DM (diabetes mellitus) ICD Code: E11.9 - Type 2 diabetes mellitus without complications Plan: Hold metformin. Continue long-acting insulin. Hold metformin. Will place on SSI with insulin NovoLog. (4) Hyperlipidemia ICD Code: E78.5 - Hyperlipidemia, unspecified Plan: Continue statin (5) CAD (coronary artery disease) ICD Code: I25.10 - Atherosclerotic heart disease of [place] coronary artery without angina pectoris Plan: Patient is chest pain-free. Continue aspirin and Brillinta for now. We'll keep his medications since patient recently had a drug-eluting stent to the mid LAD and PL coronary arteries on May 2017. (6) Hematuria ICD Code: R31.9 - Hematuria, unspecified Status: Acute Plan: Will monitor hemoglobin. Continue aspirin on Brilinta for now given that patient has had a recent PCI with drug-eluting stent placement in May 2017. Hemoglobin is stable, will monitor H&H and transfuse as needed if hemoglobin drops below 8 if active bleeding or symptomatic anemia. Hematuria likely secondary to urinary tract infection. (7) Hypothyroidism ICD Code: E03.9 - Hypothyroidism, unspecified Status: Chronic Plan: Continue levothyroxine. Assessment and Plan GI prophylaxis: Continue PPI. DVT prophylaxis: The patient on Brilinta. Physician Certification 2 Midnight Certification Type: Admission for Inpatient Services Order for Inpatient Services The services are ordered in accordance with Medicare regulations or non- Medicare payer requirements, as applicable. In the case of services not specified as inpatient-only, they are appropriately provided as inpatient services in accordance with the 2-midnight benchmark. Estimated LOS (days): 2 days is the estimated time the patient will need to remain in the hospital, assuming treatment plan goals are met and no additional complications. Post-Hospital Plan: Not yet determined Problem Qualifiers (1) UTI (urinary tract infection): Qualified Codes: N10 - Acute pyelonephritis (2) HTN (hypertension): Qualified Codes: I10 - Essential (primary) hypertension (3) DM (diabetes mellitus): Qualified Codes: E11.65 - Type 2 diabetes mellitus with hyperglycemia; Z79.4 - jail (current) use of insulin (4) Hyperlipidemia: Qualified Codes: E78.5 - Hyperlipidemia, unspecified (5) CAD (coronary artery disease): Qualified Codes: I25.10 - Atherosclerotic heart disease of [place] coronary artery without angina pectoris (6) Hematuria: Qualified Codes: R31.0 - Gross hematuria Han Hernandez MD Sep 07, 2017 19:24
[2017-09-07] MEDS ORDERED: traMADol HCL 50 MG TAB PO PRN ×2 (19:30→19:45)
[2017-09-07] MEDS ORDERED: ASP: Documented ESBL, MDR A baumannii or P. aeruginosa PRN (19:45)
[2017-09-07] MEDS ORDERED: MISCELLANEOUS PHARMACY INFORMATION XX PRN (19:45)
[2017-09-07 20:00] VITALS: BP 186/79; PULSE 88; RESP 17; TEMP 97.2; O2SAT 96
[2017-09-07] MEDS: BETHANECHOL CHL 25 MG TAB PO SCH (21:19)
[2017-09-07] MEDS: METOPROLOL TARTRATE 25 MG TAB PO SCH (21:19)
[2017-09-07] MEDS: cloNIDine HCL 0.2 MG TAB PO SCH (21:19)
[2017-09-07] MEDS: traZODone HCL 50 MG TAB PO SCH (21:19)
[2017-09-07] MEDS: ATORVASTATIN 40 MG TAB PO SCH (21:19)
[2017-09-07] MEDS: INSULIN DETEMIR 100 UNITS/ML VIAL SQ SCH (21:36)
[2017-09-07] MEDS: TICAGRELOR 90 MG TAB PO SCH (22:21)
[2017-09-07] MEDS ORDERED: MORPHINE SULFATE 4 MG/ML INJ IV PUSH ONE (22:30)
[2017-09-07] MEDS: ONDANSETRON HCL 4 MG/2 ML VIAL IV PUSH PRN (22:57)
[2017-09-07] MEDS: IMIPENEM/CILASTATIN INJ 500 MG in SODIUM CHLORIDE 0.9% INJ 100 ML IV SCH (22:59)
[2017-09-08] VITALS: BP 131/60; PULSE 89; RESP 17; TEMP 97.3; O2SAT 96
[2017-09-08] MEDS ORDERED: MORPHINE SULFATE 2 MG/ML INJ IV PUSH ONE (05:00)
[2017-09-08 05:08] VITALS: BP 136/65; PULSE 81; TEMP 97.7; O2SAT 95
[2017-09-08] MEDS: IMIPENEM/CILASTATIN INJ 500 MG in SODIUM CHLORIDE 0.9% INJ 100 ML IV SCH ×2 (05:10→10:30)
[2017-09-08] MEDS: LEVOTHYROXINE SODIUM 88 MCG TAB PO SCH (05:11)
[2017-09-08] MEDS: cloNIDine HCL 0.2 MG TAB PO SCH ×3 (05:11→21:21)
[2017-09-08 07:19] VITALS: BP 111/68; PULSE 66
[2017-09-08] MEDS: ISOSORBIDE MONONITRATE 30 MG TAB PO SCH (07:20)
[2017-09-08 07:26] LABS: AUTOMATED NEUTROPHIL # 4.1 TH/MM3 (1.8-7.7); BASOPHIL # 0.1 TH/MM3 (0-0.2); BASOPHIL % 1.5 % (0.0-2.0); EOSINOPHIL # 0.5 TH/MM3 (0-0.4); EOSINOPHIL % 7.2 % (0.0-4.0); HEMATOCRIT 31.6 % (35.0-46.0); HEMOGLOBIN 10.2 GM/DL (11.6-15.3); LYMPH % 20.6 % (9.0-44.0); LYMPHOCYTE # 1.4 TH/MM3 (1.0-4.8); MEAN CORPUSCULAR HEMOGLOBIN 27.2 PG (27.0-34.0); MEAN CORPUSCULAR HGB CONC 32.4 % (32.0-36.0); MEAN PLATELET VOLUME 9.3 FL (7.0-11.0); MONO % 9.9 % (0.0-8.0); MONOCYTE # 0.7 TH/MM3 (0-0.9); NEUT % 60.8 % (16.0-70.0); PLATELET COUNT 250 TH/MM3 (150-450); RED BLOOD COUNT 3.76 MIL/MM3 (4.00-5.30); RED CELL DISTRIBUTION WIDTH 17.4 % (11.6-17.2); WHITE BLOOD COUNT 6.7 TH/MM3 (4.0-11.0)
[2017-09-08 07:51] LABS: ALBUMIN 2.6 GM/DL (3.4-5.0); ALT (GPT) 167 U/L (10-53); AST (GOT) 189 U/L (15-37); BICARBONATE 26.3 MEQ/L (21.0-32.0); BLOOD UREA NITROGEN 21 MG/DL (7-18); CALCIUM 8.1 MG/DL (8.5-10.1); CHLORIDE 103 MEQ/L (98-107); CREATININE 0.84 MG/DL (0.50-1.00); GLOMERULAR FILTRATION RATE 66 ML/MIN (>89); GLUCOSE,RANDOM 102 MG/DL (74-106); MAGNESIUM 1.4 MG/DL (1.5-2.5); SODIUM (NA) 138 MEQ/L (136-145)
[2017-09-08 07:58] LABS: ALKALINE PHOSPHATASE 603 U/L (45-117); FREE T4 1.92 NG/DL (0.76-1.46); PHOSPHORUS 3.5 MG/DL (2.5-4.9); TOTAL PROTEIN 7.8 GM/DL (6.4-8.2)
[2017-09-08 07:59] LABS: TOTAL BILIRUBIN ADULT 0.5 MG/DL (0.2-1.0)
[2017-09-08 08:00] VITALS: BP 140/61; PULSE 70; RESP 18; TEMP 96.6; O2SAT 95
[2017-09-08] MEDS ORDERED: PNEUMOCOCCAL POLYVALENT INJ 25 MCG/0.5 ML SYR IM ONE (09:00)
[2017-09-08] MEDS: METOPROLOL TARTRATE 25 MG TAB PO SCH ×2 (09:01→19:45)
[2017-09-08] MEDS: TICAGRELOR 90 MG TAB PO SCH ×2 (09:02→19:44)
[2017-09-08] MEDS: GABAPENTIN 300 MG CAP PO SCH ×3 (09:02→18:28)
[2017-09-08] MEDS: BETHANECHOL CHL 25 MG TAB PO SCH ×4 (09:02→19:45)
[2017-09-08] MEDS: PANTOPRAZOLE SOD 20 MG DELAYED RELEASE TAB PO SCH (09:03)
[2017-09-08] MEDS: ASPIRIN EC 81 MG TABEC PO SCH (09:03)
[2017-09-08] MEDS: LISINOPRIL 20 MG TAB PO SCH (09:03)
[2017-09-08] MEDS: ONDANSETRON HCL 4 MG/2 ML VIAL IV PUSH PRN ×2 (10:26→14:46)
[2017-09-08] MEDS ORDERED: oxyCODONE/ACETAMINOPHEN 5 MG/325 MG TAB PO PRN ×2 (11:00)
[2017-09-08] MEDS ORDERED: MORPHINE SULFATE 2 MG/ML INJ IV PUSH PRN (11:00)
--- NOTE | 2017-09-08 11:11 | HHI.PR ---
Subjective Remarks Patient c/o righ flank pain Denies fevers, chills, cough States has not had a BM Objective Vitals Vital Signs Date Time Temp Pulse Resp B/P (MAP) Pulse Ox O2 Delivery O2 Flow Rate FiO2 09/08/17 08:00 96.6 70 18 140/61 (87) 95 09/08/17 07:19 66 111/68 (82) 09/08/17 05:08 97.7 81 136/65 (88) 95 09/08/17 00:00 97.3 89 17 131/60 (83) 96 09/07/17 20:00 97.2 88 17 186/79 (114) 96 09/07/17 18:48 16 09/07/17 16:30 98.0 82 16 142/67 (92) 98 Room Air 09/07/17 14:41 98.3 78 16 126/66 (86) 99 Room Air 09/07/17 13:53 86 16 09/07/17 12:02 98.3 90 20 135/71 (92) 95 Room Air I/O 09/07/17 09/07/17 09/07/17 09/08/17 09/08/17 09/08/17 07:00 15:00 23:00 07:00 15:00 23:00 Intake Total 1100 ml 580 ml Balance 1100 ml 580 ml Intake Oral 480 ml IV Total 1100 ml 100 ml # Voids 1 # Bowel Movements 0 Result Diagram: 09/08/17 0645 09/08/17 0645 Objective Remarks GENERAL: This is a well-nourished, well-developed patient, in no apparent distress. SKIN: No rashes, ecchymoses or lesions. Cool and dry. HEAD: Atraumatic. Normocephalic. No temporal or scalp tenderness. EYES: Pupils equal round and reactive. Extraocular motions intact. No scleral icterus. No injection or drainage. ENT: Nose without bleeding, purulent drainage or septal hematoma. Throat without erythema, tonsillar hypertrophy or exudate. Uvula midline. Airway patent. NECK: Trachea midline. No JVD or lymphadenopathy. Supple, nontender, no meningeal signs. CARDIOVASCULAR: Regular rate and rhythm without murmurs, gallops, or rubs. RESPIRATORY: Clear to auscultation. Breath sounds equal bilaterally. No wheezes , rales, or rhonchi. GASTROINTESTINAL: Abdomen soft, nondistended. No hepato-splenomegaly, or palpable masses. No guarding. Right CVA tenderness and pain on palpation of suprapubic region. Obese abdomen. MUSCULOSKELETAL: Extremities without clubbing, cyanosis, or edema. No joint tenderness, effusion, or edema noted. No calf tenderness. Negative Homans sign bilaterally. NEUROLOGICAL: Awake and alert. Cranial nerves II through XII intact. Motor and sensory grossly within normal limits. Five out of 5 muscle strength in all muscle groups. Normal speech. Medications and IVs Current Medications Medications (Trade) Dose Ordered Sig/Cristine Route Start Time Stop Time Status Last Admin (Catapres) 0.1 mg Q4H PRN PO 09/07/17 16:30 (Ecotrin Ec) 81 mg DAILY PO 09/08/17 09:00 09/08/17 09:03 (Lipitor) 40 mg HS PO 09/07/17 21:00 09/07/17 21:19 (Urecholine) 25 mg QID PO 09/07/17 21:00 09/08/17 09:02 (Catapres) 0.2 mg Q8HR PO 09/07/17 22:00 09/08/17 05:11 (Neurontin) 300 mg TID PO 09/08/17 09:00 09/08/17 09:02 (Levemir Inj) 25 units HS SQ 09/07/17 21:00 09/07/17 21:36 (Imdur) 30 mg DAILY@07 PO 09/08/17 07:00 (Synthroid) 88 mcg DAILY@0600 PO 09/08/17 06:00 09/08/17 05:11 (Prinivil) 40 mg DAILY PO 09/08/17 09:00 09/08/17 09:03 (Lopressor) 12.5 mg Q12HR PO 09/07/17 21:00 09/08/17 09:01 (Brilinta) 90 mg BID PO 09/07/17 21:00 09/08/17 09:02 (Desyrel) 50 mg HS PO 09/07/17 21:00 09/07/17 21:19 (Protonix) 20 mg DAILY PO 09/08/17 09:00 09/08/17 09:03 (Zofran Inj) 4 mg Q6H PRN IV PUSH 09/07/17 19:45 09/08/17 10:26 (Morphine Inj) 2 mg Q3H PRN IV PUSH 09/08/17 11:00 (Percocet 5-325 Mg) 1 tab Q4H PRN PO 09/08/17 11:00 (Percocet 5-325 Mg) 2 tab Q4H PRN PO 09/08/17 11:00 09/08/17 10:53 (ASP Crit: Doc ESBL, MDR A baumannii or P aer) 1 UNSCH X1 PRN .XX 09/08/17 11:15 09/09/17 11:14 ([facility] [place] [facility] Information) 1 UNSCH X1 PRN XX 09/08/17 11:15 09/09/17 11:14 Ertapenem 1000 mg/ Sodium Chloride 100 ml @ 200 mls/hr Q24H IV 09/08/17 13:00 Urinary Catheter: No Vascular Central Line Catheter: No A/P Problem List: (1) UTI (urinary tract infection) ICD Code: N39.0 - Urinary tract infection, site not specified (2) HTN (hypertension) ICD Code: I10 - Essential (primary) hypertension (3) DM (diabetes mellitus) ICD Code: E11.9 - Type 2 diabetes mellitus without complications (4) Hyperlipidemia ICD Code: E78.5 - Hyperlipidemia, unspecified (5) CAD (coronary artery disease) ICD Code: I25.10 - Atherosclerotic heart disease of [place] coronary artery without angina pectoris (6) Hematuria ICD Code: R31.9 - Hematuria, unspecified Status: Acute (7) Hypothyroidism ICD Code: E03.9 - Hypothyroidism, unspecified Status: Chronic (8) CVA tenderness ICD Code: M54.9 - Dorsalgia, unspecified Plan: Some of the kidneys ordered. Will follow-up. Patient started on tramadol for pain control, however the patient states the pain is controlled and he severe 94 status over 10 intensity. I will DC tramadol and place on Percocet as well as IV morphine for breakthrough pain. Continue to monitor pain levels. (9) Constipation ICD Code: K59.00 - Constipation, unspecified Plan: No abdominal pain on exam as well as no distention. I will start the patient on a bowel regimen and MiraLAX daily. Assessment and Plan (1) UTI (urinary tract infection) ICD Code: N39.0 - Urinary tract infection, site not specified Plan: Admited the patient to the medical floor. Patient status post IV imipenem administered in the ED. ID consulted. Check renal ultrasound given presence of right flank pain to rule out pyelonephritis. (2) HTN (hypertension) Plan: Blood pressure seems to be stable, continue home antihypertensive medications (3) DM (diabetes mellitus) Plan: Hold metformin. Continue long-acting insulin. Hold metformin. Will place on SSI with insulin NovoLog. Blood sugars stable (4) Hyperlipidemia Plan: Continue statin (5) CAD (coronary artery disease) Continue aspirin and Brillinta for now. Will keep his medications since patient recently had a drug-eluting stent to the mid LAD and PL coronary arteries on May 2017. (6) Hematuria Plan: Will monitor hemoglobin. Continue aspirin on Brilinta for now given that patient has had a recent PCI with drug-eluting stent placement in May 2017. Hemoglobin is stable, will monitor H&H and transfuse as needed if hemoglobin drops below 8 if active bleeding or symptomatic anemia. Hematuria likely secondary to urinary tract infection. 09/08 Patient states urine was dark brown. Hematuria likely resolving. (7) Hypothyroidism Plan: Continue levothyroxine. GI prophylaxis: Continue PPI. DVT prophylaxis: The patient on Brilinta. Problem Qualifiers (1) UTI (urinary tract infection): Qualified Codes: N10 - Acute pyelonephritis (2) HTN (hypertension): Qualified Codes: I10 - Essential (primary) hypertension (3) DM (diabetes mellitus): Qualified Codes: E11.65 - Type 2 diabetes mellitus with hyperglycemia; Z79.4 - care home (current) use of insulin (4) Hyperlipidemia: Qualified Codes: E78.5 - Hyperlipidemia, unspecified (5) CAD (coronary artery disease): Qualified Codes: I25.10 - Atherosclerotic heart disease of [place] coronary artery without angina pectoris (6) Hematuria: Qualified Codes: R31.0 - Gross hematuria (7) Constipation: Qualified Codes: K59.00 - Constipation, unspecified Han Hernandez MD Sep 08, 2017 11:11
[2017-09-08] MEDS ORDERED: ASP: Documented ESBL, MDR A baumannii or P. aeruginosa PRN (11:15)
[2017-09-08] MEDS ORDERED: MISCELLANEOUS PHARMACY INFORMATION XX PRN (11:15)
--- NOTE | 2017-09-08 11:20 | PD.CONS ---
History of Present Illness Service Infectious disease Consult Requested By Dr [place] Reason for Consult Evaluate patient with MDRO pyelonephritis Primary Care Physician Felicia Craig MD Diagnoses: History of Present Illness Patient seen and examined. Records reviewed. Patient is a 77-year-old female, presented to the hospital with 1 week history of right sided flank pain, right lower quadrant pain, and about 19 day history of dysuria, and suprapubic pain. Patient started having problem with a pressure sensation in the suprapubic region associated with some dysuria. She has chronic problem with urinary incontinence and that has not changed. She has had previous episode of UTI although the last one like this was many years ago, and so she decided to call her primary care physician, and Paulette was called. She took the medication for about a week, and she really had minimal improvement. 9 days into her symptom she was instructed to have some blood work and urinalysis and evaluation and at that time she had noted that her urine was kind brownish in color. She started having right sided flank pain and right lower quadrant pain, and it was getting severe, and she has had persistent discoloration of her urine. She has not had any fever or chills or sweats. She's had some nausea but no vomiting. She presented to the hospital for further evaluation and treatment. Patient has had urinary tract infection on 2 previous hospitalization back in February and May. However at that time patient stated that she did not have any symptoms and it look like it was an incidental finding. She had Escherichia coli on those 2 cultures. The culture now is growing Klebsiella ESBL positive. She is afebrile. Infectious disease consultation has been requested to evaluate the patient. Review of Systems Constitutional: COMPLAINS OF: Fatigue, DENIES: Fever, Chills, Night Sweats Eyes: DENIES: Eye pain Ears, nose, mouth, throat: DENIES: Nasal discharge, Oral lesions, Throat pain, Hoarseness, Ear Pain, Sinus Pain Respiratory: DENIES: Cough, Sputum production, Shortness of breath Cardiovascular: DENIES: Chest pain, Palpitations, Syncope Gastrointestinal: COMPLAINS OF: Abdominal pain, Nausea, DENIES: Constipation, Diarrhea, Vomiting, Difficulty Swallowing Genitourinary: COMPLAINS OF: Urinary incontinence, Hematuria, Dysuria Musculoskeletal: DENIES: Muscle aches Integumentary: DENIES: Rash Neurologic: DENIES: Localized weakness Psychiatric: DENIES: Hallucinations Past Family Social History Allergies: Coded Allergies: Sulfa (Sulfonamide Antibiotics) (Verified Allergy, Severe, Hives, 06/03/17 ) doxycycline (Verified Allergy, Severe, RASH, 06/03/17) minocycline (Verified Allergy, Severe, RASH, 06/03/17) penicillin G (Verified Allergy, Severe, Rash, 06/03/17) tigecycline (Verified Allergy, Severe, RASH, 06/03/17) codeine (Verified Adverse Reaction, Severe, NAUSEA, 06/03/17) NAUSEA Past Medical History History of meningitis in 1995. History of encephalitis in 1975. Hyperlipidemia. CAD, has had multiple interventions done Atrial fib, with some paroxysmal episodes Recurrent UTI Hypertension. Kidney stone Past Surgical History Appendectomy Cholecystectomy Neck and Back Surgery Hysterectomy Right Hip Replacement Right Knee Replacement Cervical and lumbar spine surgery Cardiac cath with multiple interventions done Amauri-thyroidectomy Previous cystoscopy for stones and placement of stent 2011 Reported Medications I attest that I obtained, updated or reviewed the home and current medications. Reported Meds & Active Scripts Active Isosorbide Mononitrate ER (Isosorbide Mononitrate) 30 Mg Naty 30 Mg PO DAILY@07 Adult Aspirin EC Low Strength (Aspirin) 81 Mg Tabec 81 Mg PO DAILY Lisinopril 20 Mg Tab 40 Mg PO DAILY Metoprolol Tartrate 25 Mg Tab 12.5 Mg PO Q12HR Brilinta (Ticagrelor) 90 Mg Tab 90 Mg PO BID Atorvastatin (Atorvastatin Calcium) 40 Mg Tab 40 Mg PO HS Catapres (Clonidine) 0.2 Mg Tab 0.2 Mg PO Q8HR Reported Metformin (Metformin HCl) 1,000 Mg Tab 1,000 Mg PO BIDPC Vitamin C (Ascorbic Acid) 250 Mg Chew 500 Mg CHEW BID Trazodone (Trazodone HCl) 50 Mg Tab 50 Mg PO HS Tramadol (Tramadol HCl) 50 Mg Tab 100 Mg PO Q12HR PRN Synthroid (Levothyroxine Sodium) 88 Mcg Tab 88 Mcg PO DAILY Lantus Inj (Insulin Glargine) 1,000 Unit/10 Ml Vial 25 Units SQ HS Gabapentin 300 Mg Cap 300 Mg PO TID Omeprazole 20 Mg Tab 20 Mg PO DAILY Bethanechol 25 Mg Tab 25 Mg PO QID Active Ordered Medications Current Medications Medications (Trade) Dose Ordered Sig/Cristine Route Start Time Stop Time Status Last Admin (Catapres) 0.1 mg Q4H PRN PO 09/07/17 16:30 (Ecotrin Ec) 81 mg DAILY PO 09/08/17 09:00 09/08/17 09:03 (Lipitor) 40 mg HS PO 09/07/17 21:00 09/07/17 21:19 (Urecholine) 25 mg QID PO 09/07/17 21:00 09/08/17 09:02 (Catapres) 0.2 mg Q8HR PO 09/07/17 22:00 09/08/17 05:11 (Neurontin) 300 mg TID PO 09/08/17 09:00 09/08/17 09:02 (Levemir Inj) 25 units HS SQ 09/07/17 21:00 09/07/17 21:36 (Imdur) 30 mg DAILY@07 PO 09/08/17 07:00 (Synthroid) 88 mcg DAILY@0600 PO 09/08/17 06:00 09/08/17 05:11 (Prinivil) 40 mg DAILY PO 09/08/17 09:00 09/08/17 09:03 (Lopressor) 12.5 mg Q12HR PO 09/07/17 21:00 09/08/17 09:01 (Brilinta) 90 mg BID PO 09/07/17 21:00 09/08/17 09:02 (Desyrel) 50 mg HS PO 09/07/17 21:00 09/07/17 21:19 (Protonix) 20 mg DAILY PO 09/08/17 09:00 09/08/17 09:03 (Zofran Inj) 4 mg Q6H PRN IV PUSH 09/07/17 19:45 09/08/17 10:26 (ASP Crit: Doc ESBL, MDR A baumannii or P aer) 1 UNSCH X1 PRN .XX 09/07/17 19:45 09/08/17 19:44 ([facility]) 1 UNSCH X1 PRN XX 09/07/17 19:45 09/08/17 19:44 Imipenem/ Cilastatin Sodium 500 mg/Sodium Chloride 100 ml @ 200 mls/hr Q6H IV 09/07/17 23:00 09/08/17 10:30 (Morphine Inj) 2 mg Q3H PRN IV PUSH 09/08/17 11:00 (Percocet 5-325 Mg) 1 tab Q4H PRN PO 09/08/17 11:00 (Percocet 5-325 Mg) 2 tab Q4H PRN PO 09/08/17 11:00 09/08/17 10:53 Family History family history of CHF and diabetes Social History Denies smoking Denies alcohol abuse Denies illicit drugs Physical Exam Vital Signs Vital Signs Date Time Temp Pulse Resp B/P (MAP) Pulse Ox O2 Delivery O2 Flow Rate FiO2 09/08/17 08:00 96.6 70 18 140/61 (87) 95 09/08/17 07:19 66 111/68 (82) 09/08/17 05:08 97.7 81 136/65 (88) 95 09/08/17 00:00 97.3 89 17 131/60 (83) 96 09/07/17 20:00 97.2 88 17 186/79 (114) 96 09/07/17 18:48 16 09/07/17 16:30 98.0 82 16 142/67 (92) 98 Room Air 09/07/17 14:41 98.3 78 16 126/66 (86) 99 Room Air 09/07/17 13:53 86 16 09/07/17 12:02 98.3 90 20 135/71 (92) 95 Room Air Physical Exam GENERAL: Patient is a very pleasant well-nourished, well-developed patient, awake and alert, not in respiratory distress. SKIN: Warm and dry. No generalized rash, no ecchymoses and no evidence of embolic lesions. HEAD: Atraumatic. Normocephalic. No temporal wasting, or tenderness. EYES: [place] conjunctiva. No petechia or hemorrhage. Pupils equal, round and reactive to light. Extraocular movements full and intact. No scleral icterus. No injection or drainage. EARS, NOSE AND THROAT: Nose without bleeding or purulent nasal discharge. No sinus tenderness. Mucous membranes pink and moist. No oral lesions noted. No exudate. No oral thrush. NECK: Trachea midline. Supple and not tender, no meningeal signs CARDIOVASCULAR: Regular rate and rhythm. No murmurs, rubs or gallops heard RESPIRATORY: Clear to auscultation. Breath sounds equal bilaterally. No rales , wheezing or rhonchi ABDOMEN: Soft, nondistended, with mild tenderness on R side, no guarding or rebound. EXTREMITIES: No clubbing, cyanosis, or edema. No calf tenderness. Well perfused and warm. BACK: Has R CVA tenderness NEUROLOGICAL: Awake and alert. Cranial nerves grossly intact. Motor grossly within normal limits. PSYCHIATRIC: Normal affect, calm and cooperative. LINE: No evidence of infection Laboratory Laboratory Tests Test 09/07/17 12:42 09/07/17 12:57 09/08/17 06:45 White Blood Count 8.7 6.7 Red Blood Count 4.46 3.76 Hemoglobin 12.0 10.2 Hematocrit 36.5 31.6 Mean Corpuscular Volume 81.9 84.0 Mean Corpuscular Hemoglobin 26.8 27.2 Mean Corpuscular Hemoglobin Concent 32.8 32.4 Red Cell Distribution Width 17.0 17.4 Platelet Count 314 250 Mean Platelet Volume 9.8 9.3 Neutrophils (%) (Auto) 69.7 60.8 Lymphocytes (%) (Auto) 13.5 20.6 Monocytes (%) (Auto) 12.2 9.9 Eosinophils (%) (Auto) 2.9 7.2 Basophils (%) (Auto) 1.7 1.5 Neutrophils # (Auto) 6.1 4.1 Lymphocytes # (Auto) 1.2 1.4 Monocytes # (Auto) 1.1 0.7 Eosinophils # (Auto) 0.3 0.5 Basophils # (Auto) 0.2 0.1 CBC Comment DIFF FINAL DIFF FINAL Differential Comment Prothrombin Time 10.8 Prothromb Time International Ratio 1.1 Activated Partial Thromboplast Time 27.7 Blood Urea Nitrogen 21 21 Creatinine 1.12 0.84 Random Glucose 170 102 Total Protein 9.3 7.8 Albumin 3.0 2.6 Calcium Level 9.2 8.1 Alkaline Phosphatase 778 603 Aspartate Amino Transf (AST/SGOT) 289 189 Alanine Aminotransferase (ALT/SGPT) 224 167 Total Bilirubin 0.7 0.5 Sodium Level 139 138 Potassium Level 4.8 3.6 Chloride Level 103 103 Carbon Dioxide Level 28.4 26.3 Anion Gap 8 9 Estimat Glomerular Filtration Rate 47 66 Urine Color BROWN Urine Turbidity HAZY Urine pH 5.5 Urine Specific [place] 1.023 Urine Protein 100 Urine Glucose (UA) TRACE Urine Ketones TRACE Urine Occult Blood LARGE Urine Nitrite NEG Urine Bilirubin NEG Urine Urobilinogen 8.0 Urine Leukocyte Esterase LARGE Urine RBC Urine WBC 162 Urine WBC Clumps OCC Urine Squamous Epithelial Cells 3 Urine Bacteria OCC Urine Mucus FEW Microscopic Urinalysis Comment CULTURE INDICATED Phosphorus Level 3.5 Magnesium Level 1.4 Free Thyroxine 1.92 Thyroid Stimulating Hormone 3rd Gen 1.260 Date/Time Source Procedure Growth Status 09/07/17 21:15 Blood Other Aerobic Blood Culture - Preliminary NO GROWTH IN 1 DAY Resulted 09/07/17 21:15 Blood Other Anaerobic Blood Culture - Preliminary NO GROWTH IN 1 DAY Resulted 09/07/17 12:57 Urine Clean Catch Urine Culture Pending Received Result Diagram: 09/08/17 0645 09/08/17 0645 Assessment and Plan Assessment and Plan IMPRESSION Complicated pyelonephritis, possibly with stones, concern with abscess - prior Hx stones Multiple Abx allergy Hx CAD, and multiple interventions in the past RECOMMENDATION Change to Invanz Agree with US kidneys CT A/P Check bladder to complete evaluation, see if with any retention Follow progress Will determine course of Rx once work-up is completed I will follow along with you Thank you for this consultation Discussed Condition With Explained plan to the patient and answered all her questions Trina Florez MD Sep 08, 2017 11:20
[2017-09-08] MEDS ORDERED: IOHEXOL 350 MG/ML 10 ML VIAL (for RAD DIAG) IVCONTRAST ONE (12:54)
--- NOTE | 2017-09-08 13:17 | RADRPT ---
EXAM DATE/TIME: 09/08/2017 11:54 [facility] COMPARISON: CT PULMONARY ANGIOGRAM, June 03, 2017, 22:26. CT ABDOMEN & PELVIS W/O CONTRAST, February 23, 2017, 23 :49. CT ABDOMEN & PELVIS W CONTRAST, September 08, 2017, 12:26. EXTERNAL COMPARISON : [facility], US ABDOMEN COMPLETE, September 01, 2012, October 12, 2008, CT ABDOMEN & PELVIS W/ & W/O CONTRAST, October 18, 2008. INDICATIONS : Flank pain. MEDICAL HISTORY : Myocardial infarction. Hypercholesterolemia. Renal calculi. Thyroid disease. Se izures. Migraines. HTN. Arthritis. Diabetes. ESBL. Meningitis. Encephelitis. Measles. SURGICAL HISTORY : Tonsillectomy. Appendectomy. Cholecystectomy. Right thyroidectomy. Left orbita l bone fracture. Cardiac stents x3. RUL of lung removed.Total hysterectomy. Right kidney ureter opene d. Four cervical vertebrae fused. Total right knee and right hip replacment. ENCOUNTER: Initial ACUITY: 1 day PAIN SCORE: 6/10 LOCATION: Bilateral flank MEASUREMENTS: RIGHT KIDNEY: 11.7 x 4.3 x 5.4 cm LEFT KIDNEY: 11.7 x 5.0 x 5.4 cm FINDINGS: RIGHT KIDNEY: Renal cortex is normal in thickness and echotexture. No hydronephrosis, stone, or mass. LEFT KIDNEY: Cortex is normal thickness and echotexture with no hydronephrosis or stones. Suggest ion of a 2 cm area of solid isoechoic character midpole laterally appears to represent parenchymal ti ssue dromedary hump which is noted to be normal parenchymal tissue on CT scan this same day. BLADDER: Within normal limits given the degree of distension. CONCLUSION: Negative examination. Arnel Ackerman MD on September 08, 2017 at 13:10 Board Certified Radiologist. This report was verified electronically.
[2017-09-08] MEDS: ERTAPENEM INJ 1,000 MG in SODIUM CHLORIDE 0.9% INJ 100 ML IV SCH (13:55)
--- NOTE | 2017-09-08 14:44 | RADRPT ---
EXAM DATE/TIME: 09/08/2017 12:26 [facility] COMPARISON: CT ABDOMEN & PELVIS W/O CONTRAST, February 23, 2017, 23:49. US KIDNEY/RENAL/BLADDER, September 08, 2017, 1 1:54. INDICATIONS : Pyelonephritis,evaluate for abscess IV CONTRAST: 97 cc Omnipaque 350 (iohexol) IV ORAL CONTRAST: No oral contrast ingested. RADIATION DOSE: 12.10 CTDIvol (mGy) MEDICAL HISTORY : Seizures. Cardiovascular disease. Hypertension. Diabetes SURGICAL HISTORY : Cholecystectomy. Hysterectomy. ENCOUNTER: Initial ACUITY: 3 weeks PAIN SCALE: 8/10 LOCATION: Right Abdomen TECHNIQUE: Volumetric scanning of the abdomen and pelvis was performed. Using automated exposure control and ad justment of the mA and/or kV according to patient size, radiation dose was kept as low as reasonably achievable to obtain optimal diagnostic quality images. DICOM format image data is available electro nically for review and comparison. FINDINGS/ CONCLUSION: The lung bases are clear. Right kidney is normal with normal liver, spleen, pancreas and adrenal gla nds as well as benign bowel distribution. There is no evidence of free air or free fluid in the abdo men. Following abnormalities are appreciated: 1.... There is a 8 mm cyst of the anterior cortex mid pole of the left kidney. Otherwise the kidney s are normal with no evidence of solid mass, stone or obstructive uropathy hydronephrosis. 2. Extensive atherosclerotic vascular calcifications in the aorta. In the infrarenal renal just abo ve the bifurcation there is some mural thickening along the right side and adjacent to this a somewha t irregular lucency within the contrast column which may be encircled on axial views suggesting the p ossibility of a thrombus or clot. This does not obstruct flow distally. 3. Musculoskeletal abnormalities to include total hip prosthesis on the right and posterior fusion t ranspedicular screws vertical bars and intervertebral disc graft of L4-5. 4. Surgical hooks in prior via cholecystectomy. Arnel Ackerman MD on September 08, 2017 at 13:16 Board Certified Radiologist. This report was verified electronically.
[2017-09-08] MEDS ORDERED: KETOROLAC TROMETHAMINE 30 MG/ML (IVP) VIAL IV PUSH PRN (14:45)
[2017-09-08] MEDS ORDERED: METOCLOPRAMIDE HCL 10 MG/2 ML VIAL IV PUSH PRN (14:45)
[2017-09-08 16:00] VITALS: BP 162/77; PULSE 78; RESP 18; TEMP 97.3; O2SAT 96
--- NOTE | 2017-09-08 16:36 | RADRPT ---
EXAM DATE/TIME: 09/08/2017 15:32 [facility] COMPARISON: ABDOMEN KUB ONLY, February 25, 2017, 6:16. INDICATIONS : Nausea, possible obstruction. MEDICAL HISTORY : Seizures. Cardiovascular disease. Hypertension. Diabetes SURGICAL HISTORY : Cholecystectomy. Hysterectomy. ENCOUNTER: Initial ACUITY: 2 days PAIN SCORE: 4/10 LOCATION: Bilateral abdomen. FINDINGS: Supine view of the abdomen was performed. Gaseous distention of bowel loops without obstruction. Resi dual contrast in the bladder. The abdominal bowel gas pattern is normal. No abnormal masses, calcifi cations, or organomegaly is seen. Fusion lower lumbar spine. Right hip prosthesis. CONCLUSION: Nonobstructive bowel gas pattern. Darron Cueto MD on September 08, 2017 at 16:33 Board Certified Radiologist. This report was verified electronically.
[2017-09-08 17:29] LABS: HEMOGLOBIN A1C 6.9 % (4.3-6.0)
--- NOTE | 2017-09-08 19:36 | RADRPT ---
EXAM DATE/TIME: 09/08/2017 18:33 [facility] COMPARISON: No previous studies available for comparison. EXTERNAL COMPARISON : [facility], Ultrasound abdomen, September 01, 2012 INDICATIONS : Increased lab values. MEDICAL HISTORY : Hypercholesterolemia. Hypertension. Hematuria. Diabetes. History of menigitis. History of encepheli tis. SURGICAL HISTORY : Tonsillectomy. Cholecystectomy. Appendectomy. Hysterectomy. Right total knee replacement. Right hip r eplacement. ENCOUNTER: Initial ACUITY: 1 day PAIN SCORE: 0/10 LOCATION: Bilateral upper quadrant MEASUREMENTS: LIVER: 15.8 cm length COMMON DUCT: 5 mm RIGHT KIDNEY: 10.2 x 4.5 x 5.5 cm SPLEEN: 11.0 cm length FINDINGS: LIVER: Minimal hepatomegaly is noted. Normal echotexture without focal lesion or ductal dilatation. COMMON DUCT: No intraluminal mass or stone visualized. GALLBLADDER: Status post cholecystectomy. PANCREAS: The visualized portions are within normal limits. RIGHT KIDNEY: No hydronephrosis, stone or mass. SPLEEN: No focal lesion. CONCLUSION: Minimal hepatomegaly. Sean White MD on September 08, 2017 at 19:32 Board Certified Radiologist. This report was verified electronically.
[2017-09-08 19:42] VITALS: BP 171/73; PULSE 71; RESP 16; TEMP 97; O2SAT 95
[2017-09-08] MEDS: traZODone HCL 50 MG TAB PO SCH (19:44)
[2017-09-08] MEDS: ATORVASTATIN 40 MG TAB PO SCH (19:45)
[2017-09-08] MEDS ORDERED: PROMETHAZINE INJ 25 MG/ML VIAL IM ONE (20:45)
[2017-09-08] MEDS: INSULIN DETEMIR 100 UNITS/ML VIAL SQ SCH (21:21)
[2017-09-09 04:48] VITALS: BP 169/79; PULSE 71; RESP 14; TEMP 97.1; O2SAT 96
[2017-09-09] MEDS: LEVOTHYROXINE SODIUM 88 MCG TAB PO SCH (04:50)
[2017-09-09] MEDS: cloNIDine HCL 0.2 MG TAB PO SCH ×3 (04:50→22:09)
[2017-09-09 06:45] VITALS: BP 116/55; PULSE 62; O2SAT 95
[2017-09-09] MEDS: ISOSORBIDE MONONITRATE 30 MG TAB PO SCH (06:48)
[2017-09-09 08:00] VITALS: BP 137/66; PULSE 81; RESP 18; TEMP 97; O2SAT 95
[2017-09-09] MEDS: LISINOPRIL 20 MG TAB PO SCH (09:03)
[2017-09-09] MEDS: GABAPENTIN 300 MG CAP PO SCH ×3 (09:04→17:57)
[2017-09-09] MEDS: PANTOPRAZOLE SOD 20 MG DELAYED RELEASE TAB PO SCH (09:04)
[2017-09-09] MEDS: ASPIRIN EC 81 MG TABEC PO SCH (09:04)
[2017-09-09] MEDS: TICAGRELOR 90 MG TAB PO SCH ×2 (09:04→22:08)
[2017-09-09] MEDS: METOPROLOL TARTRATE 25 MG TAB PO SCH ×2 (09:04→22:08)
[2017-09-09] MEDS: ONDANSETRON HCL 4 MG/2 ML VIAL IV PUSH PRN (09:05)
[2017-09-09] MEDS: BETHANECHOL CHL 25 MG TAB PO SCH ×4 (09:10→22:08)
[2017-09-09 11:00] LABS: HEPATITIS A AB IGM NEGATIVE (NEGATIVE); HEPATITIS B CORE AB IGM NEGATIVE (NEGATIVE); HEPATITIS B SURFACE ANTIGEN NEGATIVE (NEGATIVE); HEPATITIS C AB IgG NEGATIVE (NEGATIVE)
--- NOTE | 2017-09-09 11:02 | HHI.PR ---
Subjective Remarks a/o severe nausea, not reponding to Zofran IV Denies fevers or chills. Right Flank pain radiates to suprpubic region improving afebrile Objective Vitals Vital Signs Date Time Temp Pulse Resp B/P (MAP) Pulse Ox O2 Delivery O2 Flow Rate FiO2 09/09/17 08:00 97.0 81 18 137/66 (89) 95 09/09/17 06:45 62 116/55 (75) 95 09/09/17 04:48 97.1 71 14 169/79 (109) 96 09/08/17 19:42 97.0 71 16 171/73 (105) 95 09/08/17 16:00 97.3 78 18 162/77 (105) 96 I/O 09/08/17 09/08/17 09/08/17 09/09/17 09/09/17 09/09/17 07:00 15:00 23:00 07:00 15:00 23:00 Intake Total 580 ml 200 ml 600 ml 120 ml Balance 580 ml 200 ml 600 ml 120 ml Intake Oral 480 ml 600 ml 120 ml IV Total 100 ml 200 ml Bladder Scan Volume Amount 0 ml # Voids 1 4 2 # Bowel Movements 0 0 0 Result Diagram: 09/08/17 0645 09/08/17 0645 Imaging Last Impressions Renal Ultrasound 09/08/17 0000 Signed Impressions: Service Date/Time: Friday, September 08, 2017 11:54 - CONCLUSION: Negative examination. Arnel Ackerman MD Liver Ultrasound 09/08/17 0000 Signed Impressions: Service Date/Time: Friday, September 08, 2017 18:33 - CONCLUSION: Minimal hepatomegaly. Sean White MD Abdomen/Pelvis CT 09/08/17 0000 Signed Impressions: Service Date/Time: Friday, September 08, 2017 12:26 - CONCLUSION: The lung bases are clear. Right kidney is normal with normal liver, spleen, pancreas and adrenal glands as well as benign bowel distribution. There is no evidence of free air or free fluid in the abdomen. Following abnormalities are appreciated: 1.... There is a 8 mm cyst of the anterior cortex mid pole of the left kidney. Otherwise the kidneys are normal with no evidence of solid mass, stone or obstructive uropathy hydronephrosis. 2. Extensive atherosclerotic vascular calcifications in the aorta. In the infrarenal renal just above the bifurcation there is some mural thickening along the right side and adjacent to this a somewhat irregular lucency within the contrast column which may be encircled on axial views suggesting the possibility of a thrombus or clot. This does not obstruct flow distally. 3. Musculoskeletal abnormalities to include total hip prosthesis on the right and posterior fusion transpedicular screws vertical bars and intervertebral disc graft of L4-5. 4. Surgical hooks in prior via cholecystectomy. Arnel Ackerman MD Abdomen X-Ray 09/08/17 0000 Signed Impressions: Service Date/Time: Friday, September 08, 2017 15:32 - CONCLUSION: Nonobstructive bowel gas pattern. Darron Cueto MD Objective Remarks GENERAL: This is a well-nourished, well-developed patient, in no apparent distress. SKIN: No rashes, ecchymoses or lesions. Cool and dry. HEAD: Atraumatic. Normocephalic. No temporal or scalp tenderness. EYES: Pupils equal round and reactive. Extraocular motions intact. No scleral icterus. No injection or drainage. ENT: Nose without bleeding, purulent drainage or septal hematoma. Throat without erythema, tonsillar hypertrophy or exudate. Uvula midline. Airway patent. NECK: Trachea midline. No JVD or lymphadenopathy. Supple, nontender, no meningeal signs. CARDIOVASCULAR: Regular rate and rhythm without murmurs, gallops, or rubs. RESPIRATORY: Clear to auscultation. Breath sounds equal bilaterally. No wheezes , rales, or rhonchi. GASTROINTESTINAL: Abdomen soft, nondistended. No hepato-splenomegaly, or palpable masses. No guarding. Right CVA tenderness and pain on palpation of suprapubic region. Obese abdomen. MUSCULOSKELETAL: Extremities without clubbing, cyanosis, or edema. No joint tenderness, effusion, or edema noted. No calf tenderness. Negative Homans sign bilaterally. NEUROLOGICAL: Awake and alert. Cranial nerves II through XII intact. Motor and sensory grossly within normal limits. Five out of 5 muscle strength in all muscle groups. Normal speech. Procedures None Medications and IVs Current Medications Medications (Trade) Dose Ordered Sig/Cristine Route Start Time Stop Time Status Last Admin (Catapres) 0.1 mg Q4H PRN PO 09/07/17 16:30 (Ecotrin Ec) 81 mg DAILY PO 09/08/17 09:00 1/31/18 09:04 (Lipitor) 40 mg HS PO 09/07/17 21:00 09/08/17 19:45 (Urecholine) 25 mg QID PO 09/07/17 21:00 09/09/17 09:10 (Catapres) 0.2 mg Q8HR PO 09/07/17 22:00 09/09/17 04:50 (Neurontin) 300 mg TID PO 09/08/17 09:00 09/09/17 09:04 (Levemir Inj) 25 units HS SQ 09/07/17 21:00 09/08/17 21:21 (Imdur) 30 mg DAILY@07 PO 09/08/17 07:00 09/09/17 06:48 (Synthroid) 88 mcg DAILY@0600 PO 09/08/17 06:00 09/09/17 04:50 (Prinivil) 40 mg DAILY PO 09/08/17 09:00 09/09/17 09:03 (Lopressor) 12.5 mg Q12HR PO 09/07/17 21:00 09/09/17 09:04 (Brilinta) 90 mg BID PO 09/07/17 21:00 09/09/17 09:04 (Desyrel) 50 mg HS PO 09/07/17 21:00 09/08/17 19:44 (Protonix) 20 mg DAILY PO 09/08/17 09:00 09/09/17 09:04 (ASP Crit: Doc ESBL, MDR A baumannii or P aer) 1 UNSCH X1 PRN .XX 09/08/17 11:15 09/09/17 11:14 ([facility] 1 UNSCH X1 PRN XX 09/08/17 11:15 09/09/17 11:14 Ertapenem 1000 mg/ Sodium Chloride 100 ml @ 200 mls/hr Q24H IV 09/08/17 13:00 09/08/17 13:55 (Zofran Inj) 4 mg Q4H PRN IV PUSH 09/08/17 14:45 09/09/17 09:05 (Toradol Inj) 15 mg Q6H PRN IV PUSH 09/08/17 14:45 09/13/17 14:44 (Reglan Inj) 10 mg Q8H PRN IV PUSH 09/08/17 14:45 09/08/17 14:59 (Roxicodone) 5 mg Q4H PRN PO 09/08/17 14:45 (Roxicodone) 10 mg Q6H PRN PO 09/08/17 14:45 09/09/17 09:04 A/P Problem List: (1) UTI (urinary tract infection) ICD Code: N39.0 - Urinary tract infection, site not specified (2) HTN (hypertension) ICD Code: I10 - Essential (primary) hypertension (3) DM (diabetes mellitus) ICD Code: E11.9 - Type 2 diabetes mellitus without complications (4) Hyperlipidemia ICD Code: E78.5 - Hyperlipidemia, unspecified (5) CAD (coronary artery disease) ICD Code: I25.10 - Atherosclerotic heart disease of [place] coronary artery without angina pectoris (6) Hematuria ICD Code: R31.9 - Hematuria, unspecified Status: Acute (7) Hypothyroidism ICD Code: E03.9 - Hypothyroidism, unspecified Status: Chronic (8) CVA tenderness ICD Code: M54.9 - Dorsalgia, unspecified Plan: Some of the kidneys ordered. Will follow-up. Patient started on tramadol for pain control, however the patient states the pain is controlled and he severe 94 status over 10 intensity. I will DC tramadol and place on Percocet as well as IV morphine for breakthrough pain. Continue to monitor pain levels. 09/09 pain better controlled, continue oxycodone and IV Toradol for breakthrough pain (9) Constipation ICD Code: K59.00 - Constipation, unspecified Plan: No abdominal pain on exam as well as no distention. I will start the patient on a bowel regimen and MiraLAX daily. 09/09 a bowel movement yet. Continue MiraLAX daily. We'll place on bowel regimen. Will also administer a suppository today. (10) Nausea ICD Code: R11.0 - Nausea Status: Acute Plan: Severe intractable nausea, likely secondary to urinary tract infection. The patient's currently on IV Zofran and IV Reglan and Zofran ineffective. I will discontinue IV Zofran in place on Reglan, as well as promethazine IM if Reglan ineffective. Assessment and Plan (1) UTI (urinary tract infection) ICD Code: N39.0 - Urinary tract infection, site not specified Plan: Admited the patient to the medical floor. Patient status post IV imipenem administered in the ED. ID consulted. Check renal ultrasound given presence of right flank pain to rule out pyelonephritis. 09/09 ultrasound negative for hydronephrosis. Continue antibiotics as per ID. Patient currently on imipenem. Urine cultures currently growing ESBL Pneumonia. (2) HTN (hypertension) Plan: Blood pressure seems to be stable, continue home antihypertensive medications (3) DM (diabetes mellitus) Plan: Hold metformin. Continue long-acting insulin. Hold metformin. Will place on SSI with insulin NovoLog. Blood sugars stable (4) Hyperlipidemia Plan: Continue statin (5) CAD (coronary artery disease) Continue aspirin and Brillinta for now. Will keep his medications since patient recently had a drug-eluting stent to the mid LAD and PL coronary arteries on May 2017. (6) Hematuria Plan: Will monitor hemoglobin. Continue aspirin on Brilinta for now given that patient has had a recent PCI with drug-eluting stent placement in May 2017. Hemoglobin is stable, will monitor H&H and transfuse as needed if hemoglobin drops below 8 if active bleeding or symptomatic anemia. Hematuria likely secondary to urinary tract infection. 09/08 Patient states urine was dark brown. Hematuria likely resolving. 09/09 resolved. (7) Hypothyroidism Plan: Continue levothyroxine. GI prophylaxis: Continue PPI. DVT prophylaxis: The patient on Brilinta. Discharge Planning Continue to monitor in the medical floor. Patient very nauseous. Will need ID clearance prior to discharge. Problem Qualifiers (1) UTI (urinary tract infection): Qualified Codes: N10 - Acute pyelonephritis (2) HTN (hypertension): Qualified Codes: I10 - Essential (primary) hypertension (3) DM (diabetes mellitus): Qualified Codes: E11.65 - Type 2 diabetes mellitus with hyperglycemia; Z79.4 - long term acute care registered nurse (current) use of insulin (4) Hyperlipidemia: Qualified Codes: E78.5 - Hyperlipidemia, unspecified (5) CAD (coronary artery disease): Qualified Codes: I25.10 - Atherosclerotic heart disease of [place] coronary artery without angina pectoris (6) Hematuria: Qualified Codes: R31.0 - Gross hematuria (7) Constipation: Qualified Codes: K59.00 - Constipation, unspecified Han Hernandez MD Sep 09, 2017 11:02
[2017-09-09] MEDS ORDERED: PROMETHAZINE INJ 25 MG/ML VIAL IM PRN (11:15)
[2017-09-09 12:00] VITALS: BP 113/58; PULSE 70; RESP 18; TEMP 97.8; O2SAT 94
[2017-09-09 12:47] LABS: AUTOMATED NEUTROPHIL # 4.2 TH/MM3 (1.8-7.7); BASOPHIL # 0.2 TH/MM3 (0-0.2); BASOPHIL % 2.7 % (0.0-2.0); EOSINOPHIL # 0.5 TH/MM3 (0-0.4); EOSINOPHIL % 7.6 % (0.0-4.0); HEMATOCRIT 34.2 % (35.0-46.0); HEMOGLOBIN 11.4 GM/DL (11.6-15.3); LYMPH % 16.9 % (9.0-44.0); LYMPHOCYTE # 1.1 TH/MM3 (1.0-4.8); MEAN CELL VOLUME 81.1 FL (80.0-100.0); MEAN CORPUSCULAR HEMOGLOBIN 26.9 PG (27.0-34.0); MEAN CORPUSCULAR HGB CONC 33.2 % (32.0-36.0); MEAN PLATELET VOLUME 9.7 FL (7.0-11.0); MONO % 10.6 % (0.0-8.0); MONOCYTE # 0.7 TH/MM3 (0-0.9); NEUT % 62.2 % (16.0-70.0); PLATELET COUNT 263 TH/MM3 (150-450); RED BLOOD COUNT 4.22 MIL/MM3 (4.00-5.30); RED CELL DISTRIBUTION WIDTH 16.5 % (11.6-17.2); WHITE BLOOD COUNT 6.7 TH/MM3 (4.0-11.0)
[2017-09-09 13:00] LABS: ALBUMIN 2.6 GM/DL (3.4-5.0); ALKALINE PHOSPHATASE 663 U/L (45-117); ALT (GPT) 175 U/L (10-53); AST (GOT) 235 U/L (15-37); BICARBONATE 28.6 MEQ/L (21.0-32.0); BLOOD UREA NITROGEN 13 MG/DL (7-18); CALCIUM 8.9 MG/DL (8.5-10.1); CHLORIDE 101 MEQ/L (98-107); CREATININE 0.86 MG/DL (0.50-1.00); GLOMERULAR FILTRATION RATE 64 ML/MIN (>89); GLUCOSE,RANDOM 112 MG/DL (74-106); SODIUM (NA) 137 MEQ/L (136-145); TOTAL BILIRUBIN ADULT 0.5 MG/DL (0.2-1.0); TOTAL PROTEIN 7.9 GM/DL (6.4-8.2)
[2017-09-09] MEDS: METOCLOPRAMIDE HCL 10 MG/2 ML VIAL IV PUSH PRN ×2 (13:21→22:09)
[2017-09-09] MEDS: ERTAPENEM INJ 1,000 MG in SODIUM CHLORIDE 0.9% INJ 100 ML IV SCH (13:22)
[2017-09-09 16:00] VITALS: BP 120/56; PULSE 76; RESP 16; TEMP 97.4; O2SAT 98
[2017-09-09 20:00] VITALS: BP 118/59; PULSE 83; RESP 18; TEMP 96.8; O2SAT 99
[2017-09-09] MEDS: ATORVASTATIN 40 MG TAB PO SCH (22:08)
[2017-09-09] MEDS: traZODone HCL 50 MG TAB PO SCH (22:09)
[2017-09-09] MEDS: INSULIN DETEMIR 100 UNITS/ML VIAL SQ SCH (22:10)
[2017-09-10] VITALS: BP 110/58; PULSE 73; RESP 18; TEMP 97.7; O2SAT 95
[2017-09-10 04:00] VITALS: BP 131/61; PULSE 74; RESP 18; TEMP 97.7; O2SAT 96
[2017-09-10] MEDS: LEVOTHYROXINE SODIUM 88 MCG TAB PO SCH (05:10)
[2017-09-10] MEDS: cloNIDine HCL 0.2 MG TAB PO SCH ×3 (05:10→22:47)
[2017-09-10] MEDS: METOCLOPRAMIDE HCL 10 MG/2 ML VIAL IV PUSH PRN ×2 (05:11→22:24)
[2017-09-10] MEDS: ISOSORBIDE MONONITRATE 30 MG TAB PO SCH (05:53)
[2017-09-10 08:00] VITALS: BP 112/63; PULSE 91; RESP 18; TEMP 97.8; O2SAT 94
[2017-09-10] MEDS: METOPROLOL TARTRATE 25 MG TAB PO SCH ×2 (09:41→21:07)
[2017-09-10] MEDS: LISINOPRIL 20 MG TAB PO SCH (09:41)
[2017-09-10] MEDS: GABAPENTIN 300 MG CAP PO SCH ×3 (09:41→17:21)
[2017-09-10] MEDS: ASPIRIN EC 81 MG TABEC PO SCH (09:42)
[2017-09-10] MEDS: BETHANECHOL CHL 25 MG TAB PO SCH ×4 (09:42→21:08)
[2017-09-10] MEDS: PANTOPRAZOLE SOD 20 MG DELAYED RELEASE TAB PO SCH (09:42)
[2017-09-10] MEDS: TICAGRELOR 90 MG TAB PO SCH ×2 (09:42→21:08)
[2017-09-10 12:00] VITALS: BP 138/74; PULSE 75; RESP 18; TEMP 97.7; O2SAT 93
--- NOTE | 2017-09-10 12:08 | HHI.IDPN ---
Subjective Subjective Remarks Patient is a 77-year-old female, presented to the hospital with 1 week history of right sided flank pain, right lower quadrant pain, and about 19 day history of dysuria, and suprapubic pain. Patient started having problem with a pressure sensation in the suprapubic region associated with some dysuria. She has chronic problem with urinary incontinence and that has not changed. She has had previous episode of UTI although the last one like this was many years ago, and so she decided to call her primary care physician, and Paulette was called. She took the medication for about a week, and she really had minimal improvement. 9 days into her symptom she was instructed to have some blood work and urinalysis and evaluation and at that time she had noted that her urine was kind brownish in color. She started having right sided flank pain and right lower quadrant pain, and it was getting severe, and she has had persistent discoloration of her urine. She has not had any fever or chills or sweats. She's had some nausea but no vomiting. She presented to the hospital for further evaluation and treatment. Patient has had urinary tract infection on 2 previous hospitalization back in February and May. However at that time patient stated that she did not have any symptoms and it look like it was an incidental finding. She had Escherichia coli on those 2 cultures. The culture now is growing Klebsiella ESBL positive. She is afebrile. Infectious disease consultation has been requested to evaluate the patient. Notes reviewed Afebrile Pain in R flank better, radiates to RLQ Imaging studies all ok NO obstruction, no stones UC Kleb ESBL (+) Creatinine btter LFTs elevated Dysuria gone Bladder scan 0 ml Antibiotics Current Medications Invanz Medications (Trade) Dose Ordered Sig/Cristine Route Start Time Stop Time Status Last Admin (Catapres) 0.1 mg Q4H PRN PO 09/07/17 16:30 (Ecotrin Ec) 81 mg DAILY PO 09/08/17 09:00 09/10/17 09:42 (Lipitor) 40 mg HS PO 09/07/17 21:00 09/09/17 22:08 (Urecholine) 25 mg QID PO 09/07/17 21:00 09/10/17 09:42 (Catapres) 0.2 mg Q8HR PO 09/07/17 22:00 09/10/17 05:10 (Neurontin) 300 mg TID PO 09/08/17 09:00 09/10/17 09:41 (Levemir Inj) 25 units HS SQ 09/07/17 21:00 09/09/17 22:10 (Imdur) 30 mg DAILY@07 PO 09/08/17 07:00 09/10/17 05:53 (Synthroid) 88 mcg DAILY@0600 PO 09/08/17 06:00 09/10/17 05:10 (Prinivil) 40 mg DAILY PO 09/08/17 09:00 09/10/17 09:41 (Lopressor) 12.5 mg Q12HR PO 09/07/17 21:00 09/10/17 09:41 (Brilinta) 90 mg BID PO 09/07/17 21:00 09/10/17 09:42 (Desyrel) 50 mg HS PO 09/07/17 21:00 09/09/17 22:09 (Protonix) 20 mg DAILY PO 09/08/17 09:00 09/10/17 09:42 Ertapenem 1000 mg/ Sodium Chloride 100 ml @ 200 mls/hr Q24H IV 09/08/17 13:00 09/09/17 13:22 (Toradol Inj) 15 mg Q6H PRN IV PUSH 09/08/17 14:45 09/13/17 14:44 09/09/17 12:08 (Roxicodone) 5 mg Q4H PRN PO 09/08/17 14:45 (Roxicodone) 10 mg Q6H PRN PO 09/08/17 14:45 09/10/17 05:11 (Reglan Inj) 10 mg Q6H PRN IV PUSH 09/09/17 11:15 09/10/17 05:11 Lines PIV Past Medical History History of meningitis in 1995. History of encephalitis in 1975. Hyperlipidemia. CAD, has had multiple interventions done Atrial fib, with some paroxysmal episodes Recurrent UTI Hypertension. Kidney stone Past Surgical History Appendectomy Cholecystectomy Neck and Back Surgery Hysterectomy Right Hip Replacement Right Knee Replacement Cervical and lumbar spine surgery Cardiac cath with multiple interventions done Amauri-thyroidectomy Previous cystoscopy for stones and placement of stent 2011 Allergies: Coded Allergies: doxycycline (Verified Allergy, Severe, RASH, 06/03/17) minocycline (Verified Allergy, Severe, RASH, 06/03/17) penicillin G (Verified Allergy, Severe, Rash, 06/03/17) tigecycline (Verified Allergy, Severe, RASH, 06/03/17) Sulfa (Sulfonamide Antibiotics) (Verified Adverse Reaction, Severe, vomiting, 09/08/17) codeine (Verified Adverse Reaction, Severe, NAUSEA, 06/03/17) NAUSEA Objective . Vital Signs Date Time Temp Pulse Resp B/P (MAP) Pulse Ox O2 Delivery O2 Flow Rate FiO2 09/10/17 08:00 97.8 91 18 112/63 (79) 94 09/10/17 04:00 97.7 74 18 131/61 (84) 96 09/10/17 00:00 97.7 73 18 110/58 (75) 95 09/09/17 20:00 96.8 83 18 118/59 (78) 99 09/09/17 16:00 97.4 76 16 120/56 (77) 98 . Laboratory Tests Test 09/09/17 11:50 White Blood Count 6.7 TH/MM3 Red Blood Count 4.22 MIL/MM3 Hemoglobin 11.4 GM/DL Hematocrit 34.2 % Mean Corpuscular Volume 81.1 FL Mean Corpuscular Hemoglobin 26.9 PG Mean Corpuscular Hemoglobin Concent 33.2 % Red Cell Distribution Width 16.5 % Platelet Count 263 TH/MM3 Mean Platelet Volume 9.7 FL Neutrophils (%) (Auto) 62.2 % Lymphocytes (%) (Auto) 16.9 % Monocytes (%) (Auto) 10.6 % Eosinophils (%) (Auto) 7.6 % Basophils (%) (Auto) 2.7 % Neutrophils # (Auto) 4.2 TH/MM3 Lymphocytes # (Auto) 1.1 TH/MM3 Monocytes # (Auto) 0.7 TH/MM3 Eosinophils # (Auto) 0.5 TH/MM3 Basophils # (Auto) 0.2 TH/MM3 CBC Comment DIFF FINAL Differential Comment Hematology Comments Laboratory Tests Test 09/09/17 11:50 Blood Urea Nitrogen 13 MG/DL Creatinine 0.86 MG/DL Random Glucose 112 MG/DL Total Protein 7.9 GM/DL Albumin 2.6 GM/DL Calcium Level 8.9 MG/DL Alkaline Phosphatase 663 U/L Aspartate Amino Transf (AST/SGOT) 235 U/L Alanine Aminotransferase (ALT/SGPT) 175 U/L Total Bilirubin 0.5 MG/DL Sodium Level 137 MEQ/L Potassium Level 3.9 MEQ/L Chloride Level 101 MEQ/L Carbon Dioxide Level 28.6 MEQ/L Anion Gap 7 MEQ/L Estimat Glomerular Filtration Rate 64 ML/MIN Microbiology Date/Time Source Procedure Growth Status 09/07/17 21:15 Blood Other Aerobic Blood Culture - Preliminary NO GROWTH IN 3 DAYS Resulted 09/07/17 21:15 Blood Other Anaerobic Blood Culture - Preliminary NO GROWTH IN 3 DAYS Resulted 09/07/17 21:05 Blood Other Aerobic Blood Culture - Preliminary NO GROWTH IN 3 DAYS Resulted 09/07/17 21:05 Blood Other Anaerobic Blood Culture - Preliminary NO GROWTH IN 3 DAYS Resulted 09/07/17 12:57 Urine Clean Catch Urine Culture - Final Klebsiella Pneumoniae Esbl Pos Complete Imaging Renal Ultrasound 09/08/17 0000 Signed Impressions: Service Date/Time: Friday, September 08, 2017 11:54 - CONCLUSION: Negative examination. Arnel Ackerman MD Liver Ultrasound 09/08/17 0000 Signed Impressions: Service Date/Time: Friday, September 08, 2017 18:33 - CONCLUSION: Minimal hepatomegaly. Sean White MD Abdomen/Pelvis CT 09/08/17 0000 Signed Impressions: Service Date/Time: Friday, September 08, 2017 12:26 - CONCLUSION: The lung bases are clear. Right kidney is normal with normal liver, spleen, pancreas and adrenal glands as well as benign bowel distribution. There is no evidence of free air or free fluid in the abdomen. Following abnormalities are appreciated: 1.... There is a 8 mm cyst of the anterior cortex mid pole of the left kidney. Otherwise the kidneys are normal with no evidence of solid mass, stone or obstructive uropathy hydronephrosis. 2. Extensive atherosclerotic vascular calcifications in the aorta. In the infrarenal renal just above the bifurcation there is some mural thickening along the right side and adjacent to this a somewhat irregular lucency within the contrast column which may be encircled on axial views suggesting the possibility of a thrombus or clot. This does not obstruct flow distally. 3. Musculoskeletal abnormalities to include total hip prosthesis on the right and posterior fusion transpedicular screws vertical bars and intervertebral disc graft of L4-5. 4. Surgical hooks in prior via cholecystectomy. Arnel Ackerman MD Abdomen X-Ray 09/08/17 0000 Signed Impressions: Service Date/Time: Friday, September 08, 2017 15:32 - CONCLUSION: Nonobstructive bowel gas pattern. Darron Cueto MD Physical Exam GENERAL: awake and alert, not in respiratory distress. SKIN: Warm and dry. No generalized rash, no ecchymoses and no evidence of embolic lesions. HEAD: Atraumatic. Normocephalic. No temporal wasting, or tenderness. EYES: [place] conjunctiva. No petechia or hemorrhage. Pupils equal, round and reactive to light. Extraocular movements full and intact. No scleral icterus. No injection or drainage. EARS, NOSE AND THROAT: Nose without bleeding or purulent nasal discharge. No sinus tenderness. Mucous membranes pink and moist. No oral lesions noted. No exudate. No oral thrush. NECK: Trachea midline. Supple and not tender, no meningeal signs CARDIOVASCULAR: Regular rate and rhythm. No murmurs, rubs or gallops heard RESPIRATORY: Clear to auscultation. Breath sounds equal bilaterally. No rales , wheezing or rhonchi ABDOMEN: Soft, nondistended, with mild tenderness on R side, no guarding or rebound. EXTREMITIES: No clubbing, cyanosis, or edema. No calf tenderness. Well perfused and warm. BACK: Has R CVA tenderness, better NEUROLOGICAL: Non-focal PSYCHIATRIC: Normal affect, calm and cooperative. LINE: No evidence of infection Assessment & Plan Remarks IMPRESSION UTI, with R sided pain, imaging studies negative - prior Hx stones, none CT on imaging studies Multiple Abx allergy Hx CAD, and multiple interventions in the past RECOMMENDATION Continue Invanz - plan 14 days - end date Sep 21 PICC or midline Spoke with CM to find out patient's insurance coverage for home health and Abx She is ok for D/C from ID standpoint once Abx arranged Explained plan to the patient Trina Florez MD Sep 10, 2017 12:08
[2017-09-10] MEDS: ERTAPENEM INJ 1,000 MG in SODIUM CHLORIDE 0.9% INJ 100 ML IV SCH (13:30)
--- NOTE | 2017-09-10 16:15 | HHI.PR ---
Subjective Remarks Reports only mild lower abdominal discomfort. No complaints of right flank pain. No fevers or chills. Tolerating diet. Objective Vitals Vital Signs Date Time Temp Pulse Resp B/P (MAP) Pulse Ox O2 Delivery O2 Flow Rate FiO2 09/10/17 12:00 97.7 75 18 138/74 (95) 93 09/10/17 08:00 97.8 91 18 112/63 (79) 94 09/10/17 04:00 97.7 74 18 131/61 (84) 96 09/10/17 00:00 97.7 73 18 110/58 (75) 95 09/09/17 20:00 96.8 83 18 118/59 (78) 99 I/O 09/09/17 09/09/17 09/09/17 09/10/17 09/10/17 09/10/17 07:00 15:00 23:00 07:00 15:00 23:00 Intake Total 120 ml 720 ml 360 ml Balance 120 ml 720 ml 360 ml Intake Oral 120 ml 720 ml 360 ml # Voids 2 5 3 # Bowel Movements 0 0 0 Result Diagram: 09/09/17 1150 09/09/17 1150 Other Results Microbiology Date/Time Source Procedure Growth Status 09/07/17 21:15 Blood Other Aerobic Blood Culture - Preliminary NO GROWTH IN 3 DAYS Resulted 09/07/17 21:15 Blood Other Anaerobic Blood Culture - Preliminary NO GROWTH IN 3 DAYS Resulted 09/07/17 12:57 Urine Clean Catch Urine Culture - Final Klebsiella Pneumoniae Esbl Pos Complete Objective Remarks GENERAL: This is a well-nourished, well-developed patient, in no apparent distress. CARDIOVASCULAR: Regular rate and rhythm RESPIRATORY: Clear to auscultation. Breath sounds equal bilaterally. No wheezes , rales, or rhonchi. GASTROINTESTINAL: Abdomen soft, non-tender, nondistended. Normal active bowel sounds No CVA tenderness MUSCULOSKELETAL: Extremities without clubbing, cyanosis, or edema. NEURO: Alert & Oriented x4 to person, place, time, situation. Moves all ext x4 Procedures None A/P Problem List: (1) Urinary tract infection due to ESBL Klebsiella ICD Code: N39.0 - Urinary tract infection, site not specified; B96.89 - Other specified bacterial agents as the cause of diseases classified elsewhere Status: Acute (2) UTI (urinary tract infection) ICD Code: N39.0 - Urinary tract infection, site not specified Status: Acute (3) HTN (hypertension) ICD Code: I10 - Essential (primary) hypertension (4) DM (diabetes mellitus) ICD Code: E11.9 - Type 2 diabetes mellitus without complications (5) Hyperlipidemia ICD Code: E78.5 - Hyperlipidemia, unspecified Status: Chronic (6) CAD (coronary artery disease) ICD Code: I25.10 - Atherosclerotic heart disease of [place] coronary artery without angina pectoris Status: Chronic (7) Hematuria ICD Code: R31.9 - Hematuria, unspecified Status: Resolved (8) Hypothyroidism ICD Code: E03.9 - Hypothyroidism, unspecified Status: Chronic (9) CVA tenderness ICD Code: M54.9 - Dorsalgia, unspecified Status: Resolved (10) Constipation ICD Code: K59.00 - Constipation, unspecified Status: Resolved (11) Nausea ICD Code: R11.0 - Nausea Status: Acute Assessment and Plan 1) complex UTI (urinary tract infection) Patient status post IV imipenem administered in the ED. ID consulted and recommends a total of 14 days of antibiotics through September 21 Renal ultrasound negative for any stones or mass obstructions 09/09 ultrasound negative for hydronephrosis. Patient currently on imipenem. Urine cultures currently growing Klebsiella ESBL Vascular access team to to insert midline for outpatient IV antibiotics. (2) HTN (hypertension) Blood pressure seems to be stable, continue home antihypertensive medications (3) DM (diabetes mellitus) P Hold metformin. Continue long-acting insulin. Will place on SSI with insulin NovoLog. Blood sugars stable (4) Hyperlipidemia Plan: Continue statin (5) CAD (coronary artery disease) Continue aspirin and Brillinta for now. Will keep his medications since patient recently had a drug-eluting stent to the mid LAD and PL coronary arteries on May 2017. (6) Hematuria- resolving Hemoglobin remained stable. Continue aspirin on Brilinta for now given that patient has had a recent PCI with drug-eluting stent placement in May 2017. Hemoglobin is stable, will monitor H&H and transfuse as needed if hemoglobin drops below 8 if active bleeding or symptomatic anemia. Hematuria likely secondary to urinary tract infection. (7) Hypothyroidism Plan: Continue levothyroxine. GI prophylaxis: Continue PPI. DVT prophylaxis: The patient on Brilinta. Discharge Planning Discharge home with IV antibiotics in the morning if able to be arranged. Problem Qualifiers (1) UTI (urinary tract infection): Qualified Codes: N10 - Acute pyelonephritis (2) HTN (hypertension): Qualified Codes: I10 - Essential (primary) hypertension (3) DM (diabetes mellitus): Qualified Codes: E11.65 - Type 2 diabetes mellitus with hyperglycemia; Z79.4 - longterm (current) use of insulin (4) Hyperlipidemia: Qualified Codes: E78.5 - Hyperlipidemia, unspecified (5) CAD (coronary artery disease): Qualified Codes: I25.10 - Atherosclerotic heart disease of [place] coronary artery without angina pectoris (6) Hematuria: Qualified Codes: R31.0 - Gross hematuria (7) Constipation: Qualified Codes: K59.00 - Constipation, unspecified Janina Helms MD Sep 10, 2017 16:15
[2017-09-10 16:45] VITALS: BP 156/74; PULSE 87; RESP 18; TEMP 98.2; O2SAT 96
[2017-09-10 20:00] VITALS: BP 177/80; PULSE 87; RESP 20; TEMP 96.1; O2SAT 94
[2017-09-10] MEDS: ATORVASTATIN 40 MG TAB PO SCH (21:07)
[2017-09-10] MEDS: traZODone HCL 50 MG TAB PO SCH (21:08)
[2017-09-10] MEDS: INSULIN DETEMIR 100 UNITS/ML VIAL SQ SCH (21:11)
[2017-09-11] VITALS: BP 184/88; PULSE 83; RESP 20; TEMP 97.9; O2SAT 95
[2017-09-11] MEDS ORDERED: BENZOCAINE 6 MG/MENTHOL 10 MG LOZENGE BUCCAL PRN (01:15)
[2017-09-11 01:33] VITALS: BP 136/72; PULSE 77; RESP 20
[2017-09-11] MEDS: cloNIDine HCL 0.2 MG TAB PO SCH ×2 (06:29→13:17)
[2017-09-11] MEDS: LEVOTHYROXINE SODIUM 88 MCG TAB PO SCH (06:29)
[2017-09-11] MEDS: ISOSORBIDE MONONITRATE 30 MG TAB PO SCH (06:29)
[2017-09-11 06:30] VITALS: BP 162/77; PULSE 91; RESP 20; TEMP 96.5; O2SAT 95
[2017-09-11 07:48] VITALS: BP 146/68; PULSE 73; RESP 18; TEMP 97.6; O2SAT 95
[2017-09-11] MEDS ORDERED: EPIN1INJ21 SQ (09:39)
[2017-09-11] MEDS ORDERED: INVA1INJ IV (09:39)
[2017-09-11] MEDS ORDERED: EPIN1INJ21 IV PUSH (09:39)
[2017-09-11] MEDS ORDERED: SOLU250I IV PUSH (09:39)
--- NOTE | 2017-09-11 09:41 | HHI.FF ---
Face to Face Verification Diagnosis: (1) Urinary tract infection due to ESBL Klebsiella Home Health Nursing Order: IV medication administration Instructions: IV Invanz 1 g administration daily with last dose September 21. Remove patient's left midline after completion of IV antibiotics I have seen patient Natacha Herzog on 09/11/17. My clinical findings support the need for the requested home health care services because: Infection w/ risk of complications I certify that my clinical findings support that this patient is homebound because: Need for psychosocial assistance Janina Helms MD Sep 11, 2017 09:41
[2017-09-11] MEDS: METOPROLOL TARTRATE 25 MG TAB PO SCH (09:48)
[2017-09-11] MEDS: PANTOPRAZOLE SOD 20 MG DELAYED RELEASE TAB PO SCH (09:49)
[2017-09-11] MEDS: LISINOPRIL 20 MG TAB PO SCH (09:49)
[2017-09-11] MEDS: TICAGRELOR 90 MG TAB PO SCH (09:49)
[2017-09-11] MEDS: BETHANECHOL CHL 25 MG TAB PO SCH ×2 (09:50→12:18)
[2017-09-11] MEDS: GABAPENTIN 300 MG CAP PO SCH ×2 (09:50→12:18)
[2017-09-11] MEDS: ASPIRIN EC 81 MG TABEC PO SCH (09:50)
[2017-09-11] MEDS: METOCLOPRAMIDE HCL 10 MG/2 ML VIAL IV PUSH PRN (10:15)
--- NOTE | 2017-09-11 10:39 | HHI.FF ---
Infusion Therapy Location of Infusion Therapy: Home Health Care IV Infusion Order Patient Information Patient Weight 90.6 kg Diagnosis: Diagnosis Kleb ESBL+ UTI Coded Allergies: doxycycline (Verified Allergy, Severe, RASH, 06/03/17) minocycline (Verified Allergy, Severe, RASH, 06/03/17) penicillin G (Verified Allergy, Severe, Rash, 06/03/17) tigecycline (Verified Allergy, Severe, RASH, 06/03/17) Sulfa (Sulfonamide Antibiotics) (Verified Adverse Reaction, Severe, vomiting, 09/08/17) codeine (Verified Adverse Reaction, Severe, NAUSEA, 06/03/17) NAUSEA Administer Medication Ertapenem 1 gram IV q 24 hours Stop Treatment: Sep 21, 2017 Additional Information Venous access: Other (midline) Additional Instructions [x] Peripheral flush and dressing changes per protocol [x] 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 [] May leave port accessed during therapy. [] May leave peripheral site accessed for duration of therapy. [x] If patient has SOB or respiratory distress, check oxygen saturation. If less than 90% or clinical signs of respiratory distress, administer oxygen at 2 L/min. via nasal cannula and notify physician. [x] Anaphylaxis/Reaction orders: * Stop infusion. * Keep IV line open with saline flush. * Notify physician. * Monitor vital signs every 15 minutes until symptoms resolve. * Check Oxygen saturation; Oxygen at 2 L/min. via nasal cannula if less than 90% or clinical signs of respiratory distress. * Administer diphenhydramine (Benadryl) 25 mg IV STAT, (unless patient has received as pre-med). May repeat once, if necessary. * Solu-Cortef 250 mg IVP over 30-60 seconds, use 100 mg vials for each dissolution. * Epinephrine (1mg/1 ml) 0.3 mg subcutaneously or IVP now with any signs of respiratory distress. * Check with physician for new additional pre-med orders if patient is re- challenged or re-treated. [x] May remove PICC line when treatment complete, after confirming with Physician. [x] If the patient is admitted to the hospital, the ED, or transferred via [facility] , complete transfer form including medication reconciliation order sheet. Laboratory Tests Weekly Labs: CBC w/diff, Creatinine (sep 16, copy to tx [id number]) Trina Florez MD Sep 11, 2017 10:39
--- NOTE | 2017-09-11 11:31 | HHI.DS ---
Discharge Summary Admission Date Sep 07, 2017 at 16:19 Discharge Date: Sep 11, 2017 Admitting Diagnosis MDR pyelonephritis, elevated LFTs (1) Urinary tract infection due to ESBL Klebsiella ICD Code: N39.0 - Urinary tract infection, site not specified; B96.89 - Other specified bacterial agents as the cause of diseases classified elsewhere Diagnosis: Principal Status: Acute (2) HTN (hypertension) ICD Code: I10 - Essential (primary) hypertension Diagnosis: Secondary Status: Chronic (3) DM (diabetes mellitus) ICD Code: E11.9 - Type 2 diabetes mellitus without complications Diagnosis: Secondary Status: Chronic (4) Hyperlipidemia ICD Code: E78.5 - Hyperlipidemia, unspecified Diagnosis: Secondary Status: Chronic (5) CAD (coronary artery disease) ICD Code: I25.10 - Atherosclerotic heart disease of [place] coronary artery without angina pectoris Diagnosis: Secondary Status: Chronic (6) Hematuria ICD Code: R31.9 - Hematuria, unspecified Diagnosis: Secondary Status: Resolved (7) Hypothyroidism ICD Code: E03.9 - Hypothyroidism, unspecified Diagnosis: Secondary Status: Chronic Procedures 2/ left-sided midline Brief History - From Admission This is a 77-year-old female with extensive past medical history including hypertension, hyperlipidemia, CAD status post stent placement, diabetes mellitus who presents to [facility] complaining of dysuria, hematuria and right flank tenderness. The patient states that he started experiencing 2 weeks ago dysuria, urinary urgency reasonable why he called her primary care physician, Dr. Grossman. The patient states that at the time she completed a full course of oral ciprofloxacin without symptom improvement. Afterwards the patient was prescribed Bactrim, however he started having a bad reaction after taking 1 dose of Bactrim. Finally this past Thursday the patient was prescribed Macrodantin which she took for 3 days however symptoms were still present. The patient completes of hematuria, dysuria, nausea but denies any vomiting. The patient has some lower abdominal pain and is complaining of constipation. The patient also elicit some right flank pain which is constant, nonradiating, 6/10 intensity, movement makes it worse and he medications improve the pain. The patient denies any fevers or chills. CBC/BMP: 09/09/17 1150 09/09/17 1150 Significant Findings Laboratory Tests Test 09/08/17 14:14 09/09/17 11:50 Hemoglobin 11.4 GM/DL (11.6-15.3) Hematocrit 34.2 % (35.0-46.0) Mean Corpuscular Hemoglobin 26.9 PG (27.0-34.0) Monocytes (%) (Auto) 10.6 % (0.0-8.0) Eosinophils (%) (Auto) 7.6 % (0.0-4.0) Basophils (%) (Auto) 2.7 % (0.0-2.0) Eosinophils # (Auto) 0.5 TH/MM3 (0-0.4) Random Glucose 112 MG/DL (74-106) Albumin 2.6 GM/DL (3.4-5.0) Alkaline Phosphatase 663 U/L (45-117) Aspartate Amino Transf (AST/SGOT) 235 U/L (15-37) Alanine Aminotransferase (ALT/SGPT) 175 U/L (10-53) Estimat Glomerular Filtration Rate 64 ML/MIN (>89) Imaging Last Impressions Renal Ultrasound 09/08/17 0000 Signed Impressions: Service Date/Time: Friday, September 08, 2017 11:54 - CONCLUSION: Negative examination. Arnel Ackerman MD Liver Ultrasound 09/08/17 0000 Signed Impressions: Service Date/Time: Friday, September 08, 2017 18:33 - CONCLUSION: Minimal hepatomegaly. Sean White MD Abdomen/Pelvis CT 09/08/17 0000 Signed Impressions: Service Date/Time: Friday, September 08, 2017 12:26 - CONCLUSION: The lung bases are clear. Right kidney is normal with normal liver, spleen, pancreas and adrenal glands as well as benign bowel distribution. There is no evidence of free air or free fluid in the abdomen. Following abnormalities are appreciated: 1.... There is a 8 mm cyst of the anterior cortex mid pole of the left kidney. Otherwise the kidneys are normal with no evidence of solid mass, stone or obstructive uropathy hydronephrosis. 2. Extensive atherosclerotic vascular calcifications in the aorta. In the infrarenal renal just above the bifurcation there is some mural thickening along the right side and adjacent to this a somewhat irregular lucency within the contrast column which may be encircled on axial views suggesting the possibility of a thrombus or clot. This does not obstruct flow distally. 3. Musculoskeletal abnormalities to include total hip prosthesis on the right and posterior fusion transpedicular screws vertical bars and intervertebral disc graft of L4-5. 4. Surgical hooks in prior via cholecystectomy. Arnel Ackerman MD Abdomen X-Ray 09/08/17 0000 Signed Impressions: Service Date/Time: Friday, September 08, 2017 15:32 - CONCLUSION: Nonobstructive bowel gas pattern. Darron Cueto MD PE at Discharge GENERAL: This is a well-nourished, well-developed patient, in no apparent distress. CARDIOVASCULAR: Regular rate and rhythm RESPIRATORY: Clear to auscultation. Breath sounds equal bilaterally. No wheezes , rales, or rhonchi. GASTROINTESTINAL: Abdomen soft, non-tender, nondistended. Normal active bowel sounds No CVA tenderness MUSCULOSKELETAL: Extremities without clubbing, cyanosis, or edema. NEURO: Alert & Oriented x4 to person, place, time, situation. Moves all ext x4 Hospital Course 77 year old female with a history of diabetes mellitus type 2, hypertension, hypothyroidism was admitted for hematuria and acute complex urinary tract infection with urine cultures result with ESBL klebsiella. Due to her multiple complex history of antibiotic allergies, she was placed on IV Invanz. Infectious disease consultation was placed in which recommendations were to continue with Invanz daily through September 21 to complete a 14 day course. Home health care arrangements were made to continue with outpatient IV antibiotics. Imaging results revealed no abscess or stones nor any type of obstructive uropathy. Left midline was placed during his hospitalization. At this time, patient has gained maximum benefit hospitalizations range be discharged to home with home health care. Pt Condition on Discharge: Good Discharge Disposition: Disch w/ Home Health Serv Discharge Time: <= 30 minutes Discharge Instructions DIET: Follow Instructions for: Heart Healthy Diet Activities you can perform: Regular-No Restrictions Follow up Referrals: PCP Follow-up - 1 Week PCP Follow-up with Felicia Craig Jr., MD New Medications: Epinephrine Inj (Epinephrine Inj) 1 Mg/Ml (1 Ml) Inj 0.3 MG IV PUSH ONCE PRN for ALLERGIC REACTION, #1 VIAL Epinephrine Inj (Epinephrine Inj) 1 Mg/Ml (1 Ml) Inj 0.3 MG SQ ONCE PRN for ALLERGIC REACTION, #1 VIAL Give with any signs of respiratory distress. Ertapenem Inj (Invanz Inj) 1 Gm Addvial 1 GM IV Q24H for Infection, #10 INJECTION 0 Refills ADMINISTER IN 100ML NS Hydrocortisone Inj (Solu-Cortef Inj) 250 Mg/2 Ml Inj 250 MG IV PUSH ONCE PRN for ALLERGIC REACTION, #1 VIAL 0 Refills Give over 30-60 seconds. Continued Medications: Ascorbic Acid (Vitamin C) 250 Mg Chew 500 MG CHEW BID for Nutritional Supplement, #60 TAB [address] (Adult Aspirin EC Low Strength) 81 Mg Tabec 81 MG PO DAILY for heart health, #30 TAB Atorvastatin (Atorvastatin) 40 Mg Tab 40 MG PO HS for heart health, #30 TAB Bethanechol (Bethanechol) 25 Mg Tab 25 MG PO QID for Urinary Symptom Managemen, TAB 0 Refills Clonidine (Catapres) 0.2 Mg Tab 0.2 MG PO Q8HR for Blood Pressure Management, #93 TAB Gabapentin (Gabapentin) 300 Mg Cap 300 MG PO TID, #90 CAP 0 Refills Insulin Glargine Inj (Lantus Inj) 1,000 Unit/10 Ml Vial 25 UNITS SQ HS for Blood Sugar Management, VIAL 0 Refills Isosorbide Mononitrate ER (Isosorbide Mononitrate ER) 30 Mg Naty 30 MG PO DAILY@07 for Heart, #30 TAB 0 Refills Levothyroxine (Synthroid) 88 Mcg Tab 88 MCG PO DAILY for Thyroid, #30 TAB 0 Refills Lisinopril (Lisinopril) 20 Mg Tab 40 MG PO DAILY for heart health, #30 TAB Metformin (Metformin) 1,000 Mg Tab 1000 MG PO BIDPC for Blood Sugar Management, #60 TAB 0 Refills Metoprolol Tartrate (Metoprolol Tartrate) 25 Mg Tab 12.5 MG PO Q12HR for heart rate, #60 TAB Omeprazole (Omeprazole) 20 Mg Tab 20 MG PO DAILY, #30 TAB 0 Refills Ticagrelor (Brilinta) 90 Mg Tab 90 MG PO BID for health health, #60 TAB Tramadol (Tramadol) 50 Mg Tab 100 MG PO Q12HR PRN for PAIN, TAB 0 Refills Trazodone (Trazodone) 50 Mg Tab 50 MG PO HS for Control Depression, #30 TAB 0 Refills Analia,Janina MD Sep 11, 2017 11:31
[2017-09-11] MEDS: ERTAPENEM INJ 1,000 MG in SODIUM CHLORIDE 0.9% INJ 100 ML IV SCH (12:18)
[2017-09-11] MEDS ORDERED: OXYC-255 PO (13:40)
[2017-09-11] MEDS ORDERED: REGL10TA5 PO (13:42)
== END 2017-09-11 14:45 | disposition home health service (06) | DRG 690 ==
LOC: NEPE 11:59 → NEDA 16:19 → N07A 19:50
PROVIDERS: ADMIT Family Medicine; ATTEND Family Medicine
DX: N39.0 Urinary tract infection, site not specified (principal); I48.91 Unspecified atrial fibrillation; K31.84 Gastroparesis; E11.43 Type 2 diabetes mellitus with diabetic autonomic (poly)neuropathy; B96.1 Klebsiella pneumoniae [K. pneumoniae] as the cause of diseases classified elsewhere; I10 Essential (primary) hypertension; E03.9 Hypothyroidism, unspecified; G43.909 Migraine, unspecified, not intractable, without status migrainosus; R79.89 Other specified abnormal findings of blood chemistry; E78.5 Hyperlipidemia, unspecified; I25.10 Atherosclerotic heart disease of native coronary artery without angina pectoris; K21.9 Gastro-esophageal reflux disease without esophagitis; M15.9 Polyosteoarthritis, unspecified; Z87.442 Personal history of urinary calculi; Z95.5 Presence of coronary angioplasty implant and graft; Z96.641 Presence of right artificial hip joint; Z90.710 Acquired absence of both cervix and uterus; Z96.651 Presence of right artificial knee joint; Z16.12 Extended spectrum beta lactamase (ESBL) resistance; Z86.61 Personal history of infections of the central nervous system; R31.0 Gross hematuria; R30.0 Dysuria; R39.15 Urgency of urination; K59.00 Constipation, unspecified; R10.31 Right lower quadrant pain; Z83.3 Family history of diabetes mellitus; Z82.49 Family history of ischemic heart disease and other diseases of the circulatory system; Z79.4 Long term (current) use of insulin; R32 Unspecified urinary incontinence; Z87.440 Personal history of urinary (tract) infections; M54.9 Dorsalgia, unspecified; Z88.1 Allergy status to other antibiotic agents
CPT/HCPCS: 36569; 74018; 74177; 76705; 76775; 76937; 80053; 80074; 81001; 82948; 83036; 83735; 84100; 84439; 84443; 85025; 85610; 85730; 87040; 87077; 87086; 87186; 96361; 96374; J0743; J1335; J1885; J2270; J2405; J2550; J2765; J7030; Q9967

== ENCOUNTER → 2017-10-09 | Outpatient (CLI) | payer MEDICARE, OTHER ==
[~2017-10-09] MED LIST changes: -CIPR250T2 PO; +EPIN1INJ21 IV PUSH; +EPIN1INJ21 SQ; +INVA1INJ IV; +METF1000 PO; +OXYC-255 PO; +REGL10TA5 PO; +SOLU250I IV PUSH
[2017-10-09 11:48] LABS: AUTOMATED NEUTROPHIL # 6.1 TH/MM3 (1.8-7.7); BASOPHIL # 0.2 TH/MM3 (0-0.2); BASOPHIL % 2.3 % (0.0-2.0); EOSINOPHIL # 0.4 TH/MM3 (0-0.4); EOSINOPHIL % 4.9 % (0.0-4.0); HEMATOCRIT 36.4 % (35.0-46.0); LYMPH % 14.4 % (9.0-44.0); LYMPHOCYTE # 1.3 TH/MM3 (1.0-4.8); MEAN CELL VOLUME 80.5 FL (80.0-100.0); MEAN CORPUSCULAR HEMOGLOBIN 26.6 PG (27.0-34.0); MEAN CORPUSCULAR HGB CONC 33.1 % (32.0-36.0); MEAN PLATELET VOLUME 10.4 FL (7.0-11.0); MONO % 9.1 % (0.0-8.0); MONOCYTE # 0.8 TH/MM3 (0-0.9); NEUT % 69.3 % (16.0-70.0); PLATELET COUNT 331 TH/MM3 (150-450); RED BLOOD COUNT 4.52 MIL/MM3 (4.00-5.30); RED CELL DISTRIBUTION WIDTH 16.5 % (11.6-17.2); WHITE BLOOD COUNT 8.8 TH/MM3 (4.0-11.0)
[2017-10-09 12:02] LABS: ALBUMIN 2.9 GM/DL (3.4-5.0); AST (GOT) 159 U/L (15-37); BICARBONATE 26.1 MEQ/L (21.0-32.0); BLOOD UREA NITROGEN 21 MG/DL (7-18); CHLORIDE 102 MEQ/L (98-107); GLOMERULAR FILTRATION RATE 54 ML/MIN (>89); GLUCOSE,FASTING 125 MG/DL (74-99); SODIUM (NA) 138 MEQ/L (136-145)
[2017-10-09 12:03] LABS: ALT (GPT) 124 U/L (10-53)
[2017-10-09 12:05] LABS: ALKALINE PHOSPHATASE 530 U/L (45-117); TOTAL BILIRUBIN ADULT 0.7 MG/DL (0.2-1.0); TOTAL PROTEIN 9.1 GM/DL (6.4-8.2)
== END ==
LOC: ELAB 10:39
PROVIDERS: ATTEND Family Medicine
DX: R74.8 Abnormal levels of other serum enzymes (principal)
CPT/HCPCS: 36415; 80053; 85025

== ENCOUNTER → 2017-11-10 | Outpatient (CLI) | payer MEDICARE, OTHER ==
[2017-11-10 13:19] LABS: ALBUMIN 3.1 GM/DL (3.4-5.0); AST (GOT) 105 U/L (15-37); BICARBONATE 26.8 MEQ/L (21.0-32.0); BLOOD UREA NITROGEN 18 MG/DL (7-18); CALCIUM 8.6 MG/DL (8.5-10.1); CHLORIDE 103 MEQ/L (98-107); CREATININE 0.92 MG/DL (0.50-1.00); GLOMERULAR FILTRATION RATE 59 ML/MIN (>89); GLUCOSE,FASTING 111 MG/DL (74-99); SODIUM (NA) 138 MEQ/L (136-145)
[2017-11-10 13:20] LABS: ALT (GPT) 90 U/L (10-53)
[2017-11-10 13:22] LABS: ALKALINE PHOSPHATASE 460 U/L (45-117); TOTAL BILIRUBIN ADULT 0.5 MG/DL (0.2-1.0); TOTAL PROTEIN 9.4 GM/DL (6.4-8.2)
== END ==
LOC: ELAB 10:59
PROVIDERS: ATTEND Family Medicine
DX: E78.2 Mixed hyperlipidemia (principal)
CPT/HCPCS: 36415; 80053

== ENCOUNTER → 2017-11-27 | Outpatient (CLI) | payer MEDICARE, OTHER ==
[2017-11-27 14:05] LABS: BICARBONATE 26.7 MEQ/L (21.0-32.0); CALCIUM 8.9 MG/DL (8.5-10.1); CREATININE 1.07 MG/DL (0.50-1.00)
== END ==
LOC: ELAB 09:31
PROVIDERS: ATTEND Family Medicine
DX: E87.5 Hyperkalemia (principal)
CPT/HCPCS: 36415; 80048

== ENCOUNTER 2017-12-11 22:11 | Inpatient (IN) | payer MEDICARE, OTHER ==
[~2017-12-11] VITALS: Ht 170.2 cm; Wt 85.5 kg
[~2017-12-11 22:11] MED LIST changes: -CIPR-9 PO; -LACTCHW3 CHEW
[2017-12-11 22:36] VITALS: BP 172/83; PULSE 128; RESP 18; TEMP 99.6; O2SAT 96
[2017-12-11 22:53] VITALS: BP 200/83; PULSE 129; RESP 18; TEMP 100.2; O2SAT 98
[2017-12-11] MEDS ORDERED: SODIUM CHLOR 0.9% 1000 ML INJ 1,000 ML IV ONE ×2 (23:30)
[2017-12-11 23:49] LABS: BILIRUBIN, URINE NEG (NEG); BLOOD, URINE MOD (NEG); GLUCOSE,URINE NEG (NEG); KETONE, URINE NEG (NEG); NITRITE,URINE POS (NEG); PH, URINE 5.5 (5.0-8.5); URINE COLOR YELLOW (YELLW/STRAW); URINE LEUKOCYTE ESTERASE LARGE (NEG)
[2017-12-12] VITALS (7 sets, daily range): BP systolic 131–223; BP diastolic 68–119; PULSE 77–109; RESP 16–20; TEMP 97.9–98.5; O2SAT 93–98
--- NOTE | 2017-12-12 00:03 | RADRPT ---
EXAM DATE/TIME: 12/11/2017 23:27 [facility] COMPARISON: CHEST SINGLE AP, June 03, 2017, 21:15. INDICATIONS : Fever. MEDICAL HISTORY : Myocardial infarction. Diabetes mellitus type II. Hypercholesterolemia. Hypertension. Hematuria. SURGICAL HISTORY : Right upper Lobectomy. Coronary artery stent.Tonsillectomy. Cholecystectomy. Appendectomy. Hysterecto my. Right total kneereplacement. Right hip replacement.Cervical fusion. Lumbar fusion. ENCOUNTER: Initial ACUITY: 1 day PAIN SCORE: 0/10 LOCATION: Bilateral chest FINDINGS: There has been previous right upper lobectomy. Surgical clips are present in the right hilar region. There slight stable elevation right diaphragm. There is no evidence of focal infiltrate or effusion. Cardiac contours are satisfactory for technique and projection. Mild postoperative deformity of the r ight sixth rib. CONCLUSION: No acute disease Preston Mahmood MD on December 12, 2017 at 0:00 Board Certified Radiologist. This report was verified electronically.
[2017-12-12 00:05] LABS: BACTERIA, URINE MANY /hpf; SQUAMOUS EPITHELIAL CELL URINE 4 /hpf (0-5)
[2017-12-12] MEDS ORDERED: ONDANSETRON HCL 4 MG/2 ML VIAL IV ONE (00:30)
[2017-12-12] MEDS ORDERED: PHARMACY INFORMATION XX PRN (00:30)
[2017-12-12] MEDS ORDERED: MORPHINE SULFATE 4 MG/ML INJ IV PUSH ONE (00:30)
[2017-12-12] MEDS ORDERED: ASP: Documented ESBL, MDR A baumannii or P. aeruginosa XX PRN (00:30)
[2017-12-12 00:35] LABS: AUTOMATED NEUTROPHIL # 15.8 TH/MM3 (1.8-7.7); BASOPHIL # 0.2 TH/MM3 (0-0.2); BASOPHIL % 0.9 % (0.0-2.0); HEMOGLOBIN 11.2 GM/DL (11.6-15.3); LYMPH % 3.3 % (9.0-44.0); LYMPHOCYTE # 0.6 TH/MM3 (1.0-4.8); MEAN CORPUSCULAR HEMOGLOBIN 25.3 PG (27.0-34.0); MEAN CORPUSCULAR HGB CONC 32.9 % (32.0-36.0); MEAN PLATELET VOLUME 9.9 FL (7.0-11.0); MONOCYTE # 1.6 TH/MM3 (0-0.9); NEUT % 86.8 % (16.0-70.0); PLATELET COUNT 252 TH/MM3 (150-450); RED BLOOD COUNT 4.41 MIL/MM3 (4.00-5.30); RED CELL DISTRIBUTION WIDTH 17.9 % (11.6-17.2); WHITE BLOOD COUNT 18.2 TH/MM3 (4.0-11.0)
[2017-12-12 00:56] LABS: ALBUMIN 2.9 GM/DL (3.4-5.0); ALT (GPT) 50 U/L (10-53); AST (GOT) 53 U/L (15-37); BICARBONATE 24.5 MEQ/L (21.0-32.0); BLOOD UREA NITROGEN 16 MG/DL (7-18); CALCIUM 8.3 MG/DL (8.5-10.1); CHLORIDE 102 MEQ/L (98-107); CREATININE 1.12 MG/DL (0.50-1.00); GLOMERULAR FILTRATION RATE 47 ML/MIN (>89); GLUCOSE,RANDOM 179 MG/DL (74-106); SODIUM (NA) 139 MEQ/L (136-145)
[2017-12-12 00:58] LABS: ALKALINE PHOSPHATASE 382 U/L (45-117); TOTAL BILIRUBIN ADULT 0.6 MG/DL (0.2-1.0); TOTAL PROTEIN 8.8 GM/DL (6.4-8.2)
[2017-12-12] MEDS: ERTAPENEM INJ 1,000 MG in SODIUM CHLORIDE 0.9% INJ 100 ML IV SCH (01:18)
--- NOTE | 2017-12-12 01:32 | RADRPT ---
EXAM DATE/TIME: 12/12/2017 01:10 [facility] COMPARISON: No previous studies available for comparison. INDICATIONS : Right lower quadrant pain and chills. ORAL CONTRAST: No oral contrast ingested. RADIATION DOSE: 8.52 CTDIvol (mGy) MEDICAL HISTORY : Myocardial infarction. Cardiovascular disease Diabetes mellitus type 2.Renal calculi SURGICAL HISTORY : Appendectomy. Cholecystectomy.Hysterectomy.Cervical and lumbar fusion, Right hip replacement, and rig ht ureter surgery ENCOUNTER: Initial ACUITY: 1 day PAIN SCALE: 6/10 LOCATION: abdomen TECHNIQUE: Volumetric scanning of the abdomen and pelvis was performed. Using automated exposure control and ad justment of the mA and/or kV according to patient size, radiation dose was kept as low as reasonably achievable to obtain optimal diagnostic quality images. DICOM format image data is available electro nically for review and comparison. FINDINGS: LOWER LUNGS: The visualized lower lungs are clear. LIVER: Visualized portions are grossly unremarkable. Gallbladder surgically absent. SPLEEN: Normal size without lesion. PANCREAS: Within normal limits. KIDNEYS: There is moderate right hydronephrosis and hydroureter down to level of a miniscule stone at the uret erovesical junction. The left kidney is unremarkable. ADRENAL GLANDS: Within normal limits. VASCULAR: Atherosclerotic calcifications involving aorta and branch vessels. No evidence of aneurysm. Left-side d IVC BOWEL/MESENTERY: The stomach, small bowel, and colon demonstrate no acute abnormality. There is no free intraperitone al air or fluid. ABDOMINAL WALL: Within normal limits. RETROPERITONEUM: There is no lymphadenopathy. BLADDER: No wall thickening or mass. REPRODUCTIVE: No evidence of pelvic mass or free fluid INGUINAL: There is no lymphadenopathy or hernia. MUSCULOSKELETAL: Right total hip arthroplasty. CONCLUSION: Tiny stone at the right ureterovesical junction with moderate right hydronephrosis. Preston Mahmood MD on December 12, 2017 at 1:23 Board Certified Radiologist. This report was verified electronically.
--- NOTE | 2017-12-12 01:48 | PD ---
HPI Chief Complaint: Complaint Time Seen by Provider: 23:01 Travel History International Travel<30 days: No Contact w/Intl Traveler<30days: No Traveled to known affect area: No History of Present Illness HPI Is a 77-year-old woman presents to the emergency department complaining of pain in the left flank, fevers chills, nausea, dysuria, with a history of ESBL UTI. Symptoms started about a week or so ago when she started getting pain in her flank and right inguinal area. This morning she started getting urinary symptoms and dysuria. She called her primary physician who gave her a prescription for Cipro which just started tonight. She also started getting fevers chills and sweats with associated nausea. She has a history of ESBL Klebsiella UTI in August of this year. She otherwise had been feeling generally well and healthy prior to this. History Past Medical History Narrative Medical Diabetes Hyperlipidemia CAD with stents Hypertension Tetanus Vaccination: > 5 Years Influenza Vaccination: Yes PNEUMOCCOCAL Vaccine (Year): 1 Menopausal: Yes : 2 Para: 0 Social History Alcohol Use: No Tobacco Use: No (QUIT 1990) Allergies-Medications (Allergen,Severity, Reaction): Coded Allergies: doxycycline (Verified Allergy, Severe, RASH, 12/12/17) minocycline (Verified Allergy, Severe, RASH, 12/12/17) penicillin G (Verified Allergy, Severe, Rash, 12/12/17) tigecycline (Verified Allergy, Severe, RASH, 12/12/17) Sulfa (Sulfonamide Antibiotics) (Verified Adverse Reaction, Severe, vomiting, 12/12/17) codeine (Verified Adverse Reaction, Severe, NAUSEA, 12/12/17) NAUSEA Reported Meds & Prescriptions Reported Meds & Active Scripts Active Reglan (Metoclopramide HCl) 10 Mg Tab 10 Mg PO TIDAC PRN Endocet (Oxycodone-Acetaminophen) 5-325 mg Tab 1 Tab PO Q4H PRN Invanz Inj (Ertapenem) 1 Gm Addvial 1 Gm IV Q24H ADMINISTER IN 100ML NS Epinephrine Inj 1 Mg/Ml (1 Ml) Inj 0.3 Mg SQ ONCE PRN Give with any signs of respiratory distress. Epinephrine Inj 1 Mg/Ml (1 Ml) Inj 0.3 Mg IV PUSH ONCE PRN Solu-Cortef Inj (Hydrocortisone Sodium Succinate) 250 Mg/2 Ml Inj 250 Mg IV PUSH ONCE PRN Give over 30-60 seconds. Isosorbide Mononitrate ER (Isosorbide Mononitrate) 30 Mg Naty 30 Mg PO DAILY@07 Adult Aspirin EC Low Strength (Aspirin) 81 Mg Tabec 81 Mg PO DAILY Lisinopril 20 Mg Tab 40 Mg PO DAILY Metoprolol Tartrate 25 Mg Tab 12.5 Mg PO Q12HR Brilinta (Ticagrelor) 90 Mg Tab 90 Mg PO BID Atorvastatin (Atorvastatin Calcium) 40 Mg Tab 40 Mg PO HS Catapres (Clonidine) 0.2 Mg Tab 0.2 Mg PO Q8HR Reported Metformin (Metformin HCl) 1,000 Mg Tab 1,000 Mg PO BIDPC Vitamin C (Ascorbic Acid) 250 Mg Chew 500 Mg CHEW BID Trazodone (Trazodone HCl) 50 Mg Tab 50 Mg PO HS Tramadol (Tramadol HCl) 50 Mg Tab 100 Mg PO Q12HR PRN Synthroid (Levothyroxine Sodium) 88 Mcg Tab 88 Mcg PO DAILY Lantus Inj (Insulin Glargine) 1,000 Unit/10 Ml Vial 25 Units SQ HS Gabapentin 300 Mg Cap 300 Mg PO TID Omeprazole 20 Mg Tab 20 Mg PO DAILY Bethanechol 25 Mg Tab 25 Mg PO QID Review of Systems Except as stated in HPI: all other systems reviewed are Neg Physical Exam Narrative GENERAL: Well-appearing 77-year-old woman, no acute distress. SKIN: Focused skin assessment warm/dry. HEAD: Atraumatic. Normocephalic. EYES: Pupils equal and round. No scleral icterus. No injection or drainage. ENT: No nasal bleeding or discharge. Mucous membranes pink and moist. NECK: Trachea midline. No JVD. CARDIOVASCULAR: Regular rate and rhythm. No murmur appreciated. RESPIRATORY: No accessory muscle use. Clear to auscultation. Breath sounds equal bilaterally. GASTROINTESTINAL: Abdomen is obese and soft. No significant tenderness. MUSCULOSKELETAL: No obvious deformities. No clubbing. No cyanosis. No edema. NEUROLOGICAL: Awake and alert. No obvious cranial nerve deficits. Motor grossly within normal limits. Normal speech. PSYCHIATRIC: Appropriate mood and affect; insight and judgment normal. Data Data Last Documented VS Vital Signs Date Time Temp Pulse Resp B/P (MAP) Pulse Ox O2 Delivery O2 Flow Rate FiO2 12/11/17 22:53 100.2 129 18 200/83 (122) 98 Room Air Orders Orders Urinalysis - C+S If Indicated (12/11/17 23:01) Sodium Chlor 0.9% 1000 Ml Inj (Ns 1000 M (12/11/17 23:30) Sodium Chlor 0.9% 1000 Ml Inj (Ns 1000 M (12/11/17 23:30) Sepsis Workup Initiated (12/11/17 ) Complete Blood Count With Diff (12/11/17 23:25) Comprehensive Metabolic Panel (12/11/17 23:25) Lactic Acid Sepsis Protocol (12/11/17 23:25) Blood Culture (12/11/17 23:25) Chest, Single Ap (12/11/17 23:25) Ecg Monitoring (12/11/17 23:25) Iv Access Insert/Monitor (12/11/17 23:25) Oximetry (12/11/17 23:25) Oxygen Administration (12/11/17 23:25) Urine Culture (12/11/17 23:20) Ondansetron Inj (Zofran Inj) (12/12/17 00:30) Morphine Inj (Morphine Inj) (12/12/17 00:30) Asp: Esbl/Mdr A [place] Or P. Aer (Asp Crit (12/12/17 00:30) Pharmacy Information ([facility] [place] Pharmacy Info (12/12/17 00:30) Ertapenem Inj (Invanz Inj) (12/12/17 00:30) Ct Abd/Pel W/O Iv Contrast (12/12/17 ) Admit Order (Ed Use Only) (12/12/17 ) Labs Laboratory Tests Test 12/11/17 23:20 12/12/17 00:05 Urine Color YELLOW Urine Turbidity Cloudy Urine pH 5.5 Urine Specific [place] 1.012 Urine Protein 100 mg/dL Urine Glucose (UA) NEG mg/dL Urine Ketones NEG mg/dL Urine Occult Blood MOD Urine Nitrite POS Urine Bilirubin NEG Urine Urobilinogen 0.2 MG/DL Urine Leukocyte Esterase LARGE Urine RBC 104 /hpf Urine WBC /hpf Urine Squamous Epithelial Cells 4 /hpf Urine Bacteria MANY /hpf Microscopic Urinalysis Comment CULTURE INDICATED White Blood Count 18.2 TH/MM3 Red Blood Count 4.41 MIL/MM3 Hemoglobin 11.2 GM/DL Hematocrit 34.0 % Mean Corpuscular Volume 77.0 FL Mean Corpuscular Hemoglobin 25.3 PG Mean Corpuscular Hemoglobin Concent 32.9 % Red Cell Distribution Width 17.9 % Platelet Count 252 TH/MM3 Mean Platelet Volume 9.9 FL Neutrophils (%) (Auto) 86.8 % Lymphocytes (%) (Auto) 3.3 % Monocytes (%) (Auto) 9.0 % Eosinophils (%) (Auto) 0.0 % Basophils (%) (Auto) 0.9 % Neutrophils # (Auto) 15.8 TH/MM3 Lymphocytes # (Auto) 0.6 TH/MM3 Monocytes # (Auto) 1.6 TH/MM3 Eosinophils # (Auto) 0.0 TH/MM3 Basophils # (Auto) 0.2 TH/MM3 CBC Comment DIFF FINAL Differential Comment Blood Urea Nitrogen 16 MG/DL Creatinine 1.12 MG/DL Random Glucose 179 MG/DL Total Protein 8.8 GM/DL Albumin 2.9 GM/DL Calcium Level 8.3 MG/DL Alkaline Phosphatase 382 U/L Aspartate Amino Transf (AST/SGOT) 53 U/L Alanine Aminotransferase (ALT/SGPT) 50 U/L Total Bilirubin 0.6 MG/DL Sodium Level 139 MEQ/L Potassium Level 3.2 MEQ/L Chloride Level 102 MEQ/L Carbon Dioxide Level 24.5 MEQ/L Anion Gap 13 MEQ/L Estimat Glomerular Filtration Rate 47 ML/MIN Lactic Acid Level 1.3 mmol/L [facility] Medical Decision Making Medical Screen Exam Complete: Yes Emergency Medical Condition: Yes Interpretation(s) LABS: CBC with leukocytosis CMP with mildly elevated creatinine, AST 53 Wide gamma gap Lactate 1.3 UA with innumerable white blood cells CT abdomen pelvis: Tiny stone at the right UVJ with moderate right hydronephrosis. Differential Diagnosis Pyelonephritis, renal lithiasis, sepsis, UTI, pneumonia, infection, other Narrative Course Medical decision making 77-year-old woman who presents emerged from with evidence of UTI and sepsis. Pain started a couple days before the dysuria and fever chills symptoms start raising the concern for renal lithiasis. CT scan and he confirms small renal stone at the right UVJ. Given history of ESBL UTI, ertapenem was given. Patient will be admitted for UTI, pyelonephritis, renal lithiasis. Physician Communication Physician Communication Spoke with Dr. Limon, will admit patient. Diagnosis Primary Impression: Sepsis Additional Impressions: Pyelonephritis Renal lithiasis Admitting Information Admitting Physician Requests: Admit Mynor Archer MD December 12, 2017 01:48
[2017-12-12] MEDS ORDERED: DEXTROSE 50% IN WATER 50 ML VIAL(D50) IV PUSH PRN (02:00)
[2017-12-12] MEDS ORDERED: GLUCAGON 1 MG/ML VIAL OTHER PRN (02:00)
[2017-12-12] MEDS ORDERED: LACTULOSE SYRUP 20 GM/30 ML CUP PO PRN (02:00)
[2017-12-12] MEDS ORDERED: MAGNESIUM HYDROXIDE SUSP 30 ML CUP PO PRN (02:00)
[2017-12-12] MEDS ORDERED: ACETAMINOPHEN 325 MG TAB PO PRN (02:00)
[2017-12-12] MEDS ORDERED: BISACODYL 10 MG SUPP RECTAL PRN (02:00)
[2017-12-12] MEDS ORDERED: SODIUM CHLORIDE 0.9% FLUSH 10 ML FLUSH IV FLUSH PRN (02:00)
[2017-12-12] MEDS ORDERED: SENNOSIDES 8.6 MG TAB PO PRN (02:00)
[2017-12-12] MEDS ORDERED: ONDANSETRON HCL 4 MG/2 ML VIAL IVP PRN (02:00)
[2017-12-12] MEDS ORDERED: PILL SPLITTER OTHER PRN (02:45)
[2017-12-12] MEDS ORDERED: METOPROLOL TARTRATE 5 MG/5 ML VIAL IV PUSH ONE (02:45)
--- NOTE | 2017-12-12 03:15 | HHI.HP ---
HPI Service [facility] Primary Care Physician Felicia Craig MD Admission Diagnosis Sepsis, pyelonephritis, renal lithiasis Diagnoses: (1) Sepsis Diagnosis: Principal (2) UTI (urinary tract infection) Diagnosis: Principal (3) Renal stone Diagnosis: Principal (4) Hydronephrosis Diagnosis: Principal (5) HTN (hypertension) Diagnosis: Principal (6) DM (diabetes mellitus) Diagnosis: Principal Travel History International Travel<30 Days: No Contact w/Intl Traveler <30 Da: No Traveled to Known Affected Are: No History of Present Illness This is a 77-year-old female with a PMH of HTN, DM, CAD and h/o ESBL UTI who presented to the ER w/ complaints of right flank tenderness and dysuria. States 2 days ago she noted vague, intermittent pain in right groin. Yesterday had onset of dysuria and was seen by PCP, started on Cipro which she took one tablet of so far. Returned home and had significant rigors/chills at which point she came to ER. On arrival, BP 200/83, HR 129, O2 sat 98% on RA, Temp 100.2. WBC 18.2. K+ 3.2. Creatinine 1.12. Lactic Acid normal. UA positive for UTI. CXR with no acute findings. CT Abdomen/Pelvis with tiny stone at right ureterovesical junction with moderate right hydronephrosis. S/p Ertapenem in ER. Review of Systems Except as stated in HPI: all other systems reviewed are Neg ROS: 14 point review of systems otherwise negative. Past Family Social History Past Medical History PMH: HTN, DM, CAD and h/o ESBL UTI Past Surgical History PAST SURGICAL HISTORY: Partial Thyroidectomy, Tonsillectomy, Left Orbital Bone Repair, Cardiac Stents, Appendectomy, Cholecystectomy, Total Hysterectomy, Right Knee and Right Hip Replacement, Back Surgery, RUL Lobectomy, Neck Sx Allergies: Coded Allergies: doxycycline (Verified Allergy, Severe, RASH, 12/12/17) minocycline (Verified Allergy, Severe, RASH, 12/12/17) penicillin G (Verified Allergy, Severe, Rash, 12/12/17) tigecycline (Verified Allergy, Severe, RASH, 12/12/17) Sulfa (Sulfonamide Antibiotics) (Verified Adverse Reaction, Severe, vomiting, 12/12/17) codeine (Verified Adverse Reaction, Severe, NAUSEA, 12/12/17) NAUSEA Family History PAST FAMILY HISTORY: Reviewed, positive for DM. Social History PAST SOCIAL HISTORY: Negative for alcohol, tobacco or drugs Physical Exam Vital Signs Vital Signs Date Time Temp Pulse Resp B/P (MAP) Pulse Ox O2 Delivery O2 Flow Rate FiO2 12/12/17 02:51 86 16 167/77 (107) 95 Room Air 12/12/17 02:23 109 18 223/119 (153) 94 Room Air 12/12/17 02:20 96 Room Air 12/11/17 22:53 100.2 129 18 200/83 (122) 98 Room Air 12/11/17 22:36 99.6 128 18 172/83 (112) 96 Physical Exam PE: GENERAL: Very pleasant elderly white female in no acute distress. HEENT: PERRLA, EOMI. No scleral icterus or conjunctival pallor. No lid lag or facial droop. CARDIOVASCULAR: Regular rate and rhythm. No obvious murmurs to auscultation. No chest tenderness to palpation. RESPIRATORY: No obvious rhonchi or wheezing. Clear to auscultation. Breath sounds equal bilaterally. GASTROINTESTINAL: Abdomen soft, non-tender, nondistended. BS normal. Right flank tenderness to palpation. MUSCULOSKELETAL: Extremities without clubbing, cyanosis, or edema. No obvious deformities. NEUROLOGICAL: Awake, alert and oriented x4. No focal neurologic deficits. Moving both upper and lower extremities spontaneously. Laboratory Laboratory Tests Test 12/11/17 23:20 12/12/17 00:05 Urine Color YELLOW Urine Turbidity Cloudy Urine pH 5.5 Urine Specific [place] 1.012 Urine Protein 100 Urine Glucose (UA) NEG Urine Ketones NEG Urine Occult Blood MOD Urine Nitrite POS Urine Bilirubin NEG Urine Urobilinogen 0.2 Urine Leukocyte Esterase LARGE Urine RBC 104 Urine WBC Urine Squamous Epithelial Cells 4 Urine Bacteria MANY Microscopic Urinalysis Comment CULTURE INDICATED White Blood Count 18.2 Red Blood Count 4.41 Hemoglobin 11.2 Hematocrit 34.0 Mean Corpuscular Volume 77.0 Mean Corpuscular Hemoglobin 25.3 Mean Corpuscular Hemoglobin Concent 32.9 Red Cell Distribution Width 17.9 Platelet Count 252 Mean Platelet Volume 9.9 Neutrophils (%) (Auto) 86.8 Lymphocytes (%) (Auto) 3.3 Monocytes (%) (Auto) 9.0 Eosinophils (%) (Auto) 0.0 Basophils (%) (Auto) 0.9 Neutrophils # (Auto) 15.8 Lymphocytes # (Auto) 0.6 Monocytes # (Auto) 1.6 Eosinophils # (Auto) 0.0 Basophils # (Auto) 0.2 CBC Comment DIFF FINAL Differential Comment Blood Urea Nitrogen 16 Creatinine 1.12 Random Glucose 179 Total Protein 8.8 Albumin 2.9 Calcium Level 8.3 Alkaline Phosphatase 382 Aspartate Amino Transf (AST/SGOT) 53 Alanine Aminotransferase (ALT/SGPT) 50 Total Bilirubin 0.6 Sodium Level 139 Potassium Level 3.2 Chloride Level 102 Carbon Dioxide Level 24.5 Anion Gap 13 Estimat Glomerular Filtration Rate 47 Lactic Acid Level 1.3 Date/Time Source Procedure Growth Status 12/12/17 00:05 Blood Peripheral Aerobic Blood Culture Pending Received 12/12/17 00:05 Blood Peripheral Anaerobic Blood Culture Pending Received 12/11/17 23:20 Urine Clean Catch Urine Culture Pending Received Result Diagram: 12/12/17 0005 12/12/17 0005 Caprini VTE Risk Assessment Caprini VTE Risk Assessment: No/Low Risk (score <= 1) Caprini Risk Assessment Model Point Value = 1 Point Value = 2 Point Value = 3 Point Value = 5 Age 41-60 Minor surgery BMI > 25 kg/m2 Swollen legs Varicose veins or History of unexplained or recurrent spontaneous Oral contraceptives or hormone replacement Sepsis (< 1 month) Serious lung disease, including pneumonia (< 1 month) Abnormal pulmonary function Acute myocardial infarction Congestive heart failure (< 1 month) History of inflammatory bowel disease Medical patient at bed rest Age 61-74 Arthroscopic surgery Major open surgery (> 45 min) Laparoscopic surgery (> 45 min) Malignancy Confined to bed (> 72 hours) Immobilizing plaster cast Central venous access Age >= 75 History of VTE Family history of VTE Factor V Leiden Prothrombin [id number] Lupus anticoagulant Anticardiolipin antibodies Elevated serum homocysteine Heparin-induced thrombocytopenia Other congenital or acquired thrombophilia Stroke (< 1 month) Elective arthroplasty Hip, pelvis, or leg fracture Acute spinal cord injury (< 1 month) Prophylaxis Regimen Total Risk Factor Score Risk Level Prophylaxis Regimen 0-1 Low Early ambulation 2 Moderate Order ONE of the following: *Sequential Compression Device (SCD) *Heparin 5000 units SQ BID 3-4 Higher Order ONE of the following medications: *Heparin 5000 units SQ TID *Enoxaparin/Lovenox 40 mg SQ daily (WT < 150 kg, CrCl > 30 mL/min) *Enoxaparin/Lovenox 30 mg SQ daily (WT < 150 kg, CrCl > 10-29 mL/min) *Enoxaparin/Lovenox 30 mg SQ BID (WT < 150 kg, CrCl > 30 mL/min) AND/OR *Sequential Compression Device (SCD) 5 or more Highest Order ONE of the following medications: *Heparin 5000 units SQ TID (Preferred with Epidurals) *Enoxaparin/Lovenox 40 mg SQ daily (WT < 150 kg, CrCl > 30 mL/min) *Enoxaparin/Lovenox 30 mg SQ daily (WT < 150 kg, CrCl > 10-29 mL/min) *Enoxaparin/Lovenox 30 mg SQ BID (WT < 150 kg, CrCl > 30 mL/min) AND *Sequential Compression Device (SCD) Assessment and Plan Problem List: (1) Sepsis ICD Code: A41.9 - Sepsis, unspecified organism Status: Resolved (2) UTI (urinary tract infection) ICD Code: N39.0 - Urinary tract infection, site not specified Status: Acute (3) Renal stone ICD Code: N20.0 - Calculus of kidney (4) Hydronephrosis ICD Code: N13.30 - Unspecified hydronephrosis (5) HTN (hypertension) ICD Code: I10 - Essential (primary) hypertension (6) DM (diabetes mellitus) ICD Code: E11.9 - Type 2 diabetes mellitus without complications Assessment and Plan A/P: 1. Sepsis: Temp 100.2, HR 120's, WBC 18.2, Source-UTI. S/p Blood/Urine cultures, continue w/ IV Abx, follow up culture results. 2. UTI: h/o ESBL + UTI 09/07/17, s/p Ertapenem per review of susceptibilities/ CATY, will continue w/ Ertapenem 1gm IV qdaily, consult ID for evaluation/ recommendations on antibiotic regimen, follow up cultures, IVF for hydration. 3. Renal Stone/Hydronephrosis: h/o renal stone, +right flank pain w/ associated nausea/vomiting, CT Abd/Pelvis w/ tiny stone at right ureterovesical junction with moderate right hydronephrosis, images reviewed by me. Consult Urology for further evaluation/intervention. Treatment as above. 4. HTN: Uncontrolled. BP 220's systolic, did not take night medications, will give Lopressor 5mg IV x1 now, resume home medications, monitor BP, optimize pain control. 5. DM: Sliding scale w/ Accu-Cheks. Hold Metformin, resume home Lantus 6. DVT Prophylaxis: SCD/Teds 7. Social work for d/c planning as needed. 8. Case discussed w/ ER physician, labs/records/imaging reviewed by me. Physician Certification 2 Midnight Certification Type: Admission for Inpatient Services Order for Inpatient Services The services are ordered in accordance with Medicare regulations or non- Medicare payer requirements, as applicable. In the case of services not specified as inpatient-only, they are appropriately provided as inpatient services in accordance with the 2-midnight benchmark. Estimated LOS (days): 2 days is the estimated time the patient will need to remain in the hospital, assuming treatment plan goals are met and no additional complications. Post-Hospital Plan: Not yet determined Claire Limon MD December 12, 2017 03:15
[2017-12-12] MEDS: SODIUM CHLOR 0.9% 1000 ML INJ 1,000 ML IV SCH ×2 (05:00→16:08)
[2017-12-12] MEDS: cloNIDine HCL 0.2 MG TAB PO SCH ×3 (05:17→22:16)
[2017-12-12] MEDS: ISOSORBIDE MONONITRATE 30 MG CR TAB (IMDUR) PO SCH (05:17)
[2017-12-12] MEDS: MORPHINE SULFATE 4 MG/ML INJ IV PRN ×4 (05:18→22:17)
[2017-12-12] MEDS: INSULIN ASPART SUPPLEMENTAL SCALE SQ SCH ×4 (08:00→21:00)
--- NOTE | 2017-12-12 08:17 | PD.ID.CON ---
History of Present Illness Service Infectious disease Consult Requested By Hospitalist service Reason for Consult ESBL UTI/urosepsis Primary Care Physician Felicia Craig MD Diagnoses: History of Present Illness Patient seen and examined on behalf of Dr. Velazquez This is a 77-year-old female with past medical history significant for hypertension, diabetes, coronary artery disease and history of ESBL UTI who presented to [facility] ED with complaints of 5 day history of progressive right-sided groin and flank pain. Patient states she developed right-sided groin pain and then radiated around into the right flank starting on Thursday with low urinary output. She began to drink copious amounts of fluids which helped her increase her urinary output however did not help with the pain she was experiencing. Patient reports associated nausea and fatigue. She also reports an episode of rigors/chills yesterday. Patient states that she called her primary care's office on and was called in a prescription of Cipro by Dr. Craig of which she has taken 1 pill. Patient had a urinalysis done and was contacted on Thursday by Dr. Craig's nurse and told that she had a serious urinary tract infection and needed to come into the ED. patient reports sometime Thursday afternoon she began to develop dysuria. She denies any hematuria. She has a history of chronic incontinence. Patient has a history of Klebsiella pneumonia ESBL August 31, 2017 and was treated with a 14 day course of IV Ertapenem. Patient has history of recurrent urinary tract infections in the past with E. coli and Klebsiella pneumoniae. She has a history of kidney stones and underwent stent placement 2011. In the ED, patient presented with sepsis with a blood pressure of 200/83, heart rate 129, O2 sat 98% on RA, Temp 100.2 and WBC 18.2. K+ 3.2. Creatinine 1.12. Lactic Acid normal. UA positive for UTI. CXR with no acute findings. CT Abdomen/Pelvis with tiny stone at right ureterovesical junction with moderate right hydronephrosis. Patient was given a dose of ertapenem in the ED and this has been continued following her admission. Infectious disease consultation has been requested for evaluation and management of ESBL UTI. (Merary Jacobs) Review of Systems Except as stated in HPI: all other systems reviewed are Neg (Merary Jacobs) Past Family Social History Allergies: Coded Allergies: doxycycline (Verified Allergy, Severe, RASH, 12/12/17) minocycline (Verified Allergy, Severe, RASH, 12/12/17) penicillin G (Verified Allergy, Severe, Rash, 12/12/17) tigecycline (Verified Allergy, Severe, RASH, 12/12/17) Sulfa (Sulfonamide Antibiotics) (Verified Adverse Reaction, Severe, vomiting, 12/12/17) codeine (Verified Adverse Reaction, Severe, NAUSEA, 12/12/17) NAUSEA Past Medical History Hx of Klebsiella pneumonia ESBL UTI Recurrent UTIs Hypertension Diabetes Coronary artery disease Afib with paroxysmal episodes History of meningitis in 1995. History of encephalitis in 1975. Kidney stones Past Surgical History Partial thyroidectomy Tonsillectomy Left orbital bone repair Cardiac stents Appendectomy Cholecystectomy Total hysterectomy Right total knee replacement Right total hip replacement Lumbar fusion with hardware Cervical fusion with hardware RUL lobectomy Previous cystoscopy for stones and placement of stent 2011 Reported Medications Reglan (Metoclopramide HCl) 10 Mg Tab 10 Mg PO TIDAC PRN Endocet (Oxycodone-Acetaminophen) 5-325 mg Tab 1 Tab PO Q4H PRN Invanz Inj (Ertapenem) 1 Gm Addvial 1 Gm IV Q24H ADMINISTER IN 100ML NS Epinephrine Inj 1 Mg/Ml (1 Ml) Inj 0.3 Mg SQ ONCE PRN Give with any signs of respiratory distress. Epinephrine Inj 1 Mg/Ml (1 Ml) Inj 0.3 Mg IV PUSH ONCE PRN Solu-Cortef Inj (Hydrocortisone Sodium Succinate) 250 Mg/2 Ml Inj 250 Mg IV PUSH ONCE PRN Give over 30-60 seconds. Isosorbide Mononitrate ER (Isosorbide Mononitrate) 30 Mg Naty 30 Mg PO DAILY@07 Adult Aspirin EC Low Strength (Aspirin) 81 Mg Tabec 81 Mg PO DAILY Lisinopril 20 Mg Tab 40 Mg PO DAILY Metoprolol Tartrate 25 Mg Tab 12.5 Mg PO Q12HR Brilinta (Ticagrelor) 90 Mg Tab 90 Mg PO BID Atorvastatin (Atorvastatin Calcium) 40 Mg Tab 40 Mg PO HS Catapres (Clonidine) 0.2 Mg Tab 0.2 Mg PO Q8HR Reported Metformin (Metformin HCl) 1,000 Mg Tab 1,000 Mg PO BIDPC Vitamin C (Ascorbic Acid) 250 Mg Chew 500 Mg CHEW BID Trazodone (Trazodone HCl) 50 Mg Tab 50 Mg PO HS Tramadol (Tramadol HCl) 50 Mg Tab 100 Mg PO Q12HR PRN Synthroid (Levothyroxine Sodium) 88 Mcg Tab 88 Mcg PO DAILY Lantus Inj (Insulin Glargine) 1,000 Unit/10 Ml Vial 25 Units SQ HS Gabapentin 300 Mg Cap 300 Mg PO TID Omeprazole 20 Mg Tab 20 Mg PO DAILY Bethanechol 25 Mg Tab 25 Mg PO QID Active Ordered Medications Current Medications Medications (Trade) Dose Ordered Sig/Cristine Route Start Time Stop Time Status Last Admin (ASP Crit: Doc ESBL, MDR A baumannii or P aer) 1 UNSCH X1 PRN XX 12/12/17 00:30 12/13/17 00:29 ([facility] Information) 1 UNSCH X1 PRN XX 12/12/17 00:30 12/13/17 00:29 Ertapenem 1000 mg/ Sodium Chloride 100 ml @ 200 mls/hr Q24H IV 12/12/17 00:30 12/12/17 01:18 Sodium Chloride 1,000 ml @ 100 mls/hr Q10H IV 12/12/17 02:00 12/12/17 05:00 (NS Flush) 2 ml UNSCH PRN IV FLUSH 12/12/17 02:00 (NS Flush) 2 ml BID IV FLUSH 12/12/17 09:00 (Zofran Inj) 4 mg Q6H PRN IVP 12/12/17 02:00 (Tylenol) 650 mg Q6H PRN PO 12/12/17 02:00 (Morphine Inj) 2 mg Q3H PRN IV 12/12/17 02:30 12/12/17 05:18 (Kamini-Colace) 1 tab BID PO 12/12/17 09:00 (Milk Of Magnesia Liq) 30 ml Q12H PRN PO 12/12/17 02:00 (Senokot) 17.2 mg Q12H PRN PO 12/12/17 02:00 (Dulcolax Supp) 10 mg DAILY PRN RECTAL 12/12/17 02:00 (Lactulose Liq) 30 ml DAILY PRN PO 12/12/17 02:00 (D50w (Vial) Inj) 50 ml UNSCH PRN IV PUSH 12/12/17 02:00 (Glucagon Inj) 1 mg UNSCH PRN OTHER 12/12/17 02:00 (NovoLOG SUPPLEMENTAL SCALE) 1 ACHS SLIDING SCALE SQ 12/12/17 08:00 (Ecotrin Ec) 81 mg DAILY PO 12/12/17 09:00 (Lipitor) 40 mg HS PO 12/12/17 21:00 (Catapres) 0.2 mg Q8HR PO 12/12/17 06:00 12/12/17 05:17 (Levemir Inj) 25 units HS SQ 12/12/17 21:00 (Imdur) 30 mg DAILY@07 PO 12/12/17 07:00 12/12/17 05:17 (Lopressor) 12.5 mg Q12HR PO 12/12/17 09:00 (Brilinta) 90 mg BID PO 12/12/17 09:00 (Desyrel) 50 mg HS PO 12/12/17 21:00 (Protonix) 20 mg DAILY PO 12/12/17 09:00 (Pill Splitter) 1 ea UNSCH PRN OTHER 12/12/17 02:45 Family History Diabetes mellitus Social History Patient has a remote history of tobacco use having quit in 1990. She denies any alcohol consumption or illicit drug use. Patient is and lives with her . (Merary Jacobs) Physical Exam Vital Signs Vital Signs Date Time Temp Pulse Resp B/P (MAP) Pulse Ox O2 Delivery O2 Flow Rate FiO2 12/12/17 04:42 98.2 91 20 179/91 (120) 96 12/12/17 03:56 12/12/17 02:51 86 16 167/77 (107) 95 Room Air 12/12/17 02:23 109 18 223/119 (153) 94 Room Air 12/12/17 02:20 96 Room Air 12/11/17 22:53 100.2 129 18 200/83 (122) 98 Room Air 12/11/17 22:36 99.6 128 18 172/83 (112) 96 Physical Exam GENERAL: This is a well-nourished, well-developed female patient, in no apparent distress. Awake and alert. SKIN: No rashes, ecchymoses or lesions. Cool and dry. HEAD: Atraumatic. Normocephalic. No temporal or scalp tenderness. EYES: Pupils equal round and reactive. Extraocular motions intact. No scleral icterus. No injection or drainage. ENT: Nose without bleeding or purulent drainage. Throat without erythema, tonsillar hypertrophy or exudate. Uvula midline. Airway patent. NECK: Trachea midline. No JVD or lymphadenopathy. Supple, nontender, no meningeal signs. CARDIOVASCULAR: Regular rate and rhythm without murmurs, gallops, or rubs. RESPIRATORY: Clear to auscultation. Breath sounds equal bilaterally. No wheezes , rales, or rhonchi. GASTROINTESTINAL: Abdomen soft, non-tender, nondistended. No hepato-splenomegaly , or palpable masses. No guarding. MUSCULOSKELETAL: Extremities without clubbing, cyanosis, or edema. No joint tenderness, effusion, or edema noted. No calf tenderness. NEUROLOGICAL: Awake and alert. Cranial nerves II through XII grossly intact. Motor and sensory grossly within normal limits. No focal neurologic findings appreciated. Normal speech. PSYCHIATRIC: Appropriate mood and affect. Normal judgment and insight. Calm and cooperative. PIV with no evidence of infection Laboratory Laboratory Tests Test 12/11/17 23:20 12/12/17 00:05 Urine Color YELLOW Urine Turbidity Cloudy Urine pH 5.5 Urine Specific [place] 1.012 Urine Protein 100 Urine Glucose (UA) NEG Urine Ketones NEG Urine Occult Blood MOD Urine Nitrite POS Urine Bilirubin NEG Urine Urobilinogen 0.2 Urine Leukocyte Esterase LARGE Urine RBC 104 Urine WBC Urine Squamous Epithelial Cells 4 Urine Bacteria MANY Microscopic Urinalysis Comment CULTURE INDICATED White Blood Count 18.2 Red Blood Count 4.41 Hemoglobin 11.2 Hematocrit 34.0 Mean Corpuscular Volume 77.0 Mean Corpuscular Hemoglobin 25.3 Mean Corpuscular Hemoglobin Concent 32.9 Red Cell Distribution Width 17.9 Platelet Count 252 Mean Platelet Volume 9.9 Neutrophils (%) (Auto) 86.8 Lymphocytes (%) (Auto) 3.3 Monocytes (%) (Auto) 9.0 Eosinophils (%) (Auto) 0.0 Basophils (%) (Auto) 0.9 Neutrophils # (Auto) 15.8 Lymphocytes # (Auto) 0.6 Monocytes # (Auto) 1.6 Eosinophils # (Auto) 0.0 Basophils # (Auto) 0.2 CBC Comment DIFF FINAL Differential Comment Blood Urea Nitrogen 16 Creatinine 1.12 Random Glucose 179 Total Protein 8.8 Albumin 2.9 Calcium Level 8.3 Alkaline Phosphatase 382 Aspartate Amino Transf (AST/SGOT) 53 Alanine Aminotransferase (ALT/SGPT) 50 Total Bilirubin 0.6 Sodium Level 139 Potassium Level 3.2 Chloride Level 102 Carbon Dioxide Level 24.5 Anion Gap 13 Estimat Glomerular Filtration Rate 47 Lactic Acid Level 1.3 Date/Time Source Procedure Growth Status 12/12/17 00:05 Blood Peripheral Aerobic Blood Culture Pending Received 12/12/17 00:05 Blood Peripheral Anaerobic Blood Culture Pending Received 12/11/17 23:20 Urine Clean Catch Urine Culture Pending Received (Merary Jacobs) Result Diagram: 12/12/17 0005 12/12/17 0005 Imaging Last Impressions Abdomen/Pelvis CT 12/12/17 0000 Signed Impressions: Service Date/Time: Tuesday, December 12, 2017 01:10 - CONCLUSION: Tiny stone at the right ureterovesical junction with moderate right hydronephrosis. Preston Mahmood MD Chest X-Ray 12/11/17 2325 Signed Impressions: Service Date/Time: Monday, December 11, 2017 23:27 - CONCLUSION: No acute disease Preston Mahmood MD (Merary Jacobs) Assessment and Plan Assessment and Plan ASSESSMENT: Sepsis with tachycardia with heart rate of 129, temperature 100.2, white blood cell count 18.2, source UTI, suspected ESBL UTI and right sided pyelonephritis History of previous Klebsiella pneumoniae ESBL UTI 08/31/17 History of recurrent UTIs Right-sided renal stone/hydronephrosis: CT abdomen and pelvis shows tiny stone at the right ureterovesical junction with moderate right hydronephrosis -Urology consulted by primary team Uncontrolled hypertension at ED presentation, improved CAD s/p previous cardiac stents Diabetes RECOMMENDATIONS: Continue patient on IV Ertapenem check PVRs to monitor for complete emptying strict I&Os Follow-up on final urine culture results Follow-up on blood culture results Monitor white count Monitor fevers Follow up on Urology assessment/recommendations Will continue to follow with you, further recommendations to follow (Merary Jacobs) Assessment and Plan The exam, history, and the medical decision-making described in the above note were completed with the assistance of the mid-level provider. I reviewed and agree with the findings presented. I attest that I had a [id number] encounter with the patient on the same day, and personally performed and documented my assessment and findings in the medical record. Chart reviewed History obtained personally. Examined patient independently. Complains of dysuria. No N/V/D No fevers Exam No SP tenderness. No abd tenderness. Recs: Continue Ertapenem dw : possible neurogenic bladder and incontinence causing recurrent UTIs. h/o urinary problems after cervical spine surgery dw patient will need IV antibiotics on DC Follow cultures No PICC till cleared by ID. Will need Urology follow up and workup. (Annette Velazquez MD) Merary Jacobs December 12, 2017 08:17 Annette Velazquez MD December 12, 2017 17:40
[2017-12-12] MEDS: SODIUM CHLORIDE 0.9% FLUSH 10 ML FLUSH IV FLUSH SCH ×2 (08:27→22:18)
[2017-12-12] MEDS: DOCUSATE SODIUM 50 MG/SENNA 8.6 MG TAB PO SCH ×2 (08:28→21:00)
[2017-12-12] MEDS: PANTOPRAZOLE SOD 20 MG DELAYED RELEASE TAB PO SCH (08:28)
[2017-12-12] MEDS: ASPIRIN EC 81 MG TABEC PO SCH (08:28)
[2017-12-12] MEDS: METOPROLOL TARTRATE 25 MG TAB PO SCH ×2 (08:28→22:15)
--- NOTE | 2017-12-12 10:21 | HHI.PR ---
Subjective Remarks Patient seen and examined this am. Vitals are stable and the patient is afebrile. States she feels better than yesterday, states she has some abdominal pain. Denies chest pain or difficulty breathing. Objective Vital Signs Date Time Temp Pulse Resp B/P (MAP) Pulse Ox O2 Delivery O2 Flow Rate FiO2 12/12/17 08:00 97.9 88 16 131/69 (89) 93 12/12/17 04:42 98.2 91 20 179/91 (120) 96 12/12/17 03:56 12/12/17 02:51 86 16 167/77 (107) 95 Room Air 12/12/17 02:23 109 18 223/119 (153) 94 Room Air 12/12/17 02:20 96 Room Air 12/11/17 22:53 100.2 129 18 200/83 (122) 98 Room Air 12/11/17 22:36 99.6 128 18 172/83 (112) 96 I/O 12/11/17 12/11/17 12/11/17 12/12/17 12/12/17 12/12/17 07:00 15:00 23:00 07:00 15:00 23:00 Intake Total 2340 ml Balance 2340 ml Intake Oral 240 ml IV Total 2100 ml # Voids 2 # Bowel Movements 0 Result Diagram: 12/12/17 0005 12/12/17 0005 Imaging Last Impressions Abdomen/Pelvis CT 12/12/17 0000 Signed Impressions: Service Date/Time: Tuesday, December 12, 2017 01:10 - CONCLUSION: Tiny stone at the right ureterovesical junction with moderate right hydronephrosis. Preston Mahmood MD Chest X-Ray 12/11/17 [id number] Signed Impressions: Service Date/Time: Monday, December 11, 2017 23:27 - CONCLUSION: No acute disease Preston Mahmood MD Objective Remarks GENERAL: Well-appearing, no acute distress SKIN: Warm and dry. HEAD: Normocephalic. EYES: No scleral icterus. No injection or drainage. NECK: Supple, trachea midline. No JVD or lymphadenopathy. CARDIOVASCULAR: Regular rate and rhythm without murmurs, gallops, or rubs. RESPIRATORY: Breath sounds equal bilaterally. No accessory muscle use. GASTROINTESTINAL: Abdomen soft, right upper and lower quadrant tenderness to palpation. MUSCULOSKELETAL: No cyanosis, or edema. A/P Problem List: (1) UTI (urinary tract infection) ICD Code: N39.0 - Urinary tract infection, site not specified Status: Resolved (2) Hypokalemia ICD Code: E87.6 - Hypokalemia Status: Acute (3) Pyelonephritis ICD Code: N12 - Tubulo-interstitial nephritis, not specified as acute or chronic Status: Acute (4) Hydronephrosis ICD Code: N13.30 - Unspecified hydronephrosis (5) UTI (urinary tract infection) ICD Code: N39.0 - Urinary tract infection, site not specified Status: Acute (6) DM (diabetes mellitus) ICD Code: E11.9 - Type 2 diabetes mellitus without complications (7) HTN (hypertension) ICD Code: I10 - Essential (primary) hypertension (8) Renal stone ICD Code: N20.0 - Calculus of kidney Assessment and Plan 77-year-old female with Sepsis due to UTI, renal stone Recurrentt UTIs suspective ESBL -Elevated temp, leukocytosis on admission -CT abdomen and pelvis shows tiny stone at the right ureterovesicular junction with moderate right hydronephrosis -Urology consulted, recommendations pending -Infectious disease consulted, recommend continue IV ertapenem HTN - home medications, metoprolol 12.5 mg twice daily, clonidine 0.2 mg every 8, KANCHAN -Creatinine at baseline 0.8. Today is 1.12 -Renally dose all meds, avoid nephrotoxic agents -Likely related to infection, continue IV fluids DM - hold metformin -Levemir 25 units at bedtime -Supplemental sliding scale Hypokalemia - replaced CAD -Continue statin, Brilinta DVT prophy with bilateral SCDs Discharge Planning DC pending further workup from urology. Deann Silva MD December 12, 2017 10:21
[2017-12-12] MEDS ORDERED: POTASSIUM CHLORIDE 10 MEQ CONTROLLED RELEASE TAB PO ONE (10:30)
[2017-12-12] MEDS: TICAGRELOR 90 MG TAB PO SCH ×2 (10:44→22:19)
--- NOTE | 2017-12-12 15:47 | PD.CONS ---
HPI Service Urology Consult Requested By Reason for Consult Nephrolithiasis Primary Care Physician Felicia Craig MD Diagnosis: (1) Sepsis ICD Code: A41.9 - Sepsis, unspecified organism (2) UTI (urinary tract infection) ICD Code: N39.0 - Urinary tract infection, site not specified (3) Renal stone ICD Code: N20.0 - Calculus of kidney (4) Hydronephrosis ICD Code: N13.30 - Unspecified hydronephrosis (5) HTN (hypertension) ICD Code: I10 - Essential (primary) hypertension (6) DM (diabetes mellitus) ICD Code: E11.9 - Type 2 diabetes mellitus without complications History of Present Illness 77yo female with history of HTN, DM and CAD with recurrent ESBL UTIs and urinary incontincne seen in consultation for right nephrolithiasis. Patient reports right flank pain approx 2 days ago that has progressively worsened, radiating to the right wendy. She also has some lower urinary tract symptoms of dysuria, frequency, and urinary incontinence. She developed fevers at home with elevated WBC upon presentation. Currently without fevers or any abdominal or flank pain. CT scan noted a small right distal ureteral stent with mild right hydronephrosis. No N/V. Review of Systems ROS Limitations: Clinical Condition Constitutional: COMPLAINS OF: Fever Eyes: DENIES: Blurred vision Ears, nose, mouth, throat: DENIES: Hearing loss Respiratory: DENIES: Apneas Cardiovascular: DENIES: Chest pain Gastrointestinal: COMPLAINS OF: Abdominal pain, DENIES: Nausea, Vomiting Genitourinary: COMPLAINS OF: Urinary frequency, Urinary incontinence, Urgency, DENIES: Hematuria Musculoskeletal: COMPLAINS OF: Back pain Integumentary: DENIES: Rash Hematologic/lymphatic: DENIES: Bruising Neurologic: DENIES: Abnormal gait, Headache Psychiatric: DENIES: Anxiety Except as stated in HPI: all other systems reviewed are Neg Past Family Social History Past Medical History HTN, DM, CAD and h/o ESBL UTI Past Surgical History Partial Thyroidectomy, Tonsillectomy, Left Orbital Bone Repair, Cardiac Stents, Appendectomy, Cholecystectomy, Total Hysterectomy, Right Knee and Right Hip Replacement, Back Surgery, RUL Lobectomy, Neck Sx Reported Medications Reported Meds & Active Scripts Active Reglan (Metoclopramide HCl) 10 Mg Tab 10 Mg PO TIDAC PRN Endocet (Oxycodone-Acetaminophen) 5-325 mg Tab 1 Tab PO Q4H PRN Invanz Inj (Ertapenem) 1 Gm Addvial 1 Gm IV Q24H ADMINISTER IN 100ML NS Epinephrine Inj 1 Mg/Ml (1 Ml) Inj 0.3 Mg SQ ONCE PRN Give with any signs of respiratory distress. Epinephrine Inj 1 Mg/Ml (1 Ml) Inj 0.3 Mg IV PUSH ONCE PRN Solu-Cortef Inj (Hydrocortisone Sodium Succinate) 250 Mg/2 Ml Inj 250 Mg IV PUSH ONCE PRN Give over 30-60 seconds. Isosorbide Mononitrate ER (Isosorbide Mononitrate) 30 Mg Naty 30 Mg PO DAILY@07 Adult Aspirin EC Low Strength (Aspirin) 81 Mg Tabec 81 Mg PO DAILY Lisinopril 20 Mg Tab 40 Mg PO DAILY Metoprolol Tartrate 25 Mg Tab 12.5 Mg PO Q12HR Brilinta (Ticagrelor) 90 Mg Tab 90 Mg PO BID Atorvastatin (Atorvastatin Calcium) 40 Mg Tab 40 Mg PO HS Catapres (Clonidine) 0.2 Mg Tab 0.2 Mg PO Q8HR Reported Metformin (Metformin HCl) 1,000 Mg Tab 1,000 Mg PO BIDPC Vitamin C (Ascorbic Acid) 250 Mg Chew 500 Mg CHEW BID Trazodone (Trazodone HCl) 50 Mg Tab 50 Mg PO HS Tramadol (Tramadol HCl) 50 Mg Tab 100 Mg PO Q12HR PRN Synthroid (Levothyroxine Sodium) 88 Mcg Tab 88 Mcg PO DAILY Lantus Inj (Insulin Glargine) 1,000 Unit/10 Ml Vial 25 Units SQ HS Gabapentin 300 Mg Cap 300 Mg PO TID Omeprazole 20 Mg Tab 20 Mg PO DAILY Bethanechol 25 Mg Tab 25 Mg PO QID Allergies: Coded Allergies: doxycycline (Verified Allergy, Severe, RASH, 12/12/17) minocycline (Verified Allergy, Severe, RASH, 12/12/17) penicillin G (Verified Allergy, Severe, Rash, 12/12/17) tigecycline (Verified Allergy, Severe, RASH, 12/12/17) Sulfa (Sulfonamide Antibiotics) (Verified Adverse Reaction, Severe, vomiting, 12/12/17) codeine (Verified Adverse Reaction, Severe, NAUSEA, 12/12/17) NAUSEA Active Ordered Medications Current Medications Medications (Trade) Dose Ordered Sig/Cristine Route Start Time Stop Time Status Last Admin (ASP Crit: Doc ESBL, MDR A baumannii or P aer) 1 UNSCH X1 PRN XX 12/12/17 00:30 12/13/17 00:29 ([facility]) 1 UNSCH X1 PRN XX 12/12/17 00:30 12/13/17 00:29 Ertapenem 1000 mg/ Sodium Chloride 100 ml @ 200 mls/hr Q24H IV 12/12/17 00:30 12/12/17 01:18 Sodium Chloride 1,000 ml @ 100 mls/hr Q10H IV 12/12/17 02:00 12/12/17 05:00 (NS Flush) 2 ml UNSCH PRN IV FLUSH 12/12/17 02:00 (NS Flush) 2 ml BID IV FLUSH 12/12/17 09:00 (Zofran Inj) 4 mg Q6H PRN IVP 12/12/17 02:00 (Tylenol) 650 mg Q6H PRN PO 12/12/17 02:00 (Morphine Inj) 2 mg Q3H PRN IV 12/12/17 02:30 12/12/17 08:29 (Kamini-Colace) 1 tab BID PO 12/12/17 09:00 12/12/17 08:28 (Milk Of Magnesia Liq) 30 ml Q12H PRN PO 12/12/17 02:00 (Senokot) 17.2 mg Q12H PRN PO 12/12/17 02:00 (Dulcolax Supp) 10 mg DAILY PRN RECTAL 12/12/17 02:00 (Lactulose Liq) 30 ml DAILY PRN PO 12/12/17 02:00 (D50w (Vial) Inj) 50 ml UNSCH PRN IV PUSH 12/12/17 02:00 (Glucagon Inj) 1 mg UNSCH PRN OTHER 12/12/17 02:00 (NovoLOG SUPPLEMENTAL SCALE) 1 ACHS SLIDING SCALE SQ 12/12/17 08:00 12/12/17 12:00 (Ecotrin Ec) 81 mg DAILY PO 12/12/17 09:00 12/12/17 08:28 (Lipitor) 40 mg HS PO 12/12/17 21:00 (Catapres) 0.2 mg Q8HR PO 12/12/17 06:00 12/12/17 13:20 (Levemir Inj) 25 units HS SQ 12/12/17 21:00 (Imdur) 30 mg DAILY@07 PO 12/12/17 07:00 12/12/17 05:17 (Lopressor) 12.5 mg Q12HR PO 12/12/17 09:00 12/12/17 08:28 (Brilinta) 90 mg BID PO 12/12/17 09:00 12/12/17 10:44 (Desyrel) 50 mg HS PO 12/12/17 21:00 (Protonix) 20 mg DAILY PO 12/12/17 09:00 12/12/17 08:28 (Pill Splitter) 1 ea UNSCH PRN OTHER 12/12/17 02:45 Family History Family history reviewed and noncontributory to present illness. Hx of DM Social History Negative for alcohol, tobacco or drugs Physical Exam Vital Signs Date Time Temp Pulse Resp B/P (MAP) Pulse Ox O2 Delivery O2 Flow Rate FiO2 12/12/17 12:00 97.9 81 16 133/76 (95) 96 12/12/17 08:00 97.9 88 16 131/69 (89) 93 12/12/17 04:42 98.2 91 20 179/91 (120) 96 12/12/17 03:56 12/12/17 02:51 86 16 167/77 (107) 95 Room Air 12/12/17 02:23 109 18 223/119 (153) 94 Room Air 12/12/17 02:20 96 Room Air 12/11/17 22:53 100.2 129 18 200/83 (122) 98 Room Air 12/11/17 22:36 99.6 128 18 172/83 (112) 96 Physical Exam GENERAL: This is a well-nourished, well-developed patient, in no apparent distress. SKIN: No rashes, ecchymoses or lesions. Cool and dry. HEAD: Atraumatic. Normocephalic. s. EYES: Extraocular motions intact. ENT: Nose without bleeding, purulent drainage. Airway patent. NECK: Trachea midline. No JVD or lymphadenopathy. CARDIOVASCULAR: Normal pulse. RESPIRATORY: Nonlabored GASTROINTESTINAL: Abdomen soft, non-tender, nondistended. MUSCULOSKELETAL: Extremities without clubbing, cyanosis, or edema. NEUROLOGICAL: Awake and alert. Motor and sensory grossly within normal limits. Normal speech. Lab results reviewed: Yes Laboratory Tests Test 12/11/17 23:20 12/12/17 00:05 Urine Color YELLOW Urine Turbidity Cloudy Urine pH 5.5 Urine Specific [place] 1.012 Urine Protein 100 Urine Glucose (UA) NEG Urine Ketones NEG Urine Occult Blood MOD Urine Nitrite POS Urine Bilirubin NEG Urine Urobilinogen 0.2 Urine Leukocyte Esterase LARGE Urine RBC 104 Urine WBC Urine Squamous Epithelial Cells 4 Urine Bacteria MANY Microscopic Urinalysis Comment CULTURE INDICATED White Blood Count 18.2 Red Blood Count 4.41 Hemoglobin 11.2 Hematocrit 34.0 Mean Corpuscular Volume 77.0 Mean Corpuscular Hemoglobin 25.3 Mean Corpuscular Hemoglobin Concent 32.9 Red Cell Distribution Width 17.9 Platelet Count 252 Mean Platelet Volume 9.9 Neutrophils (%) (Auto) 86.8 Lymphocytes (%) (Auto) 3.3 Monocytes (%) (Auto) 9.0 Eosinophils (%) (Auto) 0.0 Basophils (%) (Auto) 0.9 Neutrophils # (Auto) 15.8 Lymphocytes # (Auto) 0.6 Monocytes # (Auto) 1.6 Eosinophils # (Auto) 0.0 Basophils # (Auto) 0.2 CBC Comment DIFF FINAL Differential Comment Blood Urea Nitrogen 16 Creatinine 1.12 Random Glucose 179 Total Protein 8.8 Albumin 2.9 Calcium Level 8.3 Alkaline Phosphatase 382 Aspartate Amino Transf (AST/SGOT) 53 Alanine Aminotransferase (ALT/SGPT) 50 Total Bilirubin 0.6 Sodium Level 139 Potassium Level 3.2 Chloride Level 102 Carbon Dioxide Level 24.5 Anion Gap 13 Estimat Glomerular Filtration Rate 47 Lactic Acid Level 1.3 Date/Time Source Procedure Growth Status 12/12/17 00:05 Blood Peripheral Aerobic Blood Culture Pending Received 12/12/17 00:05 Blood Peripheral Anaerobic Blood Culture Pending Received 12/11/17 23:20 Urine Clean Catch Urine Culture - Preliminary IMMATURE GROWTH - REINCUBATE Resulted Result Diagram: 12/12/17 0005 12/12/17 0005 Personally reviewed images: Yes Imaging Last Impressions Abdomen/Pelvis CT 12/12/17 0000 Signed Impressions: Service Date/Time: Tuesday, December 12, 2017 01:10 - CONCLUSION: Tiny stone at the right ureterovesical junction with moderate right hydronephrosis. Preston Mahmood MD Chest X-Ray 12/11/17 [id number] Signed Impressions: Service Date/Time: Monday, December 11, 2017 23:27 - CONCLUSION: No acute disease Preston Mahmood MD Assessment and Plan Problem List: (1) Abdominal pain ICD Code: R10.9 - Unspecified abdominal pain Status: Acute (2) CVA tenderness ICD Code: M54.9 - Dorsalgia, unspecified Status: Resolved (3) Renal stone ICD Code: N20.0 - Calculus of kidney (4) UTI (urinary tract infection) ICD Code: N39.0 - Urinary tract infection, site not specified Status: Acute (5) DM (diabetes mellitus) ICD Code: E11.9 - Type 2 diabetes mellitus without complications Assessment and Plan CT images reviewed with very small stone noted in right UVJ, mild hydronphrosis At this time, the patient is comfortable, no almanzar, no fevers No immediate surgical intervention at this time Recommend continued treatment for her UTI per ID If she develops fevers or worsening clinical picture, may consider stent. However current clinical picture indicates likely passed stone given size and location on CT scan Patient may followup with Urology in clinic after discharge Please call with questions Koko Young MD December 12, 2017 15:47
[2017-12-12] MEDS ORDERED: traZODone HCL 50 MG TAB PO SCH (21:00)
[2017-12-12] MEDS ORDERED: ATORVASTATIN 40 MG TAB PO SCH (21:00)
[2017-12-12] MEDS ORDERED: INSULIN DETEMIR 100 UNITS/ML VIAL SQ SCH (21:00)
[2017-12-12] MEDS ORDERED: ERTAPENEM SODIUM 1 GM ADDVANTAGE VIAL IV SCH (23:00)
[2017-12-13] VITALS: BP 124/60; PULSE 67; RESP 18; TEMP 98.8; O2SAT 94
[2017-12-13] MEDS: ERTAPENEM INJ 1,000 MG in SODIUM CHLORIDE 0.9% INJ 100 ML IV SCH (01:28)
[2017-12-13] MEDS: SODIUM CHLOR 0.9% 1000 ML INJ 1,000 ML IV SCH (03:12)
[2017-12-13] MEDS: cloNIDine HCL 0.2 MG TAB PO SCH ×2 (04:41→13:53)
[2017-12-13] MEDS: ISOSORBIDE MONONITRATE 30 MG CR TAB (IMDUR) PO SCH (04:42)
[2017-12-13 08:00] VITALS: BP 126/70; PULSE 76; RESP 16; TEMP 98.5; O2SAT 94
[2017-12-13] MEDS: INSULIN ASPART SUPPLEMENTAL SCALE SQ SCH ×2 (08:00→12:00)
[2017-12-13 08:01] LABS: AUTOMATED NEUTROPHIL # 4.7 TH/MM3 (1.8-7.7); BASOPHIL # 0.1 TH/MM3 (0-0.2); BASOPHIL % 1.7 % (0.0-2.0); EOSINOPHIL # 0.2 TH/MM3 (0-0.4); EOSINOPHIL % 2.3 % (0.0-4.0); HEMATOCRIT 29.7 % (35.0-46.0); HEMOGLOBIN 9.6 GM/DL (11.6-15.3); LYMPH % 16.8 % (9.0-44.0); LYMPHOCYTE # 1.2 TH/MM3 (1.0-4.8); MEAN CELL VOLUME 77.8 FL (80.0-100.0); MEAN CORPUSCULAR HEMOGLOBIN 25.1 PG (27.0-34.0); MEAN CORPUSCULAR HGB CONC 32.2 % (32.0-36.0); MEAN PLATELET VOLUME 9.7 FL (7.0-11.0); MONO % 11.9 % (0.0-8.0); MONOCYTE # 0.8 TH/MM3 (0-0.9); NEUT % 67.3 % (16.0-70.0); PLATELET COUNT 242 TH/MM3 (150-450); RED BLOOD COUNT 3.82 MIL/MM3 (4.00-5.30); RED CELL DISTRIBUTION WIDTH 17.8 % (11.6-17.2)
[2017-12-13 08:36] LABS: ALBUMIN 2.2 GM/DL (3.4-5.0); BICARBONATE 25.4 MEQ/L (21.0-32.0); CALCIUM 7.4 MG/DL (8.5-10.1); CREATININE 0.92 MG/DL (0.50-1.00); TOTAL BILIRUBIN ADULT 0.4 MG/DL (0.2-1.0); TOTAL PROTEIN 7.4 GM/DL (6.4-8.2)
[2017-12-13 08:44] LABS: CALCIUM-PROTEIN CORRECTED 7.3 MG/DL (8.5-10.1)
[2017-12-13] MEDS: SODIUM CHLORIDE 0.9% FLUSH 10 ML FLUSH IV FLUSH SCH (09:00)
--- NOTE | 2017-12-13 09:08 | HHI.PR ---
Subjective Patient symptoms today Doing well, no pain, no fevers Objective Vital Signs Vital Signs Date Time Temp Pulse Resp B/P (MAP) Pulse Ox O2 Delivery O2 Flow Rate FiO2 12/13/17 00:00 98.8 67 18 124/60 (81) 94 12/12/17 20:00 98.5 85 18 164/74 (104) 95 12/12/17 16:00 98.1 77 17 131/68 (89) 98 12/12/17 12:00 97.9 81 16 133/76 (95) 96 Intake & Output 12/13/17 12/13/17 07:00 19:00 Bladder Scan Volume Amount 0 ml Result Diagram: 12/13/1771112/13/17711 Objective Remarks NAD, AAOx3 Resp NL Ab S/NT Medications and IVs Current Medications Medications (Trade) Dose Ordered Sig/Cristine Route Start Time Stop Time Status Last Admin Ertapenem 1000 mg/ Sodium Chloride 100 ml @ 200 mls/hr Q24H IV 12/12/17 00:30 12/13/17 01:28 Sodium Chloride 1,000 ml @ 100 mls/hr Q10H IV 12/12/17 02:00 12/13/17 03:12 (NS Flush) 2 ml UNSCH PRN IV FLUSH 12/12/17 02:00 (NS Flush) 2 ml BID IV FLUSH 12/12/17 09:00 12/12/17 22:18 (Zofran Inj) 4 mg Q6H PRN IVP 12/12/17 02:00 (Tylenol) 650 mg Q6H PRN PO 12/12/17 02:00 (Morphine Inj) 2 mg Q3H PRN IV 12/12/17 02:30 12/12/17 22:17 (Kamini-Colace) 1 tab BID PO 12/12/17 09:00 12/12/17 08:28 (Milk Of Magnesia Liq) 30 ml Q12H PRN PO 12/12/17 02:00 (Senokot) 17.2 mg Q12H PRN PO 12/12/17 02:00 (Dulcolax Supp) 10 mg DAILY PRN RECTAL 12/12/17 02:00 (Lactulose Liq) 30 ml DAILY PRN PO 12/12/17 02:00 (D50w (Vial) Inj) 50 ml UNSCH PRN IV PUSH 12/12/17 02:00 (Glucagon Inj) 1 mg UNSCH PRN OTHER 12/12/17 02:00 (NovoLOG SUPPLEMENTAL SCALE) 1 ACHS SLIDING SCALE SQ 12/12/17 08:00 12/12/17 12:00 (Ecotrin Ec) 81 mg DAILY PO 12/12/17 09:00 12/12/17 08:28 (Lipitor) 40 mg HS PO 12/12/17 21:00 12/12/17 22:15 (Catapres) 0.2 mg Q8HR PO 12/12/17 06:00 12/13/17 04:41 (Levemir Inj) 25 units HS SQ 12/12/17 21:00 12/12/17 22:25 (Imdur) 30 mg DAILY@07 PO 12/12/17 07:00 12/13/17 04:42 (Lopressor) 12.5 mg Q12HR PO 12/12/17 09:00 12/12/17 22:15 (Brilinta) 90 mg BID PO 12/12/17 09:00 12/12/17 22:19 (Desyrel) 50 mg HS PO 12/12/17 21:00 12/12/17 22:15 (Protonix) 20 mg DAILY PO 12/12/17 09:00 12/12/17 08:28 (Pill Splitter) 1 ea UNSCH PRN OTHER 12/12/17 02:45 Assessment and Plan Problem List: (1) Abdominal pain ICD Code: R10.9 - Unspecified abdominal pain Status: Acute (2) CVA tenderness ICD Code: M54.9 - Dorsalgia, unspecified Status: Resolved (3) Renal stone ICD Code: N20.0 - Calculus of kidney (4) UTI (urinary tract infection) ICD Code: N39.0 - Urinary tract infection, site not specified Status: Acute (5) DM (diabetes mellitus) ICD Code: E11.9 - Type 2 diabetes mellitus without complications Assessment and Plan Doing vvery well. No surgical intervention at this time Continue antibiotics per ID Patient is clear from Urology standpoint and may followup in clinic for further evaluation and treatment of her kidney stones and urinary incontinence Please call with questions Koko Young MD December 13, 2017 09:08
--- NOTE | 2017-12-13 09:26 | HHI.PR ---
Subjective Remarks Patient seen and examined this am. Vitals are stable and the patient is afebrile. States abdominal pain is better. Denies CP or SOB. Objective Vital Signs Date Time Temp Pulse Resp B/P (MAP) Pulse Ox O2 Delivery O2 Flow Rate FiO2 12/13/17 00:00 98.8 67 18 124/60 (81) 94 12/12/17 20:00 98.5 85 18 164/74 (104) 95 12/12/17 16:00 98.1 77 17 131/68 (89) 98 12/12/17 12:00 97.9 81 16 133/76 (95) 96 I/O 12/12/17 12/12/17 12/12/17 12/13/17 12/13/17 12/13/17 07:00 15:00 23:00 07:00 15:00 23:00 Intake Total 2340 ml 300 ml Balance 2340 ml 300 ml Intake Oral 240 ml 300 ml IV Total 2100 ml Bladder Scan Volume Amount 130 ml 0 ml # Voids 2 4 # Bowel Movements 0 0 Result Diagram: 12/13/17 0712 12/13/17 0712 Imaging Last Impressions Abdomen/Pelvis CT 12/12/17 0000 Signed Impressions: Service Date/Time: Tuesday, December 12, 2017 01:10 - CONCLUSION: Tiny stone at the right ureterovesical junction with moderate right hydronephrosis. Preston Mahmood MD Chest X-Ray 12/11/17 1026 Signed Impressions: Service Date/Time: Monday, December 11, 2017 23:27 - CONCLUSION: No acute disease Preston Mahmood MD Objective Remarks GENERAL: Well-appearing, no acute distress SKIN: Warm and dry. HEAD: Normocephalic. EYES: No scleral icterus. No injection or drainage. NECK: Supple, trachea midline. No JVD or lymphadenopathy. CARDIOVASCULAR: Regular rate and rhythm without murmurs, gallops, or rubs. RESPIRATORY: Breath sounds equal bilaterally. No accessory muscle use. GASTROINTESTINAL: Abdomen soft, no quadrant tenderness to palpation. MUSCULOSKELETAL: No cyanosis, or edema. A/P Problem List: (1) UTI (urinary tract infection) ICD Code: N39.0 - Urinary tract infection, site not specified Status: Resolved (2) Hypokalemia ICD Code: E87.6 - Hypokalemia Status: Acute (3) Pyelonephritis ICD Code: N12 - Tubulo-interstitial nephritis, not specified as acute or chronic Status: Acute (4) Hydronephrosis ICD Code: N13.30 - Unspecified hydronephrosis (5) UTI (urinary tract infection) ICD Code: N39.0 - Urinary tract infection, site not specified Status: Acute (6) DM (diabetes mellitus) ICD Code: E11.9 - Type 2 diabetes mellitus without complications (7) HTN (hypertension) ICD Code: I10 - Essential (primary) hypertension (8) Renal stone ICD Code: N20.0 - Calculus of kidney Assessment and Plan 77-year-old female with Sepsis due to UTI, renal stone Recurrent UTIs suspectible ESBL -Leukocytosis improved. Fever resolved. -CT abdomen and pelvis shows tiny stone at the right ureterovesicular junction with moderate right hydronephrosis -Urology consulted, no surgical intervention at this time. From a urological standpoint the patient may follow-up as an outpatient for further evaluation of kidney stones and urinary incontinence. -Infectious disease consulted, recommend continue IV ertapenem - Blood cultures pending HTN - home medications, metoprolol 12.5 mg twice daily, clonidine 0.2 mg every 8 KANCHAN -Improved. -Renally dose all meds, avoid nephrotoxic agents -Likely related to infection, continue IV fluids DM - hold metformin - Levemir 25 units at bedtime - Supplemental sliding scale Hypokalemia - replaced Hypocalcemia -Replaced CAD -Continue statin, Brilinta DVT prophy with bilateral SCDs Discharge Planning DC pending final recommendations for abx by RA. Deann Silva MD December 13, 2017 09:26
[2017-12-13] MEDS ORDERED: POTASSIUM CHLORIDE 25 MEQ EFFERVESCENT TAB PO ONE (09:30)
[2017-12-13] MEDS ORDERED: CALCIUM CARBONATE 1.25 GM (CA 500 MG) TAB PO ONE (09:30)
[2017-12-13] MEDS ORDERED: POTASSIUM CHLORIDE 10 MEQ CONTROLLED RELEASE TAB PO ONE (09:30)
[2017-12-13] MEDS ORDERED: PNEUMOCOCCAL POLYVALENT INJ 25 MCG/0.5 ML SYR IM ONE (10:00)
[2017-12-13] MEDS: METOPROLOL TARTRATE 25 MG TAB PO SCH (10:45)
[2017-12-13] MEDS: ASPIRIN EC 81 MG TABEC PO SCH (10:45)
[2017-12-13] MEDS: PANTOPRAZOLE SOD 20 MG DELAYED RELEASE TAB PO SCH (10:45)
[2017-12-13] MEDS: TICAGRELOR 90 MG TAB PO SCH (10:46)
[2017-12-13] MEDS: DOCUSATE SODIUM 50 MG/SENNA 8.6 MG TAB PO SCH (10:46)
[2017-12-13] MEDS: MORPHINE SULFATE 4 MG/ML INJ IV PRN (11:00)
[2017-12-13 12:00] VITALS: BP 153/70; PULSE 80; RESP 18; TEMP 98.6; O2SAT 95
--- NOTE | 2017-12-13 13:39 | HHI.IDPN ---
Subjective Subjective Remarks Patient seen and examined on behalf of Dr. Velazquez This is a 77-year-old female with past medical history significant for hypertension, diabetes, coronary artery disease and history of ESBL UTI who presented to [facility] ED with complaints of 5 day history of progressive right-sided groin and flank pain. Patient states she developed right-sided groin pain and then radiated around into the right flank starting on Thursday with low urinary output. She began to drink copious amounts of fluids which helped her increase her urinary output however did not help with the pain she was experiencing. Patient reports associated nausea and fatigue. She also reports an episode of rigors/chills yesterday. Patient states that she called her primary care's office on and was called in a prescription of Cipro by Dr. Craig of which she has taken 1 pill. Patient had a urinalysis done and was contacted on Thursday by Dr. Craig's nurse and told that she had a serious urinary tract infection and needed to come into the ED. patient reports sometime Thursday afternoon she began to develop dysuria. She denies any hematuria. She has a history of chronic incontinence. Patient has a history of Klebsiella pneumonia ESBL August 31, 2017 and was treated with a 14 day course of IV Ertapenem. Patient has history of recurrent urinary tract infections in the past with E. coli and Klebsiella pneumoniae. She has a history of kidney stones and underwent stent placement 2011. In the ED, patient presented with sepsis with a blood pressure of 200/83, heart rate 129, O2 sat 98% on RA, Temp 100.2 and WBC 18.2. K+ 3.2. Creatinine 1.12. Lactic Acid normal. UA positive for UTI. CXR with no acute findings. CT Abdomen/ Pelvis with tiny stone at right ureterovesical junction with moderate right hydronephrosis. Patient was given a dose of ertapenem in the ED and this has been continued following her admission. Infectious disease consultation has been requested for evaluation and management of ESBL UTI. Overnight notes reviewed Patient says she does not feel well and wants to go home She denies any fever or chills. Denies any nausea, vomiting or abdominal pain. No dysuria. No chest pain or dyspnea. Reports no appetite and states she 'feels gasy". Has a sensation of abdominal fullness and belching alot. Her last BM was Thursday and she thinks if she could have a BM she would feel better. She is upset at being given potassium and calcium pills earlier today afebrile WBC WNL UCX with mixed rula BCX with no growth x 1 day No further intervention this admission per Urology Antibiotics IV Ertapenem Current Medications Medications (Trade) Dose Ordered Sig/Cristine Route Start Time Stop Time Status Last Admin Ertapenem 1000 mg/ Sodium Chloride 100 ml @ 200 mls/hr Q24H IV 12/12/17 00:30 12/13/17 01:28 Sodium Chloride 1,000 ml @ 100 mls/hr Q10H IV 12/12/17 02:00 12/13/17 03:12 (NS Flush) 2 ml UNSCH PRN IV FLUSH 12/12/17 02:00 (NS Flush) 2 ml BID IV FLUSH 12/12/17 09:00 12/12/17 22:18 (Zofran Inj) 4 mg Q6H PRN IVP 12/12/17 02:00 (Tylenol) 650 mg Q6H PRN PO 12/12/17 02:00 (Morphine Inj) 2 mg Q3H PRN IV 12/12/17 02:30 12/13/17 11:00 (Kamini-Colace) 1 tab BID PO 12/12/17 09:00 12/13/17 10:46 (Milk Of Magnesia Liq) 30 ml Q12H PRN PO 12/12/17 02:00 (Senokot) 17.2 mg Q12H PRN PO 12/12/17 02:00 (Dulcolax Supp) 10 mg DAILY PRN RECTAL 12/12/17 02:00 (Lactulose Liq) 30 ml DAILY PRN PO 12/12/17 02:00 (D50w (Vial) Inj) 50 ml UNSCH PRN IV PUSH 12/12/17 02:00 (Glucagon Inj) 1 mg UNSCH PRN OTHER 12/12/17 02:00 (NovoLOG SUPPLEMENTAL SCALE) 1 ACHS SLIDING SCALE SQ 12/12/17 08:00 12/12/17 12:00 (Ecotrin Ec) 81 mg DAILY PO 12/12/17 09:00 12/13/17 10:45 (Lipitor) 40 mg HS PO 12/12/17 21:00 12/12/17 22:15 (Catapres) 0.2 mg Q8HR PO 12/12/17 06:00 12/13/17 04:41 (Levemir Inj) 25 units HS SQ 12/12/17 21:00 12/12/17 22:25 (Imdur) 30 mg DAILY@07 PO 12/12/17 07:00 12/13/17 04:42 (Lopressor) 12.5 mg Q12HR PO 12/12/17 09:00 12/13/17 10:45 (Brilinta) 90 mg BID PO 12/12/17 09:00 12/13/17 10:46 (Desyrel) 50 mg HS PO 12/12/17 21:00 12/12/17 22:15 (Protonix) 20 mg DAILY PO 12/12/17 09:00 12/13/17 10:45 (Pill Splitter) 1 ea UNSCH PRN OTHER 12/12/17 02:45 (Lovenox Inj) 30 mg Q24H SQ 12/13/17 21:00 Lines PIV with no e/o infection Past Medical History Hx of Klebsiella pneumonia ESBL UTI Recurrent UTIs Hypertension Diabetes Coronary artery disease Afib with paroxysmal episodes History of meningitis in 1995. History of encephalitis in 1975. Kidney stones Allergies: Coded Allergies: doxycycline (Verified Allergy, Severe, RASH, 12/12/17) minocycline (Verified Allergy, Severe, RASH, 12/12/17) penicillin G (Verified Allergy, Severe, Rash, 12/12/17) tigecycline (Verified Allergy, Severe, RASH, 12/12/17) Sulfa (Sulfonamide Antibiotics) (Verified Adverse Reaction, Severe, vomiting, 12/12/17) codeine (Verified Adverse Reaction, Severe, NAUSEA, 12/12/17) NAUSEA Objective . Vital Signs Date Time Temp Pulse Resp B/P (MAP) Pulse Ox O2 Delivery O2 Flow Rate FiO2 12/13/17 08:00 98.5 76 16 126/70 (88) 94 12/13/17 00:00 98.8 67 18 124/60 (81) 94 12/12/17 20:00 98.5 85 18 164/74 (104) 95 12/12/17 16:00 98.1 77 17 131/68 (89) 98 . Laboratory Tests Test 12/12/17 00:05 12/13/17 07:12 White Blood Count 18.2 TH/MM3 7.0 TH/MM3 Red Blood Count 4.41 MIL/MM3 3.82 MIL/MM3 Hemoglobin 11.2 GM/DL 9.6 GM/DL Hematocrit 34.0 % 29.7 % Mean Corpuscular Volume 77.0 FL 77.8 FL Mean Corpuscular Hemoglobin 25.3 PG 25.1 PG Mean Corpuscular Hemoglobin Concent 32.9 % 32.2 % Red Cell Distribution Width 17.9 % 17.8 % Platelet Count 252 TH/MM3 242 TH/MM3 Mean Platelet Volume 9.9 FL 9.7 FL Neutrophils (%) (Auto) 86.8 % 67.3 % Lymphocytes (%) (Auto) 3.3 % 16.8 % Monocytes (%) (Auto) 9.0 % 11.9 % Eosinophils (%) (Auto) 0.0 % 2.3 % Basophils (%) (Auto) 0.9 % 1.7 % Neutrophils # (Auto) 15.8 TH/MM3 4.7 TH/MM3 Lymphocytes # (Auto) 0.6 TH/MM3 1.2 TH/MM3 Monocytes # (Auto) 1.6 TH/MM3 0.8 TH/MM3 Eosinophils # (Auto) 0.0 TH/MM3 0.2 TH/MM3 Basophils # (Auto) 0.2 TH/MM3 0.1 TH/MM3 CBC Comment DIFF FINAL DIFF FINAL Differential Comment Laboratory Tests Test 12/12/17 00:05 12/13/17 07:12 Blood Urea Nitrogen 16 MG/DL 15 MG/DL Creatinine 1.12 MG/DL 0.92 MG/DL Random Glucose 179 MG/DL 98 MG/DL Total Protein 8.8 GM/DL 7.4 GM/DL Albumin 2.9 GM/DL 2.2 GM/DL Calcium Level 8.3 MG/DL 7.4 MG/DL Alkaline Phosphatase 382 U/L 293 U/L Aspartate Amino Transf (AST/SGOT) 53 U/L 43 U/L Alanine Aminotransferase (ALT/SGPT) 50 U/L 38 U/L Total Bilirubin 0.6 MG/DL 0.4 MG/DL Sodium Level 139 MEQ/L 143 MEQ/L Potassium Level 3.2 MEQ/L 3.4 MEQ/L Chloride Level 102 MEQ/L 109 MEQ/L Carbon Dioxide Level 24.5 MEQ/L 25.4 MEQ/L Anion Gap 13 MEQ/L 9 MEQ/L Estimat Glomerular Filtration Rate 47 ML/MIN 59 ML/MIN Lactic Acid Level 1.3 mmol/L Protein Corrected Calcium 7.3 MG/DL Microbiology Date/Time Source Procedure Growth Status 12/12/17 00:05 Blood Peripheral Aerobic Blood Culture - Preliminary NO GROWTH IN 1 DAY Resulted 12/12/17 00:05 Blood Peripheral Anaerobic Blood Culture - Preliminary NO GROWTH IN 1 DAY Resulted 12/12/17 00:00 Blood Peripheral Aerobic Blood Culture - Preliminary NO GROWTH IN 1 DAY Resulted 12/12/17 00:00 Blood Peripheral Anaerobic Blood Culture - Preliminary NO GROWTH IN 1 DAY Resulted 12/11/17 23:20 Urine Clean Catch Urine Culture - Final 50-100,000 CFU/ML MIXED RULA... Complete Imaging Last Impressions Abdomen/Pelvis CT 12/12/17 0000 Signed Impressions: Service Date/Time: Tuesday, December 12, 2017 01:10 - CONCLUSION: Tiny stone at the right ureterovesical junction with moderate right hydronephrosis. Preston Mahmood MD Chest X-Ray 12/11/17 2325 Signed Impressions: Service Date/Time: Monday, December 11, 2017 23:27 - CONCLUSION: No acute disease Preston Mahmood MD Physical Exam GENERAL: This is a well-nourished, well-developed female patient, in no apparent distress. Awake and alert. Looks uncomfortable sitting in bedside chair. SKIN: Warm and dry. No generalized rash. HEAD: Atraumatic. Normocephalic. No temporal or scalp tenderness. EYES: Pupils equal round and reactive. Extraocular motions intact. No scleral icterus. No injection or drainage. ENT: Nose without bleeding or purulent drainage. Throat without erythema, tonsillar hypertrophy or exudate. Uvula midline. Airway patent. No oral thrush. NECK: Trachea midline. No JVD or lymphadenopathy. Supple, nontender, no meningeal signs. CARDIOVASCULAR: Regular rate and rhythm without murmurs, gallops, or rubs. RESPIRATORY: Clear to auscultation. Breath sounds equal bilaterally. No wheezes , rales, or rhonchi. GASTROINTESTINAL: Abdomen soft, non-tender, nondistended. No guarding. MUSCULOSKELETAL: Extremities without clubbing, cyanosis, or edema.No calf tenderness. NEUROLOGICAL: Awake and alert. Cranial nerves II through XII grossly intact. Motor and sensory grossly within normal limits. No focal neurologic findings appreciated. Normal speech. PSYCHIATRIC: Irritable mood. Cooperative with exam. PIV with no evidence of infection Assessment & Plan Remarks ASSESSMENT: Sepsis with tachycardia with heart rate of 129, temperature 100.2, white blood cell count 18.2, source UTI, suspected ESBL UTI and right sided pyelonephritis -urine cx with growth of mixed rula -blood cx with no growth x 1 day History of previous Klebsiella pneumoniae ESBL UTI 08/31/17 History of recurrent UTIs -per Dr. Young possible neurogenic bladder and incontinence causing recurrent UTIs -low PVRs Right-sided renal stone/hydronephrosis: CT abdomen and pelvis shows tiny stone at the right ureterovesical junction with moderate right hydronephrosis -Urology consulted by primary team. No further intervention this admission. KANCHAN, secondary to above, resolved Uncontrolled hypertension at ED presentation, improved CAD s/p previous cardiac stents Diabetes C/o poor appetite, feeling of fullness, GERD like symptoms ?diabetic gastroparesis RECOMMENDATIONS: Patient may be discharged from ID standpoint - dw patient resuming Cipro she was prescribed by PCP prior to admission recommend Lactobacillus Patient advised to return to ED or contact PCP immediately if any recurrence of symptoms Patient to follow up with Dr. Young as outpatient Merary Jacobs December 13, 2017 13:39
[2017-12-13 16:00] VITALS: BP 130/74; PULSE 82; RESP 16; TEMP 98.4; O2SAT 96
[2017-12-13] MEDS ORDERED: LACTCHW3 CHEW (16:33)
--- NOTE | 2017-12-13 16:35 | HHI.DCPOC ---
Discharge Care Plan Diagnosis: (1) UTI (urinary tract infection) (2) Renal stone Goals to Promote Your Health * To prevent worsening of your condition and complications * To maintain your health at the optimal level Directions to Meet Your Goals Take your medications as prescribed Follow your dietary instruction Follow activity as directed Keep your appointments as scheduled Take your immunizations and boosters as scheduled If your symptoms worsen call your PCP, if no PCP go to Urgent Care Center or Emergency Room Smoking is Dangerous to Your Health. Avoid second hand smoke Call the 24-hour hour crisis hotline for domestic abuse at Deann Silva MD December 13, 2017 16:35
[2017-12-13] MEDS ORDERED: CIPR-9 PO (16:37)
[2017-12-13] MEDS ORDERED: ENOXAPARIN SODIUM 30 MG/0.3 ML SYRINGE SQ SCH (21:00)
== END 2017-12-13 18:58 | disposition home or self-care (01) | DRG 872 ==
LOC: NEPE 22:11 → NEDA 12-12 01:57 → N07B 12-12 04:31
PROVIDERS: ADMIT Internal Medicine; ATTEND Internal Medicine
DX: A41.9 Sepsis, unspecified organism (principal); N17.9 Acute kidney failure, unspecified; N39.0 Urinary tract infection, site not specified; N13.2 Hydronephrosis with renal and ureteral calculous obstruction; I10 Essential (primary) hypertension; I25.10 Atherosclerotic heart disease of native coronary artery without angina pectoris; Z95.5 Presence of coronary angioplasty implant and graft; Z79.02 Long term (current) use of antithrombotics/antiplatelets; Z79.82 Long term (current) use of aspirin; Z87.440 Personal history of urinary (tract) infections; E11.9 Type 2 diabetes mellitus without complications; Z79.84 Long term (current) use of oral hypoglycemic drugs; Z79.4 Long term (current) use of insulin; E78.5 Hyperlipidemia, unspecified; E87.6 Hypokalemia; E83.51 Hypocalcemia; Z87.891 Personal history of nicotine dependence; Z96.641 Presence of right artificial hip joint; Z96.651 Presence of right artificial knee joint
CPT/HCPCS: 71045; 74176; 80053; 81001; 82948; 83605; 85025; 87040; 87086; 96361; 96365; 96375; J1335; J1815; J2270; J2405; J7030

== ENCOUNTER → 2017-12-11 | Outpatient (CLI) | payer MEDICARE, OTHER ==
[~2017-12-11] MED LIST changes: +CIPR-9 PO; +LACTCHW3 CHEW
[2017-12-11 13:06] LABS: BILIRUBIN, URINE NEG (NEG); BLOOD, URINE MOD (NEG); GLUCOSE,URINE NEG (NEG); KETONE, URINE NEG (NEG); NITRITE,URINE POS (NEG); URINE COLOR YELLOW (YELLW/STRAW); URINE LEUKOCYTE ESTERASE LARGE (NEG)
[2017-12-11 13:09] LABS: ALBUMIN 3.1 GM/DL (3.4-5.0); AST (GOT) 64 U/L (15-37); BICARBONATE 22.9 MEQ/L (21.0-32.0); BLOOD UREA NITROGEN 14 MG/DL (7-18); CALCIUM 8.5 MG/DL (8.5-10.1); CHLORIDE 103 MEQ/L (98-107); CREATININE 1.11 MG/DL (0.50-1.00); GLOMERULAR FILTRATION RATE 48 ML/MIN (>89); GLUCOSE,FASTING 142 MG/DL (74-99); SODIUM (NA) 139 MEQ/L (136-145)
[2017-12-11 13:10] LABS: AUTOMATED NEUTROPHIL # 14.3 TH/MM3 (1.8-7.7); BASOPHIL # 0.1 TH/MM3 (0-0.2); BASOPHIL % 0.5 % (0.0-2.0); CHOLESTEROL 106 MG/DL (120-200); EOSINOPHIL % 0.2 % (0.0-4.0); HEMATOCRIT 36.6 % (35.0-46.0); HEMOGLOBIN 11.8 GM/DL (11.6-15.3); LYMPHOCYTE # 1.3 TH/MM3 (1.0-4.8); MEAN CELL VOLUME 78.8 FL (80.0-100.0); MEAN CORPUSCULAR HEMOGLOBIN 25.4 PG (27.0-34.0); MEAN CORPUSCULAR HGB CONC 32.3 % (32.0-36.0); MEAN PLATELET VOLUME 10.3 FL (7.0-11.0); MONO % 6.3 % (0.0-8.0); MONOCYTE # 1.1 TH/MM3 (0-0.9); PLATELET COUNT 295 TH/MM3 (150-450); RED BLOOD COUNT 4.64 MIL/MM3 (4.00-5.30); RED CELL DISTRIBUTION WIDTH 17.9 % (11.6-17.2); WHITE BLOOD COUNT 16.8 TH/MM3 (4.0-11.0)
[2017-12-11 13:15] LABS: BACTERIA, URINE MANY /hpf; WHITE BLOOD CELL CLUMPS MANY
[2017-12-11 13:21] LABS: ALKALINE PHOSPHATASE 411 U/L (45-117); ALT (GPT) 58 U/L (10-53); CHOLESTEROL/ HDL RATIO 2.18 RATIO; HDL CHOLESTEROL 48.6 MG/DL (40.0-60.0); LDL CHOLESTEROL 36 MG/DL (0-99); TOTAL BILIRUBIN ADULT 0.6 MG/DL (0.2-1.0); TOTAL PROTEIN 9.5 GM/DL (6.4-8.2); TRIGLYCERIDES 107 MG/DL (42-150)
[2017-12-11 15:41] LABS: HEMOGLOBIN A1C 6.8 % (4.3-6.0)
== END ==
LOC: ELAB 11:14
PROVIDERS: ATTEND Family Medicine
DX: M54.5 Low back pain (principal); E11.9 Type 2 diabetes mellitus without complications; E03.9 Hypothyroidism, unspecified; E78.2 Mixed hyperlipidemia; I10 Essential (primary) hypertension; K31.84 Gastroparesis; B96.20 Unspecified Escherichia coli [E. coli] as the cause of diseases classified elsewhere
CPT/HCPCS: 36415; 80053; 80061; 81001; 83036; 84443; 85025; 87077; 87086; 87186

== ENCOUNTER 2018-01-31 13:31 | Inpatient (IN) | payer MEDICARE, OTHER ==
[~2018-01-31] VITALS: Ht 172.7 cm; Wt 85.0 kg
[2018-01-31] VITALS (12 sets, daily range): BP systolic 101–159; BP diastolic 53–86; PULSE 72–152; RESP 15–24; TEMP 97.6–98.4; O2SAT 95–100
[~2018-01-31 13:31] MED LIST changes: +CIPR-9 PO; -INVA1INJ IV; +LACTCHW3 CHEW
[2018-01-31] MEDS ORDERED: APIX5TAB PO (13:51)
[2018-01-31] MEDS ORDERED: METO25TA3 PO (13:52)
[2018-01-31] MEDS ORDERED: SODIUM CHLOR 0.9% 1000 ML INJ 1,000 ML IV ONE (13:53)
[2018-01-31] MEDS ORDERED: METOPROLOL TARTRATE 5 MG/5 ML VIAL IV PUSH ONE (14:00)
[2018-01-31] MEDS ORDERED: SODIUM CHLORIDE 0.9% FLUSH 10 ML FLUSH IVF PRN ×2 (14:00→14:45)
--- NOTE | 2018-01-31 14:25 | RADRPT ---
EXAM DATE: 01/31/2018 2:19 PM EDT AGE/SEX: 77 years / Female INDICATIONS: Palpitations CLINICAL DATA: This is the patient's initial encounter. Patient reports that signs and symptoms have been present for 1 day and indicates a pain score of 0/10. MEDICAL/SURGICAL HISTORY: . Seizures. Cardiovascular disease. Hypertension. Diabetes . SURGI TOO HISTORY : Cholecystectomy. Hysterectomy. [place] [facility] [place]. . FINDINGS: A single AP view of the chest demonstrates the lungs to be symmetrically aerated without evidence of mass, infiltrate or effusion. The cardiomediastinal contours are unremarkable. Osseous structures a re intact. CONCLUSION: No acute cardiopulmonary disease Electronically signed by: Darron Cueto MD 01/31/2018 2:24 PM EDT
[2018-01-31] MEDS ORDERED: AMIODARONE INJ 150 MG in DEXTROSE 5% IN WATER 100ML INJ 97 ML IV ONE ×2 (14:36)
--- NOTE | 2018-01-31 14:45 | PD ---
HPI Chief Complaint: Syncope/Near-Syncope Time Seen by Provider: 13:53 Travel History International Travel<30 days: No Contact w/Intl Traveler<30days: No Traveled to known affect area: No History of Present Illness HPI 77-year-old female patient with history of new onset atrial fibrillation, currently on blood thinners, metoprolol, presents to the ER today because she started not feeling well today, was nauseous, and having palpitations, and her heart rate is in the 150s. Patient also states that she has been having some dysuria this morning and some blood in the urine, had a cystoscopy done several days ago. She denies any fevers, diarrhea, black stools, abdominal pains, chest pains, or other symptoms. Modifying Factors: None Associated Signs & Symptoms: Palpitations, nausea, vomiting, fast heart rate, urinary symptoms Risk Factors: History of atrial fibrillation PFSH Past Medical History Hx Anticoagulant Therapy: Yes (BRILLINTA/ELIQUIS) Arthritis: Yes Asthma: No Atrial Fibrillation: Yes Autoimmune Disease: No Blood Disorders: No Anxiety: No Depression: No Heart Rhythm Problems: No Cancer: No Cardiovascular Problems: Yes High Cholesterol: Yes Chemotherapy: No Chest Pain: No Congestive Heart Failure: No COPD: No Cerebrovascular Accident: No Diabetes: Yes (metformin, Lantus) Patient Takes Glucophage: No Diminished Hearing: No Endocrine: Yes Gastrointestinal Disorders: Yes (Gastroporesis) GERD: No Genitourinary: Yes Headaches: No Hepatitis: No Hiatal Hernia: No Hypertension: Yes Immune Disorder: No Implanted Vascular Access Dvce: Yes Kidney Stones: Yes Medical other: Yes (HX OF MENINGITIS 1995, ENCEPHELITIS 1975) Musculoskeletal: Yes Neurologic: Yes Psychiatric: No Reproductive: No Respiratory: Yes Immunizations Current: No Migraines: Yes Radiation Therapy: No Renal Failure: No Seizures: Yes Sickle Cell Disease: No Sleep Apnea: No Thyroid Disease: Yes (R lobe of thyroid enlarged and removed) Ulcer: No Tetanus Vaccination: > 5 Years PNEUMOCCOCAL Vaccine (Year): 1 Menopausal: Yes : 2 Para: 0 : 2 Past Surgical History AICD: No Appendectomy: Yes Arteriovenous Shunt: No Body Medical Devices: NECK AND LOWER BACK Cardiac Surgery: Yes (X3 stents placed 2016) Cholecystectomy: Yes Ear Surgery: No Endocrine Surgery: No Eye Surgery: Yes (L orbital bone fx) Genitourinary Surgery: Yes (R kidney ureter opened 1963) Gynecologic Surgery: Yes (Total hysterectomy 1971) Hysterectomy: Yes Insulin Pump: No Joint Replacement: Yes (Total R knee and R hip replacement) Oral Surgery: No Pacemaker: No Thoracic Surgery: Yes (RUL of lung removed 1990) Tonsillectomy: Yes Other Surgery: Yes (RIGHT UPPER LOBE LUNG SURE) Social History Alcohol Use: No Tobacco Use: No (QUIT 1990) Substance Use: No Allergies-Medications (Allergen,Severity, Reaction): Coded Allergies: doxycycline (Verified Allergy, Severe, RASH, 12/12/17) minocycline (Verified Allergy, Severe, RASH, 12/12/17) penicillin G (Verified Allergy, Severe, Rash, 12/12/17) tigecycline (Verified Allergy, Severe, RASH, 12/12/17) Sulfa (Sulfonamide Antibiotics) (Verified Adverse Reaction, Severe, vomiting, 12/12/17) codeine (Verified Adverse Reaction, Severe, NAUSEA, 12/12/17) NAUSEA Reported Meds & Prescriptions Reported Meds & Active Scripts Active Cipro (Ciprofloxacin HCl) 500 Mg Tab 500 Mg PO BID Lactinex (Lactobacillus Acidophilus) 1 Chew 1 Tab CHEW BID Reglan (Metoclopramide HCl) 10 Mg Tab 10 Mg PO TIDAC PRN Endocet (Oxycodone-Acetaminophen) 5-325 mg Tab 1 Tab PO Q4H PRN Epinephrine Inj 1 Mg/Ml (1 Ml) Inj 0.3 Mg IV PUSH ONCE PRN Solu-Cortef Inj (Hydrocortisone Sodium Succinate) 250 Mg/2 Ml Inj 250 Mg IV PUSH ONCE PRN Give over 30-60 seconds. Isosorbide Mononitrate ER (Isosorbide Mononitrate) 30 Mg Naty 30 Mg PO DAILY@07 Lisinopril 20 Mg Tab 40 Mg PO DAILY Brilinta (Ticagrelor) 90 Mg Tab 90 Mg PO BID Atorvastatin (Atorvastatin Calcium) 40 Mg Tab 40 Mg PO HS Reported Jardiance (Empagliflozin) 10 Mg Tab 10 Mg PO DAILY Metoprolol Tartrate 25 Mg Tab 25 Mg PO BID Eliquis (Apixaban) 5 Mg Tab 5 Mg PO BID Metformin (Metformin HCl) 1,000 Mg Tab 1,000 Mg PO BIDPC Vitamin C (Ascorbic Acid) 250 Mg Chew 500 Mg CHEW BID Trazodone (Trazodone HCl) 50 Mg Tab 50 Mg PO HS Tramadol (Tramadol HCl) 50 Mg Tab 100 Mg PO Q12HR PRN Synthroid (Levothyroxine Sodium) 88 Mcg Tab 88 Mcg PO DAILY Gabapentin 300 Mg Cap 300 Mg PO TID Omeprazole 20 Mg Tab 20 Mg PO DAILY Bethanechol 25 Mg Tab 25 Mg PO QID Review of Systems Except as stated in HPI: all other systems reviewed are Neg Physical Exam Narrative GENERAL: Well-developed elderly white female patient currently in moderate distress. Awake, lethargic. SKIN: Focused skin assessment warm/diaphoretic. HEAD: Atraumatic. Normocephalic. EYES: Pupils equal and round. No scleral icterus. No injection or drainage. ENT: No nasal bleeding or discharge. Mucous membranes pink and moist. NECK: Trachea midline. No JVD. CARDIOVASCULAR: Fast and irregularly irregular. RESPIRATORY: No accessory muscle use. Clear to auscultation. Breath sounds equal bilaterally. GASTROINTESTINAL: Abdomen soft, non-tender, nondistended. Hepatic and splenic margins not palpable. MUSCULOSKELETAL: No obvious deformities. No clubbing. No cyanosis. No edema. NEUROLOGICAL: Awake and alert. No obvious cranial nerve deficits. Motor grossly within normal limits. Normal speech. PSYCHIATRIC: Appropriate mood and affect; insight and judgment normal. Data Data Last Documented VS Vital Signs Date Time Temp Pulse Resp B/P (MAP) Pulse Ox O2 Delivery O2 Flow Rate FiO2 01/31/18 16:15 108 18 140/84 (102) 100 Nasal Cannula 2.00 01/31/18 13:32 97.6 Orders Orders Complete Blood Count With Diff (01/31/18 13:53) Comprehensive Metabolic Panel (01/31/18 13:53) Magnesium (Mg) (01/31/18 13:53) Ckmb (Isoenzyme) Profile (01/31/18 13:53) Troponin I (01/31/18 13:53) Act Partial Throm Time (Ptt) (01/31/18 13:53) Prothrombin Time / Inr (Pt) (01/31/18 13:53) Urinalysis - C+S If Indicated (01/31/18 13:53) Chest, Single Ap (01/31/18 13:53) Ecg Monitoring (01/31/18 13:53) Iv Access Insert/Monitor (01/31/18 13:53) Oximetry (01/31/18 13:53) Sodium Chloride 0.9% Flush (Ns Flush) (01/31/18 14:00) Sodium Chlor 0.9% 1000 Ml Inj (Ns 1000 M (01/31/18 13:53) Metoprolol Tartrate Inj (Lopressor Inj) (01/31/18 14:00) Dextrose 5% In Wate... W/Amiodarone Inj (01/31/18 14:36) Sodium Chloride 0.9% Flush (Ns Flush) (01/31/18 14:45) Promethazine Inj (Phenergan Inj) (01/31/18 15:00) Verapamil Inj (Isoptin Inj) (01/31/18 16:00) Sodium Chlor 0.9% 1000 Ml Inj (Ns 1000 M (01/31/18 16:15) Consult Cardiology (01/31/18 ) Thyroid Stimulating Hormone (01/31/18 16:27) ^ Other Nursing Orders (01/31/18 16:27) Bedside Glucose OSVALDO.CSUGAR (01/31/18 16:27) Blood Glucose Goal (Criteria) (01/31/18 16:27) Hypoglycemia 70 Mg/Dl Or < (01/31/18 16:27) Notify Dr: Other (01/31/18 16:27) Dextrose 50% In Richard (Vial) Inj (D50w (Vi (01/31/18 16:30) Glucagon Inj (Glucagon Inj) (01/31/18 16:30) Insulin Aspart Supplemtl Scale (Novolog (01/31/18 17:00) ^ Other Nursing Orders (01/31/18 15:15) Admit To Inpatient (01/31/18 ) Vital Signs (Adult) Q4H (01/31/18 16:29) Activity Oob With Assistance (01/31/18 16:29) Home Performance Laborer / Telemetry .CONTINUOUS (01/31/18 16:29) Intake + Output OSVALDO.QSHIFT (01/31/18 16:29) Diet 1800 Ada Cons Carb (01/31/18 Dinner) Diet Heart Healthy (01/31/18 Dinner) Sodium Chloride 0.9% Flush (Ns Flush) (01/31/18 16:30) Sodium Chloride 0.9% Flush (Ns Flush) (01/31/18 21:00) Acetaminophen (Tylenol) (01/31/18 16:30) Basic Metabolic Panel (Bmp) (02/01/18 06:00) Complete Blood Count With Diff (02/01/18 06:00) Resp Oxygen Blayne C Titrat 1-4 L (01/31/18 ) Pt Request For Service (01/31/18 16:29) Case Management Consult (01/31/18 16:29) Scd Bilateral/Knee High OSVALDO.BID (01/31/18 16:29) Acetaminophen (Tylenol) (01/31/18 16:30) Naloxone Inj (Narcan Inj) (01/31/18 16:30) Docusate Sodium-Senna (Kamini-Colace) (01/31/18 21:00) Sennosides (Senokot) (01/31/18 16:30) Bisacodyl Supp (Dulcolax Supp) (01/31/18 16:30) Lactulose Liq (Lactulose Liq) (01/31/18 16:30) Inpatient Certification (01/31/18 ) Code Status (01/31/18 16:29) Electrocardiogram (01/31/18 13:41) Apixaban (Eliquis) (01/31/18 21:00) Atorvastatin (Lipitor) (01/31/18 21:00) Bethanechol (Urecholine) (01/31/18 18:00) Ciprofloxacin (Cipro) (01/31/18 21:00) Gabapentin (Neurontin) (01/31/18 18:00) Levothyroxine (Synthroid) (02/01/18 06:00) Oxycodone-Acetamin 5-325 Mg (Percocet (01/31/18 16:45) Ticagrelor (Brilinta) (01/31/18 21:00) Tramadol (Ultram) (01/31/18 16:45) Trazodone (Desyrel) (01/31/18 21:00) Lactobacillus Acidophilus (Lactinex) (01/31/18 21:00) Pantoprazole (Protonix) (02/01/18 09:00) Ondansetron Odt (Zofran Odt) (01/31/18 16:30) Admit Order (Ed Use Only) (01/31/18 16:35) Metoprolol Tartrate (Lopressor) (01/31/18 21:00) Labs Laboratory Tests Test 01/31/18 14:31 01/31/18 15:25 Blood Urea Nitrogen 32 MG/DL Creatinine 1.68 MG/DL Random Glucose 214 MG/DL Total Protein 9.2 GM/DL Albumin 3.9 GM/DL Calcium Level 9.1 MG/DL Magnesium Level 1.2 MG/DL Alkaline Phosphatase 198 U/L Aspartate Amino Transf (AST/SGOT) 45 U/L Alanine Aminotransferase (ALT/SGPT) 39 U/L Total Bilirubin 0.4 MG/DL Sodium Level 140 MEQ/L Potassium Level 4.4 MEQ/L Chloride Level 105 MEQ/L Carbon Dioxide Level 19.9 MEQ/L Anion Gap 15 MEQ/L Estimat Glomerular Filtration Rate 30 ML/MIN Total Creatine Kinase 84 U/L Troponin I 0.03 NG/ML White Blood Count 9.7 TH/MM3 Red Blood Count 4.51 MIL/MM3 Hemoglobin 11.6 GM/DL Hematocrit 36.6 % Mean Corpuscular Volume 81.3 FL Mean Corpuscular Hemoglobin 25.7 PG Mean Corpuscular Hemoglobin Concent 31.6 % Red Cell Distribution Width 19.3 % Platelet Count 249 TH/MM3 Mean Platelet Volume 10.8 FL Neutrophils (%) (Auto) 81.3 % Lymphocytes (%) (Auto) 11.5 % Monocytes (%) (Auto) 5.1 % Eosinophils (%) (Auto) 0.8 % Basophils (%) (Auto) 1.3 % Neutrophils # (Auto) 7.8 TH/MM3 Lymphocytes # (Auto) 1.1 TH/MM3 Monocytes # (Auto) 0.5 TH/MM3 Eosinophils # (Auto) 0.1 TH/MM3 Basophils # (Auto) 0.1 TH/MM3 CBC Comment DIFF FINAL Differential Comment Prothrombin Time 11.6 SEC Prothromb Time International Ratio 1.1 RATIO Activated Partial Thromboplast Time 28.2 SEC MDM Medical Decision Making Medical Screen Exam Complete: Yes Emergency Medical Condition: Yes Medical Record Reviewed: Yes Interpretation(s) Laboratory Tests Test 01/31/18 14:31 01/31/18 15:25 Blood Urea Nitrogen 32 MG/DL (7-18) Creatinine 1.68 MG/DL (0.50-1.00) Random Glucose 214 MG/DL (74-106) Total Protein 9.2 GM/DL (6.4-8.2) Magnesium Level 1.2 MG/DL (1.5-2.5) Alkaline Phosphatase 198 U/L (45-117) Aspartate Amino Transf (AST/SGOT) 45 U/L (15-37) Carbon Dioxide Level 19.9 MEQ/L (21.0-32.0) Estimat Glomerular Filtration Rate 30 ML/MIN (>89) Mean Corpuscular Hemoglobin 25.7 PG (27.0-34.0) Mean Corpuscular Hemoglobin Concent 31.6 % (32.0-36.0) Red Cell Distribution Width 19.3 % (11.6-17.2) Neutrophils (%) (Auto) 81.3 % (16.0-70.0) Neutrophils # (Auto) 7.8 TH/MM3 (1.8-7.7) Last 24 hours Impressions Chest X-Ray 01/31/18 1353 Signed Impressions: CONCLUSION: No acute cardiopulmonary disease Differential Diagnosis Urinary symptoms, palpitations: Tachycardia dysrhythmia versus dehydration versus sepsis Narrative Course Evaluation shows that she is in A. fib with RVR. Rate is in the 150s 160s. Patient was given metoprolol IV in the ER with lowering of blood pressure but no significant lowering of heart rate. It is noted that when she vomits in the ER, she vasovagal and her heart rate goes down to the 70s. However, it quickly returns to the 150s again. She was then given a small dose of amiodarone at which point she becomes nauseous and starts vomiting and her heart rate drops down to the 30s. At this point, amiodarone was stopped. Case was discussed with Dr. 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 Christy, and she states that she would try verapamil or digoxin IV instead. IV fluids were given to her meanwhile, her lab work does show that she has significant BUN and creatinine elevation concerning for dehydration as well. Abdomen is fairly benign I am not suspecting acute intra-abdominal process. Patient has no complaints of chest pain. Case was then discussed with Dr. Mondragon for admission for further treatment. Diagnosis Primary Impression: Atrial fibrillation with RVR Additional Impressions: Nausea and vomiting Acute kidney injury Admitting Information Admitting Physician Requests: Admit Gene Weaver MD 24, 2018 14:45
[2018-01-31 14:59] LABS: ALT (GPT) 39 U/L (10-53)
[2018-01-31] MEDS ORDERED: PROMETHAZINE INJ 25 MG/ML VIAL IM ONE (15:00)
[2018-01-31 15:03] LABS: ALKALINE PHOSPHATASE 198 U/L (45-117); TOTAL BILIRUBIN ADULT 0.4 MG/DL (0.2-1.0); TOTAL PROTEIN 9.2 GM/DL (6.4-8.2); TROPONIN I 0.03 NG/ML (0.02-0.05)
[2018-01-31 15:08] LABS: ALBUMIN 3.9 GM/DL (3.4-5.0); AST (GOT) 45 U/L (15-37); BICARBONATE 19.9 MEQ/L (21.0-32.0); BLOOD UREA NITROGEN 32 MG/DL (7-18); CALCIUM 9.1 MG/DL (8.5-10.1); CHLORIDE 105 MEQ/L (98-107); CREATININE 1.68 MG/DL (0.50-1.00); GLOMERULAR FILTRATION RATE 30 ML/MIN (>89); GLUCOSE,RANDOM 214 MG/DL (74-106); MAGNESIUM 1.2 MG/DL (1.5-2.5); SODIUM (NA) 140 MEQ/L (136-145)
[2018-01-31 15:46] LABS: INTERNATIONAL NORMALIZED RATIO 1.1 RATIO; PROTHROMBIN TIME - PATIENT 11.6 SEC (9.8-11.6)
[2018-01-31 15:51] LABS: AUTOMATED NEUTROPHIL # 7.8 TH/MM3 (1.8-7.7); BASOPHIL # 0.1 TH/MM3 (0-0.2); BASOPHIL % 1.3 % (0.0-2.0); EOSINOPHIL # 0.1 TH/MM3 (0-0.4); EOSINOPHIL % 0.8 % (0.0-4.0); HEMATOCRIT 36.6 % (35.0-46.0); HEMOGLOBIN 11.6 GM/DL (11.6-15.3); LYMPH % 11.5 % (9.0-44.0); LYMPHOCYTE # 1.1 TH/MM3 (1.0-4.8); MEAN CELL VOLUME 81.3 FL (80.0-100.0); MEAN CORPUSCULAR HEMOGLOBIN 25.7 PG (27.0-34.0); MEAN CORPUSCULAR HGB CONC 31.6 % (32.0-36.0); MEAN PLATELET VOLUME 10.8 FL (7.0-11.0); MONO % 5.1 % (0.0-8.0); MONOCYTE # 0.5 TH/MM3 (0-0.9); NEUT % 81.3 % (16.0-70.0); PLATELET COUNT 249 TH/MM3 (150-450); RED BLOOD COUNT 4.51 MIL/MM3 (4.00-5.30); RED CELL DISTRIBUTION WIDTH 19.3 % (11.6-17.2); WHITE BLOOD COUNT 9.7 TH/MM3 (4.0-11.0)
[2018-01-31] MEDS ORDERED: VERAPAMIL HCL 5 MG/2 ML VIAL IV PUSH ONE (16:00)
[2018-01-31] MEDS ORDERED: SODIUM CHLOR 0.9% 1000 ML INJ 1,000 ML IV SCH (16:15)
[2018-01-31] MEDS ORDERED: SODIUM CHLORIDE 0.9% FLUSH 10 ML FLUSH IV FLUSH PRN (16:30)
[2018-01-31] MEDS ORDERED: LACTULOSE SYRUP 20 GM/30 ML CUP PO PRN (16:30)
[2018-01-31] MEDS ORDERED: DEXTROSE 50% IN WATER 50 ML VIAL(D50) IV PUSH PRN (16:30)
[2018-01-31] MEDS ORDERED: GLUCAGON 1 MG/ML VIAL OTHER PRN (16:30)
[2018-01-31] MEDS ORDERED: ACETAMINOPHEN 325 MG TAB PO PRN ×2 (16:30)
[2018-01-31] MEDS ORDERED: SENNOSIDES 8.6 MG TAB PO PRN (16:30)
[2018-01-31] MEDS ORDERED: NALOXONE HCL 0.4 MG/ML AMP IV PUSH PRN (16:30)
[2018-01-31] MEDS ORDERED: BISACODYL 10 MG SUPP RECTAL PRN (16:30)
[2018-01-31] MEDS ORDERED: ONDANSETRON ODT 4 MG TAB PO PRN (16:30)
--- NOTE | 2018-01-31 16:37 | HHI.HP ---
HPI Service [facility] Primary Care Physician Felicia Craig MD Admission Diagnosis Diagnoses: Chief Complaint: Palpitations Travel History International Travel<30 Days: No Contact w/Intl Traveler <30 Da: No Traveled to Known Affected Are: No History of Present Illness This is a 77-year-old female who presents to the emergency department because of palpitations. This morning she complained of not feeling well and developed nausea and several episodes of vomiting associated with palpitations. Denies chest pain, shortness of breath, dizziness, diaphoresis, fever, chills, diarrhea and constipation. Recently diagnosed with atrial fibrillation on metoprolol and Eliquis which patient has been compliant with. In the emergency department, she received metoprolol IV which lowered her BP to systolic of 105, she also was given amiodarone IV with heart rate down to 30s. As recommended by cardiology, she was also given IV verapamil patient remained in RVR. Discussed with Dr Ardon, patient will be started on esmolol drip and increased metoprolol p.o. to 50 mg twice a day first dose now. Patient also complains of dysuria this morning. She is on last day of 7 day course of ciprofloxacin after she had cystoscopy for chronic incontinence. Review of Systems Except as stated in HPI: all other systems reviewed are Neg Past Family Social History Past Medical History As previously mentioned. Coronary artery disease, diabetes mellitus, hypertension, seizure, thyroidectomy, history of meningoencephalitis Past Surgical History As previously mentioned appendectomy, neck and lower back surgery, stents, cholecystectomy, left orbital bone fracture, right kidney ureter surgery, total hysterectomy, right knee and right hip replacement, right upper lung removed Reported Medications Cipro (Ciprofloxacin HCl) 500 Mg Tab 500 Mg PO BID Lactinex (Lactobacillus Acidophilus) 1 Chew 1 Tab CHEW BID Reglan (Metoclopramide HCl) 10 Mg Tab 10 Mg PO TIDAC PRN Endocet (Oxycodone-Acetaminophen) 5-325 mg Tab 1 Tab PO Q4H PRN Epinephrine Inj 1 Mg/Ml (1 Ml) Inj 0.3 Mg IV PUSH ONCE PRN Solu-Cortef Inj (Hydrocortisone Sodium Succinate) 250 Mg/2 Ml Inj 250 Mg IV PUSH ONCE PRN Give over 30-60 seconds. Isosorbide Mononitrate ER (Isosorbide Mononitrate) 30 Mg Naty 30 Mg PO DAILY@07 Lisinopril 20 Mg Tab 40 Mg PO DAILY Brilinta (Ticagrelor) 90 Mg Tab 90 Mg PO BID Atorvastatin (Atorvastatin Calcium) 40 Mg Tab 40 Mg PO HS Reported Jardiance (Empagliflozin) 10 Mg Tab 10 Mg PO DAILY Metoprolol Tartrate 25 Mg Tab 25 Mg PO BID Eliquis (Apixaban) 5 Mg Tab 5 Mg PO BID Metformin (Metformin HCl) 1,000 Mg Tab 1,000 Mg PO BIDPC Vitamin C (Ascorbic Acid) 250 Mg Chew 500 Mg CHEW BID Trazodone (Trazodone HCl) 50 Mg Tab 50 Mg PO HS Tramadol (Tramadol HCl) 50 Mg Tab 100 Mg PO Q12HR PRN Synthroid (Levothyroxine Sodium) 88 Mcg Tab 88 Mcg PO DAILY Gabapentin 300 Mg Cap 300 Mg PO TID Omeprazole 20 Mg Tab 20 Mg PO DAILY Bethanechol 25 Mg Tab 25 Mg PO QID Allergies: Coded Allergies: doxycycline (Verified Allergy, Severe, RASH, 12/12/17) minocycline (Verified Allergy, Severe, RASH, 12/12/17) penicillin G (Verified Allergy, Severe, Rash, 12/12/17) tigecycline (Verified Allergy, Severe, RASH, 12/12/17) Sulfa (Sulfonamide Antibiotics) (Verified Adverse Reaction, Severe, vomiting, 12/12/17) codeine (Verified Adverse Reaction, Severe, NAUSEA, 12/12/17) NAUSEA Family History Coronary artery disease Social History Does not drink. She quit smoking Physical Exam Vital Signs Vital Signs Date Time Temp Pulse Resp B/P (MAP) Pulse Ox O2 Delivery O2 Flow Rate FiO2 01/31/18 16:15 108 18 140/84 (102) 100 Nasal Cannula 2.00 01/31/18 15:10 138 18 137/66 (89) 100 Nasal Cannula 2.00 01/31/18 15:08 143 119/90 01/31/18 14:10 130 18 100 Nasal Cannula 2.00 01/31/18 14:00 152 18 106/64 (78) 97 Nasal Cannula 2.00 01/31/18 13:41 150 18 95 Nasal Cannula 01/31/18 13:32 97.6 141 24 159/82 (181) 100 Physical Exam GENERAL: This is a well-nourished, well-developed patient, in no apparent distress. She looks dehydrated and weak SKIN: No rashes, ecchymoses or lesions. Cool and dry. HEAD: Atraumatic. Normocephalic. No temporal or scalp tenderness. EYES: Pupils equal round and reactive. Extraocular motions intact. No scleral icterus. No injection or drainage. ENT: Nose without bleeding, purulent drainage or septal hematoma. Throat without erythema, tonsillar hypertrophy or exudate. Uvula midline. Airway patent. NECK: Trachea midline. No JVD or lymphadenopathy. Supple, nontender, no meningeal signs. CARDIOVASCULAR: Irregularly irregular tachycardic RESPIRATORY: Clear to auscultation. Breath sounds equal bilaterally. No wheezes , rales, or rhonchi. GASTROINTESTINAL: Abdomen soft, non-tender, nondistended. No guarding. MUSCULOSKELETAL: Extremities without clubbing, cyanosis, or edema. No joint tenderness, effusion, or edema noted. No calf tenderness. Negative Homans sign bilaterally. NEUROLOGICAL: Awake and alert. Cranial nerves II through XII intact. Motor and sensory grossly within normal limits. Five out of 5 muscle strength in all muscle groups. Normal speech. Laboratory Laboratory Tests Test 01/31/18 14:31 01/31/18 15:25 Blood Urea Nitrogen 32 Creatinine 1.68 Random Glucose 214 Total Protein 9.2 Albumin 3.9 Calcium Level 9.1 Magnesium Level 1.2 Alkaline Phosphatase 198 Aspartate Amino Transf (AST/SGOT) 45 Alanine Aminotransferase (ALT/SGPT) 39 Total Bilirubin 0.4 Sodium Level 140 Potassium Level 4.4 Chloride Level 105 Carbon Dioxide Level 19.9 Anion Gap 15 Estimat Glomerular Filtration Rate 30 Total Creatine Kinase 84 Troponin I 0.03 White Blood Count 9.7 Red Blood Count 4.51 Hemoglobin 11.6 Hematocrit 36.6 Mean Corpuscular Volume 81.3 Mean Corpuscular Hemoglobin 25.7 Mean Corpuscular Hemoglobin Concent 31.6 Red Cell Distribution Width 19.3 Platelet Count 249 Mean Platelet Volume 10.8 Neutrophils (%) (Auto) 81.3 Lymphocytes (%) (Auto) 11.5 Monocytes (%) (Auto) 5.1 Eosinophils (%) (Auto) 0.8 Basophils (%) (Auto) 1.3 Neutrophils # (Auto) 7.8 Lymphocytes # (Auto) 1.1 Monocytes # (Auto) 0.5 Eosinophils # (Auto) 0.1 Basophils # (Auto) 0.1 CBC Comment DIFF FINAL Differential Comment Prothrombin Time 11.6 Prothromb Time International Ratio 1.1 Activated Partial Thromboplast Time 28.2 Result Diagram: 01/31/18 1525 01/31/18 1431 Imaging Last Impressions Chest X-Ray 01/31/18 1353 Signed Impressions: CONCLUSION: No acute cardiopulmonary disease Caprini VTE Risk Assessment Caprini VTE Risk Assessment: Mod/High Risk (score >= 2) Caprini Risk Assessment Model Point Value = 1 Point Value = 2 Point Value = 3 Point Value = 5 Age 41-60 Minor surgery BMI > 25 kg/m2 Swollen legs Varicose veins or History of unexplained or recurrent spontaneous Oral contraceptives or hormone replacement Sepsis (< 1 month) Serious lung disease, including pneumonia (< 1 month) Abnormal pulmonary function Acute myocardial infarction Congestive heart failure (< 1 month) History of inflammatory bowel disease Medical patient at bed rest Age 61-74 Arthroscopic surgery Major open surgery (> 45 min) Laparoscopic surgery (> 45 min) Malignancy Confined to bed (> 72 hours) Immobilizing plaster cast Central venous access Age >= 75 History of VTE Family history of VTE Factor V Leiden Prothrombin [id number] Lupus anticoagulant Anticardiolipin antibodies Elevated serum homocysteine Heparin-induced thrombocytopenia Other congenital or acquired thrombophilia Stroke (< 1 month) Elective arthroplasty Hip, pelvis, or leg fracture Acute spinal cord injury (< 1 month) Prophylaxis Regimen Total Risk Factor Score Risk Level Prophylaxis Regimen 0-1 Low Early ambulation 2 Moderate Order ONE of the following: *Sequential Compression Device (SCD) *Heparin 5000 units SQ BID 3-4 Higher Order ONE of the following medications: *Heparin 5000 units SQ TID *Enoxaparin/Lovenox 40 mg SQ daily (WT < 150 kg, CrCl > 30 mL/min) *Enoxaparin/Lovenox 30 mg SQ daily (WT < 150 kg, CrCl > 10-29 mL/min) *Enoxaparin/Lovenox 30 mg SQ BID (WT < 150 kg, CrCl > 30 mL/min) AND/OR *Sequential Compression Device (SCD) 5 or more Highest Order ONE of the following medications: *Heparin 5000 units SQ TID (Preferred with Epidurals) *Enoxaparin/Lovenox 40 mg SQ daily (WT < 150 kg, CrCl > 30 mL/min) *Enoxaparin/Lovenox 30 mg SQ daily (WT < 150 kg, CrCl > 10-29 mL/min) *Enoxaparin/Lovenox 30 mg SQ BID (WT < 150 kg, CrCl > 30 mL/min) AND *Sequential Compression Device (SCD) Assessment and Plan Assessment and Plan This is a 77-year-old female who presents to the emergency department because of palpitations. This morning she complained of not feeling well and developed nausea and several episodes of vomiting associated with palpitations. Denies chest pain, shortness of breath, dizziness, diaphoresis, fever, chills, diarrhea and constipation. Recently diagnosed with atrial fibrillation on metoprolol and Eliquis which patient has been compliant with. In the emergency department, she received metoprolol IV which lowered her BP to systolic of 105, she also was given amiodarone IV with heart rate down to 30s. As recommended by cardiology, she was also given IV verapamil patient remained in RVR. A. fib with RVR. Check TSH and trend cardiac enzymes with EKG tracing interpreted by me with a fibrillation with RVR with T inversion in the lateral leads and slight ST depression in V4 to V6. Discussed with Dr Ardon, patient will be started on esmolol drip and increased metoprolol p.o. to 50 mg twice a day first dose now. Continue Eliquis. Aspirin 1. Acute kidney injury secondary to dehydration from nausea and vomiting. Patient received fluid bolus in the emergency department. Continue gentle IV hydration with recent history of fluid overload .Avoid nephrotoxins. Obtain urinalysis Dysuria with history of chronic incontinence and recent cystoscopy on last dose of 7 day course ciprofloxacin. Repeat urinalysis Multiple medical conditions coronary artery disease, diabetes mellitus, hypertension, seizure with history of meningoencephalitis and thyroidectomy. Continue outpatient medications as appropriate. Hold diabetic and antihypertensive medications for now because of vomiting and dehydration. Fingersticks with sliding scale coverage DVT prophylaxis with SCD and Eliquis Code Status full Discussed Condition With pt and family Vimal Mondragon MD Jan 31, 2018 16:37
[2018-01-31] MEDS ORDERED: EMPA1TAB PO (16:42)
[2018-01-31] MEDS ORDERED: oxyCODONE/ACETAMINOPHEN 5 MG/325 MG TAB PO PRN (16:45)
[2018-01-31] MEDS ORDERED: traMADol HCL 50 MG TAB PO PRN (16:45)
[2018-01-31] MEDS ORDERED: METOPROLOL TARTRATE 50 MG TAB PO ONE (17:00)
[2018-01-31] MEDS: INSULIN ASPART SUPPLEMENTAL SCALE SQ SCH ×2 (17:00→21:00)
[2018-01-31] MEDS ORDERED: ASPIRIN 325 MG TAB PO ONE (17:00)
[2018-01-31] MEDS ORDERED: NITROGLYCERIN 0.4 MG SL 25 TABS/BTL SL PRN (17:00)
[2018-01-31] MEDS ORDERED: ESMOLOL DRIP INJ PREMIX 250 ML IV PRN (18:00)
--- NOTE | 2018-01-31 18:01 | PD.CONS ---
HPI Service CP Cardiology Consult Requested By Dr. Mondragon Reason for Consult Afib RVR Primary Care Physician Felicia Craig MD History of Present Illness This is a 77-year-old lady, patient of Dr. Mynor Christy, presents to the emergency department because of nausea and palpitations. This morning she complained of not feeling well and developed nausea and several episodes of vomiting associated with palpitations. Denies chest pain, shortness of breath, dizziness, diaphoresis, fever, chills, diarrhea and constipation. Recently diagnosed with atrial fibrillation RVR while she was visiting in [place] 01/17/2018, and was on metoprolol and Eliquis which patient has been compliant with.She had seen Dr. Christy since. In the emergency department, Telemetry showed afib RVR in 150-170 bpm, which was reduced to 120s after receiving IV Lopressor, IV Verapamil and IV Amiodarone bolus. Her HR was done to 30s while she was vomiting. Patient also complains of dysuria this morning. She is on last day of 7 day course of ciprofloxacin after she had cystoscopy for chronic incontinence. SHe has hx of paroxysmal afib, CAD, LAD PCI, hx of NSTEMI, HTN HLP, GERD. Review of Systems Consitutional: COMPLAINS OF: Fatigue, DENIES: Fever, Chills, Weight gain, Weight loss Eyes: DENIES: Amaurosis Fugax, Change in vision HEENT: DENIES: Lightheadedness, Change in hearing Respiratory: COMPLAINS OF: See HPI, DENIES: Cough, Snoring, Shortness of breath , Wheezing, Sputum production Cardiovascular: COMPLAINS OF: Palpitations, DENIES: See HPI, Chest pain, Syncope, Tachycardia Gastrointestinal: COMPLAINS OF: Nausea, Vomiting, DENIES: Change in bowel habits, Reflux, Bloody stools, Melena Genitourinary: DENIES: Urinary incontinence, Difficulty voiding Integumentary: DENIES: Rash Neurologic: DENIES: Tingling or numbness, Memory problems, Poor Balance, Stroke symptoms Musculoskeletal: COMPLAINS OF: Joint pain, DENIES: Muscle pain, Limited range of motion, Back pain Psychiatric: DENIES: Anxiety, Depression, Sleep disturbances Hematologic: DENIES: Bruising tendencies, Bleeding tendencies Endocrine: DENIES: Weight gain, Weight loss, Thyroid disease Past Family Social History Allergies: Coded Allergies: doxycycline (Verified Allergy, Severe, RASH, 5/5/18) minocycline (Verified Allergy, Severe, RASH, 12/12/17) penicillin G (Verified Allergy, Severe, Rash, 12/12/17) tigecycline (Verified Allergy, Severe, RASH, 12/12/17) Sulfa (Sulfonamide Antibiotics) (Verified Adverse Reaction, Severe, vomiting, 12/12/17) codeine (Verified Adverse Reaction, Severe, NAUSEA, 12/12/17) NAUSEA Past Medical History Coronary artery disease, diabetes mellitus, hypertension, seizure, thyroidectomy, history of meningoencephalitis Past Surgical History appendectomy, neck and lower back surgery, stents, cholecystectomy, left orbital bone fracture, right kidney ureter surgery, total hysterectomy, right knee and right hip replacement, right upper lung removed Reported Medications Reported Meds & Active Scripts Active Cipro (Ciprofloxacin HCl) 500 Mg Tab 500 Mg PO BID Lactinex (Lactobacillus Acidophilus) 1 Chew 1 Tab CHEW BID Reglan (Metoclopramide HCl) 10 Mg Tab 10 Mg PO TIDAC PRN Endocet (Oxycodone-Acetaminophen) 5-325 mg Tab 1 Tab PO Q4H PRN Epinephrine Inj 1 Mg/Ml (1 Ml) Inj 0.3 Mg IV PUSH ONCE PRN Solu-Cortef Inj (Hydrocortisone Sodium Succinate) 250 Mg/2 Ml Inj 250 Mg IV PUSH ONCE PRN Give over 30-60 seconds. Isosorbide Mononitrate ER (Isosorbide Mononitrate) 30 Mg Naty 30 Mg PO DAILY@07 Lisinopril 20 Mg Tab 40 Mg PO DAILY Brilinta (Ticagrelor) 90 Mg Tab 90 Mg PO BID Atorvastatin (Atorvastatin Calcium) 40 Mg Tab 40 Mg PO HS Reported Jardiance (Empagliflozin) 10 Mg Tab 10 Mg PO DAILY Metoprolol Tartrate 25 Mg Tab 25 Mg PO BID Eliquis (Apixaban) 5 Mg Tab 5 Mg PO BID Metformin (Metformin HCl) 1,000 Mg Tab 1,000 Mg PO BIDPC Vitamin C (Ascorbic Acid) 250 Mg Chew 500 Mg CHEW BID Trazodone (Trazodone HCl) 50 Mg Tab 50 Mg PO HS Tramadol (Tramadol HCl) 50 Mg Tab 100 Mg PO Q12HR PRN Synthroid (Levothyroxine Sodium) 88 Mcg Tab 88 Mcg PO DAILY Gabapentin 300 Mg Cap 300 Mg PO TID Omeprazole 20 Mg Tab 20 Mg PO DAILY Bethanechol 25 Mg Tab 25 Mg PO QID Active Ordered Medications Current Medications Medications (Trade) Dose Ordered Sig/Cristine Route Start Time Stop Time Status Last Admin (NS Flush) 2 ml UNSCH PRN IVF 01/31/18 14:00 (NS Flush) 2 ml UNSCH PRN IVF 01/31/18 14:45 Sodium Chloride 1,000 ml @ 42 mls/hr [id number] IV 01/31/18 16:15 01/31/18 17:28 (D50w (Vial) Inj) 50 ml UNSCH PRN IV PUSH 01/31/18 16:30 (Glucagon Inj) 1 mg UNSCH PRN OTHER 01/31/18 16:30 (NovoLOG SUPPLEMENTAL SCALE) 1 ACHS SLIDING SCALE SQ 01/31/18 17:00 (NS Flush) 2 ml UNSCH PRN IV FLUSH 01/31/18 16:30 (NS Flush) 2 ml BID IV FLUSH 01/31/18 21:00 (Tylenol) 650 mg Q4H PRN PO 01/31/18 16:30 (Zofran Odt) 4 mg Q6H PRN PO 01/31/18 16:30 (Tylenol) 650 mg Q6H PRN PO 01/31/18 16:30 (Narcan Inj) 0.4 mg UNSCH PRN IV PUSH 01/31/18 16:30 (Kamini-Colace) 1 tab BID PO 01/31/18 21:00 (Senokot) 17.2 mg Q12H PRN PO 01/31/18 16:30 (Dulcolax Supp) 10 mg DAILY PRN RECTAL 01/31/18 16:30 (Lactulose Liq) 30 ml DAILY PRN PO 01/31/18 16:30 (Eliquis) 5 mg BID PO 01/31/18 21:00 (Lipitor) 40 mg HS PO 01/31/18 21:00 (Urecholine) 25 mg QID PO 01/31/18 18:00 (Cipro) 500 mg BID PO 01/31/18 21:00 02/01/18 20:59 (Neurontin) 300 mg TID PO 01/31/18 18:00 (Synthroid) 88 mcg DAILY@0600 PO 02/01/18 06:00 (Lopressor) 50 mg BID PO 01/31/18 21:00 (Percocet 5-325 Mg) 1 tab Q4H PRN PO 01/31/18 16:45 (Brilinta) 90 mg BID PO 01/31/18 21:00 (Ultram) 100 mg Q12HR PRN PO 01/31/18 16:45 (Desyrel) 50 mg HS PO 01/31/18 21:00 (Lactinex) 1 tab BID PO 01/31/18 21:00 (Protonix) 20 mg DAILY PO 02/01/18 09:00 (Nitrostat Sl) 0.4 mg Q5M PRN SL 01/31/18 17:00 Esmolol HCl/ Sodium Chloride 250 ml @ 24.81 mls/ hr TITRATE PRN IV 01/31/18 18:00 Family History No pertinent hx of CAd Physical Exam Vital Signs Vital Signs Date Time Temp Pulse Resp B/P (MAP) Pulse Ox O2 Delivery O2 Flow Rate FiO2 01/31/18 17:30 120 18 129/60 (83) 98 Nasal Cannula 2.00 01/31/18 17:14 100 Nasal Cannula 2.00 01/31/18 16:15 108 18 140/84 (102) 100 Nasal Cannula 2.00 01/31/18 15:10 138 18 137/66 (89) 100 Nasal Cannula 2.00 01/31/18 15:08 143 119/90 01/31/18 14:10 130 18 100 Nasal Cannula 2.00 01/31/18 14:00 152 18 106/64 (78) 97 Nasal Cannula 2.00 01/31/18 13:41 150 18 95 Nasal Cannula 01/31/18 13:32 97.6 141 24 159/82 (107) 100 Physical Exam GENERAL: This is a well-nourished, well-developed patient, in no apparent distress. SKIN: No rashes, ecchymoses or lesions. Cool and dry. HEAD: Atraumatic. Normocephalic. No temporal or scalp tenderness. EYES: Pupils equal round and reactive. Extraocular motions intact. No scleral icterus. No injection or drainage. ENT: Nose without bleeding, purulent drainage or septal hematoma. Throat without erythema, tonsillar hypertrophy or exudate. Uvula midline. Airway patent. NECK: Trachea midline. No JVD or lymphadenopathy. Supple, nontender, no meningeal signs. CARDIOVASCULAR: Irregularly irregular tachycardic. 2/6 systolic murmur at LLSB and apex. Normal S1 S2, no edema RESPIRATORY: Clear to auscultation. Breath sounds equal bilaterally. No wheezes , rales, or rhonchi. GASTROINTESTINAL: Abdomen soft, non-tender, nondistended. No guarding. MUSCULOSKELETAL: Extremities without clubbing, cyanosis, or edema. No joint tenderness, effusion, or edema noted. No calf tenderness. Negative Homans sign bilaterally. NEUROLOGICAL: Awake and alert. Cranial nerves II through XII intact. Motor and sensory grossly within normal limits. Five out of 5 muscle strength in all muscle groups. Normal speech. Laboratory Laboratory Tests Test 01/31/18 14:31 01/31/18 15:25 Blood Urea Nitrogen 32 Creatinine 1.68 Random Glucose 214 Total Protein 9.2 Albumin 3.9 Calcium Level 9.1 Magnesium Level 1.2 Alkaline Phosphatase 198 Aspartate Amino Transf (AST/SGOT) 45 Alanine Aminotransferase (ALT/SGPT) 39 Total Bilirubin 0.4 Sodium Level 140 Potassium Level 4.4 Chloride Level 105 Carbon Dioxide Level 19.9 Anion Gap 15 Estimat Glomerular Filtration Rate 30 Total Creatine Kinase 84 Troponin I 0.03 Thyroid Stimulating Hormone 3rd Gen 0.634 White Blood Count 9.7 Red Blood Count 4.51 Hemoglobin 11.6 Hematocrit 36.6 Mean Corpuscular Volume 81.3 Mean Corpuscular Hemoglobin 25.7 Mean Corpuscular Hemoglobin Concent 31.6 Red Cell Distribution Width 19.3 Platelet Count 249 Mean Platelet Volume 10.8 Neutrophils (%) (Auto) 81.3 Lymphocytes (%) (Auto) 11.5 Monocytes (%) (Auto) 5.1 Eosinophils (%) (Auto) 0.8 Basophils (%) (Auto) 1.3 Neutrophils # (Auto) 7.8 Lymphocytes # (Auto) 1.1 Monocytes # (Auto) 0.5 Eosinophils # (Auto) 0.1 Basophils # (Auto) 0.1 CBC Comment DIFF FINAL Differential Comment Prothrombin Time 11.6 Prothromb Time International Ratio 1.1 Activated Partial Thromboplast Time 28.2 Result Diagram: 01/31/18 1525 01/31/18 1431 Assessment and Plan Problem List: (1) CAD (coronary artery disease) ICD Codes: I25.10 - Atherosclerotic heart disease of [place] coronary artery without angina pectoris (2) Atrial fibrillation with RVR ICD Codes: I48.91 - Unspecified atrial fibrillation Status: Acute (3) Nausea and vomiting ICD Codes: R11.2 - Nausea with vomiting, unspecified Status: Acute (4) Acute kidney injury ICD Codes: N17.9 - Acute kidney failure, unspecified Status: Acute (5) DM (diabetes mellitus) ICD Codes: E11.9 - Type 2 diabetes mellitus without complications (6) HTN (hypertension) ICD Codes: I10 - Essential (primary) hypertension Assessment and Plan 1. Afib RVR On Eliquis for stroke prevention Need good rate control agreed IV Esmolol drip titrate for HR control Increase Metoprolol to 50 mg BID 2. CAD, hx of LAD stenting recently will follow troponin to rule out ischemia 3. HTN, BP stable. 4. HLP. On statin Dr. Christy will continue the care of this patient tomorrow. Wing Monie Ardon MD Jan 31, 2018 18:01
[2018-01-31] MEDS: BETHANECHOL CHL 25 MG TAB PO SCH ×2 (21:00→21:05)
[2018-01-31] MEDS ORDERED: ATORVASTATIN 40 MG TAB PO SCH (21:00)
[2018-01-31] MEDS ORDERED: traZODone HCL 50 MG TAB PO SCH (21:00)
[2018-01-31] MEDS: SODIUM CHLORIDE 0.9% FLUSH 10 ML FLUSH IV FLUSH SCH (21:05)
[2018-01-31] MEDS: TICAGRELOR 90 MG TAB PO SCH (21:05)
[2018-01-31] MEDS: GABAPENTIN 300 MG CAP PO SCH (21:05)
[2018-01-31] MEDS: CIPROFLOXACIN 500 MG TAB PO SCH (21:05)
[2018-01-31] MEDS: METOPROLOL TARTRATE 50 MG TAB PO SCH (21:05)
[2018-01-31] MEDS: LACTOBACILLUS ACIDOPHILUS TAB PO SCH (21:05)
[2018-01-31] MEDS: DOCUSATE SODIUM 50 MG/SENNA 8.6 MG TAB PO SCH (21:06)
[2018-01-31] MEDS: APIXABAN 5 MG TABLET PO SCH (21:06)
[2018-02-01 00:23] LABS: TROPONIN I 0.04 NG/ML (0.02-0.05)
[2018-02-01 03:36] VITALS: BP 130/59; PULSE 64; PULSE 78; RESP 15; TEMP 98; O2SAT 96
[2018-02-01] MEDS ORDERED: LEVOTHYROXINE SODIUM 88 MCG TAB PO SCH (06:00)
[2018-02-01 07:00] VITALS: BP 139/66; PULSE 66; PULSE 68; RESP 14; TEMP 97.6; O2SAT 99
--- NOTE | 2018-02-01 07:08 | HHI.PR ---
Subjective Remarks Follow-up Katy argueta. She is doing okay resolved nausea and vomiting tolerating p.o. Currently CVR esmolol drip never started. Discussed with cardiology, possible discharge later today pending repeat lab work. Objective Vitals Vital Signs Date Time Temp Pulse Resp B/P (MAP) Pulse Ox O2 Delivery O2 Flow Rate FiO2 02/01/18 03:36 98.0 78 15 130/59 (82) 96 02/01/18 03:36 64 01/31/18 23:21 98.2 77 15 101/53 (69) 96 01/31/18 23:21 72 01/31/18 22:22 96 Nasal Cannula 4.00 01/31/18 21:41 77 01/31/18 20:04 95 Nasal Cannula 4.00 01/31/18 19:15 98.4 77 15 140/86 (104) 96 01/31/18 19:14 01/31/18 19:00 105 01/31/18 17:30 120 18 129/60 (83) 98 Nasal Cannula 2.00 01/31/18 17:14 100 Nasal Cannula 2.00 01/31/18 16:15 108 18 140/84 (102) 100 Nasal Cannula 2.00 01/31/18 15:10 138 18 137/66 (89) 100 Nasal Cannula 2.00 01/31/18 15:08 143 119/90 01/31/18 14:10 130 18 100 Nasal Cannula 2.00 01/31/18 14:00 152 18 106/64 (78) 97 Nasal Cannula 2.00 01/31/18 13:41 150 18 95 Nasal Cannula 01/31/18 13:32 97.6 141 24 159/82 (107) 100 I/O 01/31/18 01/31/18 01/31/18 02/01/18 02/01/18 02/01/18 07:00 15:00 23:00 07:00 15:00 23:00 Intake Total 502 ml Balance 502 ml Intake IV Total 502 ml # Voids 2 # Bowel Movements 0 Result Diagram: 01/31/18 1525 01/31/18 1431 Imaging Last Impressions Chest X-Ray 01/31/18 1353 Signed Impressions: CONCLUSION: No acute cardiopulmonary disease Objective Remarks GENERAL: This is a well-nourished, well-developed patient, in no apparent distress. SKIN: No rashes, ecchymoses or lesions. Cool and dry. CARDIOVASCULAR: Irregularly irregular RESPIRATORY: Clear to auscultation. Breath sounds equal bilaterally. No wheezes , rales, or rhonchi. GASTROINTESTINAL: Abdomen soft, non-tender, nondistended. No guarding. MUSCULOSKELETAL: Extremities without clubbing, cyanosis, or edema. No joint tenderness, effusion, or edema noted. No calf tenderness. Negative Homans sign bilaterally. NEUROLOGICAL: Awake and alert. Cranial nerves II through XII intact. Motor and sensory grossly within normal limits. Five out of 5 muscle strength in all muscle groups. Normal speech. Procedures none A/P Problem List: (1) Atrial fibrillation with RVR ICD Code: I48.91 - Unspecified atrial fibrillation Status: Acute Assessment and Plan This is a 77-year-old female who presents to the emergency department because of palpitations. A. fib with RVR. TSH therapeutic. Now CVR after increasing Lopressor status post IV metoprolol, amiodarone and verapamil. Esmolol drip ordered but not started. Continue Eliquis Abnormal EKG with T inversion in the lateral leads and a slight ST depression in V4 to V6. Denies chest pain. History of CAD. Ruling out for DE continue to trend cardiac enzymes. Status post aspirin 1 Acute kidney injury secondary to dehydration from nausea and vomiting. Patient received fluid bolus in the emergency department. Continue gentle IV hydration with recent history of fluid overload .Avoid nephrotoxins. Follow-up repeat BMP and urinalysis Dysuria with history of chronic incontinence and recent cystoscopy on last dose of 7 day course ciprofloxacin. Repeat urinalysis pending Multiple medical conditions coronary artery disease, diabetes mellitus, hypertension, seizure with history of meningoencephalitis and thyroidectomy. Continue outpatient medications as appropriate. Hold diabetic and antihypertensive medications for now because of vomiting and dehydration. Fingersticks with sliding scale coverage DVT prophylaxis with SCD and Eliquis Discharge Planning Discharge patient to home Condition on discharge: Improved Regular Diet as tolerated Ad Fernanda activity no driving Rx written: Lopressor Follow-up with primary care physician and cardiology Vimal Mondragon MD Feb 01, 2018 07:08
--- NOTE | 2018-02-01 07:50 | PD.CARD.PN ---
Subjective Subjective Remarks feeling well. Denies chest pain. SOB or palpitations. Currently in NSR (Francine Thibodeaux) Objective Medications Current Medications Medications (Trade) Dose Ordered Sig/Cristine Route Start Time Stop Time Status Last Admin (NS Flush) 2 ml UNSCH PRN IVF 01/31/18 14:00 (NS Flush) 2 ml UNSCH PRN IVF 01/31/18 14:45 Sodium Chloride 1,000 ml @ 42 mls/hr [id number] IV 01/31/18 16:15 01/31/18 17:28 (D50w (Vial) Inj) 50 ml UNSCH PRN IV PUSH 01/31/18 16:30 (Glucagon Inj) 1 mg UNSCH PRN OTHER 01/31/18 16:30 (NovoLOG SUPPLEMENTAL SCALE) 1 ACHS SLIDING SCALE SQ 01/31/18 17:00 (NS Flush) 2 ml UNSCH PRN IV FLUSH 01/31/18 16:30 (NS Flush) 2 ml BID IV FLUSH 01/31/18 21:00 01/31/18 21:05 (Tylenol) 650 mg Q4H PRN PO 01/31/18 16:30 (Zofran Odt) 4 mg Q6H PRN PO 01/31/18 16:30 (Tylenol) 650 mg Q6H PRN PO 01/31/18 16:30 (Narcan Inj) 0.4 mg UNSCH PRN IV PUSH 01/31/18 16:30 (Kamini-Colace) 1 tab BID PO 01/31/18 21:00 01/31/18 21:06 (Senokot) 17.2 mg Q12H PRN PO 01/31/18 16:30 (Dulcolax Supp) 10 mg DAILY PRN RECTAL 01/31/18 16:30 (Lactulose Liq) 30 ml DAILY PRN PO 01/31/18 16:30 (Eliquis) 5 mg BID PO 01/31/18 21:00 01/31/18 21:06 (Lipitor) 40 mg HS PO 01/31/18 21:00 01/31/18 21:05 (Urecholine) 25 mg QID PO 01/31/18 18:00 01/31/18 21:00 (Cipro) 500 mg BID PO 6/24/18 21:00 02/01/18 20:59 01/31/18 21:05 (Neurontin) 300 mg TID PO 01/31/18 18:00 01/31/18 21:05 (Synthroid) 88 mcg DAILY@0600 PO 02/01/18 06:00 02/01/18 06:00 (Lopressor) 50 mg BID PO 01/31/18 21:00 01/31/18 21:05 (Percocet 5-325 Mg) 1 tab Q4H PRN PO 01/31/18 16:45 (Brilinta) 90 mg BID PO 01/31/18 21:00 01/31/18 21:05 (Ultram) 100 mg Q12HR PRN PO 01/31/18 16:45 (Desyrel) 50 mg HS PO 01/31/18 21:00 01/31/18 21:06 (Lactinex) 1 tab BID PO 01/31/18 21:00 01/31/18 21:05 (Protonix) 20 mg DAILY PO 02/01/18 09:00 (Nitrostat Sl) 0.4 mg Q5M PRN SL 01/31/18 17:00 Esmolol HCl/ Sodium Chloride 250 ml @ 24.81 mls/ hr TITRATE PRN IV 01/31/18 18:00 Vital Signs / I&O Vital Signs Date Time Temp Pulse Resp B/P (MAP) Pulse Ox O2 Delivery O2 Flow Rate FiO2 02/01/18 03:36 98.0 78 15 130/59 (82) 96 02/01/18 03:36 64 01/31/18 23:21 98.2 77 15 101/53 (69) 96 01/31/18 23:21 72 01/31/18 22:22 96 Nasal Cannula 4.00 01/31/18 21:41 77 01/31/18 20:04 95 Nasal Cannula 4.00 01/31/18 19:15 98.4 77 15 140/86 (104) 96 01/31/18 19:14 01/31/18 19:00 105 01/31/18 17:30 120 18 129/60 (83) 98 Nasal Cannula 2.00 01/31/18 17:14 100 Nasal Cannula 2.00 01/31/18 16:15 108 18 140/84 (102) 100 Nasal Cannula 2.00 01/31/18 15:10 138 18 137/66 (89) 100 Nasal Cannula 2.00 01/31/18 15:08 143 119/90 01/31/18 14:10 130 18 100 Nasal Cannula 2.00 01/31/18 14:00 152 18 106/64 (78) 97 Nasal Cannula 2.00 01/31/18 13:41 150 18 95 Nasal Cannula 01/31/18 13:32 97.6 141 24 159/82 (107) 100 I/O 01/31/18 01/31/18 01/31/18 02/01/18 02/01/18 02/01/18 07:00 15:00 23:00 07:00 15:00 23:00 Intake Total 502 ml Balance 502 ml Intake IV Total 502 ml # Voids 2 # Bowel Movements 0 Physical Exam GENERAL: SKIN: Warm and dry. HEAD: Atraumatic. Normocephalic. EYES: Pupils equal and round. No scleral icterus. ENT: No nasal bleeding or discharge. NECK: Trachea midline. No JVD. CARDIOVASCULAR: Regular rate and rhythm. no murmurs RESPIRATORY: No accessory muscle use. Clear to auscultation. Breath sounds equal bilaterally. GASTROINTESTINAL: Abdomen soft, non-tender, nondistended. Hepatic and splenic margins not palpable. MUSCULOSKELETAL: Extremities without clubbing, cyanosis, or edema. No obvious deformities. NEUROLOGICAL: Awake and alert. No obvious cranial nerve deficits. Normal speech. PSYCHIATRIC: Appropriate mood and affect; insight and judgment normal. Laboratory Laboratory Tests Test 01/31/18 14:31 01/31/18 15:25 01/31/18 23:50 Blood Urea Nitrogen 32 MG/DL Creatinine 1.68 MG/DL Random Glucose 214 MG/DL Total Protein 9.2 GM/DL Albumin 3.9 GM/DL Calcium Level 9.1 MG/DL Magnesium Level 1.2 MG/DL Alkaline Phosphatase 198 U/L Aspartate Amino Transf (AST/SGOT) 45 U/L Alanine Aminotransferase (ALT/SGPT) 39 U/L Total Bilirubin 0.4 MG/DL Sodium Level 140 MEQ/L Potassium Level 4.4 MEQ/L Chloride Level 105 MEQ/L Carbon Dioxide Level 19.9 MEQ/L Anion Gap 15 MEQ/L Estimat Glomerular Filtration Rate 30 ML/MIN Total Creatine Kinase 84 U/L 225 U/L Troponin I 0.03 NG/ML 0.04 NG/ML Thyroid Stimulating Hormone 3rd Gen 0.634 uIU/ML White Blood Count 9.7 TH/MM3 Red Blood Count 4.51 MIL/MM3 Hemoglobin 11.6 GM/DL Hematocrit 36.6 % Mean Corpuscular Volume 81.3 FL Mean Corpuscular Hemoglobin 25.7 PG Mean Corpuscular Hemoglobin Concent 31.6 % Red Cell Distribution Width 19.3 % Platelet Count 249 TH/MM3 Mean Platelet Volume 10.8 FL Neutrophils (%) (Auto) 81.3 % Lymphocytes (%) (Auto) 11.5 % Monocytes (%) (Auto) 5.1 % Eosinophils (%) (Auto) 0.8 % Basophils (%) (Auto) 1.3 % Neutrophils # (Auto) 7.8 TH/MM3 Lymphocytes # (Auto) 1.1 TH/MM3 Monocytes # (Auto) 0.5 TH/MM3 Eosinophils # (Auto) 0.1 TH/MM3 Basophils # (Auto) 0.1 TH/MM3 CBC Comment DIFF FINAL Differential Comment Prothrombin Time 11.6 SEC Prothromb Time International Ratio 1.1 RATIO Activated Partial Thromboplast Time 28.2 SEC Creatine Kinase MB 2.9 NG/ML Creatine Kinase MB % 1.3 % Imaging Last 24 hours Impressions Chest X-Ray 01/31/18 1353 Signed Impressions: CONCLUSION: No acute cardiopulmonary disease (Francine Thibodeaux) Assessment and Plan Problem List: (1) CAD (coronary artery disease) ICD Codes: I25.10 - Atherosclerotic heart disease of [place] coronary artery without angina pectoris (2) Atrial fibrillation with RVR ICD Codes: I48.91 - Unspecified atrial fibrillation Status: Acute (3) Nausea and vomiting ICD Codes: R11.2 - Nausea with vomiting, unspecified Status: Acute (4) Acute kidney injury ICD Codes: N17.9 - Acute kidney failure, unspecified Status: Acute (5) DM (diabetes mellitus) ICD Codes: E11.9 - Type 2 diabetes mellitus without complications (6) HTN (hypertension) ICD Codes: I10 - Essential (primary) hypertension Assessment and Plan 77 yo WF with CAD PCI BEREKET LAD and RCA (04/2017), EF in 2017 55-60%, DMII and HTN admitted for palpitations and found to be in afib RVR and UTI. 1. Afib RVR- currently in NSR and asymptomatic On Eliquis for stroke prevention IV Esmolol drip titrate for HR control Metoprolol to 50 mg BID check echo 2. CAD, hx of LAD stenting recently troponin levels stable and not increasing 3. HTN, BP stable. 4. HLP. On statin 5. KANCHAN- creatinine 1.68, s/p IVF, BMP this morning pending (Francine Thibodeaux) Assessment and Plan Patient seen and examined. Patient feeling better today. Tele: converted to NSR with only 2sec conversion pause yesterday evening. AF RVR in setting of nausea, vomiting and dehydration KANCHAN secondary to prerenal azotemia CAD s/p NSTEMI with PCI LAD Rec: d/c esmolol gtt continue metoprolol 50mg bid, eliquis Brilinta is ok with atorvastatin IV hydration and if tolerating po, suspect d/c today. (Petros Velasquez DO) Francine Thibodeaux Feb 01, 2018 07:50 Petros Velasquez DO Feb 01, 2018 08:13
[2018-02-01] MEDS: INSULIN ASPART SUPPLEMENTAL SCALE SQ SCH ×2 (08:00→12:00)
[2018-02-01 08:03] LABS: AUTOMATED NEUTROPHIL # 4.9 TH/MM3 (1.8-7.7); BASOPHIL # 0.1 TH/MM3 (0-0.2); BASOPHIL % 1.3 % (0.0-2.0); EOSINOPHIL # 0.1 TH/MM3 (0-0.4); EOSINOPHIL % 1.9 % (0.0-4.0); HEMATOCRIT 32.9 % (35.0-46.0); HEMOGLOBIN 10.4 GM/DL (11.6-15.3); LYMPH % 22.4 % (9.0-44.0); LYMPHOCYTE # 1.7 TH/MM3 (1.0-4.8); MEAN CELL VOLUME 79.7 FL (80.0-100.0); MEAN CORPUSCULAR HEMOGLOBIN 25.1 PG (27.0-34.0); MEAN CORPUSCULAR HGB CONC 31.5 % (32.0-36.0); MEAN PLATELET VOLUME 9.9 FL (7.0-11.0); MONO % 9.7 % (0.0-8.0); MONOCYTE # 0.7 TH/MM3 (0-0.9); NEUT % 64.7 % (16.0-70.0); PLATELET COUNT 198 TH/MM3 (150-450); RED BLOOD COUNT 4.13 MIL/MM3 (4.00-5.30); RED CELL DISTRIBUTION WIDTH 19.6 % (11.6-17.2); WHITE BLOOD COUNT 7.5 TH/MM3 (4.0-11.0)
[2018-02-01] MEDS ORDERED: METO-309 PO (08:29)
--- NOTE | 2018-02-01 08:29 | HHI.DCPOC ---
Discharge Care Plan Diagnosis: (1) Atrial fibrillation with RVR Your Health Problems Are: Difficulty with ADL Exercise Tolerance Goals to Promote Your Health * To prevent worsening of your condition and complications * To maintain your health at the optimal level Directions to Meet Your Goals Take your medications as prescribed Follow your dietary instruction Follow activity as directed Keep your appointments as scheduled Take your immunizations and boosters as scheduled If your symptoms worsen call your PCP, if no PCP go to Urgent Care Center or Emergency Room Smoking is Dangerous to Your Health. Avoid second hand smoke Call the 24-hour hour crisis hotline for domestic abuse at Vimal Mondragon MD Feb 01, 2018 08:29
[2018-02-01 08:57] LABS: BICARBONATE 24.1 MEQ/L (21.0-32.0); CALCIUM 8.2 MG/DL (8.5-10.1); CREATININE 1.05 MG/DL (0.50-1.00); TROPONIN I 0.05 NG/ML (0.02-0.05)
[2018-02-01] MEDS ORDERED: PANTOPRAZOLE SOD 20 MG DELAYED RELEASE TAB PO SCH (09:00)
[2018-02-01] MEDS: SODIUM CHLORIDE 0.9% FLUSH 10 ML FLUSH IV FLUSH SCH (09:29)
[2018-02-01] MEDS: CIPROFLOXACIN 500 MG TAB PO SCH (09:29)
[2018-02-01] MEDS: APIXABAN 5 MG TABLET PO SCH (09:29)
[2018-02-01] MEDS: DOCUSATE SODIUM 50 MG/SENNA 8.6 MG TAB PO SCH (09:29)
[2018-02-01] MEDS: BETHANECHOL CHL 25 MG TAB PO SCH (09:29)
[2018-02-01] MEDS: LACTOBACILLUS ACIDOPHILUS TAB PO SCH (09:29)
[2018-02-01] MEDS: GABAPENTIN 300 MG CAP PO SCH (09:30)
[2018-02-01] MEDS: METOPROLOL TARTRATE 50 MG TAB PO SCH (09:30)
[2018-02-01] MEDS: TICAGRELOR 90 MG TAB PO SCH (09:30)
[2018-02-01 12:00] VITALS: BP 155/83; PULSE 70; RESP 16; TEMP 98.4; O2SAT 99
[2018-02-01 14:06] VITALS: O2SAT 95
[2018-02-01] MEDS ORDERED: GABAPENTIN 300 MG CAP PO SCH (21:00)
--- NOTE | 2018-02-01 22:58 | EKG ---
Date Performed: 02/01/2018 Time Performed: 03:09:14 PTAGE: 77 years EKG: Sinus rhythm Left axis deviation Borderline ECG PREVIOUS TRACING : 01/31/2018 13.41 Since the previous tracing, no significant change noted DOCTOR: Viral Mnazo Interpretating Date/Time 02/01/2018 22:57:32
--- NOTE | 2018-02-01 23:09 | EKG ---
Date Performed: 01/31/2018 Time Performed: 21:26:58 PTAGE: 77 years EKG: Sinus arrhythmia with PVC(s) Left axis deviation Borderline ECG Compared to PREVIOUS TRACING , now noted to be in normal Sinus rhythm DOCTOR: Viral Manzo Interpretating Date/Time 02/01/2018 23:08:31
--- NOTE | 2018-02-01 23:31 | EKG ---
Date Performed: 01/31/2018 Time Performed: 13:41:57 PTAGE: 77 years EKG: ATRIAL FIBRILLATION WITH RAPID VENTRICULAR RESPONSE MARKED LEFT AXIS DEVIATION ST DEVIATION AND MODERATE T-WAVE ABNORMALITY, CONSIDER LATERAL ISCHEMIA ABNORMAL ECG Compared to PREVIOUS TRACING , now AFib with RVR, ST/T wave changes may be rate related DOCTOR: Viral Manzo Interpretating Date/Time 02/01/2018 23:30:08
== END 2018-02-01 13:42 | disposition home or self-care (01) | DRG 309 ==
LOC: NEPE 13:31 → NEDA 16:41 → HCVI 19:07
PROVIDERS: ADMIT Internal Medicine; ATTEND Internal Medicine
DX: I48.91 Unspecified atrial fibrillation (principal); Z79.02 Long term (current) use of antithrombotics/antiplatelets; N17.9 Acute kidney failure, unspecified; R56.9 Unspecified convulsions; E86.0 Dehydration; E11.9 Type 2 diabetes mellitus without complications; Z79.84 Long term (current) use of oral hypoglycemic drugs; I10 Essential (primary) hypertension; E89.0 Postprocedural hypothyroidism; Z90.2 Acquired absence of lung [part of]; R11.2 Nausea with vomiting, unspecified; I25.10 Atherosclerotic heart disease of native coronary artery without angina pectoris; I25.2 Old myocardial infarction; E78.5 Hyperlipidemia, unspecified; K21.9 Gastro-esophageal reflux disease without esophagitis; Z96.641 Presence of right artificial hip joint; Z96.651 Presence of right artificial knee joint; Z87.891 Personal history of nicotine dependence
CPT/HCPCS: 71045; 80048; 80053; 82550; 82552; 82948; 83735; 84443; 84484; 85025; 85610; 85730; 93005; J0282; J1815; J2550; J7030